=== PATIENT | male | born 1940 | race Caucasian/White ===

== ENCOUNTER 2016-08-22 09:43 | Inpatient (IN) | payer MEDICARE ==
[2016-08-22] MEDS ORDERED: NITROGLYCERIN SL TABS 0.4 MG TAB SUBLINGUAL STA (10:07)
[2016-08-22] MEDS ORDERED: ASPIRIN 81 MG CHEW PO STA ×2 (10:07→10:22)
--- NOTE | 2016-08-22 10:22 | ED ---
Chest Pain HPI - General Chief Complaint: Chest Pain Stated Complaint: Chest Pain Time Seen by Provider: 08/22/16 09:56 Source: patient, family, RN notes reviewed Mode of arrival: wheelchair Limitations: no limitations - History of Present Illness Initial Comments: This is a 75-year-old male who presents with complaints of chest pain which started last night. He states pain is midsternal left-sided going down the left arm numbness. With 9/10 in severity this morning and is 8/10 with a denies any fevers chills nausea vomiting sweats he is a smoker. He has hypertension no other complaints at this time he did take a baby aspirin is warranted and taking nitroglycerin. He has had a history of bypass surgery in the past. sharp component to it was different than normal. MD Complaint: chest pain - Related Data Home Medications Medication Instructions Recorded Confirmed Acetaminophen [Tylenol] 500 mg PO Q4H PRN 08/22/16 08/22/16 Aspirin EC [Ecotrin Low Dose] 81 mg PO DAILY 08/22/16 08/22/16 Carvedilol [Coreg] 6.25 mg PO BID 08/22/16 08/22/16 Crestor (Unknown Dose) 1 tab PO DAILY 08/22/16 08/22/16 Enalapril [Vasotec] 5 mg PO BID 08/22/16 08/22/16 Furosemide [Lasix] 40 mg PO DAILY 08/22/16 08/22/16 Nitroglycerin Sl Tabs [Nitrostat] 0.4 mg SUBLINGUAL Q5M PRN 08/22/16 08/22/16 Potassium Chloride [Klor-Con 20] 20 meq PO DAILY 08/22/16 08/22/16 Ranolazine [Ranexa] 1,000 mg PO BID 08/22/16 08/22/16 amLODIPine [Norvasc] 10 mg PO DAILY 08/22/16 08/22/16 Allergies Allergy/AdvReac Type Severity Reaction Status Date / Time No Known Allergies Allergy Verified 08/22/16 10:40 Review of Systems ROS Statement: Those systems with pertinent positive or pertinent negative responses have been documented in the HPI. ROS Other: All systems not noted in ROS Statement are negative. EKG Findings - EKG Results: EKG: interpreted by NORA, sinus rhythm (Sinus rhythm rate 62. 172 QRS of 140 daily since QTC of 458/464 evidence a right bundle-branch block old inferior changes no acute ST-T wave elevations or depressions at this time.) Past Medical History Past Medical History: Chest Pain / Angina, Heart Failure, Hypertension History of Any Multi-Drug Resistant Organisms: None Reported Past Surgical History: Back Surgery, Coronary Bypass/CABG, Heart Catheterization With Stent, Orthopedic Surgery Additional Past Surgical History / Comment(s): KNEE, LUNG Past Psychological History: No Psychological Hx Reported Smoking Status: Current every day smoker Past Alcohol Use History: None Reported Past Drug Use History: None Reported General Exam - General Exam Comments Initial Comments: This is a well-developed well-nourished awake alert oriented 3 male Limitations: no limitations General appearance: alert, in no apparent distress Head exam: Present: atraumatic, normocephalic, normal inspection Eye exam: Present: normal appearance, PERRL, EOMI. Absent: scleral icterus, conjunctival injection, periorbital swelling ENT exam: Present: normal exam, mucous membranes moist Neck exam: Present: normal inspection. Absent: tenderness, meningismus, lymphadenopathy Respiratory exam: Present: normal lung sounds bilaterally, chest wall tenderness. Absent: respiratory distress, wheezes, rales, rhonchi, stridor Cardiovascular Exam: Present: regular rate, normal rhythm, normal heart sounds. Absent: systolic murmur, diastolic murmur, rubs, gallop, clicks GI/Abdominal exam: Present: soft, normal bowel sounds. Absent: distended, tenderness, guarding, rebound, rigid Extremities exam: Present: normal inspection, full ROM, normal capillary refill. Absent: tenderness, pedal edema, joint swelling, calf tenderness Back exam: Present: normal inspection Neurological exam: Present: alert, oriented X3, CN II-XII intact Psychiatric exam: Present: normal affect, normal mood Skin exam: Present: warm, dry, intact, normal color. Absent: rash Course Vital Signs 08/22/16 08/22/16 08/22/16 09:44 10:25 10:30 Temperature 97.0 F L Pulse Rate 65 Respiratory 18 Rate Blood Pressure 151/72 125/61 111/56 O2 Sat by Pulse 97 Oximetry 08/22/16 08/22/16 08/22/16 10:35 11:05 11:10 Temperature Pulse Rate 60 59 L Respiratory 18 18 Rate Blood Pressure 99/63 123/66 112/60 O2 Sat by Pulse 96 93 L Oximetry 08/22/16 08/22/16 12:10 12:15 Temperature Pulse Rate 56 L 57 L Respiratory 18 16 Rate Blood Pressure 113/60 113/60 O2 Sat by Pulse 99 98 Oximetry - Reevaluation(s) Reevaluation #1: 08/22/16 13:24 Patient did get some relief of the initial nitroglycerin did drop his blood pressure. IV fluids were given he didn't respond. Chest Pain MDM - MDM I did review the imaging and reports no acute findings. Patient did get some relief from nitroglycerin or do not believe all pain is cardiac it may be musculoskeletal in combination. Patient will be admitted for evaluation by cardiology. We did discuss smoking cessation the patient states he does plan to quit smoking now. Critical Care Time Critical Care Time: Yes Critical Care Time: 31 minutes of critical care time which includes initial presentation with history physical labs x-rays discussed with patient on multiple occasions pulses family. Reevaluation. Discussed with the admitting physician. Initial orders and documentation of the above. Disposition Clinical Impression: Unstable angina pectoris, Chest wall syndrome Disposition: ADMITTED IP TO THIS [facility] Condition: Stable Referrals: Nonstaff,Physician [REFERRING] - 1-2 days
[2016-08-22 10:24] LABS: Basophils # (A) 0.1 k/uL (0-0.2); Basophils % (A) 1 %; CH 32.3; CHCM 34.6; Eosinophils # (A) 0.2 k/uL (0-0.7); Eosinophils % (A) 2 %; HCT 46.8 % (39.0-53.0); HDW 2.48; HGB 15.9 gm/dL (13.0-17.5); Luc # (Auto) 0.24; Luc % (Auto) 3; Lymphocytes # (A) 2.4 k/uL (1.0-4.8); Lymphocytes % (A) 26 %; MCH 31.9 pg (25.0-35.0); MCV 93.7 fL (80.0-100.0); Mean Platelet Volume 7.7; Monocytes # (A) 0.6 k/uL (0-1.0); Monocytes % (A) 7 %; Neutrophils # (A) 5.7 k/uL (1.3-7.7); Neutrophils % (A) 62 %; RBC 4.99 m/uL (4.30-5.90); RDW 13.3 % (11.5-15.5); WBC 9.1 k/uL (3.8-10.6); WBC (Perox) 9.01
[2016-08-22 10:37] LABS: INR 1.1 (<1.1); Partial Thromboplastin Time 26.6 sec (22.0-30.0); Prothrombin Time 10.6 sec (9.0-12.0)
[2016-08-22 10:38] LABS: ALT 29 U/L (21-72); AST 18 U/L (17-59); Alkaline Phosphatase 59 U/L (38-126); Anion Gap 12 mmol/L; Blood Urea Nitrogen 29 mg/dL (9-20); Calcium 9.8 mg/dL (8.4-10.2); Carbon Dioxide 21 mmol/L (22-30); Chloride 109 mmol/L (98-107); Glucose 110 mg/dL (74-99); Non-African American GFR(MDRD) 51 (>60 ml/min/1.73 sqM); Potassium 4.4 mmol/L (3.5-5.1); Sodium 142 mmol/L (137-145); Total Bilirubin 1.2 mg/dL (0.2-1.3); Total Protein 7.4 g/dL (6.3-8.2)
[2016-08-22] MEDS ORDERED: SODIUM CHLORIDE 0.9% 500 ML IV STA (10:40)
[2016-08-22 11:06] LABS: Creatine Kinase MB 1.2 ng/mL (0.0-2.4)
[2016-08-22 11:11] LABS: Troponin I 0.041 ng/mL (0.000-0.034)
[2016-08-22] MEDS ORDERED: HEPARIN SODIUM,PORCINE 5,000 UNIT/ML 1 ML VIAL IV ONE (11:12)
[2016-08-22] MEDS ORDERED: MORPHINE SULFATE 4 MG/ML SYRINGE IVP STA (11:12)
[2016-08-22] MEDS ORDERED: HEPARIN SODIUM,PORCINE/D5W PMX 25,000 UNIT in DEXTROSE/WATER 1 500ML.BAG IV SCH (11:15)
--- NOTE | 2016-08-22 11:15 | XR ---
EXAMINATION TYPE: XR chest 2V DATE OF EXAM: 08/22/2016 COMPARISON: NONE HISTORY: Chest pain TECHNIQUE: Frontal and lateral views of the chest are obtained. FINDINGS: The posterior fifth rib on the right likely has previously been resected, there is irregul arity of the posterior rib. Patient is post median sternotomy. No evident pneumothorax or pleural eff usion. Patchy basilar density is present bilaterally, the interstitium is mildly increased. Prominent lung volume may be indicative of COPD. There are overlying cardiac leads. Heart size is within kevin l limits. Coronary artery calcifications are present. Pulmonary vascularity and lisette unremarkable. IMPRESSION: Postop changes. There may be basilar atelectasis or scarring.
[2016-08-22] MEDS ORDERED: RX INFO: IV CONTRAST WAS GIVEN 1 EACH MISC MISCELLANE PRN (11:39)
--- NOTE | 2016-08-22 12:17 | CT ---
EXAMINATION TYPE: CT angio chest DATE OF EXAM: 08/22/2016 COMPARISON: NONE HISTORY: Chest pains since last night. History of CABG and bypass. CT DLP: 405.2 mGycm. Automated Exposure Control for Dose Reduction was Utilized. CONTRAST: CTA scan of the thorax is performed with IV Contrast, patient injected with 80 mL of Visipaque 320, p ulmonary embolism protocol. MIP Images are created on CT scanner and reviewed. FINDINGS: LUNGS: Mild underlying emphysematous change is felt present. Dependent atelectasis is seen in both lo wer lobes. There is subpleural reticulation and fibrosis identified bilaterally in the lower lobes. N o suspicious consolidation is seen. No pleural effusion or pneumothorax is noted bilaterally. No conc erning parenchymal nodule or mass is present. MEDIASTINUM: There is satisfactory enhancement of the pulmonary artery and its branches, there is no CT evidence for pulmonary embolism. There are no greater than 1 cm hilar or mediastinal lymph nodes. No cardiomegaly or pericardial effusion is seen. Prominent citizen [place] three-vessel coronary artery sally cification is seen. There is however post CABG changes with mediastinal clips and sternal wires. Refl ux of contrast into IVC and hepatic veins is noted. Mild left atrial dilatation is seen. There is mil d to moderate calcified plaque of the aorta extending into branch vessels. OTHER: There is partial visualization of small splenule inferiorly on axial image 151. IMPRESSION: 1. No CT evidence for pulmonary embolism. 2. Mild underlying emphysematous change with bilateral lower lung fibrosis, no convincing evidence fo r suspicious acute pulmonary process.
[2016-08-22] MEDS ORDERED: NITROGLYCERIN SL TABS 0.4 MG TAB SUBLINGUAL PRN ×2 (13:25→15:22)
[2016-08-22] MEDS ORDERED: ACETAMINOPHEN TAB 500 MG TAB PO PRN (13:27)
[2016-08-22] MEDS ORDERED: SODIUM CHLORIDE 0.9% 1,000 ML IV SCH (13:30)
[2016-08-22] MEDS ORDERED: ATORVASTATIN 80 MG TAB PO STA (15:22)
[2016-08-22] MEDS ORDERED: ALPRAZolam 0.5 MG TAB PO PRN (15:22)
[2016-08-22] MEDS ORDERED: ALPRAZolam 0.25 MG TAB PO PRN (15:22)
[2016-08-22] MEDS ORDERED: SODIUM CHLORIDE 0.9% 1,000 ML in EMPTY BAG 1 BAG IV ONE (15:22)
[2016-08-22] MEDS ORDERED: ASPIRIN 325 MG TAB PO STA (15:22)
[2016-08-22] MEDS: NITROGLYCERIN OINT 1 INCH/GM PACKET TOPICAL SCH ×2 (17:15→23:35)
[2016-08-22] MEDS ORDERED: HEPARIN SODIUM,PORCINE 5,000 UNIT/ML 1 ML VIAL IV PRN (17:48)
[2016-08-22 17:58] LABS: Creatine Kinase MB 1.4 ng/mL (0.0-2.4)
[2016-08-22 18:31] LABS: Troponin I 0.027 ng/mL (0.000-0.034)
--- NOTE | 2016-08-22 20:19 | CONS ---
DATE OF CONSULTATION: Mr. Rangel is a 75-year-old male who has moved from [place] to our area who presented to the emergency room with symptoms of chest discomfort. Patient underwent coronary bypass grafting about 6 years ago and appears to have single HDZ. His procedure was proceeded about 6 months ago by a percutaneous revascularization. He underwent cardiac catheterization about a year following that, but he was told medical therapy was recommended. He has been complaining of some chest discomfort on and off, but last night had severe chest discomfort and felt somewhat dyspneic and dizzy. Came into the emergency room. At time of my evaluation, he is pain free. He had discomfort occurred yesterday after he washed his truck. He has no clear PND or orthopnea. No peripheral edema. He has occasional palpitation, but no syncope. His coronary risk factors are remarkable for history of smoking. He is trying to cut back on smoking, he is down to a pack every 3 days. He has hypertension. He is nondiabetic. His medications include Coreg to 6.25 mg twice a day, amlodipine 10 mg daily, Ranexa 1 gram twice a day, Lasix 40 mg daily, Enalapril 5 mg twice a day, aspirin 81 mg daily. REVIEW OF SYSTEMS: RESPIRATORY SYSTEM: Chronic tobacco use, occasional dyspnea. GI: No recent GI bleeding. No peptic ulcer disease. system: No dysuria or hematuria. Nervous system: No stroke or seizure. PHYSICAL EXAMINATION: A 75-year-old male, alert, oriented, in no apparent distress. Blood pressure 148/80 with a heart in the 50s. HEAD: Normocephalic. EYES: Sclerae anicteric. NECK: Good upstroke. No bruit. No jugular venous distention. LUNGS: Clear to auscultation. HEART: Regular rate and rhythm. S1, S2, no S3, with systolic murmur heard at the base. No diastolic murmur. No rub. ABDOMEN: Soft, obese, nontender. EXTREMITIES: No edema. Lab data revealed BUN and creatinine 29 and 1.36. Potassium 4.4. Troponin 0.041. Hemoglobin of 15.9. He had a CT angiogram of the chest that revealed no evidence of pulmonary embolism with evidence of bilateral lung fibrosis and mild emphysematous changes. EKG revealed a sinus mechanism with a right bundle branch block with evidence of inferior wall myocardial infarction. Chest x-ray shows no acute changes. IMPRESSION: 1. Symptoms of chest discomfort highly suggestive of angina pectoris possible non-ST elevation myocardial infarction. 2. Status post coronary artery bypass grafting. 3. Hypertension. 4. Hyperlipidemia. 5. Diabetes mellitus. 6. Renal function abnormalities. RECOMMENDATION: From the cardiac standpoint, I will obtain echocardiogram with Doppler. I would recommend to proceed with coronary angiography to assess his status and guide his treatment. The rationale behind the procedure as well as risk and complications were discussed with the patient who is in full understanding and agreement. I will try to obtain the prior work-up that was done in [place]. I will add the statin to his regimen. Depending on his progress, further recommendation will be made.
[2016-08-22] MEDS: RANOLAZINE 500 MG TAB.ER.12H PO SCH (21:24)
[2016-08-22] MEDS: CARVEDILOL 6.25 MG TAB PO SCH (21:25)
[2016-08-23 00:14] LABS: Creatine Kinase MB 1.5 ng/mL (0.0-2.4)
[2016-08-23 00:23] LABS: Troponin I 0.035 ng/mL (0.000-0.034)
[2016-08-23] MEDS ORDERED: ATORVASTATIN 80 MG TAB PO ONE (06:00)
[2016-08-23] MEDS ORDERED: SODIUM CHLORIDE 0.9% 1,000 ML in EMPTY BAG 1 BAG IV ONE (06:00)
[2016-08-23] MEDS ORDERED: ASPIRIN 325 MG TAB PO ONE (06:00)
[2016-08-23] MEDS: NITROGLYCERIN OINT 1 INCH/GM PACKET TOPICAL SCH (06:07)
[2016-08-23] MEDS: LISINOPRIL 20 MG TAB PO SCH (06:09)
[2016-08-23] MEDS: CARVEDILOL 6.25 MG TAB PO SCH ×2 (06:09→20:54)
[2016-08-23] MEDS: RANOLAZINE 500 MG TAB.ER.12H PO SCH ×2 (06:10→20:54)
[2016-08-23 06:12] LABS: Glucose,Whole Blood 101 mg/dL (75-99)
[2016-08-23 06:16] LABS: Calcium 8.7 mg/dL (8.4-10.2); Potassium 4.1 mmol/L (3.5-5.1)
[2016-08-23] MEDS ORDERED: diphenhydrAMINE 50 MG/ML 1 ML VIAL ONE (07:27)
[2016-08-23] MEDS ORDERED: LIDOCAINE 2% INJ 20 MG/ML (20 ML MDV) ONE (07:27)
[2016-08-23] MEDS ORDERED: fentaNYL (PF) 50 MCG/ML 2 ML AMP ONE (07:27)
[2016-08-23] MEDS ORDERED: IV FLUID CONTINUATION 900 ML IV ONE (07:34)
[2016-08-23] MEDS ORDERED: fentaNYL (PF) 50 MCG/ML 2 ML AMP IV ONE (08:02)
[2016-08-23] MEDS ORDERED: diphenhydrAMINE 50 MG/ML 1 ML VIAL IVP ONE (08:02)
[2016-08-23] MEDS ORDERED: LIDOCAINE 2% INJ 20 MG/ML SQ ONE (08:07)
[2016-08-23] MEDS ORDERED: IODIXANOL 320 MG/ML 100 ML INTRAARTER ONE (08:24)
[2016-08-23] MEDS ORDERED: RX INFO: IV CONTRAST WAS GIVEN 1 EACH MISC MISCELLANE PRN (08:46)
[2016-08-23] MEDS ORDERED: CRESTOR PO SCH (09:00)
[2016-08-23] MEDS ORDERED: amLODIPine 10 MG TAB PO SCH (09:00)
[2016-08-23] MEDS ORDERED: amLODIPine 5 MG TAB PO SCH (09:00)
[2016-08-23] MEDS ORDERED: FUROSEMIDE 40 MG TAB PO SCH (09:00)
[2016-08-23] MEDS ORDERED: ASPIRIN 325 MG TAB PO SCH (09:00)
[2016-08-23] MEDS ORDERED: SODIUM CHLORIDE 0.9% 1,000 ML IV SCH (09:00)
[2016-08-23] MEDS: ASPIRIN 81 MG CHEW PO SCH (09:03)
[2016-08-23] MEDS: ATORVASTATIN 40 MG TAB PO SCH (09:03)
[2016-08-23] MEDS: POTASSIUM CHLORIDE ER 20 MEQ TAB.ER PO SCH (09:05)
[2016-08-23] MEDS: CLOPIDOGREL 75 MG TAB PO SCH (09:17)
[2016-08-23] MEDS: hydrALAZINE HCL 25 MG TAB PO SCH ×2 (09:17→20:55)
[2016-08-23] MEDS: ISOSORBIDE MONONITRATE ER 30 MG TAB.ER.24H PO SCH (09:18)
--- NOTE | 2016-08-23 10:28 | ECHOF ---
Referral Reason:in MEASUREMENTS -------- HEIGHT: 177.8 cm WEIGHT: 90.7 kg BP: 148/85 RVIDd: 3.6 cm (< 3.3) IVSd: 1.8 cm (0.6 - 1.1) LVIDd: 5.0 cm (3.9 - 5.3) LVPWd: 1.5 cm (0.6 - 1.1) IVSs: 2.4 cm LVIDs: 3.1 cm LVPWs: 2.0 cm LAESV Index (A-L): 33.03 ml/m Ao Diam: 4.0 cm (2.0 - 3.7) AV Cusp: 1.5 cm (1.5 - 2.6) LA Diam: 4.2 cm (2.7 - 3.8) MV EXCURSION: 17.701 mm (> 18.000) MV EF SLOPE: 59 mm/s (70 - 150) EPSS: 0.8 cm MV E Edy: 0.88 m/s MV DecT: 178 ms MV A Edy: 0.73 m/s MV E/A Ratio: 1.20 AV maxP.06 mmHg AV meanP.98 mmHg FINDINGS -------- Sinus rhythm. This was a technically adequate study. There is moderate concentric left ventricular hypertrophy. Overall left ventricular systolic function is normal with, an EF between 60 - 65 %. The right ventricle is normal in size and function. LA is moderately dilated 34-39 ml/m2 The right atrium is normal in size. There is moderate aortic valve sclerosis. There is no evidence of aortic regurgitation. There is no evidence of aortic stenosis. The mitral valve leaflets are mildly thickened. Mild mitral annular calcification present. There is trace to mild mitral regurgitation. Trace tricuspid regurgitation present. There is no evidence of pulmonary hypertension. The right ventricular systolic pressure, as measured by Doppler, is {RVSP}. There is no pulmonic regurgitation present. The aortic root size is normal. IVC Not well visulized. The pericardium is normal. There is no pericardial effusion. CONCLUSIONS -------- 1. Sinus rhythm. 2. There is no evidence of pulmonary hypertension. 3. The right ventricular systolic pressure, as measured by Doppler, is {RVSP}. 4. There is no pulmonic regurgitation present. 5. The aortic root size is normal. 6. IVC Not well visulized. 7. There is no pericardial effusion. 8. There is moderate concentric left ventricular hypertrophy. 9. Overall left ventricular systolic function is normal with, an EF between 60 - 65 %. 10. LA is moderately dilated 34-39 ml/m2 11. There is moderate aortic valve sclerosis. 12. The mitral valve leaflets are mildly thickened. 13. Mild mitral annular calcification present. 14. There is trace to mild mitral regurgitation. 15. Trace tricuspid regurgitation present. VENEER TAPING MACHINE OPERATOR: Kory Brooks RDCS
[2016-08-23 11:56] LABS: Glucose,Whole Blood 125 mg/dL (75-99)
[2016-08-23] MEDS: NICOTINE 14MG/24HR PATCH TRANSDERM SCH (13:17)
--- NOTE | 2016-08-23 15:06 | US ---
EXAMINATION TYPE: US renals and bladder DATE OF EXAM: 08/23/2016 COMPARISON: NONE CLINICAL HISTORY: renal failure. Patient is on cardiac catheterization precautions at time of bedside US. EXAM MEASUREMENTS: Right Kidney: 11.2 x 5.8 x 4.7 cm Left Kidney: 11.5 x 4.7 x 4.8 cm Post Void Residual Volume: not assessed as is on supine precautions until 1500 today. Right Kidney: medial lower cortical cyst is noted = 1.4 x 1.5 x 1.6cm; mid pole hypoechoic area is no souleymane pararenal area and suggests sonographic"sweat sign" (renal failure). Left Kidney: mid pole hypoechoic area is noted pararenal area and suggests sonographic"sweat sign" ( renal failure). Bladder: wnl Bilateral Jets seen: only left ureteral jet was seen after 3 minute observation. IMPRESSION: 1. Sonographic changes suggesting renal failure. 2. Inferior pole right renal cyst
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
[2016-08-23] MEDS: IPRATROPIUM-ALBUTEROL 3 ML NEB INHALATION SCH ×2 (16:44→21:08)
[2016-08-23 17:08] LABS: Glucose,Whole Blood 115 mg/dL (75-99)
--- NOTE | 2016-08-23 18:39 | CC ---
DATE OF SERVICE: Mr. Rangel is a 75-year-old male who recently moved to our area from [place] and has a prior history of coronary artery disease. He presented with symptoms of chest discomfort with mild elevation of his troponin. In view of that, recommendation was made regarding cardiac catheterization. The procedure as well as risk and complications were discussed with the patient, who was in full understanding and agreement. PROCEDURE: Patient was brought to the bundle tier and labeler in a fasting, semi-sedated state after receiving fentanyl and Benadryl and achieving moderate conscious sedated state. A 6 Trin[place] sheath was introduced in the right femoral artery. Selective right and left coronary angiography was performed using 6 [place] 4 Bend right and left Vivian catheters. Multiple views were taken of the arteries, including hemiaxial views. Following that, the 6 [place] right Vivian catheter was used to cannulate the HDZ to the LAD. Images of the grafts were obtained. Following that, 6 [place] tight pigtail catheter was introduced into the left ventricle and a 30-degree FLOOD view of the left ventricle was obtained. Following that, catheter and sheaths were removed. Hemostasis was obtained with compression of the right groin. There were no immediate complications. Patient was returned to his room in stable condition. FINDINGS FLUOROSCOPY: There is severe calcification involving the left main, LAD and the left circumflex as well as the right coronary artery. LEFT MAIN: This is a large-sized vessel bifurcating into the left circumflex and left anterior descending artery. Left main coronary artery has a 40% to 50% proximal lesion. The rest of the vessel has no high-grade stenosis. LEFT ANTERIOR DESCENDING CORONARY ARTERY: This vessel is totally occluded at the takeoff of the first septal industrial engineering technologist with no antegrade flow. LEFT CIRCUMFLEX: This is a non-dominant vessel giving rise to 2 obtuse marginal branches. The left circumflex proximally stented has in-stent restenosis of about 50% to 60%. It is heavily calcified. In the mid segment there is another lesion that is eccentric of about 80%. There is diffuse intimal disease throughout the vessel. RIGHT CORONARY ARTERY: This vessel is totally occluded at the ostium with no antegrade flow. COLLATERALS: There is a collateral from the left coronary system toward the right PDA. HDZ TO THE LAD: The distal anastomotic site is patent. The flow into the LAD and the diagonal branch is brisk. There is diffuse disease in both branches but no evidence of high-grade stenosis. LEFT VENTRICULOGRAM: Left ventriculogram was performed in 30-degree FLOOD view and revealed inferoapical akinesis. The ejection fraction is estimated at 30%. There is 1+ mitral regurgitation. HEMODYNAMICS: There was a 10 mm gradient across the aortic valve. The left ventricular end-diastolic pressure was about 20 mmHg. CONCLUSION: 1. Severely calcified coronary arteries. 2. Proximal left main stenosis of 50%. 3. Chronically occluded left anterior descending coronary artery. 4. Severe diffuse disease in the left circumflex in a heavily calcified area. 5. Chronically occluded proximal right coronary artery. 6. Patent HDZ to LAD. 7. Severely impaired left ventricular systolic function. 8. Severe peripheral vascular disease in the femoral artery on the right side. RECOMMENDATION: At this time I will maximize his medical therapy. Angioplasty and stenting of the left main and the left circumflex is a high-risk procedure. We will see how he does with maximizing medical therapy. If he has persistent symptoms, that will be an option. At the same time, his left ventricular systolic function will be followed, and if he has no improvement, then I would recommend proceeding with evaluation for ICD implantation. Those findings and recommendations were discussed with the patient, and he is in full understanding and agreement. Duration of the procedure was 19 minutes.
[2016-08-23 21:07] LABS: Appearance,Urine Clear (Clear); Bilirubin,Urine Negative (Negative); Glucose,Urine (UA) Negative (Negative); Ketones,Urine Negative (Negative); Leukocyte Esterase,Urine Negative (Negative); Nitrite,Urine Negative (Negative); Protein,Urine Trace (Negative); Specific Gravity,Urine 1.042 (1.001-1.035); UA Billing (MACRO vs. MICRO) CHEM
[2016-08-24 06:50] LABS: Anion Gap 11 mmol/L; Blood Urea Nitrogen 23 mg/dL (9-20); Calcium 8.7 mg/dL (8.4-10.2); Carbon Dioxide 17 mmol/L (22-30); Chloride 112 mmol/L (98-107); Glucose 90 mg/dL (74-99); Non-African American GFR(MDRD) 53 (>60 ml/min/1.73 sqM); Potassium 4.7 mmol/L (3.5-5.1); Sodium 140 mmol/L (137-145)
[2016-08-24] MEDS: IPRATROPIUM-ALBUTEROL 3 ML NEB INHALATION SCH ×4 (08:09→20:18)
[2016-08-24] MEDS: ATORVASTATIN 40 MG TAB PO SCH (08:31)
[2016-08-24] MEDS: hydrALAZINE HCL 25 MG TAB PO SCH ×2 (08:31→20:50)
[2016-08-24] MEDS: amLODIPine 5 MG TAB PO SCH (08:31)
[2016-08-24] MEDS: CARVEDILOL 6.25 MG TAB PO SCH ×2 (08:31→20:50)
[2016-08-24] MEDS: CLOPIDOGREL 75 MG TAB PO SCH (08:31)
[2016-08-24] MEDS: ASPIRIN 81 MG CHEW PO SCH (08:31)
[2016-08-24] MEDS: ISOSORBIDE MONONITRATE ER 30 MG TAB.ER.24H PO SCH (08:32)
[2016-08-24] MEDS: POTASSIUM CHLORIDE ER 20 MEQ TAB.ER PO SCH (08:32)
[2016-08-24] MEDS: NICOTINE 14MG/24HR PATCH TRANSDERM SCH (08:32)
[2016-08-24] MEDS: LISINOPRIL 20 MG TAB PO SCH (08:32)
[2016-08-24] MEDS: RANOLAZINE 500 MG TAB.ER.12H PO SCH ×2 (08:32→20:50)
[2016-08-24] MEDS ORDERED: NON-FORMULARY DRUG (Aspirin Ec 81 MG) PO SCH (09:00)
--- NOTE | 2016-08-24 18:29 | PN ---
Mr. Rangel is a 75-year-old male who presented with symptoms of angina pectoris and non-STEMI underwent cardiac catheterization, was found to have diffuse disease involving the left circumflex with a lesion in the ostial of the left main, and a very calcified vessel. Maximizing medical therapy was recommended. He is doing well this morning. He is ambulating without difficulty. Denying any chest pain. Denies any dizziness or palpitation. He continues to be on aspirin once a day, Plavix 75 mg daily, amlodipine 5 mg daily, Lipitor 40 mg daily, Coreg 6.25 mg twice a day, isosorbide mononitrate 30 mg daily, lisinopril 20 mg daily, Ranexa 1 gram twice a day. PHYSICAL EXAMINATION: Blood pressure 134/60 with the heart rate in 60s. LUNGS: Clear. HEART: Regular rate and rhythm. S1, S2, no S3, with systolic murmur. No diastolic murmur. No rub. ABDOMEN: Soft, nontender. No organomegaly. EXTREMITIES: No edema. RIGHT GROIN: No hematoma. Lab data revealed BUN and creatinine 23 and 1.31, which is stable. Potassium 4.7. IMPRESSION: 1. Coronary artery disease with severe diffuse pattern of disease in the left circumflex and a lesion in the left main. 2. Patent left internal mammary artery to the left anterior descending artery. 3. History of hypertension. 4. Hyperlipidemia. 5. Chronic tobacco use. RECOMMENDATION: Will continue on present therapy. Increase his level of activity. If he is stable, I would expect he should be able to be discharged home tomorrow.
--- NOTE | 2016-08-24 20:52 | P.PN ---
Progress Note - Text DATE OF SERVICE: 08/24/2016 PRESENTING COMPLAINT: Chest pain INTERVAL HISTORY: This 75-year-old male who presented with chest pain now status post cardiac catheterization. Patient is doing well, ambulating in the jackson, tolerating his diet, had a BM. REVIEW OF SYSTEMS: Done for constitutional ,cardiovascular, GI, pulmonary with relevant findings as above. CURRENT MEDICATIONS DuoNeb's, Xanax, aspirin, Lipitor, Coreg, hydralazine, Imdur, Zestril, nicotine patch, potassium chloride, Ranexa. PHYSICAL EXAM: VITAL SIGNS: Temperature 96.4, pulse 60 respirations 18 blood pressure 134/59, oxygen saturation 99% on room air. GENERAL APPEARANCE: . Lying in bed, appears comfortable EYES: Pupils equal. Conjunctiva normal. NECK: JVD not raised. Mass not palpable. RESPIRATORY: Respiratory effort normal. Lungs diminished with some wheezing noted. CARDIOVASCULAR: First and second sounds normal. No edema. ABDOMEN: Soft. Liver and spleen not palpable. No tenderness. No mass palpable. PSYCHIATRY: Alert and oriented x3. Mood and affect normal. INVESTIGATIONS: Sodium 140 BUN 23 creatinine 1.31 Accu-Cheks noted. Cardiac catheterization: Severely calcified coronary arteries, proximal left main stenosis of 50%, Echocardiogram: Sinus rhythm, EF between 60 and 65% ASSESSMENT: Non-ST elevation myocardial infarction in a patient with known coronary artery disease Gastroesophageal reflux disease Essential hypertension Hyperlipidemia Primary osteoarthritis of multiple joints bilaterally. Chronic obstructive pulmonary disease in a smoker. Chronic nicotine dependence. Patient is a smoker. Chronic kidney disease stage III, from hypertensive nephrosclerosis. Moderate aortic stenosis PLAN: We'll continue current medication and treatment plan, possible discharge on Friday. [employer] REPAIR statement: Patient was seen and examined by nurse practitioner Mavis Paulson in all elements of the case discussed with attending is Dr. Courtney
[2016-08-24 22:41] VITALS: RESP 16
[2016-08-25 04:35] VITALS: TEMP 97
[2016-08-25 07:05] LABS: Anion Gap 12 mmol/L; Blood Urea Nitrogen 21 mg/dL (9-20); Calcium 9.5 mg/dL (8.4-10.2); Carbon Dioxide 19 mmol/L (22-30); Chloride 109 mmol/L (98-107); Glucose 120 mg/dL (74-99); Non-African American GFR(MDRD) 54 (>60 ml/min/1.73 sqM); Potassium 4.6 mmol/L (3.5-5.1); Sodium 140 mmol/L (137-145)
[2016-08-25] MEDS: IPRATROPIUM-ALBUTEROL 3 ML NEB INHALATION SCH ×2 (08:36→11:31)
[2016-08-25] MEDS: NICOTINE 14MG/24HR PATCH TRANSDERM SCH (11:20)
[2016-08-25] MEDS: RANOLAZINE 500 MG TAB.ER.12H PO SCH (11:20)
[2016-08-25] MEDS: LISINOPRIL 20 MG TAB PO SCH (11:20)
[2016-08-25] MEDS: hydrALAZINE HCL 25 MG TAB PO SCH (11:20)
[2016-08-25] MEDS: ISOSORBIDE MONONITRATE ER 30 MG TAB.ER.24H PO SCH (11:21)
[2016-08-25] MEDS: CLOPIDOGREL 75 MG TAB PO SCH (11:21)
[2016-08-25] MEDS: POTASSIUM CHLORIDE ER 20 MEQ TAB.ER PO SCH (11:21)
[2016-08-25] MEDS: ASPIRIN 81 MG CHEW PO SCH (11:22)
[2016-08-25] MEDS: ATORVASTATIN 40 MG TAB PO SCH (11:22)
[2016-08-25] MEDS: CARVEDILOL 6.25 MG TAB PO SCH (11:22)
[2016-08-25] MEDS: amLODIPine 5 MG TAB PO SCH (11:22)
--- NOTE | 2016-08-25 11:42 | PN ---
DATE OF SERVICE: 08/24/2016 PRESENTING COMPLAINT: Chest pain. INTERVAL HISTORY: This patient was seen and examined by me earlier today. I reviewed the note of my nurse practitioner, Ms. Paulson. Reviewed, discussed and additional findings below. This patient with status post cardiac cath showing significant disease, not for intervention. Medical management being done. The patient has been out of bed. No chest pain or shortness of breath. On examination, blood pressure 130/59, pulse 60. LUNGS: Decreased breath sounds. CARDIOVASCULAR: First and second sounds normal. No edema. INVESTIGATIONS: BUN 23, creatinine 1.31. ASSESSMENT: 1. Non-ST elevation myocardial infarction with known coronary artery disease. 2. Cardiac catheterization showing significant disease not for intervention. 3. Moderate aortic sclerosis, rheumatic. PLAN: Continue current medication and treatment plan. Medications per Cardiology. Patient encouraged to ambulate.
--- NOTE | 2016-08-25 11:44 | PN ---
DATE OF SERVICE: 08/24/2016 ADDENDUM: Please add: PLAN: Patient encouraged to ambulate. Medications are reviewed. Will follow.
[2016-08-25 12:33] VITALS: BP 109/61; PULSE 63
--- NOTE | 2016-08-25 16:25 | PN ---
Mr. Rangel is a 75-year-old male with a known history of coronary artery disease, who had episode of chest discomfort with minimal elevation of troponin. He has no chest pain at this point, but he has been having some nausea and vomiting and abdominal pain. Apparently he was constipated. He felt that some of his symptoms are related to the prune juice he took. He denies any dizziness or palpitation. He continues to be at this time on amlodipine 5 mg daily, aspirin once a day, Lipitor 4 mg daily, Coreg 6.25 mg twice a day, hydralazine 25 mg twice a day, Plavix 75 mg daily, isosorbide mononitrate 30 mg daily, Lisinopril 20 mg daily and Ranexa 1 gram twice a day. PHYSICAL EXAMINATION: Blood pressure running in the 130s with the heart rate in the 60s. LUNGS: Clear. HEART: Regular rate and rhythm. S1, S2, no S3, with systolic murmur. No diastolic murmur. No rub. ABDOMEN: Soft, mild tenderness. Positive bowel sounds. No organomegaly. EXTREMITIES: No edema. Lab data revealed BUN and creatinine 21 and 1.3. Potassium 4.6. IMPRESSION: 1. Non- ST segment elevation myocardial infarction with diffuse disease in the left circumflex. 2. History of chronic tobacco use. 3. History of hypertension. 4. Hyperlipidemia. RECOMMENDATIONS: From the cardiac standpoint, we will continue present therapy, increase his level of activity. If he remains stable, I expect he should be able to be discharged home soon and follow as an outpatient next week.
--- NOTE | 2016-08-26 09:00 | DS ---
DATE OF ADMISSION: 08/22/2016 DATE OF DISCHARGE: 08/25/2016 FINAL DIAGNOSIS: 1. Possible non-ST elevation myocardial infarction. The patient with known coronary artery disease, present on admission. 2. Gastroesophageal reflux disease. 3. Essential hypertension. 4. Hyperlipidemia. 5. Primary osteoarthritis of multiple joints, bilaterally. 6. Chronic obstructive pulmonary disease in a current smoker. 7. Chronic nicotine dependence. Patient is a smoker. 8. Chronic kidney disease, stage III from hypertensive nephrosclerosis. 9. Moderate aortic sclerosis. 10. Hypertensive heart disease with hypertension associated with chronic kidney disease. PROCEDURE: Cardiac catheterization. HOSPITAL COURSE: This is a patient who moved here from [place]. Presents with chest pain, felt to have non-Q-wave [place]. The patient creatinine on presentation was 1.6 and 1.3 at the time of discharge. Cardiac catheterization did show some diffuse disease. More details in Dr. Kaur's report. At this point, has decided to manage the patient medically. PE was ruled out. A 2-D echo showed EF of 60-65%, moderate concentric left ventricular hypertrophy. On the day of discharge, patient up and about. No chest pain or shortness of breath. DISCHARGE MEDICATIONS: 1. Aspirin 81 mg p.o. daily. 2. Coreg 6.25 p.o. b.i.d. 3. Lasix 40 mg a day. 4. Nitrostat 0.4 sublingual q.5 p.r.n. 5. Potassium 20 meq p.o. daily. 6. Ranexa 1000 mg p.o. daily. 7. Lipitor 40 mg p.o. daily. 8. Plavix 75 mg daily. 9. Imdur 30 mg p.o. daily. 10. Zestril 20 mg p.o. daily. 11. Nicotine 1 milligrams patch. 12. Norvasc 5 mg p.o. daily. 13. Hydralazine 25 mg p.o. b.i.d. Follow-up with Dr. Kaur in one week, Dr. Young in one week. LABS: BMP in one week. Discharge planning more than 35 minutes.
== END 2016-08-25 15:30 | disposition home or self-care (01) | DRG 282 ==
LOC: EC 09:43 → 6SEL 13:25
PROVIDERS: ADMIT Hospitalist; ATTEND Hospitalist
PROC: B211YZZ Fluoroscopy of Multiple Coronary Arteries using Other Contrast (ICD-10-PCS; principal; 2016-08-23 07:17)
PROC: B215YZZ Fluoroscopy of Left Heart using Other Contrast (ICD-10-PCS; principal; 2016-08-23 07:17)
DX: I21.4 Non-ST elevation (NSTEMI) myocardial infarction (principal); J44.9 Chronic obstructive pulmonary disease, unspecified; I13.10 Hypertensive heart and chronic kidney disease without heart failure, with stage 1 through stage 4 chronic kidney disease, or unspecified chronic kidney disease; N18.3 Chronic kidney disease, stage 3 (moderate); Z95.1 Presence of aortocoronary bypass graft; K59.00 Constipation, unspecified; I73.9 Peripheral vascular disease, unspecified; E78.5 Hyperlipidemia, unspecified; I06.9 Rheumatic aortic valve disease, unspecified; K21.9 Gastro-esophageal reflux disease without esophagitis; M19.91 Primary osteoarthritis, unspecified site; F40.240 Claustrophobia; F17.200 Nicotine dependence, unspecified, uncomplicated; I25.10 Atherosclerotic heart disease of native coronary artery without angina pectoris; Z85.46 Personal history of malignant neoplasm of prostate; Z92.3 Personal history of irradiation; Z98.42 Cataract extraction status, left eye; Z98.41 Cataract extraction status, right eye; Z96.1 Presence of intraocular lens; Z79.82 Long term (current) use of aspirin; Z79.899 Other long term (current) drug therapy
CPT/HCPCS: 36415; 71020; 71275; 76770; 80048; 80053; 80061; 81003; 82550; 82553; 83735; 83880; 84484; 85025; 85379; 85610; 85730; 93005; 93306; 93459; 94640; 94760; 96365; 96366; 96375; 96376; 99291

== ENCOUNTER → 2016-08-28 | Outpatient (CLI) | payer MEDICARE ==
[2016-08-28 10:06] LABS: Anion Gap 12 mmol/L; Blood Urea Nitrogen 30 mg/dL (9-20); Calcium 9.9 mg/dL (8.4-10.2); Carbon Dioxide 24 mmol/L (22-30); Chloride 109 mmol/L (98-107); Glucose 109 mg/dL (74-99); Non-African American GFR(MDRD) 50 (>60 ml/min/1.73 sqM); Potassium 5.8 mmol/L (3.5-5.1); Sodium 145 mmol/L (137-145)
== END | disposition home or self-care (01) ==
LOC: LABWHC1 09:05
PROVIDERS: ATTEND Hospitalist
DX: I25.10 Atherosclerotic heart disease of native coronary artery without angina pectoris (principal)
CPT/HCPCS: 36415; 80048

== ENCOUNTER → 2016-11-28 | Outpatient (CLI) | payer MEDICARE ==
[2016-11-28 08:36] LABS: Blood Urea Nitrogen 19 mg/dL (9-20); Non-African American GFR(MDRD) 58 (>60 ml/min/1.73 sqM)
--- NOTE | 2016-11-28 09:34 | CT ---
EXAMINATION TYPE: CT abdomen w con DATE OF EXAM: 11/28/2016 COMPARISON: Ultrasound 08/23/2016. CT chest 08/22/2016. HISTORY: 76-year-old male, follow up study for known renal cyst from US. TECHNIQUE: Contiguous axial scanning of the abdomen and pelvis following administration of 100 ml Omn ipaque 300 IV contrast. Delayed images through the kidneys and coronal/sagittal reconstructions perf ormed. CT DLP: 1380 mGycm Automated exposure control for dose reduction was used. FINDINGS: The heart is normal size without pericardial effusion. Extensive coronary vessel calcifications are p resent. Some chronic appearing interstitial changes at the lung bases with patchy pleural parenchymal scarring. No pleural effusion. Small fat-containing ventral midline epigastric, substernal abdominal wall hernia, axial image 8, cor onal image 12, and sagittal image 41. No focal liver lesion or biliary ductal dilatation. Portal venous system is patent. Gallbladder, spleen with inferior splenule, and pancreas appear within normal limits. There is an indeterminate 1.5 cm nodule along the lateral limb of the right adrenal gland and additio nal indeterminate 1.9 cm nodule in the left adrenal gland. Statistically, these represent adrenal cinthya nomas but should be reassessed at follow-up. Evaluation of the right kidney shows an exophytic 1.7 cm lesion anterior lower pole with intermediate attenuation but no significant change in density on delayed kidney images suggesting a complicated c yst. This measured 1.6 cm on prior ultrasound. In the central aspect of the lower pole right kidney is a 1.8 cm lesion showing intermediate density also without significant change in attenuation on delayed kidney images. This was not identified on t he prior ultrasound. No other suspicious renal lesion is seen. Moderate atherosclerotic calcifications within the abdominal aorta and iliac arteries. Multisegmenta l fusiform dilatation of the infrarenal abdominal aorta without significant ectasia or aneurysm. Ther e is apparent occlusion of the visualized proximal left common iliac artery. The pelvis is not imaged . Tiny fatty umbilical hernia. No dilated small bowel, free fluid, or free air. Mild scattered stool and left hemicolonic diverticul osis. Bones: Degenerative changes throughout the lumbar spine. No osseous destructive process. IMPRESSION: 1. A COUPLE RENAL LESIONS, ONE ON EITHER SIDE MEASURING 1.7 AND 1.8 CM ON THE RIGHT AND LEFT, RESPECT IVELY. ATTENUATION CHARACTERISTICS FAVOR BOSNIAK CATEGORY 2 COMPLICATED CYSTS. HOWEVER, THE LEFT R ENAL LESION WAS NOT SEEN ON PRIOR ULTRASOUND, A SIX-MONTH FOLLOW-UP CONTRAST ENHANCED CT IS RECOMMEND ED A PRECAUTIONARY MEASURE. 2. BILATERAL ADRENAL GLAND NODULARITY MEASURING UP TO 1.9 CM. STATISTICALLY, THESE REPRESENT ADRENAL ADENOMAS BUT CAN ALSO BE REASSESSED AT FOLLOW-UP. 3. MODERATE ATHEROSCLEROTIC CALCIFICATIONS AND APPARENT OCCLUSION OF THE VISUALIZED PROXIMAL LEFT COM MON ILIAC ARTERY. CORRELATE WITH PATIENT'S SYMPTOMS. 4. CAD, SMALL FAT-CONTAINING EPIGASTRIC VENTRAL ABDOMINAL WALL HERNIA, LEFT HEMICOLONIC DIVERTICULOSI S, AND CHRONIC FIBROTIC CHANGES AT THE LUNG BASES.
== END | disposition home or self-care (01) ==
LOC: RADCTMAIN 07:52
PROVIDERS: ATTEND Family Medicine
DX: N28.89 Other specified disorders of kidney and ureter (principal); E27.8 Other specified disorders of adrenal gland; I25.10 Atherosclerotic heart disease of native coronary artery without angina pectoris; I74.5 Embolism and thrombosis of iliac artery; K57.30 Diverticulosis of large intestine without perforation or abscess without bleeding; J84.10 Pulmonary fibrosis, unspecified; K43.9 Ventral hernia without obstruction or gangrene
CPT/HCPCS: 82565; 84520; 74160; 36415; Q9967

== ENCOUNTER 2018-07-23 05:30 | Inpatient (IN) | payer MEDICARE, OTHER ==
[2018-07-23] MEDS ORDERED: NITROGLYCERIN-D5W PMX 50 MG in DEXTROSE/WATER 1 250ML.BAG IV STA (05:36)
[2018-07-23] MEDS ORDERED: MORPHINE SULFATE 4 MG/ML SYRINGE IV STA (05:36)
[2018-07-23 05:52] LABS: Basophils # (A) 0.1 k/uL (0-0.2); Basophils % (A) 1 %; Eosinophils # (A) 0.2 k/uL (0-0.7); Eosinophils % (A) 1 %; HCT 46.8 % (39.0-53.0); HGB 15.3 gm/dL (13.0-17.5); Lymphocytes # (A) 2.6 k/uL (1.0-4.8); Lymphocytes % (A) 15 %; MCH 30.7 pg (25.0-35.0); MCHC 32.7 g/dL (31.0-37.0); MCV 93.9 fL (80.0-100.0); Monocytes # (A) 0.9 k/uL (0-1.0); Monocytes % (A) 5 %; Neutrophils # (A) 13.3 k/uL (1.3-7.7); Neutrophils % (A) 77 %; Platelet Count 243 k/uL (150-450); RBC 4.98 m/uL (4.30-5.90); RDW 13.9 % (11.5-15.5); WBC 17.3 k/uL (3.8-10.6)
[2018-07-23 06:06] LABS: Albumin 4.1 g/dL (3.5-5.0); Calcium 9.6 mg/dL (8.4-10.2); Magnesium 1.8 mg/dL (1.6-2.3); Potassium 4.6 mmol/L (3.5-5.1); Total Bilirubin 1.2 mg/dL (0.2-1.3); Total Protein 6.9 g/dL (6.3-8.2)
[2018-07-23 06:11] LABS: INR 0.9 (<1.2); Partial Thromboplastin Time 26.9 sec (22.0-30.0)
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
--- NOTE | 2018-07-23 06:21 | XR ---
EXAM: XR Chest, 1 View. CLINICAL HISTORY: Reason: chest pain TECHNIQUE: Frontal view of the chest. COMPARISON: 02/07/17 FINDINGS: Lungs: Perihilar interstitial opacities with prominent interstitial markings in both lungs. Findings are consistent with moderate to severe pulmonary edema. No definite airspace consolidation. Pleural spaces: Unremarkable. No pneumothorax. Heart: Cardiac silhouette is unchanged and within normal limits. Cardiac pacer/AICD hardware again seen. Mediastinum: No mediastinal widening or shift. Bones: Unremarkable. No acute fracture. IMPRESSION: Moderate to severe pulmonary edema, most likely cardiogenic. No evidence of airspace consolidation.
[2018-07-23] MEDS ORDERED: ALBUTEROL NEBULIZED 2.5 MG/3 ML INHALATION PRN (06:29)
[2018-07-23] MEDS ORDERED: FUROSEMIDE 10 MG/ML 4 ML VIAL IV SCH (06:30)
[2018-07-23] MEDS ORDERED: SODIUM CHLORIDE 0.9% 1,000 ML IV SCH (06:30)
[2018-07-23] MEDS ORDERED: FUROSEMIDE 10 MG/ML 4 ML VIAL IV STA (06:43)
[2018-07-23] MEDS ORDERED: HEPARIN SODIUM,PORCINE 5,000 UNIT/ML 1 ML VIAL IV ONE (06:50)
[2018-07-23] MEDS ORDERED: HEPARIN SODIUM,PORCINE 5,000 UNIT/ML 1 ML VIAL IV PRN (07:34)
[2018-07-23] MEDS: HEPARIN SOD,PORK IN 0.45% NACL 25,000 UNIT in 0.45% NACL 1 250ML.BAG IV SCH (07:41)
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
[2018-07-23] MEDS: FUROSEMIDE 100 MG in SODIUM CHLORIDE 0.9% 90 ML IV SCH ×2 (08:51→17:12)
[2018-07-23] MEDS ORDERED: ISOSORBIDE MONONITRATE ER 30 MG TAB.ER.24H PO SCH (09:00)
[2018-07-23] MEDS ORDERED: hydrALAZINE HCL 25 MG TAB PO SCH (09:00)
[2018-07-23] MEDS ORDERED: amLODIPine 5 MG TAB PO SCH (09:00)
[2018-07-23 10:10] LABS: Glucose,Whole Blood 116 mg/dL (75-99)
--- NOTE | 2018-07-23 11:24 | ECHOF ---
Referral Reason:assess lvf MEASUREMENTS -------- HEIGHT: 177.8 cm WEIGHT: 90.7 kg BP: 135/84 RVIDd: 2.9 cm (< 3.3) IVSd: 1.4 cm (0.6 - 1.1) LVIDd: 5.4 cm (3.9 - 5.3) LVPWd: 1.5 cm (0.6 - 1.1) IVSs: 2.1 cm LVIDs: 3.6 cm LVPWs: 1.8 cm LA Diam: 4.4 cm (2.7 - 3.8) LAESV Index (A-L): 34.24 ml/m Ao Diam: 3.9 cm (2.0 - 3.7) AV Cusp: 1.5 cm (1.5 - 2.6) MV EXCURSION: 19.913 mm (> 18.000) MV EF SLOPE: 46 mm/s (70 - 150) EPSS: 1.2 cm MV E Edy: 0.89 m/s MV DecT: 220 ms MV A Edy: 0.70 m/s MV E/A Ratio: 1.29 AV maxP.52 mmHg AV meanP.16 mmHg RAP: 5.00 mmHg RVSP: 22.92 mmHg FINDINGS -------- Paced rhythm. This was a technically good study. The left ventricular size is normal. There is moderate concentric left ventricular hypertrophy. O verall left ventricular systolic function is moderate-severely impaired with, an EF between 30 - 35 % . Pseudonormal LV filling pattern, consistent with elevated LA pressure. Basal inferior LV wall m otion is hypokinetic. Mid lateral LV wall motion is hypokinetic. Mid inferior LV wall motion is hypokinetic. Apical lateral LV wall motion is hypokinetic. [place] Hypokinesis. The right ventricle is normal in size. LA is moderately dilated 34-39 ml/m2 The right atrium is normal in size. There is mild aortic valve sclerosis. There is mild aortic stenosis present. Mild mitral annular calcification present. There is trace mitral regurgitation. Mild tricuspid regurgitation present. Right ventricular systolic pressure is normal at < 35 mmHg. There is no pulmonic regurgitation present. The aortic root is dilated measuring 3.9cm. IVC Not well visulized. There is no pericardial effusion. CONCLUSIONS -------- 1. Paced rhythm. 2. This was a technically good study. 3. The left ventricular size is normal. 4. There is moderate concentric left ventricular hypertrophy. 5. Pseudonormal LV filling pattern, consistent with elevate LA pressure. 6. Basal inferior LV wall motion is hypokinetic. 7. Mid lateral LV wall motion is hypokinetic. 8. Mid inferior LV wall motion is hypokinetic. 9. Apical lateral LV wall motion is hypokinetic. 10. [place] Hypokinesis. 11. The right ventricle is normal in size. 12. LA is moderately dilated 34-39 ml/m2 13. The right atrium is normal in size. 14. There is mild aortic valve sclerosis. 15. There is mild aortic stenosis present. 16. Mild mitral annular calcification present. 17. There is trace mitral regurgitation. 18. Mild tricuspid regurgitation present. 19. Right ventricular systolic pressure is normal at < 35 mmHg. 20. There is no pulmonic regurgitation present. 21. The aortic root is dilated measuring 3.9cm. 22. IVC Not well visulized. 23. There is no pericardial effusion. [employer] COACH: Rachell Reed RDCS
[2018-07-23] MEDS: ATORVASTATIN 80 MG TAB PO SCH (11:54)
[2018-07-23] MEDS: LISINOPRIL 20 MG TAB PO SCH (11:54)
[2018-07-23] MEDS: CARVEDILOL 6.25 MG TAB PO SCH ×2 (11:54→17:10)
[2018-07-23] MEDS: CLOPIDOGREL 75 MG TAB PO SCH (11:54)
[2018-07-23] MEDS: POTASSIUM CHLORIDE ER 20 MEQ TAB.ER PO SCH (11:55)
[2018-07-23] MEDS ORDERED: ALPRAZolam 0.5 MG TAB PO PRN (12:05)
[2018-07-23] MEDS ORDERED: ALPRAZolam 0.25 MG TAB PO PRN (12:05)
[2018-07-23] MEDS ORDERED: ASPIRIN 325 MG TAB PO STA (12:05)
[2018-07-23] MEDS ORDERED: SODIUM CHLORIDE 0.9% 1,000 ML in EMPTY BAG 1 BAG IV ONE (12:05)
[2018-07-23] MEDS ORDERED: NITROGLYCERIN SL TABS 0.4 MG TAB SUBLINGUAL PRN (12:05)
[2018-07-23] MEDS ORDERED: ATORVASTATIN 80 MG TAB PO STA (12:05)
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
[2018-07-23] MEDS: RANOLAZINE 500 MG TAB.ER.12H PO SCH ×2 (12:45→21:41)
[2018-07-23] MEDS: ACETAMINOPHEN TAB 325 MG TAB PO PRN (13:43)
[2018-07-23] MEDS: ISOSORBIDE MONONITRATE ER 30 MG TAB.ER.24H PO SCH (14:07)
[2018-07-23] MEDS ORDERED: predniSONE 20 MG TAB PO STA (16:28)
[2018-07-23] MEDS ORDERED: NALOXONE 0.4 MG/ML 1 ML VIAL IV PRN (17:07)
[2018-07-23] MEDS: IPRATROPIUM-ALBUTEROL 3 ML NEB INHALATION SCH ×2 (17:09→20:11)
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
[2018-07-23 18:00] LABS: Appearance,Urine Cloudy (Clear); Bacteria,Urine Rare /hpf; Bilirubin,Urine Negative (Negative); Blood,Urine Moderate (Negative); Color,Urine Light Yellow; Glucose,Urine (UA) Negative (Negative); Ketones,Urine Negative (Negative); Leukocyte Esterase,Urine Large (Negative); Mucus,Urine Rare /hpf; Nitrite,Urine Negative (Negative); Protein,Urine Negative (Negative); RBC,Urine 42 /hpf (0-5); Specific Gravity,Urine 1.009 (1.001-1.035); Urobilinogen,Urine <2.0 mg/dL (<2.0)
[2018-07-23] MEDS ORDERED: BUDESONIDE 1 MG/2 ML NEBU INHALATION SCH (20:00)
[2018-07-23] MEDS: ASPIRIN 81 MG PO SCH (21:41)
[2018-07-24] MEDS: FUROSEMIDE 100 MG in SODIUM CHLORIDE 0.9% 90 ML IV SCH (03:33)
[2018-07-24] MEDS: HEPARIN SOD,PORK IN 0.45% NACL 25,000 UNIT in 0.45% NACL 1 250ML.BAG IV SCH ×2 (05:41→23:15)
[2018-07-24] MEDS ORDERED: SODIUM CHLORIDE 0.9% 1,000 ML in EMPTY BAG 1 BAG IV ONE (06:00)
[2018-07-24] MEDS ORDERED: ATORVASTATIN 80 MG TAB PO ONE (06:00)
[2018-07-24] MEDS ORDERED: ASPIRIN 325 MG TAB PO ONE (06:00)
[2018-07-24 06:22] LABS: Glucose,Whole Blood 153 mg/dL (75-99)
[2018-07-24 06:52] LABS: Calcium 9.2 mg/dL (8.4-10.2); Magnesium 2.1 mg/dL (1.6-2.3); Phosphorus 3.7 mg/dL (2.5-4.5); Potassium 3.9 mmol/L (3.5-5.1)
[2018-07-24 06:57] LABS: Basophils % (A) 0 %; Eosinophils % (A) 0 %; Lymphocytes # (A) 1.3 k/uL (1.0-4.8); Lymphocytes % (A) 10 %; MCH 29.9 pg (25.0-35.0); MCHC 31.8 g/dL (31.0-37.0); MCV 94.1 fL (80.0-100.0); Mean Platelet Volume 8.4; Monocytes # (A) 0.4 k/uL (0-1.0); Monocytes % (A) 3 %; Neutrophils # (A) 11.1 k/uL (1.3-7.7); Neutrophils % (A) 86 %; Platelet Count 193 k/uL (150-450); RBC 4.35 m/uL (4.30-5.90); RDW 13.3 % (11.5-15.5); WBC 12.9 k/uL (3.8-10.6)
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
[2018-07-24] MEDS: SYMBICORT 160-4.5 MCG INHALER INHALATION SCH ×2 (07:30→19:59)
[2018-07-24] MEDS: IPRATROPIUM-ALBUTEROL 3 ML NEB INHALATION SCH ×4 (07:30→20:00)
--- NOTE | 2018-07-24 08:05 | PN ---
PROGRESS NOTE Mr. Rangel is a 77-year-old male with a known history of coronary artery disease status post coronary artery bypass grafting, severe ischemic cardiomyopathy, history of ICD implantation who presented with symptoms of progressive dyspnea and had mild elevation of the troponin. He is feeling better this morning. His breathing is better. He denies any chest pain. He denies any dizziness or palpitation. He denies any nausea. Hemodynamically, he is stable. He continued be in sinus mechanism. He had an echocardiogram that revealed evidence of severely impaired left ventricular systolic function with segmental wall motion abnormalities. He continues to be on IV Lasix drip at 10 mg an hour, aspirin once a day, Lipitor 80 mg daily Coreg 6.5 mg twice a day, Plavix 75 mg daily, IV heparin, isosorbide mononitrate 30 mg daily, lisinopril 20 mg daily, and Ranexa 1 gram twice a day. PHYSICAL EXAMINATION: Blood pressure running in the one teens to 160 with the heart rate in the 50s. LUNGS: With few crackles at the bases. HEART: Regular rate and rhythm. S1, S2. No S3 with systolic murmur. No diastolic murmur. No rub. ABDOMEN: Soft, obese, nontender. EXTREMITIES: No significant edema. LAB DATA: Lab data revealed BUN creatinine 29 and 1.39, which have worsened compared to yesterday. His potassium 3.9, hemoglobin is 13. His troponin peaked at 1.5. His echocardiogram showed an ejection fraction of 30% to 35% with mild tricuspid regurgitation and mild aortic stenosis. IMPRESSION: 1. Symptoms of congestive heart failure with known history of severe ischemic cardiomyopathy. 2. Probable non ST-segment elevation myocardial infarction. 3. Worsening renal function related to diuresis. 4. History of hypertension. 5. Hyperlipidemia. 6. Status post ICD implantation. RECOMMENDATION: I will stop his IV Lasix drip, switch him to 40 mg IV q.12 hours. I will hold on the cardiac catheterization today because of his worsening renal function. We will follow his renal function tomorrow and depending on that, recommendation can be made. In the meantime, I will add to his regimen hydralazine 25 mg twice a day. Depending on his progress, further recommendation will be made. MMODL / IJN: [id number] /
--- NOTE | 2018-07-24 08:17 | XR ---
EXAMINATION TYPE: XR chest 1V DATE OF EXAM: 07/24/2018 COMPARISON: 07/23/2018 HISTORY: Chest pain TECHNIQUE: Single frontal view of the chest is obtained. FINDINGS: Subsegmental consolidation and small effusions. Postoperative change and cardiac device no souleymane. Atherosclerotic change aorta. Arthropathy of the shoulders. No pneumothorax. Interstitial patter n stable. Chronic rib deformities noted. IMPRESSION: 1. Persistent interstitial changes with bilateral consolidation and small effusion correlate for CHF otherwise consider pneumonia.
[2018-07-24] MEDS: hydrALAZINE HCL 25 MG TAB PO SCH ×2 (08:21→21:00)
[2018-07-24] MEDS: POTASSIUM CHLORIDE ER 20 MEQ TAB.ER PO SCH (08:21)
[2018-07-24] MEDS: CLOPIDOGREL 75 MG TAB PO SCH (08:21)
[2018-07-24] MEDS: LISINOPRIL 20 MG TAB PO SCH (08:21)
[2018-07-24] MEDS: ISOSORBIDE MONONITRATE ER 30 MG TAB.ER.24H PO SCH (08:21)
[2018-07-24] MEDS: CARVEDILOL 6.25 MG TAB PO SCH ×2 (08:21→17:22)
[2018-07-24] MEDS: ATORVASTATIN 80 MG TAB PO SCH (08:21)
[2018-07-24] MEDS: RANOLAZINE 500 MG TAB.ER.12H PO SCH ×2 (08:23→21:01)
[2018-07-24] MEDS: FUROSEMIDE 10 MG/ML 4 ML VIAL IV SCH ×2 (08:23→21:00)
[2018-07-24] MEDS ORDERED: ASPIRIN 325 MG TAB PO SCH (09:00)
[2018-07-24] MEDS ORDERED: predniSONE 20 MG TAB PO SCH (09:00)
[2018-07-24] MEDS: ASPIRIN 81 MG PO SCH (21:01)
--- NOTE | 2018-07-24 21:41 | PN ---
PROGRESS NOTE DATE OF SERVICE: July 24, 2018. PRESENTING COMPLAINT: Tired. INTERVAL HISTORY: This is a patient with multiple medical problems in the ICU, admitted with acute non-Q- wave myocardial infarction, acute COPD exacerbation and acute CHF exacerbation. The patient's cardiac cath was held off today because of patient's worsening renal function. Also, Lasix drip was discontinued. Put on IV bolus Lasix. The patient oxygen was taken off and patient on room air. The patient did tolerate some diet. Did sit up in a chair at the bedside. Feeling tired. REVIEW OF SYSTEMS: Done for constitutional, cardiovascular, GI, pulmonary; relevant findings above. CURRENT MEDICATIONS: Reviewed that include bronchodilators, IV heparin, Lasix 40 q.12h. EXAMINATION: VITAL SIGNS: Temperature 97.7, pulse 64, respirations 9, blood pressure 120/70, pulse ox 98% on room air. GENERAL APPEARANCE: Lying in bed, tired-appearing, more awake. EYES: Pupils are equal. Conjunctivae normal. NECK: JVD unable to assess. Mass not palpable. RESPIRATORY: Effort increased. LUNGS: Decreased breath sounds. Prolonged expiration. Some wheezing. CARDIOVASCULAR: First and second sounds normal. Minimal edema. ABDOMEN: Soft, nontender. Liver and spleen not palpable. PSYCHIATRY: Alert and oriented x3. Mood and affect tired-appearing. INVESTIGATIONS: White count 12.9, hemoglobin 13.0, potassium 3.9, BUN 29, creatinine 1.39. Troponin was 1.5. ASSESSMENT: 1. Acute non-Q-wave myocardial infarction in a patient with known coronary artery disease. 2. Coronary artery disease, prior history of coronary artery bypass and stent. 3. Acute chronic obstructive pulmonary disease exacerbation in a smoker. 4. Acute on chronic congestive heart failure exacerbation from systolic dysfunction EF 30 to 35%, slowly improving. 5. Peripheral artery disease. 6. Primary osteoarthritis. 7. Acute renal failure prerenal from IV diuresis. PLAN: Continue current medication and treatment plan. Keep a close eye on patient's renal function. Care was discussed with the patient. Follow. MMODL / IJN: [id number] /
[2018-07-25] MEDS: CARVEDILOL 6.25 MG TAB PO SCH ×2 (06:37→18:22)
[2018-07-25] MEDS: SYMBICORT 160-4.5 MCG INHALER INHALATION SCH ×2 (07:26→19:46)
[2018-07-25] MEDS: IPRATROPIUM-ALBUTEROL 3 ML NEB INHALATION SCH ×4 (07:26→19:46)
[2018-07-25 07:54] LABS: Calcium 8.9 mg/dL (8.4-10.2); Potassium 4.1 mmol/L (3.5-5.1)
[2018-07-25] MEDS: FUROSEMIDE 10 MG/ML 4 ML VIAL IV SCH ×2 (08:21→20:05)
[2018-07-25] MEDS: hydrALAZINE HCL 25 MG TAB PO SCH ×2 (08:22→20:05)
[2018-07-25] MEDS: POTASSIUM CHLORIDE ER 20 MEQ TAB.ER PO SCH (08:22)
[2018-07-25] MEDS: ATORVASTATIN 80 MG TAB PO SCH (08:22)
[2018-07-25] MEDS: ISOSORBIDE MONONITRATE ER 30 MG TAB.ER.24H PO SCH (08:22)
[2018-07-25] MEDS: LISINOPRIL 20 MG TAB PO SCH (08:22)
[2018-07-25] MEDS: CLOPIDOGREL 75 MG TAB PO SCH (08:23)
[2018-07-25] MEDS: RANOLAZINE 500 MG TAB.ER.12H PO SCH ×2 (08:23→20:05)
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
--- NOTE | 2018-07-25 14:24 | PN ---
PROGRESS NOTE DATE OF SERVICE: 07/25/2018. PRESENTING COMPLAINT: Tired. INTERVAL HISTORY: The patient has been moved out of the ICU. Admitted with acute non-Q-wave ME, acute chronic obstructive pulmonary disease exacerbation and CHF exacerbation. Cardiac cath was postponed because of renal function. Breathing is better. Patient did sit out of bed. No chest pain. REVIEW OF SYSTEMS: Done for constitutional, cardiovascular, GI, pulmonary; relevant findings as above. CURRENT MEDICATIONS: Reviewed and include DuoNeb, aspirin, Coreg, IV Lasix and IV heparin. PHYSICAL EXAMINATION: VITAL SIGNS: Temperature 96.9, pulse 66, respiratory rate 18, blood pressure 125/73, pulse ox 97% on room air. GENERAL APPEARANCE: Lying in bed, less tired appearing. EYES: Pupils equal. Conjunctivae normal. NECK: JVD unable to assess. Mass not palpable. RESPIRATORY: Effort increased. LUNGS: Decreased breath sounds. Improved air entry. CARDIOVASCULAR: First and second sounds normal. Minimal edema. ABDOMEN: Soft, nontender. Liver and spleen not palpable. PSYCHIATRY: Alert and oriented x3. Mood and affect normal. INVESTIGATIONS: Potassium 4.1, BUN 33, creatinine 1.24. ASSESSMENT: 1. Acute non-Q-wave myocardial infarction in a patient with known coronary artery disease. 2. Coronary artery disease with prior history of coronary bypass and stent. 3. Acute chronic obstructive pulmonary disease exacerbation in a smoker, improving. 4. Acute on chronic congestive heart failure exacerbation from systolic dysfunction, EF 30 35% clinically improving. 5. Peripheral artery disease. 6. Primary osteoarthritis. 7. Acute renal failure prerenal from IV diuresis. PLAN: Overall, patient is doing better. Patient remains on IV Lasix, IV heparin. Cardiac catheterization when determined by Cardiology. MMODL / IJN: [id number] /
--- NOTE | 2018-07-25 14:39 | PN ---
PROGRESS NOTE Mr. José is a 77-year-old male with a known history of coronary artery disease status post coronary artery bypass grafting, history of tobacco use, severe ischemic cardiomyopathy, ICD implantation, who presented with symptoms of congestive heart failure. He is feeling much better today. His breathing is stable. He denies any dizziness. He denies any palpitation. He denies any nausea. His ejection fraction by echocardiogram was 30 to 35%. He continues to be at this time on: Aspirin once a day, Lipitor 80 mg daily, Symbicort, Coreg 6.5 mg twice a day, Plavix 75 mg daily, Lasix 40 mg IV q.12 hours, IV heparin, hydralazine 25 mg twice a day, lisinopril 20 mg daily, isosorbide mononitrate 30 mg daily, and Ranexa 1 gram twice a day. PHYSICAL EXAMINATION: Blood pressure 114/59 with a heart in the 60s. Lungs no wheezes. HEART: Regular rate and rhythm S1, S2. No S3. No rub appreciated with a systolic murmur. ABDOMEN: Soft nontender. EXTREMITIES: No edema. LAB DATA: BUN and creatinine 33 and 1.24, potassium 4.1. IMPRESSION: 1. Episode of congestive heart failure with severe ischemic cardiomyopathy. 2. Non ST-segment elevation myocardial infarction in a patient with known history of coronary artery disease with severe disease in the left circumflex. 3. Worsening renal function, improving at this time. 4. Status post ICD implant. 5. Prior history of smoking. Stopped three weeks ago. 6. Hyperlipidemia. RECOMMENDATION: We will continue to follow his renal function. If that remains stable, will proceed with coronary angiography on Friday. I have discussed with the patient the rationale behind that. He is in full understanding and agreement. MMODL / IJN: [id number] /
[2018-07-25] MEDS: ASPIRIN 81 MG PO SCH (20:05)
[2018-07-26] MEDS: CARVEDILOL 6.25 MG TAB PO SCH ×2 (06:34→17:23)
[2018-07-26 07:30] LABS: Calcium 9.2 mg/dL (8.4-10.2); Potassium 4.3 mmol/L (3.5-5.1)
[2018-07-26] MEDS: RANOLAZINE 500 MG TAB.ER.12H PO SCH ×2 (07:55→19:40)
[2018-07-26] MEDS: hydrALAZINE HCL 25 MG TAB PO SCH ×2 (07:55→19:40)
[2018-07-26] MEDS: ISOSORBIDE MONONITRATE ER 30 MG TAB.ER.24H PO SCH (07:55)
[2018-07-26] MEDS: LISINOPRIL 20 MG TAB PO SCH (07:55)
[2018-07-26] MEDS: POTASSIUM CHLORIDE ER 20 MEQ TAB.ER PO SCH (07:55)
[2018-07-26] MEDS: CLOPIDOGREL 75 MG TAB PO SCH (07:55)
[2018-07-26] MEDS: ATORVASTATIN 80 MG TAB PO SCH (07:55)
[2018-07-26] MEDS: FUROSEMIDE 10 MG/ML 4 ML VIAL IV SCH (07:56)
[2018-07-26] MEDS: SYMBICORT 160-4.5 MCG INHALER INHALATION SCH ×2 (08:57→19:59)
[2018-07-26] MEDS: IPRATROPIUM-ALBUTEROL 3 ML NEB INHALATION SCH ×5 (08:57→19:59)
[2018-07-26] MEDS ORDERED: ATORVASTATIN 80 MG TAB PO STA (10:59)
[2018-07-26] MEDS ORDERED: ALPRAZolam 0.25 MG TAB PO PRN (10:59)
[2018-07-26] MEDS ORDERED: SODIUM CHLORIDE 0.9% 1,000 ML in EMPTY BAG 1 BAG IV ONE (10:59)
[2018-07-26] MEDS ORDERED: ALPRAZolam 0.5 MG TAB PO PRN (10:59)
[2018-07-26] MEDS ORDERED: NITROGLYCERIN SL TABS 0.4 MG TAB SUBLINGUAL PRN (10:59)
[2018-07-26] MEDS ORDERED: ASPIRIN 325 MG TAB PO STA (11:05)
--- NOTE | 2018-07-26 11:35 | PN ---
PROGRESS NOTE Mr. Rangel is a 77-year-old male with a known history of coronary artery disease, status post coronary artery bypass grafting, history of severe ischemic cardiomyopathy who presented with symptoms of chest pain and dyspnea. He is feeling better this morning. He has no further symptoms of chest pain. No dizziness. No palpitation. He denies any nausea. He has been ambulating without much difficulty. He continues to be on aspirin once a day, Lipitor 80 mg daily, Coreg 6.25 mg twice a day, Plavix 75 mg daily, Lasix 40 mg IV q.12 hours, hydralazine 25 mg twice a day, isosorbide mononitrate 30 mg daily, lisinopril 20 mg daily, potassium, and Ranexa 1 gram twice a day. PHYSICAL EXAMINATION: Blood pressure 130/60 with a heart rate in the 60s. LUNGS: Clear. HEART: Regular rate and rhythm S1, S2. No S3 with systolic ejection murmur. No diastolic murmur. ABDOMEN: Soft, obese, nontender. EXTREMITIES: No edema. LAB DATA: Lab data revealed BUN and creatinine 34 and 1.44, potassium 4.3. IMPRESSION: 1. Symptoms of congestive heart failure with known history of ischemic cardiomyopathy. 2. Non ST-segment elevation myocardial infarction. 3. Hypertension. 4. Hyperlipidemia. 5. Peripheral vascular disease. RECOMMENDATIONS: I will switch him to oral diuretic. Follow his renal function. If they are stable, we will proceed with coronary angiography tomorrow. MMKEN / ASHLEEN: [id number] /
[2018-07-26] MEDS: FUROSEMIDE 20 MG TAB PO SCH (19:40)
[2018-07-26] MEDS: HEPARIN SOD,PORK IN 0.45% NACL 25,000 UNIT in 0.45% NACL 1 250ML.BAG IV SCH (19:40)
[2018-07-27] MEDS ORDERED: ATORVASTATIN 80 MG TAB PO ONE (05:00)
[2018-07-27] MEDS ORDERED: ASPIRIN 325 MG TAB PO ONE (05:00)
[2018-07-27] MEDS: ISOSORBIDE MONONITRATE ER 30 MG TAB.ER.24H PO SCH (05:18)
[2018-07-27] MEDS: CARVEDILOL 6.25 MG TAB PO SCH ×2 (05:18→16:55)
[2018-07-27] MEDS: CLOPIDOGREL 75 MG TAB PO SCH (05:18)
[2018-07-27] MEDS: RANOLAZINE 500 MG TAB.ER.12H PO SCH ×2 (05:18→20:01)
[2018-07-27] MEDS: POTASSIUM CHLORIDE ER 20 MEQ TAB.ER PO SCH (05:18)
[2018-07-27] MEDS: LISINOPRIL 20 MG TAB PO SCH (05:18)
[2018-07-27] MEDS: hydrALAZINE HCL 25 MG TAB PO SCH ×2 (05:18→20:01)
[2018-07-27] MEDS: ATORVASTATIN 80 MG TAB PO SCH (05:19)
[2018-07-27] MEDS: FUROSEMIDE 20 MG TAB PO SCH (05:19)
[2018-07-27 06:45] LABS: Calcium 9.4 mg/dL (8.4-10.2); Potassium 4.5 mmol/L (3.5-5.1)
[2018-07-27] MEDS: IPRATROPIUM-ALBUTEROL 3 ML NEB INHALATION SCH ×4 (08:01→19:15)
[2018-07-27] MEDS: SYMBICORT 160-4.5 MCG INHALER INHALATION SCH ×2 (08:01→19:15)
--- NOTE | 2018-07-27 08:48 | PN ---
PROGRESS NOTE DATE OF SERVICE: July 26, 2018. PRESENTING COMPLAINT: Tired. INTERVAL HISTORY: Patient admitted with acute non-Q-wave [place], COPD exacerbation and CHF exacerbation pending cardiac catheterization. Feeling better possibly cardiac cath is being scheduled for tomorrow. Breathing is stable. REVIEW OF SYSTEMS: Done for constitutional, cardiovascular, GI, pulmonary and relevant findings as above. CURRENT MEDICATIONS: Reviewed and include IV heparin and p.o. Lasix. PHYSICAL EXAMINATION: VITAL SIGNS: Temperature 98.1. Pulse 64, respirations 18, blood pressure 130/65, pulse ox 94 percent on room air. GENERAL APPEARANCE: Sitting up, more comfortable. EYES: Pupils equal. Conjunctivae normal. NECK: JVD not raised. Mass not palpable. RESPIRATORY: Increased. LUNGS: Decreased breath sounds. CARDIOVASCULAR: 1st and 2nd sounds normal. Minimal edema. ABDOMEN: Soft, nontender. Liver and spleen not palpable. PSYCHIATRY: Alert and oriented x3. Mood and affect normal. INVESTIGATIONS: Creatinine 1.44. ASSESSMENT: 1. Acute non-Q-wave myocardial infarction in a patient with known coronary artery disease. 2. Coronary artery prior history of coronary bypass and stent. 3. Acute chronic obstructive pulmonary disease exacerbation in a smoker, improved. 4. Acute on chronic congestive heart exacerbation from systolic dysfunction, EF 30 to 35% clinically improving. 5. Peripheral artery disease. 6. Primary osteoarthritis. 7. Acute renal failure from IV diuresis. PLAN: Continue current medication and treatment plan. The patient is going for cardiac cath tomorrow morning. We will hold off the morning dose of oral Lasix to see if that will minimize the contrast induced nephropathy. Otherwise clinically patient is doing better. MMODL / IJN: [id number] /
--- NOTE | 2018-07-27 10:00 | PN ---
PROGRESS NOTE Mr. Rangel is a 77-year-old male with known history of coronary artery disease, history of ischemic cardiomyopathy, status post coronary artery bypass grafting, ICD implantation, who presented with symptoms of progressive dyspnea and evidence of non ST- segment elevation myocardial infarction. He is doing well this morning. He denies any further symptoms. He denies any dizziness or palpitation. He denies any nausea. He has been ambulating. Continued to be on aspirin 81 mg daily, Lipitor 80 mg daily, Coreg 6.25 mg twice a day, Plavix 75 mg daily, Lasix 20 mg twice a day, IV heparin, hydralazine 25 mg twice a day, isosorbide mononitrate 30 mg daily, lisinopril 20 mg daily, Ranexa 1 gram twice a day, and potassium 20 mEq daily. PHYSICAL EXAMINATION: Blood pressure 130/80 with the heart rate in the 60s. LUNGS: Clear. HEART: Regular rate and rhythm. S1, S2. No S3. No rub with a systolic murmur. ABDOMEN: Soft, nontender. EXTREMITIES: No edema. LAB DATA: Lab data revealed a BUN and creatinine 30 and 1.47. Potassium 4.5. IMPRESSION: 1. Symptoms of congestive heart failure with systolic dysfunction, improved. 2. Non ST-segment elevation myocardial infarction in a patient with known history of severe ischemic cardiomyopathy. 3. Hyperlipidemia. 4. Hypertension. 5. Worsening renal function. RECOMMENDATION: I will hold on doing the cardiac catheterization today. Recheck the renal function tomorrow. If they remain abnormal and he remains stable, he may be able to be discharged home and then readmitted electively to undergo the coronary angiography. I have discussed those findings with the patient. I will stop the IV heparin at this point. MMODL / IJN: [id number] /
[2018-07-27] MEDS: HEPARIN SOD,PORK IN 0.45% NACL 25,000 UNIT in 0.45% NACL 1 250ML.BAG IV SCH (11:42)
[2018-07-27] MEDS: ASPIRIN 81 MG PO SCH (20:01)
--- NOTE | 2018-07-27 23:47 | PN ---
PROGRESS NOTE DATE OF SERVICE: 07/27/2018 PRESENTING COMPLAINT: Tired. INTERVAL HISTORY: Patient admitted with acute non-Q-wave [place], COPD exacerbation, CHF exacerbation. Because of diuresis, renal function and creatinine had gone up. Hence, cardiac catheterization has been further postponed. Patient lying in bed, breathing otherwise stable. REVIEW OF SYSTEMS: Done for constitutional, cardiovascular, GI, pulmonary and relevant findings as above. CURRENT MEDICATIONS: Reviewed that include Lasix 20 mg p.o. daily. This dose was held earlier today. PHYSICAL EXAMINATION: VITAL SIGNS : Temperature 97.7, pulse 69, respirations 16, blood pressure 135/63, pulse ox 98% on room air. GENERAL APPEARANCE: Lying in bed, awake. EYES: Pupils equal. Conjunctivae normal. NECK: JVD not raised. Mass not palpable. RESPIRATORY: Effort increased. LUNGS: Decreased breath sounds. CARDIOVASCULAR: 1st and 2nd sounds normal. No edema. ABDOMEN: Soft, nontender. Liver and spleen not palpable. PSYCHIATRY: Alert and oriented times three. Mood and affect normal. INVESTIGATIONS: BUN 30, creatinine 1.47. ASSESSMENT: 1. Acute non-Q-wave myocardial infarction. 2. Coronary artery disease, prior history of coronary bypass and stent. 3. Acute chronic obstructive pulmonary disease exacerbation in a smoker, improved. 4. Acute on chronic congestive heart failure exacerbation from systolic dysfunction, EF 30 to 35% from underlying coronary artery disease. 5. Peripheral artery disease. 6. Primary osteoarthritis. 7. Acute renal failure, prerenal from diuresis. PLAN: Lasix was held this morning. Repeat labs tomorrow morning. We will also get a nephrology opinion. Cardiac catheterization will be determined by Cardiology. MMODL / IJN: [id number] /
[2018-07-28] MEDS ORDERED: cloNIDine HCL 0.1 MG TAB PO STA (03:50)
[2018-07-28] MEDS: CARVEDILOL 6.25 MG TAB PO SCH ×2 (06:29→18:19)
[2018-07-28 06:40] LABS: Calcium 9.7 mg/dL (8.4-10.2); Potassium 5.5 mmol/L (3.5-5.1)
[2018-07-28] MEDS: IPRATROPIUM-ALBUTEROL 3 ML NEB INHALATION SCH ×4 (07:21→20:47)
[2018-07-28] MEDS: SYMBICORT 160-4.5 MCG INHALER INHALATION SCH ×2 (07:21→20:47)
[2018-07-28] MEDS: LISINOPRIL 20 MG TAB PO SCH (08:14)
[2018-07-28] MEDS: ATORVASTATIN 80 MG TAB PO SCH (08:14)
[2018-07-28] MEDS: POTASSIUM CHLORIDE ER 20 MEQ TAB.ER PO SCH (08:14)
[2018-07-28] MEDS: hydrALAZINE HCL 25 MG TAB PO SCH ×2 (08:14→19:54)
[2018-07-28] MEDS: ISOSORBIDE MONONITRATE ER 30 MG TAB.ER.24H PO SCH (08:14)
[2018-07-28] MEDS: RANOLAZINE 500 MG TAB.ER.12H PO SCH ×2 (08:14→19:54)
[2018-07-28] MEDS: CLOPIDOGREL 75 MG TAB PO SCH (08:14)
[2018-07-28] MEDS: FUROSEMIDE 20 MG TAB PO SCH (08:15)
[2018-07-28] MEDS ORDERED: ASPIRIN 325 MG TAB PO STA (09:19)
[2018-07-28] MEDS ORDERED: SODIUM CHLORIDE 0.9% 1,000 ML in EMPTY BAG 1 BAG IV ONE (09:19)
[2018-07-28] MEDS ORDERED: ALPRAZolam 0.25 MG TAB PO PRN (09:19)
[2018-07-28] MEDS ORDERED: ATORVASTATIN 80 MG TAB PO STA (09:19)
[2018-07-28] MEDS ORDERED: NITROGLYCERIN SL TABS 0.4 MG TAB SUBLINGUAL PRN ×2 (09:19→15:57)
[2018-07-28] MEDS ORDERED: ALPRAZolam 0.5 MG TAB PO PRN (09:19)
[2018-07-28] MEDS ORDERED: LIDOCAINE 1% INJ 10MG/ML (20 ML MDV) ONE ×3 (14:18→14:49)
[2018-07-28] MEDS ORDERED: fentaNYL (PF) 50 MCG/ML 2 ML AMP ONE (14:18)
[2018-07-28] MEDS ORDERED: fentaNYL (PF) 50 MCG/ML 2 ML AMP IVP ONE (14:30)
[2018-07-28] MEDS ORDERED: LIDOCAINE 1% INJ 10MG/ML (20 ML MDV) SQ ONE ×3 (14:32→14:50)
[2018-07-28] MEDS ORDERED: IV FLUID CONTINUATION 400 ML IV ONE (14:34)
[2018-07-28] MEDS ORDERED: VERAPAMIL 2.5 MG/ML 2 ML AMP ONE (14:49)
[2018-07-28] MEDS: VERAPAMIL SYRINGE (5 MG/10 ML) INTRAARTER ONE ×2 (14:51→15:05)
[2018-07-28] MEDS ORDERED: MIDAZOLAM (PF) 2 MG/2 ML VIAL IVP ONE (15:00)
[2018-07-28] MEDS ORDERED: HEPARIN SODIUM 1,000 UN/ML (10ML VL) ONE (15:07)
[2018-07-28] MEDS ORDERED: HEPARIN SODIUM 1,000 UN/ML (10ML VL) IV ONE (15:07)
[2018-07-28] MEDS ORDERED: BIVALIRUDIN BOLUS 250 MG/50 ML IV ONE (15:14)
[2018-07-28] MEDS ORDERED: IOPAMIDOL-370 125ML BTL INJ ONE (15:47)
[2018-07-28] MEDS ORDERED: BIVALIRUDIN 250 MG in SODIUM CHLORIDE 0.9% 50 ML IV ONE (15:49)
[2018-07-28] MEDS ORDERED: ZOLPIDEM 5 MG TAB PO PRN (15:57)
[2018-07-28] MEDS ORDERED: RX INFO: IV CONTRAST WAS GIVEN 1 EACH MISC MISCELLANE PRN (15:57)
[2018-07-28] MEDS ORDERED: MAG HYDROX/AL HYDROX/SIMETH 30 ML CUP PO PRN (15:57)
[2018-07-28] MEDS ORDERED: ATROPINE SULFATE 0.1 MG/ML 10ML SYRINGE IV PRN (15:57)
[2018-07-28] MEDS ORDERED: SODIUM CHLORIDE 0.9% 1,000 ML IV SCH (16:00)
--- NOTE | 2018-07-28 18:57 | CC ---
CARDIAC CATHETERIZATION REPORT Mr. Rangel is a 77-year-old male with known history of severe ischemic cardiomyopathy who presented with symptoms of congestive heart failure, mild troponin elevation, underwent cardiac catheterization, was found to have critical stenosis involving the mid heavily calcified left circumflex. In view of that, recommendation was made regarding angioplasty and stenting. The procedure as well as risks and complications were discussed with the patient who is in full understanding and agreement. PROCEDURE: A 6-Swazi FR4 guiding catheter in the system. After cannulating the left main, a 0.014 balanced medium weight J-wire was advanced across the lesion and positioned in the AV groove left circumflex. Subsequently, a 0.014 whisper J-wire was advanced and positioned in the distal obtuse marginal branch. Subsequent to that, attempt to advance a 2.5 x 12 mm Trek balloon were unsuccessful. That balloon was removed and a 1.5 x 6 mm Trek balloon was advanced and multiple inflations at 10 atmospheres were done. Following that, the balloon was removed and a 2.5 x 12 mm Trek balloon was advanced and inflation up to 10 atmospheres were done. Following that, the balloon was removed and an attempt to advance a 2.5 x 12 mm Xience Nithya stent were unsuccessful to advance in the proximal calcified left circumflex. That stent was removed. The BMW J-wire was removed and a GuideLiner was advanced and even with the help of the GuideLiner, there was inability to advance a 2.5 x 12 mm Xience Nithya, 2.5 x 8 mm Xience Nithya, and a 2.1 x 8 mm Resolute hernan stent. At that point, the guiding wire were removed. Images were obtained and revealed stable angioplasty. At that point, the guiding catheter, the balloon and the guidewire were removed. The sheath was removed. Hemostasis was obtained with deployment of an TR band. There was no immediate complications. Patient was returned to his room in stable condition. Of note, the patient had no chest discomfort or EKG changes with the inflations. He received Angiomax per protocol and continued on Plavix. RESULTS: Successful angioplasty of the mid left circumflex with reduction of stenosis from 99% to less than 40%. RECOMMENDATIONS: Patient will be continued on dual antiplatelet treatment. We will maximize his medical therapy. If he has any further symptoms, then further attempt to proceed with angioplasty and stenting of the left circumflex will be done. Those findings and recommendations were discussed with the patient and he was in full understanding and agreement. Duration of procedure is 82 minutes. SHELLEY / ASHLEEN: [id number] /
--- NOTE | 2018-07-28 19:03 | CC ---
CARDIAC CATHETERIZATION REPORT Mr. Rangel is a 77-year-old male with known history of coronary artery disease, history of diabetes, severe ischemic cardiomyopathy, status post ICD implant, who presented with symptoms of congestive heart failure and mild troponin elevation. In view of that, recommendation was made regarding cardiac catheterization. The procedure, its risks and complications were discussed with the patient, who was in full understanding and agreement. PROCEDURE DESCRIPTION: Patient was brought to the microbiology lab technician in a fasting, semi-sedated state after receiving fentanyl and Benadryl and achieving moderate conscious sedated state. Using Xylocaine anesthesia and Seldinger technique, attempts to cannulate the left femoral artery were done, but there was an inability to advance the wire. The vessel appears to be totally occluded. The pulse in the right femoral artery was quite weak. In view of that, using Xylocaine anesthesia and Seldinger technique, a 6-Micronesian sheath was introduced in the left radial artery. Selective right and left coronary angiography was performed using 6-Micronesian, 4 bend right Vivian and a 3-1/2 bend left Vivian catheter. Images were taken of the coronary arteries, including images of the HDZ, using the right Vivian. Following that, catheters were removed and images were reviewed. FINDINGS: FLUOROSCOPY: There was severe calcification involving all the coronary arteries. LEFT MAIN: This is a heavily calcified vessel bifurcating into LAD and left circumflex. The left main coronary artery has a 20% to 30% plaque without any evidence of high- grade stenosis. LEFT ANTERIOR DESCENDING ARTERY: This vessel is totally occluded after the takeoff of a small diagonal branch. It is heavily calcified proximally. LEFT CIRCUMFLEX: This is a codominant vessel, moderate in caliber, giving rise to 2 obtuse marginal branches in the mid segment. It has a 99% stenosis. The proximal segment is heavily calcified. There is a stent involving the left main into the left circumflex. The proximal segment has a 40% to 50% plaque. RIGHT CORONARY ARTERY: This vessel is totally occluded proximally with no significant antegrade flow. HDZ: The distal anastomotic site is patent. The flow into the LAD is brisk. There is no evidence of high-grade stenosis. There is retrograde flow into an obtuse marginal branch. LEFT VENTRICULOGRAM: Left ventriculogram was not performed. CONCLUSION: 1. Heavily calcified coronary arteries. 2. Patent HDZ to LAD. 3. Mild disease in the left main. 4. Chronically occluded LAD and right coronary artery. 5. Significant disease in the mid heavily calcified left circumflex. RECOMMENDATIONS: In view of findings and anatomy, I have recommended proceeding with an attempt to angioplasty and stent the left circumflex. The procedure as well as its risks and complications was discussed with the patient, who is in full understanding and agreement. MMNATIL / IJN: [id number] /
[2018-07-28] MEDS: ACETAMINOPHEN TAB 325 MG TAB PO PRN (19:54)
[2018-07-28] MEDS: ASPIRIN 81 MG PO SCH (19:54)
--- NOTE | 2018-07-29 05:30 | PN ---
PROGRESS NOTE DATE OF SERVICE: 07/28/2018 PRESENTING COMPLAINT: Tired. INTERVAL HISTORY: Patient admitted with acute non-Q-wave [place], COPD exacerbation, and CHF exacerbation. Creatinine had gone up because of diuresis. I saw this patient this morning, supposed to go for a cardiac cath later today, otherwise stable. REVIEW OF SYSTEMS: Done for constitutional, cardiovascular, GI, pulmonary; relevant findings as above. CURRENT MEDICATIONS: Current medications are reviewed. PHYSICAL EXAMINATION: On examination, temperature 97.9, pulse 62, respiration 19, blood pressure 153/88, pulse ox 98% on room air. GENERAL APPEARANCE: Lying in bed, comfortable. EYES: Pupils equal. Conjunctivae normal. NECK: JVD not raised. Mass not palpable. RESPIRATORY: Effort . LUNGS: Diminished breath sounds. CARDIOVASCULAR: First and second sounds normal. No edema. ABDOMEN: Soft, nontender. Liver and spleen not palpable. PSYCHIATRY: Alert and oriented x3. Mood and affect normal. INVESTIGATIONS: Potassium 5.5. BUN 26, creatinine 1.43. ASSESSMENT: 1. Acute non-Q-wave myocardial infarction, pending cardiac catheterization. 2. Coronary artery disease, prior history of bypass and stent. 3. Acute chronic obstructive pulmonary disease exacerbation in a smoker, improved. 4. Acute on chronic congestive heart failure exacerbation from systolic dysfunction, ejection fraction 30% to 35%, from underlying coronary artery disease. 5. Peripheral arterial disease. 6. Primary osteoarthritis. 7. Acute renal failure, prerenal from diuresis. 8. Hyperkalemia in a setting of acute renal failure. PLAN: Continue current medication and treatment plan. I will keep a close eye on patient's renal function. The patient is due to go for a cardiac catheterization later today. Will follow. MMODL / IJN: [id number] /
[2018-07-29] MEDS: CARVEDILOL 6.25 MG TAB PO SCH (06:40)
[2018-07-29 07:23] LABS: Potassium 5.2 mmol/L (3.5-5.1)
[2018-07-29 07:24] LABS: Calcium 8.8 mg/dL (8.4-10.2)
[2018-07-29] MEDS: CLOPIDOGREL 75 MG TAB PO SCH (08:06)
[2018-07-29] MEDS: RANOLAZINE 500 MG TAB.ER.12H PO SCH (08:06)
[2018-07-29] MEDS: FUROSEMIDE 20 MG TAB PO SCH (08:06)
[2018-07-29] MEDS: LISINOPRIL 20 MG TAB PO SCH (08:06)
[2018-07-29] MEDS: ATORVASTATIN 80 MG TAB PO SCH (08:06)
[2018-07-29] MEDS: hydrALAZINE HCL 25 MG TAB PO SCH (08:07)
[2018-07-29 08:11] VITALS: RESP 18; TEMP 97.6
[2018-07-29] MEDS: SYMBICORT 160-4.5 MCG INHALER INHALATION SCH (08:43)
[2018-07-29] MEDS: IPRATROPIUM-ALBUTEROL 3 ML NEB INHALATION SCH ×2 (08:43→12:21)
[2018-07-29] MEDS ORDERED: ISOSORBIDE MONONITRATE ER 60 MG TAB.ER.24H PO SCH (09:00)
[2018-07-29 11:43] VITALS: BP 133/70
[2018-07-29 11:55] VITALS: BMI 29.6
[2018-07-29 12:34] VITALS: PULSE 68
--- NOTE | 2018-07-29 14:17 | P.PN ---
Subjective Progress Note Date: 07/29/18 This is a 77-year-old gentleman who has a known history of coronary artery disease with prior bypass surgery, history of single-chamber AICD implantation, ischemic cardiomyopathy, hypertension, hyperlipidemia, nicotine dependence, most recent cardiac catheterization was performed in 2017 which r evealed a severely calcified coronary arteries, left main stenosis of 50%, chronically occluded LAD, severe diffuse disease in the left circumflex and a heavily calcified area and chronically occluded proximal right coronary artery. The HDZ to the LAD was patent, severely impaired left ventricular systolic function and severe peripheral vascular disease in the femoral artery on the right side. According to the patient, he has not followed with Dr. Kaur on a regular basis, overall he's been doing quite well at home. He denies any recent episodes of chest discomfort and is breathing overall has been stable. Yesterday the patient states that he developed some midsternal chest pressure an d heaviness, he also had some discomfort in his abdominal region. He became quite short of breath and diaphoretic and came to the emergency room for that reason. Chest x-ray performed on arrival here showed moderate to severe pulmonary edema. EKG showed a sinus rhythm with a right bundle branch block pattern, evidence of old inferior wall CT, ST-T wave changes noted in the lateral leads. Blood pressure on arrival here 194/134, heart rate 100, is 97% on 4 L of oxygen and his respirations were 28. Blood pressure this morning 130/80 with a heart rate in the 70s, 98% on BiPAP. White blood cell count 17.3, hemoglobin 15.3, platelet count 243. Sodium 141, potassium 4.6, BUN 14 and creatinine 1.02. Troponin 1.2, BNP level 9970. At the time of my examination, patient was seen in the emergency room, he currently has a nonrebreather on, no longer having any chest discomfort, states that his breathing has significantly improved, Christopher catheter is in place and he is putting out good amounts of urine. He is currently on IV nitroglycerin and heparin drips. 07/29/2018 was taken to the cardiac catheterization lab yesterday by Dr. Kaur, he underwent successful angioplasty of the mid circumflex with reduction in stenosis from 99% to less than 40%. Patient was seen and examined this morning, overall he is doing well. He denies any chest discomfort and is breathing overall has been stable. Blood pressure 132/70 with a heart rate in the 60s. Sodium 140, potassium 5.2, BUN 25 and creatinine 1.3. Objective - Vital Signs Vital signs: Vital Signs Temp 97.6 F 07/29/18 08:00 Pulse 68 07/29/18 12:33 Resp 18 07/29/18 11:42 BP 133/70 07/29/18 11:42 Pulse Ox 98 07/29/18 11:42 Intake & Output 07/28/18 07/29/18 07/29/18 18:59 06:59 18:59 Intake Total 133.5 500 480 Output Total 1270 125 600 Balance -1136.5 375 -120 Weight 93.6 kg 93.6 kg Intake: IV 133.5 Intake, IV Titration 500 Amount Sodium Chloride 0.9% 1, 500 000 ml @ 100 mls/hr IV . Q10H [facility] Rx#:[id number] Oral 480 Output: Urine 1270 125 600 Other: Voiding Method Urinal Urinal - Exam PHYSICAL EXAMINATION: GENERAL: 77-year-old gentleman in no acute distress at the time of my examination HEENT: Head is atraumatic, normocephalic. Pupils equal, round. Sclera anicteric. Conjunctiva are clear. Mucous membranes of the mouth are moist. Neck is supple. There is elevated jugular venous pressure. No carotid bruit is heard. HEART EXAMINATION: Heart S1, S2 normal. No murmur or gallop heard. CHEST EXAMINATION: Lungs reveal rales bilaterally with diminished air entry to the bases ABDOMEN: Soft, obese, nontender. Bowel sounds are heard. No organomegaly noted. EXTREMITIES: 1+ peripheral pulses with trace evidence of peripheral edema and no calf tenderness noted. Left groin soft, no evidence of any hematoma. NEUROLOGIC patient is awake, alert and oriented X3. - Labs CBC & Chem 7: 07/24/18 06:12 07/29/18 06:26 Labs: Abnormal Lab Results - Last 24 Hours (Table) 07/29/18 Range/Units 06:26 Potassium 5.2 H (3.5-5.1) mmol/L Chloride 109 H (98-107) mmol/L BUN 25 H (9-20) mg/dL Creatinine 1.39 H (0.66-1.25) mg/dL Glucose 60 L (74-99) mg/dL Assessment and Plan Plan: Assessment and plan #1 non-Q-wave CT status post PTCA of the circumflex #2 systolic congestive heart failure acute on chronic #3 known history of coronary artery disease with prior bypass surgery in 2009, patient had a heart cath done in 2016 which revealed the left main and circumflex disease, medical therapy was advised at that time, patient did undergo distal left main stenting in 2013 #4 hypertension, with hypertensive urgency #5 hyperlipidemia #6 nicotine dependence #7 ischemic cardiomyopathy with prior single-chamber AICD #8 PAD Plan From cardiology's perspective, patient may be able to be discharged home today. We will make him a follow-up appointment with Dr. Kaur in one week, prior to that office visit we would recommend the patient had lytes BUN and creatinine drawn. DNP note has been reviewed, I agree with a documented findings and plan of care. Patient was seen and examined.
--- NOTE | 2018-07-30 10:44 | DS ---
DISCHARGE SUMMARY DATE OF ADMISSION: 07/23/2018 DATE OF DISCHARGE: 07/29/2018 FINAL DIAGNOSES: 1. Acute non-Q-wave myocardial infarction. 2. Coronary artery disease with prior history of bypass and stent. 3. Acute chronic obstructive pulmonary disease exacerbation in a smoker, POA. 4. Acute on chronic congestive heart failure exacerbation from systolic dysfunction EF 30 to 35% from underlying coronary artery disease, POA. 5. Peripheral artery disease. 6. Primary osteoarthritis. 7. Acute renal failure, prerenal from diuresis. 8. Hyperkalemia in a setting of acute renal failure. PROCEDURE PERFORMED: Cardiac catheterization and angioplasty stenting to mid circumflex. HOSPITAL COURSE: This patient presented with shortness of breath, chest pressure, ruled in for an LA. Also found to have CHF exacerbation, COPD exacerbation. 2D echocardiogram showed EF of 30% to 35% and multiple wall motion abnormality. Cardiac catheterization was carried out by Dr. Kaur. More details in his notes. Intervention was carried out as above. The patient does have chronically occluded LAD and right coronary artery. The patient was symptom free on the day of discharge. On examination, lungs decreased breath sounds. Cardiovascular: First and second sounds normal. Blood pressure 133/70. BUN 25, creatinine 1.39, potassium 5.2. Discussion and discharge planning more than 35 minutes. DISCHARGE MEDICATIONS: 1. Coreg 6.25 b.i.d. 2. Lasix 40 mg a day. 3. Ranexa 1000 mg p.o. b.i.d. 4. Plavix 75 mg daily. 5. Zestril 20 mg p.o. daily. 6. Hydralazine 25 mg b.i.d. 7. Ventolin HFA 2 puffs q.6h. 8. Aspirin 81 mg q.h.s. 9. Lipitor 80 mg p.o. daily. 10.Symbicort 160/4.5, 2 puffs b.i.d. 11.Atrovent HFA 2 puffs q.i.d. 12.Imdur ER 60 mg p.o. daily. 13.Nitrostat 0.4 sublingual q.5 p.r.n. FOLLOWUP: Follow up with Dr. Kaur on 08/05/2018; follow up with Dr. Young on August 19, [address] Young. MMODL / IJN: [id number] /
== END 2018-07-29 14:31 | disposition home health service (06) | DRG 250 ==
LOC: EC 05:30 → 3SCARD 06:26 → 2SICU 08:56 → 3SCARD 07-25 01:20
PROVIDERS: ADMIT Hospitalist; ATTEND Hospitalist
PROC: 5A09457 Assistance with Respiratory Ventilation, 24-96 Consecutive Hours, Continuous Positive Airway Pressure (ICD-10-PCS; 2018-07-23)
PROC: 02703ZZ Dilation of Coronary Artery, One Artery, Percutaneous Approach (ICD-10-PCS; principal; 2018-07-28 13:10)
PROC: B2111ZZ Fluoroscopy of Multiple Coronary Arteries using Low Osmolar Contrast (ICD-10-PCS; 2018-07-28 13:10)
DX: I21.4 Non-ST elevation (NSTEMI) myocardial infarction (principal); I50.23 Acute on chronic systolic (congestive) heart failure; J96.01 Acute respiratory failure with hypoxia; J44.1 Chronic obstructive pulmonary disease with (acute) exacerbation; N17.9 Acute kidney failure, unspecified; I25.5 Ischemic cardiomyopathy; I11.0 Hypertensive heart disease with heart failure; E87.5 Hyperkalemia; I45.10 Unspecified right bundle-branch block; I73.9 Peripheral vascular disease, unspecified; I25.10 Atherosclerotic heart disease of native coronary artery without angina pectoris; I25.2 Old myocardial infarction; M19.91 Primary osteoarthritis, unspecified site; I16.0 Hypertensive urgency; T50.1X5A Adverse effect of loop [high-ceiling] diuretics, initial encounter; E78.5 Hyperlipidemia, unspecified; K21.9 Gastro-esophageal reflux disease without esophagitis; F41.9 Anxiety disorder, unspecified; F17.211 Nicotine dependence, cigarettes, in remission; Z71.6 Tobacco abuse counseling; Z79.02 Long term (current) use of antithrombotics/antiplatelets; Z79.899 Other long term (current) drug therapy; Z92.3 Personal history of irradiation; Z90.49 Acquired absence of other specified parts of digestive tract; Z85.46 Personal history of malignant neoplasm of prostate; Z95.1 Presence of aortocoronary bypass graft; Z95.5 Presence of coronary angioplasty implant and graft; Z95.810 Presence of automatic (implantable) cardiac defibrillator; Z90.2 Acquired absence of lung [part of]; Z98.42 Cataract extraction status, left eye; Z98.41 Cataract extraction status, right eye; Z98.890 Other specified postprocedural states; Z81.1 Family history of alcohol abuse and dependence; Z83.79 Family history of other diseases of the digestive system
CPT/HCPCS: 36415; 51702; 71045; 80048; 80053; 81001; 82150; 83690; 83735; 83880; 84100; 84484; 85025; 85347; 85610; 85730; 87086; 93005; 93306; 93455; 94640; 94660; 94760; 96365; 96366; 96368; 96375; 96376; 99285; C1874

== ENCOUNTER → 2018-08-04 | Outpatient (CLI) | payer MEDICARE, OTHER ==
[2018-08-04 16:01] LABS: Anion Gap 7.9 mmol/L (4.00-12.00); Carbon Dioxide 23.1 mmol/L (21.6-31.8)
== END | disposition home or self-care (01) ==
LOC: LABWHC1 09:15
PROVIDERS: ATTEND Internal Medicine Interventional Cardiology
DX: R06.02 Shortness of breath (principal); I21.4 Non-ST elevation (NSTEMI) myocardial infarction; I50.23 Acute on chronic systolic (congestive) heart failure
CPT/HCPCS: 36415; 80051; 82565; 84520

== ENCOUNTER 2018-10-03 14:37 | Emergency (ER) | payer MEDICARE ==
[2018-10-03] MEDS ORDERED: IBUPROFEN 600 MG TAB PO STA (15:00)
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
--- NOTE | 2018-10-03 15:30 | XR ---
EXAMINATION TYPE: XR foot limited LT DATE OF EXAM: 10/03/2018 COMPARISON: NONE HISTORY: 78-year-old male with pain TECHNIQUE: 2 views FINDINGS: Corticated ossific density dorsal to the talar head suggesting sequela of remote injury. Joe's toe is demonstrated. No acute fracture or dislocation on these 2 views. Vascular calcifications suggest underlying diabetes and/or chronic kidney disease. IMPRESSION: No acute osseous abnormality seen on these 2 views. An oblique view would be helpful in the setting o f trauma.
[2018-10-03 17:00] VITALS: BP 111/76; PULSE 85; RESP 16; TEMP 97.5
== END 2018-10-03 16:40 | disposition home or self-care (01) ==
LOC: EC 14:37
DX: S93.501A Unspecified sprain of right great toe, initial encounter (principal); J44.9 Chronic obstructive pulmonary disease, unspecified; F17.200 Nicotine dependence, unspecified, uncomplicated; Z79.02 Long term (current) use of antithrombotics/antiplatelets; Z79.899 Other long term (current) drug therapy; Z95.1 Presence of aortocoronary bypass graft; Z95.5 Presence of coronary angioplasty implant and graft; Z85.46 Personal history of malignant neoplasm of prostate; X58.XXXA Exposure to other specified factors, initial encounter
CPT/HCPCS: 99283

== ENCOUNTER 2018-11-09 19:15 | Inpatient (IN) | payer MEDICARE, OTHER ==
[2018-11-09] MEDS ORDERED: FUROSEMIDE 10 MG/ML 4 ML VIAL IV STA (19:31)
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
[2018-11-09 20:01] LABS: Albumin 3.7 g/dL (3.5-5.0); Calcium 9.1 mg/dL (8.4-10.2); Magnesium 2.1 mg/dL (1.6-2.3); Potassium 4.2 mmol/L (3.5-5.1); Total Bilirubin 1.5 mg/dL (0.2-1.3); Total Protein 6.4 g/dL (6.3-8.2)
[2018-11-09 20:06] LABS: INR 1.1 (<1.2); Partial Thromboplastin Time 25.6 sec (22.0-30.0); Prothrombin Time 11.2 sec (9.0-12.0)
--- NOTE | 2018-11-09 20:13 | XR ---
EXAMINATION TYPE: XR chest 2V DATE OF EXAM: 11/09/2018 COMPARISON: 07/24/2018 HISTORY: Leg swelling TECHNIQUE: Frontal and lateral views of the chest are obtained. FINDINGS: There is a left axillary pacemaker. There is coarse interstitial density in the lungs. The re is slight blunting of the costophrenic angles. IMPRESSION: Pulmonary fibrotic changes. Mild cardiomegaly. Bilateral mild pleural effusions. Mild he art failure is possible. Chest appears slightly worse than last exam.
[2018-11-09 20:18] LABS: Basophils # (A) 0.1 k/uL (0-0.2); Basophils % (A) 1 %; Eosinophils # (A) 0.1 k/uL (0-0.7); Eosinophils % (A) 2 %; HCT 41.1 % (39.0-53.0); HGB 12.7 gm/dL (13.0-17.5); Hypochromasia Slight; Lymphocytes # (A) 1.6 k/uL (1.0-4.8); Lymphocytes % (A) 20 %; MCH 29.2 pg (25.0-35.0); MCHC 30.9 g/dL (31.0-37.0); MCV 94.4 fL (80.0-100.0); Monocytes # (A) 0.7 k/uL (0-1.0); Monocytes % (A) 9 %; Neutrophils # (A) 5.3 k/uL (1.3-7.7); Neutrophils % (A) 68 %; Platelet Count 191 k/uL (150-450); RBC 4.35 m/uL (4.30-5.90); RDW 15.2 % (11.5-15.5); WBC 7.8 k/uL (3.8-10.6)
--- NOTE | 2018-11-09 20:29 | CT ---
EXAMINATION TYPE: CT brain wo con DATE OF EXAM: 11/09/2018 COMPARISON: None HISTORY: Bilateral leg swelling, pt fell 2x today CT DLP: 1129.4 mGycm Automated exposure control for dose reduction was used. FINDINGS: There is some mild cerebral cortical atrophy. There is no mass effect nor midline shift. There is no sign of intracranial hemorrhage. The calvarium is intact. There is dense calcification of the cerebra l falx. IMPRESSION: NO ACUTE INTRACRANIAL ABNORMALITY.
[2018-11-09] MEDS ORDERED: NITROGLYCERIN OINT 1 INCH/GM PACKET TOPICAL STA (22:23)
[2018-11-09] MEDS ORDERED: HEPARIN SODIUM,PORCINE 5,000 UNIT/ML 1 ML VIAL IV ONE (23:55)
[2018-11-09] MEDS ORDERED: HEPARIN SODIUM,PORCINE 5,000 UNIT/ML 1 ML VIAL IV PRN (23:55)
[2018-11-10] MEDS: HEPARIN SOD,PORK IN 0.45% NACL 25,000 UNIT in 0.45% NACL 1 250ML.BAG IV SCH ×2 (00:57→21:45)
[2018-11-10] MEDS ORDERED: hydrALAZINE HCL 20 MG/ML 1 ML VIAL IVP STA (01:03)
[2018-11-10] MEDS ORDERED: MORPHINE SULFATE 2 MG/ML SYRINGE IVP PRN (01:12)
[2018-11-10] MEDS: IPRATROPIUM-ALBUTEROL 3 ML NEB INHALATION SCH ×4 (01:41→19:03)
[2018-11-10 02:28] VITALS: BMI 28.6
[2018-11-10] MEDS: CARVEDILOL 6.25 MG TAB PO SCH ×2 (06:57→17:13)
[2018-11-10 07:16] LABS: Anisocytosis Slight; Basophils # (A) 0.1 k/uL (0-0.2); Basophils % (A) 1 %; Eosinophils # (A) 0.1 k/uL (0-0.7); Eosinophils % (A) 1 %; HCT 40.4 % (39.0-53.0); Lymphocytes # (A) 1.4 k/uL (1.0-4.8); Lymphocytes % (A) 18 %; MCH 30.4 pg (25.0-35.0); MCHC 32.3 g/dL (31.0-37.0); Mean Platelet Volume 8.8; Monocytes # (A) 0.4 k/uL (0-1.0); Monocytes % (A) 5 %; Neutrophils # (A) 5.9 k/uL (1.3-7.7); Neutrophils % (A) 74 %; Platelet Count 209 k/uL (150-450); RDW 16.5 % (11.5-15.5)
[2018-11-10] MEDS ORDERED: LISINOPRIL 20 MG TAB PO SCH (09:00)
[2018-11-10] MEDS ORDERED: NITROGLYCERIN OINT 1 INCH/GM PACKET TOPICAL SCH (09:00)
[2018-11-10] MEDS ORDERED: FUROSEMIDE 40 MG TAB PO SCH (09:00)
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
[2018-11-10] MEDS ORDERED: ASPIRIN 81 MG PO SCH (09:30)
[2018-11-10] MEDS: hydrALAZINE HCL 25 MG TAB PO SCH ×2 (10:09→21:37)
[2018-11-10] MEDS: RANOLAZINE 500 MG TAB.ER.12H PO SCH ×2 (10:09→21:36)
[2018-11-10] MEDS: CLOPIDOGREL 75 MG TAB PO SCH (10:10)
[2018-11-10] MEDS: ATORVASTATIN 80 MG TAB PO SCH (10:10)
[2018-11-10] MEDS: ISOSORBIDE MONONITRATE ER 60 MG TAB.ER.24H PO SCH (10:10)
[2018-11-10] MEDS: FUROSEMIDE 10 MG/ML 4 ML VIAL IV SCH ×2 (10:36→21:36)
[2018-11-10] MEDS ORDERED: NITROGLYCERIN SL TABS 0.4 MG TAB SUBLINGUAL PRN (13:04)
[2018-11-10] MEDS: ASPIRIN 81 MG PO SCH (21:36)
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
[2018-11-11] MEDS: IPRATROPIUM-ALBUTEROL 3 ML NEB INHALATION SCH ×5 (00:20→20:38)
[2018-11-11 06:01] LABS: Basophils # (A) 0.1 k/uL (0-0.2); Basophils % (A) 1 %; Eosinophils # (A) 0.1 k/uL (0-0.7); Eosinophils % (A) 2 %; HCT 38.8 % (39.0-53.0); HGB 12.9 gm/dL (13.0-17.5); Lymphocytes # (A) 1.5 k/uL (1.0-4.8); Lymphocytes % (A) 17 %; MCH 30.9 pg (25.0-35.0); MCHC 33.2 g/dL (31.0-37.0); MCV 93.1 fL (80.0-100.0); Monocytes # (A) 0.6 k/uL (0-1.0); Monocytes % (A) 7 %; Neutrophils % (A) 72 %; Platelet Count 179 k/uL (150-450); RBC 4.16 m/uL (4.30-5.90); RDW 15.2 % (11.5-15.5); WBC 8.4 k/uL (3.8-10.6)
[2018-11-11] MEDS: CARVEDILOL 6.25 MG TAB PO SCH ×2 (06:56→17:08)
[2018-11-11] MEDS: FUROSEMIDE 10 MG/ML 4 ML VIAL IV SCH ×2 (08:10→21:44)
[2018-11-11] MEDS: ISOSORBIDE MONONITRATE ER 60 MG TAB.ER.24H PO SCH (08:11)
[2018-11-11] MEDS: RANOLAZINE 500 MG TAB.ER.12H PO SCH ×2 (08:11→21:40)
[2018-11-11] MEDS: hydrALAZINE HCL 25 MG TAB PO SCH (08:11)
[2018-11-11] MEDS: CLOPIDOGREL 75 MG TAB PO SCH (08:12)
[2018-11-11] MEDS: ATORVASTATIN 80 MG TAB PO SCH (08:12)
[2018-11-11] MEDS: SPIRONOLACTONE 25 MG TAB PO SCH (14:37)
--- NOTE | 2018-11-11 17:43 | PN ---
PROGRESS NOTE This patient was admitted with symptoms of shortness of breath and dizziness. EKG did not show any acute ischemic changes. Patient did not complain of any chest pain. Patient has evidence of congestive heart failure. Her troponins were elevated, suggestive of possible non- QB-jenhavg-qworlnimc myocardial infarction, or it could be secondary to heart failure. Patient had intermittent dizziness. Echocardiogram reveals severely impaired left ventricular systolic function. Patient remains comfortable without any chest pain. First and second heart sounds are heard. Lungs are fairly clear to auscultation and percussion. Discussed the condition with Dr. Kaur. This patient had a very calcified circumflex coronary artery. In view of that, the patient is considered high risk for recurrent intervention. We will recommend continuing the patient on medical treatment. Patient is started on Entresto as well as Aldactone, and we will check the patient's AICD. MMKEN / ORION: [id number] /
[2018-11-11] MEDS ORDERED: IPRATROPIUM-ALBUTEROL 3 ML NEB INHALATION PRN (18:53)
--- NOTE | 2018-11-11 20:41 | P.PN ---
Progress Note - Text Progress Note Date: 11/11/18 Chief Complaint: Short of breath History of presenting complaint: This is a very pleasant [age]-year-old patient of Dr. guthrie. Chronic stable medical conditions include coronary artery disease, peripheral arterial disease, primary osteoarthritis, and COPD. Patient presents with 2 days of increasing shortness of breath. Also edema. Has been a bit dizzy. No fever no chills. Appetite has been fair. Bowel movements are okay. No cough or sputum production. No chest pain. Patient has CHF with EF of 30% Admitted with CHF exacerbation Today-breathing a bit better. Getting IV Lasix. Putting out urine. Tired. Review of systems: Was done for constitutional, cardiovascular, GI, pulmonary. relevant finding as above Active Medications Albuterol/Ipratropium (Duoneb 0.5 Mg-3 Mg/3 Ml Soln) 3 ml INHALATION RT-QID [facility] Last Admin: 11/11/18 20:38 Dose: 3 ml Documented by: Albuterol/Ipratropium (Duoneb 0.5 Mg-3 Mg/3 Ml Soln) 3 ml INHALATION RT-Q2H PRN PRN Reason: Shortness Of Breath Or Wheezing Aspirin (Aspirin) 81 mg PO HS [facility] Last Admin: 11/10/18 21:36 Dose: 81 mg Documented by: Atorvastatin Calcium (Lipitor) 80 mg PO DAILY [facility] Last Admin: 11/11/18 08:12 Dose: 80 mg Documented by: Carvedilol (Coreg) 6.25 mg PO BID-W/MEALS [facility] Last Admin: 11/11/18 17:08 Dose: 6.25 mg Documented by: Clopidogrel Bisulfate (Plavix) 75 mg PO DAILY [facility] Last Admin: 11/11/18 08:12 Dose: 75 mg Documented by: Furosemide (Lasix) 40 mg IV Q12H [facility] Last Admin: 11/11/18 08:10 Dose: 40 mg Documented by: Heparin Sodium (Porcine) (Heparin) 0 unit IV PER PROTOCOL PRN; Protocol PRN Reason: Low PTT Last Admin: 11/10/18 15:34 Dose: 2,265 unit Documented by: Isosorbide Mononitrate (Imdur) 60 mg PO DAILY [facility] Last Admin: 11/11/18 08:11 Dose: 60 mg Documented by: Morphine Sulfate (Morphine Sulfate (Inj)) 2 mg IVP ONCE PRN PRN Reason: Pain/Discomfort Last Admin: 11/10/18 01:13 Dose: 2 mg Documented by: Nitroglycerin (Nitrostat) 0.4 mg SUBLINGUAL Q5M PRN PRN Reason: Chest Pain Ranolazine (Ranexa) 1,000 mg PO BID [facility] Last Admin: 11/11/18 08:11 Dose: 1,000 mg Documented by: Sacubitril/Valsartan (Entresto 24 Mg-26 Mg Tablet) 1 each PO BID [facility] Spironolactone (Aldactone) 25 mg PO DAILY [facility] Last Admin: 11/11/18 14:37 Dose: 25 mg Documented by: Physical examination: VITAL SIGNS: 97.1, 103, 22, 1 31 x 96, 97% room air GENERAL: Laying in bed, tired EYES: Pupils equal. Conjunctiva normal. HEENT: External appearance of nose and ears normal, oral cavity grossly normal. NECK: JVD possibly raised; masses not palpable. HEART: First and second heart sounds are normal; edema present. LUNGS: Respiratory rate increased, diminished breath sounds some crackles. ABDOMEN: Soft, nontender, liver spleen not palpable, no masses palpable. PSYCH: Alert and oriented x3; mood and affect normal. INVESTIGATIONS, reviewed in the clinical context: White count 8.4 hemoglobin 12.9 Previous testing: White count 7.8 hemoglobin 12.7 platelets 191 potassium 4.2 creatinine 1.07 EKG tracing-personally reviewed by me shows right bundle branch block, sinus rhythm Chest x-ray film-personally reviewed by me shows pulmonary edema and pleural effusion Assessment: -Acute on chronic congestive heart failure exacerbation from systolic dysfunction EF 30-35% from underlying coronary artery disease, slow to respond -Coronary artery disease with history of bypass and stent last 1 from being in July 2018 to circumflex -COPD in a smoker -Peripheral arterial disease -Primary osteoarthritis -Right bundle branch block Plan: Continue patient on IV Lasix. Increase it to 40 mg IV every 8. Repeat checks x-ray in the morning. Discussed with the patient. Follow labs
[2018-11-11] MEDS: ASPIRIN 81 MG PO SCH (21:40)
[2018-11-12] MEDS: FUROSEMIDE 10 MG/ML 4 ML VIAL IV SCH ×2 (05:18→15:20)
[2018-11-12 06:15] LABS: Basophils % (A) 0 %; Eosinophils # (A) 0.1 k/uL (0-0.7); Eosinophils % (A) 1 %; HCT 38.6 % (39.0-53.0); HGB 12.5 gm/dL (13.0-17.5); Lymphocytes # (A) 1.3 k/uL (1.0-4.8); Lymphocytes % (A) 16 %; MCH 30.3 pg (25.0-35.0); MCHC 32.5 g/dL (31.0-37.0); MCV 93.3 fL (80.0-100.0); Mean Platelet Volume 7.7; Monocytes # (A) 0.6 k/uL (0-1.0); Monocytes % (A) 7 %; Neutrophils # (A) 6.1 k/uL (1.3-7.7); Neutrophils % (A) 74 %; Platelet Count 196 k/uL (150-450); RBC 4.14 m/uL (4.30-5.90); RDW 15.4 % (11.5-15.5); WBC 8.2 k/uL (3.8-10.6)
[2018-11-12 06:44] LABS: Calcium 9.3 mg/dL (8.4-10.2); Potassium 3.9 mmol/L (3.5-5.1)
[2018-11-12] MEDS: CARVEDILOL 6.25 MG TAB PO SCH ×2 (06:55→17:26)
[2018-11-12] MEDS: IPRATROPIUM-ALBUTEROL 3 ML NEB INHALATION SCH ×4 (07:07→20:59)
[2018-11-12] MEDS: ISOSORBIDE MONONITRATE ER 60 MG TAB.ER.24H PO SCH (08:29)
[2018-11-12] MEDS: RANOLAZINE 500 MG TAB.ER.12H PO SCH ×2 (08:29→21:45)
[2018-11-12] MEDS: SACUBITRIL/VALSARTAN 24 MG-26 MG TABLET PO SCH ×2 (08:29→21:45)
[2018-11-12] MEDS: ATORVASTATIN 80 MG TAB PO SCH (08:30)
[2018-11-12] MEDS: SPIRONOLACTONE 25 MG TAB PO SCH (08:30)
[2018-11-12] MEDS: CLOPIDOGREL 75 MG TAB PO SCH (08:30)
[2018-11-12 12:23] LABS: Glucose,Whole Blood 115 mg/dL (75-99)
--- NOTE | 2018-11-12 15:53 | P.PN ---
Subjective Progress Note Date: 11/12/18 This is an 78-year-old gentleman who follows with Dr. Kaur in the office, he has a known history of coronary artery disease with prior bypass surgery, history of single-chamber AICD, ischemic cardiomyopathy, hypertension, hyperlipidemia, nicotine dependence, most recent cardiac catheterization was performed in July of this year, which revealed heavily calcified coronary arteries, patent HDZ to the LAD, mild disease in the left main, chronically occluded LAD and right coronary artery and significant disease found in the circumflex, subsequent to that patient did undergo successful angioplasty of the mid circumflex by Dr. Kaur. Patient also has known severe peripheral vascular disease, COPD, GERD, nicotine dependence. He presents to the hospital on this occasion with symptoms of shortness of breath. According to the patient, shortness of breath started on the day he presented to the hospital, he states he had 2 falls that day and 2 falls the day prior. He denies losing consci ousness but states he was quite dizzy prior to falling on each occasion. Patient also noticed significant swelling in his bilateral lower extremities. His chest x-ray on presentation here showed pulmonary fibrotic changes, mild cardiomegaly, bilateral mild pleural effusions and mild heart failure. CAT scan of the brain was performed which did not reveal any acute intracranial abnormality. EKG shows sinus tachycardia with PACs and PVCs. Blood pressure 136/80 with a heart rate in the 100, 99% on 2 L of oxygen. White blood cell count 8.0, hemoglobin 13, platelet count 209. Sodium 143, potassium 4.2, BUN 28 and creatinine 1.0, magnesium is 2.1. Troponins 1.8, 1.3, 1.2. BNP level 13,800.At the time of my examination this morning, patient continues to feel short of breath, he states he's put out a significant amount of urine since presenting here. Continues to have swelling in his lower extremities, however improved from presentation according to the patient. 11/12/2018 Patient seen and examined this morning, overall feeling significantly better. He does state that when he goes to get up to go to the bathroom he is feeling some dizziness today. He has diuresed very well we will discontinue his IV Lasix today and change him over to oral diuretics, we will also check some o rthostatics on him. And order some FABRICIO hose stockings. Sodium today is 141, potassium 3.9, BUN 30 and creatinine 1.2. Weight is down 2 kg. Objective - Vital Signs Vital signs: Vital Signs Temp 97.8 F 11/12/18 11:51 Pulse 99 11/12/18 11:51 Resp 26 H 11/12/18 11:51 BP 117/67 11/12/18 12:46 Pulse Ox 93 L 11/12/18 11:51 Intake & Output 11/11/18 11/12/18 11/12/18 18:59 06:59 18:59 Intake Total 1214.32 720 Output Total 1600 575 900 Balance -385.68 -575 -180 Weight 86.5 kg Intake: IV 254.32 0.9 160 Heparin Sod,Pork in 0.45% 94.32 NaCl 25,000 unit In 0.45 % NaCl 1 250ml.bag @ 11 UNITS/KG/HR 9.979 mls/hr IV .Q24H MARQUEZ Rx#: [id number] Oral 960 720 Output: Urine 1600 575 900 Other: Voiding Method Toilet Toilet Urinal Urinal # Voids 2 - Exam PHYSICAL EXAMINATION: GENERAL: 78-year-old gentleman in no acute distress at the time of my examination HEENT: Head is atraumatic, normocephalic. Pupils equal, round. Sclera anicteric. Conjunctiva are clear. Mucous membranes of the mouth are moist. Neck is supple. There is elevated jugular venous pressure. No carotid bruit is heard. HEART EXAMINATION: Heart S1, S2 normal. No murmur or gallop heard. CHEST EXAMINATION: Lungs reveal scattered coarse wheezing throughout with diminished air entry to the bases bilaterally ABDOMEN: Soft, nontender. Bowel sounds are heard. No organomegaly noted. EXTREMITIES: 2+ peripheral pulses with no evidence 1+ peripheral edema and no calf tenderness noted. NEUROLOGIC patient is awake, alert and oriented 3 . . - Labs CBC & Chem 7: 11/12/18 05:33 11/12/18 05:33 Labs: Abnormal Lab Results - Last 24 Hours (Table) 11/12/18 11/12/18 11/12/18 Range/Units 05:33 05:33 12:21 RBC 4.14 L (4.30-5.90) m/uL Hgb 12.5 L (13.0-17.5) gm/dL Hct 38.6 L (39.0-53.0) % BUN 30 H (9-20) mg/dL Creatinine 1.26 H (0.66-1.25) mg/dL Glucose 116 H (74-99) mg/dL POC Glucose (mg/dL) 115 H (75-99) mg/dL Assessment and Plan Plan: Assessment and plan #1 systolic congestive heart failure acute on chronic, most recent echo was performed in July of this year which revealed an ejection fraction of 30-35%. #2 known history of coronary artery disease with prior bypass surgery in 2009, patient did undergo angioplasty of the circumflex artery in July of this year #3 hypertension #4 hyperlipidemia #5 nicotine dependence #6 ischemic cardiomyopathy with prior single-chamber AICD #7 PAD #8 abnormal troponins suggestive of possible non-Q-wave [place] #9 COPD Plan We will review the echocardiogram with Doppler study, discontinue IV Lasix and start oral diuretics. Repeat chest x-ray. DNP note has been reviewed, I agree with a documented findings and plan of care. Patient was seen and examined.
[2018-11-12] MEDS: FUROSEMIDE 40 MG TAB PO SCH (16:17)
--- NOTE | 2018-11-12 18:11 | XR ---
EXAMINATION TYPE: XR chest 2V DATE OF EXAM: 11/12/2018 COMPARISON: November 09, 2018 HISTORY: Follow-up heart failure TECHNIQUE: Frontal and lateral views of the chest are obtained. FINDINGS: There is coarse interstitial density in the mid and lower lung garcia. There is probably p ulmonary vascular congestion. Heart appears enlarged. There is a left axillary pacemaker. There are s ternal wires. There is mild blunting of the costophrenic angles. IMPRESSION: There is probably mild congestive heart failure. Small pleural effusions. Chest is not s ignificantly different than recent exam.
[2018-11-12] MEDS: ASPIRIN 81 MG PO SCH (21:44)
--- NOTE | 2018-11-12 23:11 | P.PN ---
Progress Note - Text Progress Note Date: 11/12/18 Chief Complaint: Short of breath Interval history: This is a very pleasant [age]-year-old patient of Dr. guthrie. Chronic stable medical conditions include coronary artery disease, peripheral arterial disease, primary osteoarthritis, and COPD. Patient presents with 2 days of increasing shortness of breath. Also edema. Has been a bit dizzy. No fever no chills. Appetite has been fair. Bowel movements are okay. No cough or sputum production. No chest pain. Patient has CHF with EF of 30% Admitted with CHF exacerbation Today-Still quite a bit short of breath. Tired. Did tolerate some diet. Laying in bed. Review of systems: Was done for constitutional, cardiovascular, GI, pulmonary. relevant finding as above Physical examination: VITAL SIGNS: 97.8, 99, 26, 133/77, 93% on room air GENERAL: Laying in bed, tired EYES: Pupils equal. Conjunctiva normal. HEENT: External appearance of nose and ears normal, oral cavity grossly normal. NECK: JVD possibly raised; masses not palpable. HEART: First and second heart sounds are normal; edema present. LUNGS: Respiratory rate increased, diminished breath sounds some crackles. ABDOMEN: Soft, nontender, liver spleen not palpable, no masses palpable. PSYCH: Alert and oriented x3; mood and affect normal. INVESTIGATIONS, reviewed in the clinical context: White count 8.2 hemoglobin 12.5 potassium 3.9 bun 30 creatinine 1.26 Chest o-dof-lydubtil fluid Previous testing: White count 7.8 hemoglobin 12.7 platelets 191 potassium 4.2 creatinine 1.07 EKG tracing-personally reviewed by me shows right bundle branch block, sinus rhythm Chest x-ray film-personally reviewed by me shows pulmonary edema and pleural effusion Troponin I-1.8, 1.3, 1.2 Assessment: -Acute on chronic congestive heart failure exacerbation from systolic dysfunction EF 30-35% from underlying coronary artery disease, improving -Acute non-Q-wave myocardial infarction, POA -Coronary artery disease with history of bypass and stent last 1 from being in July 2018 to circumflex -COPD in a smoker -Peripheral arterial disease -Primary osteoarthritis -Right bundle branch block Plan: Patient is cystoscopy [place] Lasix by cardiology. Told the patient to be up in a chair. Increase activity. Patient started on Entresto by cardiology.
[2018-11-13 06:25] LABS: Calcium 9.4 mg/dL (8.4-10.2); Potassium 4.1 mmol/L (3.5-5.1)
[2018-11-13] MEDS: IPRATROPIUM-ALBUTEROL 3 ML NEB INHALATION SCH ×3 (07:08→15:20)
[2018-11-13] MEDS: CLOPIDOGREL 75 MG TAB PO SCH (08:13)
[2018-11-13] MEDS: ISOSORBIDE MONONITRATE ER 60 MG TAB.ER.24H PO SCH (08:13)
[2018-11-13] MEDS: CARVEDILOL 6.25 MG TAB PO SCH ×2 (08:13→16:50)
[2018-11-13] MEDS: RANOLAZINE 500 MG TAB.ER.12H PO SCH (08:13)
[2018-11-13] MEDS: ATORVASTATIN 80 MG TAB PO SCH (08:14)
[2018-11-13] MEDS: SPIRONOLACTONE 25 MG TAB PO SCH (08:14)
[2018-11-13] MEDS: SACUBITRIL/VALSARTAN 24 MG-26 MG TABLET PO SCH (08:14)
[2018-11-13] MEDS: FUROSEMIDE 40 MG TAB PO SCH ×2 (08:14→16:50)
[2018-11-13 12:25] VITALS: BP 104/67; RESP 26; TEMP 97.7
[2018-11-13 15:21] VITALS: PULSE 92
--- NOTE | 2018-11-13 15:49 | P.PN ---
Subjective Progress Note Date: 11/13/18 This is an 78-year-old gentleman who follows with Dr. Kaur in the office, he has a known history of coronary artery disease with prior bypass surgery, history of single-chamber AICD, ischemic cardiomyopathy, hypertension, hyperlipidemia, nicotine dependence, most recent cardiac catheterization was performed in July of this year, which revealed heavily calcified coronary arteries, patent HDZ to the LAD, mild disease in the left main, chronically occluded LAD and right coronary artery and significant disease found in the circumflex, subsequent to that patient did undergo successful angioplasty of the mid circumflex by Dr. Kaur. Patient also has known severe peripheral vascular disease, COPD, GERD, nicotine dependence. He presents to the hospital on this occasion with symptoms of shortness of breath. According to the patient, shortness of breath started on the day he presented to the hospital, he states he had 2 falls that day and 2 falls the day prior. He denies losing consci ousness but states he was quite dizzy prior to falling on each occasion. Patient also noticed significant swelling in his bilateral lower extremities. His chest x-ray on presentation here showed pulmonary fibrotic changes, mild cardiomegaly, bilateral mild pleural effusions and mild heart failure. CAT scan of the brain was performed which did not reveal any acute intracranial abnormality. EKG shows sinus tachycardia with PACs and PVCs. Blood pressure 136/80 with a heart rate in the 100, 99% on 2 L of oxygen. White blood cell count 8.0, hemoglobin 13, platelet count 209. Sodium 143, potassium 4.2, BUN 28 and creatinine 1.0, magnesium is 2.1. Troponins 1.8, 1.3, 1.2. BNP level 13,800.At the time of my examination this morning, patient continues to feel short of breath, he states he's put out a significant amount of urine since presenting here. Continues to have swelling in his lower extremities, however improved from presentation according to the patient. 11/12/2018 Patient seen and examined this morning, overall feeling significantly better. He does state that when he goes to get up to go to the bathroom he is feeling some dizziness today. He has diuresed very well we will discontinue his IV Lasix today and change him over to oral diuretics, we will also check some o rthostatics on him. And order some FABRICIO hose stockings. Sodium today is 141, potassium 3.9, BUN 30 and creatinine 1.2. Weight is down 2 kg. 11/13/2018 Patient was seen and examined this morning, overall his breathing is stable, he does still complain of some mild dizziness when he gets up, however if he takes this time he states that it significantly better. He does have FABRICIO hose on today. Objective - Vital Signs Vital signs: Vital Signs Temp 97.7 F 11/13/18 12:22 Pulse 92 11/13/18 15:32 Resp 26 H 11/13/18 12:22 BP 104/67 11/13/18 12:22 Pulse Ox 95 11/13/18 12:22 Intake & Output 11/12/18 11/13/18 11/13/18 18:59 06:59 18:59 Intake Total 956 Output Total 900 775 Balance 56 -775 Weight 88.5 kg Intake: Oral 956 Output: Urine 900 775 Other: Voiding Method Urinal Toilet Toilet Urinal Urinal # Voids 2 - Exam PHYSICAL EXAMINATION: GENERAL: 78-year-old gentleman in no acute distress at the time of my examination HEENT: Head is atraumatic, normocephalic. Pupils equal, round. Sclera anicter ic. Conjunctiva are clear. Mucous membranes of the mouth are moist. Neck is supple. There is elevated jugular venous pressure. No carotid bruit is heard. HEART EXAMINATION: Heart S1, S2 normal. No murmur or gallop heard. CHEST EXAMINATION: Lungs reveal scattered coarse wheezing throughout with diminished air entry to the bases bilaterally ABDOMEN: Soft, nontender. Bowel sounds are heard. No organomegaly noted. EXTREMITIES: 2+ peripheral pulses with no evidence 1+ peripheral edema and no calf tenderness noted. NEUROLOGIC patient is awake, alert and oriented 3 . . - Labs CBC & Chem 7: 11/12/18 05:33 11/13/18 06:00 Labs: Abnormal Lab Results - Last 24 Hours (Table) 11/13/18 Range/Units 06:00 BUN 33 H (9-20) mg/dL Glucose 125 H (74-99) mg/dL Assessment and Plan Plan: Assessment and plan #1 systolic congestive heart failure acute on chronic, most recent echo was performed in July of this year which revealed an ejection fraction of 30-35%. #2 known history of coronary artery disease with prior bypass surgery in 2009, patient did undergo angioplasty of the circumflex artery in July of this year #3 hypertension #4 hyperlipidemia #5 nicotine dependence #6 ischemic cardiomyopathy with prior single-chamber AICD #7 PAD #8 abnormal troponins suggestive of possible non-Q-wave [place] #9 COPD Plan Repeat chest x-ray showed significant improvement from admission here. We will continue current dose of oral diuretics, patient may be able to be discharged home today from our perspective, follow-up appointment in the office. DNP note has been reviewed, I agree with a documented findings and plan of care. Patient was seen and examined.
--- NOTE | 2018-11-13 23:07 | P.DS ---
Providers Date of admission: 11/09/18 23:52 Expected date of discharge: 11/13/18 Attending physician: Brooks Courtney Consults: 11/09/18 23:52 Consult Physician Routine Consulting Provider: Zach Nichole Consult Reason/Comments: Atrial fibrillation and non-STEMI with CHF Do you want consulting provider notified?: Already Contacted Primary care physician: Leroy Young [facility] Course: Chief Complaint: Short of breath Interval history: This is a very pleasant 6 0-year-old patient of Dr. young. Chronic stable medical conditions include coronary artery disease, peripheral arterial disease, primary osteoarthritis, and COPD. Patient presents with 2 days of increasing shortness of breath. Also edema. Has been a bit dizzy. No fever no chills. Appetite has been fair. Bowel movements are okay. No cough or sputum production. No chest pain. Patient has CHF with EF of 30% Admitted with CHF exacerbation Responded well to IV Lasix. Doing better without discharge. Care was discussed with the patient. Consultation: Dr. VC Polanco from cardiology Physical examination: Vitals-97.7, 96, 16, 108 with 72, 98% room air GENERAL: Laying in bed, tired EYES: Pupils equal. Conjunctiva normal. HEENT: External appearance of nose and ears normal, oral cavity grossly normal. NECK: JVD possibly raised; masses not palpable. HEART: First and second heart sounds are normal; edema present. LUNGS: Respiratory rate increased, diminished breath sounds some crackles. ABDOMEN: Soft, nontender, liver spleen not palpable, no masses palpable. PSYCH: Alert and oriented x3; mood and affect normal. INVESTIGATIONS, reviewed in the clinical context: White count 8.2 hemoglobin 12.5 potassium 3.9 bun 30 creatinine 1.26 Chest q-zca-cfqqdfcx fluid Previous testing: White count 7.8 hemoglobin 12.7 platelets 191 potassium 4.2 creatinine 1.07 EKG tracing-personally reviewed by me shows right bundle branch block, sinus rhythm Chest x-ray film-personally reviewed by me shows pulmonary edema and pleural effusion Troponin I-1.8, 1.3, 1.2 Discharge diagnosis: -Acute on chronic congestive heart failure exacerbation from systolic dysfunction EF 30-35% from underlying coronary artery disease, improving -Acute non-Q-wave myocardial infarction, POA -Coronary artery disease with history of bypass and stent last 1 from being in July 2018 to circumflex -COPD in a smoker -Peripheral arterial disease -Primary osteoarthritis -Right bundle branch block Disposition: Home Patient Condition at Discharge: Stable Plan - Discharge Summary Discharge Rx Participant: No New Discharge Prescriptions: New Spironolactone [Aldactone] 25 mg PO DAILY #30 tab Sacubitril/Valsartan [Entresto 24 mg-26 mg Tablet] 1 each PO BID #60 tablet Continue Carvedilol [Coreg] 6.25 mg PO BID Ranolazine [Ranexa] 1,000 mg PO BID Clopidogrel [Plavix] 75 mg PO DAILY #30 tab Albuterol Inhaler [Ventolin Hfa Inhaler] 2 puff INHALATION RT-Q6H PRN PRN Reason: Shortness Of Breath Aspirin 81 mg PO HS #30 chew Isosorbide Mononitrate ER [Imdur] 60 mg PO DAILY #30 tab.er.24h Atorvastatin [Lipitor] 80 mg PO DAILY #30 tab Nitroglycerin Sl Tabs [Nitrostat] 0.4 mg SUBLINGUAL Q5M PRN #25 tab PRN Reason: Chest Pain Budesonide-Formot 160-4.5 Mcg [Symbicort 160-4.5 Mcg Inhaler] 2 puff INHALATION RT-BID #1 puff Ipratropium [place] [Atrovent Hfa] 2 puff INHALATION RT-QID Changed Furosemide [Lasix] 40 mg PO BID #60 tab Discontinued Lisinopril [Zestril] 20 mg PO DAILY #30 tab hydrALAZINE HCL [Apresoline] 25 mg PO BID #60 tab Discharge Medication List Carvedilol [Coreg] 6.25 mg PO BID 08/22/16 [History] Ranolazine [Ranexa] 1,000 mg PO BID 08/22/16 [History] Clopidogrel [Plavix] 75 mg PO DAILY #30 tab 08/25/16 [Rx] Albuterol Inhaler [Ventolin Hfa Inhaler] 2 puff INHALATION RT-Q6H PRN 02/06/17 [History] Aspirin 81 mg PO HS #30 chew 07/29/18 [Rx] Atorvastatin [Lipitor] 80 mg PO DAILY #30 tab 07/29/18 [Rx] Budesonide-Formot 160-4.5 Mcg [Symbicort 160-4.5 Mcg Inhaler] 2 puff INHALATION RT-BID #1 puff 07/29/18 [Rx] Isosorbide Mononitrate ER [Imdur] 60 mg PO DAILY #30 tab.er.24h 07/29/18 [Rx] Nitroglycerin Sl Tabs [Nitrostat] 0.4 mg SUBLINGUAL Q5M PRN #25 tab 07/29/18 [Rx] Ipratropium [place] [Atrovent Hfa] 2 puff INHALATION RT-QID 10/03/18 [History] Furosemide [Lasix] 40 mg PO BID #60 tab 11/13/18 [Rx] Sacubitril/Valsartan [Entresto 24 mg-26 mg Tablet] 1 each PO BID #60 tablet 11/13/18 [Rx] Spironolactone [Aldactone] 25 mg PO DAILY #30 tab 11/13/18 [Rx] Follow up Appointment(s)/Referral(s): Richard Kaur MD [STAFF PHYSICIAN] - 11/20/18 2:30 pm (At [facility], next to [place] in [place].) Leroy Young MD [Primary Care Provider] - 11/26/18 8:40 am () [facility], [NON-STAFF] - 1 Week Ambulatory/Diagnostic Orders: Basic Metabolic Panel [LAB.AMB] Time Frame: 1 Week, Location: None Selected Patient Instructions/Handouts: Heart Failure (DC), Heart Healthy Diet (DC) Activity/Diet/Wound Care/Special Instructions: Free 30 day coupon applied for [place] - ready @[facility] Follow up with PCP or cyber special agent regarding Entresto prior auth (through [facility] ref # [id number]) Discharge Disposition: HOME WITH HOME HEALTH SERVICES
== END 2018-11-13 17:40 | disposition home health service (06) | DRG 282 ==
LOC: EC 19:15 → 3SCARD 23:52
PROVIDERS: ADMIT Hospitalist; ATTEND Hospitalist
DX: I11.0 Hypertensive heart disease with heart failure (principal); I21.4 Non-ST elevation (NSTEMI) myocardial infarction; I50.23 Acute on chronic systolic (congestive) heart failure; E78.5 Hyperlipidemia, unspecified; F17.210 Nicotine dependence, cigarettes, uncomplicated; F41.9 Anxiety disorder, unspecified; I25.10 Atherosclerotic heart disease of native coronary artery without angina pectoris; I25.5 Ischemic cardiomyopathy; I45.10 Unspecified right bundle-branch block; I48.91 Unspecified atrial fibrillation; I73.9 Peripheral vascular disease, unspecified; J44.9 Chronic obstructive pulmonary disease, unspecified; K21.9 Gastro-esophageal reflux disease without esophagitis; M19.90 Unspecified osteoarthritis, unspecified site; Z79.02 Long term (current) use of antithrombotics/antiplatelets; Z79.51 Long term (current) use of inhaled steroids; Z79.82 Long term (current) use of aspirin; Z79.899 Other long term (current) drug therapy; Z85.46 Personal history of malignant neoplasm of prostate; Z95.1 Presence of aortocoronary bypass graft; Z95.810 Presence of automatic (implantable) cardiac defibrillator; Z92.3 Personal history of irradiation; Z95.5 Presence of coronary angioplasty implant and graft; Z81.1 Family history of alcohol abuse and dependence; Z98.42 Cataract extraction status, left eye; Z98.41 Cataract extraction status, right eye
CPT/HCPCS: 36415; 70450; 71046; 80048; 80053; 82550; 83735; 83880; 84484; 85025; 85610; 85730; 93005; 93306; 94640; 94760; 96365; 96375; 96376; 99291

== ENCOUNTER 2018-11-14 14:35 | Emergency (ER) | payer MEDICARE, OTHER ==
[2018-11-14] MEDS ORDERED: SODIUM CHLORIDE 0.9% 500 ML 500 ML IV STA (14:55)
[2018-11-14] MEDS ORDERED: NITROGLYCERIN OINT 1 INCH/GM PACKET TOPICAL STA (14:55)
[2018-11-14] MEDS ORDERED: PROPARACAINE 0.5% OPHTH DROPS 15 ML BTL ONE (15:13)
[2018-11-14] MEDS ORDERED: PROPARACAINE 0.5% OPHTH DROPS 15 ML BTL RIGHT EYE STA (15:16)
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
[2018-11-14] MEDS ORDERED: MECLIZINE 25 MG TAB PO STA (15:28)
[2018-11-14 15:31] LABS: Basophils # (A) 0.1 k/uL (0-0.2); Basophils % (A) 1 %; Eosinophils # (A) 0.1 k/uL (0-0.7); Eosinophils % (A) 1 %; HCT 44.8 % (39.0-53.0); HGB 15.2 gm/dL (13.0-17.5); Lymphocytes # (A) 1.3 k/uL (1.0-4.8); Lymphocytes % (A) 12 %; MCHC 33.8 g/dL (31.0-37.0); MCV 91.8 fL (80.0-100.0); Mean Platelet Volume 7.6; Monocytes # (A) 0.6 k/uL (0-1.0); Monocytes % (A) 5 %; Neutrophils # (A) 9.2 k/uL (1.3-7.7); Neutrophils % (A) 80 %; Platelet Count 267 k/uL (150-450); RBC 4.89 m/uL (4.30-5.90); RDW 15.4 % (11.5-15.5); WBC 11.5 k/uL (3.8-10.6)
--- NOTE | 2018-11-14 15:34 | CT ---
EXAMINATION TYPE: CT brain wo con DATE OF EXAM: 11/14/2018 COMPARISON: November 09, 2018 HISTORY: dizziness CT DLP: 1111.4 mGycm Automated exposure control for dose reduction was used. FINDINGS: There is cerebral cortical atrophy. There is no mass effect nor midline shift. There is no sign of in tracranial hemorrhage. There is sphenoid sinus mucosal thickening. Calvarium is intact. IMPRESSION: CEREBRAL ATROPHY. NO ACUTE INTRACRANIAL ABNORMALITY. NO CHANGE.
--- NOTE | 2018-11-14 15:35 | XR ---
EXAMINATION TYPE: XR chest 2V DATE OF EXAM: 11/14/2018 COMPARISON: 11/12/2018 HISTORY: Chest pain TECHNIQUE: Frontal and lateral views of the chest are obtained. FINDINGS: There is no heart failure. There is a diffuse interstitial infiltrate in the right lung. H eart is top normal in size. There is a left axillary pacemaker. There is slight blunting right costop hrenic angle. There are sternal wires. IMPRESSION: There is clearing of the mild heart failure compared to last exam. There is some residua l interstitial edema in the right lung. No definite pleural fluid.
[2018-11-14 15:40] LABS: Partial Thromboplastin Time 25.7 sec (22.0-30.0); Prothrombin Time 10.8 sec (9.0-12.0)
[2018-11-14 15:47] LABS: Albumin 3.7 g/dL (3.5-5.0); Calcium 9.7 mg/dL (8.4-10.2); Magnesium 2.3 mg/dL (1.6-2.3); Potassium 5.2 mmol/L (3.5-5.1); Total Bilirubin 1.6 mg/dL (0.2-1.3); Total Protein 6.7 g/dL (6.3-8.2)
[2018-11-14] MEDS ORDERED: SODIUM CHLORIDE 0.9% 500 ML 500 ML IV ONE (16:30)
--- NOTE | 2018-11-14 17:15 | CT ---
EXAMINATION TYPE: CT angio head neck DATE OF EXAM: 11/14/2018 HISTORY: Dizziness. COMPARISON: None CT DLP: 494.7 mGycm. Automated Exposure Control for Dose Reduction was Utilized. TECHNIQUE: CTA scan of the neck is performed with IV Contrast, patient injected with 50ml mL of Isov ue 370, axial images are obtained, coronal and sagittal reformatted images are reviewed. Three-D geovani nstructed images are created on an independent workstation and reviewed. FINDINGS: There is normal branching pattern of the great vessels on the aortic arch. Thoracic aorta is atheroma tous. There is bilateral arterial flow in the subclavian arteries. There is arterial flow in the comm on internal and external carotid arteries bilaterally. There is diffuse plaque and 50% stenosis of th e proximal left internal carotid artery. There is approximately 25% stenosis proximal right internal carotid artery. There is arterial flow in left vertebral artery. There is arterial flow in the proxim al right vertebral artery but no flow seen in the distal right vertebral artery. There is arterial fl ow in the basilar artery. There is arterial flow in the anterior middle and posterior cerebral arteries. There is normal contra st opacification of the venous sinuses. I see no evidence of intracranial arterial stenosis. There is atherosclerotic calcification in the intracranial internal carotid arteries with lumen narrowing pro bably close to 50%. I see no intracranial aneurysm or neovascularity. There is no mass effect. 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 Plaque at the carotid artery bifurcations with approximate 50% stenosis left internal carotid artery and 25% stenosis right internal carotid artery near the origin. There is approximate 50% stenosis of the intracranial internal carotid arteries due to diffuse plaque .
[2018-11-14 17:26] VITALS: RESP 18
[2018-11-14] MEDS ORDERED: ASPIRIN 81 MG PO STA (18:36)
[2018-11-14] MEDS ORDERED: CLOPIDOGREL 75 MG TAB PO STA (18:36)
[2018-11-14] MEDS ORDERED: ATORVASTATIN 40 MG TAB PO STA (18:36)
[2018-11-14 19:37] VITALS: BP 117/70; PULSE 80; TEMP 98.8
== END 2018-11-14 19:36 | disposition other institution (70) ==
LOC: EC 14:35
DX: I48.92 Unspecified atrial flutter (principal); H57.11 Ocular pain, right eye; R19.7 Diarrhea, unspecified; R42 Dizziness and giddiness; I65.01 Occlusion and stenosis of right vertebral artery; J45.909 Unspecified asthma, uncomplicated; I25.2 Old myocardial infarction; Z79.02 Long term (current) use of antithrombotics/antiplatelets; Z79.899 Other long term (current) drug therapy; Z87.891 Personal history of nicotine dependence; Z85.46 Personal history of malignant neoplasm of prostate; Z92.3 Personal history of irradiation; Z95.1 Presence of aortocoronary bypass graft; Z95.5 Presence of coronary angioplasty implant and graft
CPT/HCPCS: 99285; 96360; 96361; 36415; 93005; 80053; 83735; 84484; 85025; 85610; 85730; 71046; 70496; 70450; 70498; Q9967

== ENCOUNTER 2018-11-24 11:02 | Inpatient (IN) | payer MEDICARE, OTHER ==
[2018-11-24] MEDS: SODIUM CHLORIDE 0.9% 1,000 ML IV STA ×2 (11:02→13:21)
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
[2018-11-24 11:56] LABS: Albumin 3.1 g/dL (3.5-5.0); Calcium 8.6 mg/dL (8.4-10.2); Magnesium 1.8 mg/dL (1.6-2.3); Total Bilirubin 0.9 mg/dL (0.2-1.3); Total Protein 5.5 g/dL (6.3-8.2)
[2018-11-24 11:59] LABS: Anisocytosis Slight; Basophils % (A) 1 %; Eosinophils # (A) 0.2 k/uL (0-0.7); Eosinophils % (A) 2 %; HCT 39.7 % (39.0-53.0); HGB 13.3 gm/dL (13.0-17.5); Lymphocytes # (A) 1.4 k/uL (1.0-4.8); Lymphocytes % (A) 18 %; MCH 31.1 pg (25.0-35.0); MCHC 33.6 g/dL (31.0-37.0); MCV 92.7 fL (80.0-100.0); Mean Platelet Volume 7.7; Monocytes # (A) 0.4 k/uL (0-1.0); Monocytes % (A) 6 %; Neutrophils # (A) 5.5 k/uL (1.3-7.7); Neutrophils % (A) 72 %; Partial Thromboplastin Time 26.7 sec (22.0-30.0); Platelet Count 198 k/uL (150-450); RBC 4.28 m/uL (4.30-5.90); RDW 16.3 % (11.5-15.5); WBC 7.7 k/uL (3.8-10.6)
--- NOTE | 2018-11-24 12:14 | XR ---
EXAMINATION TYPE: XR chest 2V DATE OF EXAM: 11/24/2018 COMPARISON: Chest x-ray 10 days ago. HISTORY: History of hypotension and dizziness with weakness. TECHNIQUE: Frontal and lateral views of the chest are obtained. FINDINGS: There is chronic parenchymal change with reticulation and opacity in the bases slightly mo re prominent than prior. No pleural effusion or pneumothorax is seen. The cardiac silhouette size is enlarged with single lead pacemaker/AICD and atherosclerotic thoracic aorta redemonstrated. The oss eous structures are intact. IMPRESSION: Cardiomegaly and chronic parenchymal changes with developing bibasilar edema and/or infi ltrate suspected.
--- NOTE | 2018-11-24 12:23 | CT ---
EXAMINATION TYPE: CT brain wo con DATE OF EXAM: 11/24/2018 COMPARISON: 11/14/2018 HISTORY: 78-year-old male with dizziness and weakness TECHNIQUE: Examination was done in axial plane without intravenous contrast. Coronal and sagittal r econstructions performed. CT DLP: 1099.4 mGycm Automated exposure control for dose reduction was used. FINDINGS: There is no evidence of acute intracranial hemorrhage, acute ischemic changes, mass, mass-effect, or extra-axial fluid collection. There is no effacement of cerebral sulci or basal subarachnoid cister ns. There is no hydrocephalus. There is no midline shift. Arias-white matter distinction is preserv ed. Moderate generalized supratentorial volume loss. Moderate patchy white matter hypodensities in both c erebral hemispheres. Dural calcifications. Scattered mild mucosal thickening ethmoid air cells and moderate within the sphenoid sinus. Right sph enoid sinus hypoplastic. Mastoid air cells well pneumatized. Orbits and globes are intact. IMPRESSION: Stable mild atrophy and moderate patchy changes of chronic small vessel ischemic disease. No acute in tracranial abnormality seen.
[2018-11-24] MEDS ORDERED: SODIUM CHLORIDE 0.9% 1,000 ML IV ONE (13:18)
[2018-11-24] MEDS ORDERED: NITROGLYCERIN SL TABS 0.4 MG TAB SUBLINGUAL PRN ×2 (14:37→14:50)
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
[2018-11-24 15:04] LABS: Appearance,Urine Clear (Clear); Bilirubin,Urine Negative (Negative); Blood,Urine Negative (Negative); Color,Urine Yellow; Glucose,Urine (UA) Negative (Negative); Ketones,Urine Negative (Negative); Leukocyte Esterase,Urine Negative (Negative); Nitrite,Urine Negative (Negative); PH, Urine 5.5 (5.0-8.0); Protein,Urine Trace (Negative); Specific Gravity,Urine 1.012 (1.001-1.035); Urobilinogen,Urine <2.0 mg/dL (<2.0)
[2018-11-24] MEDS: IPRATROPIUM 0.5 MG/2.5 ML NEBU INHALATION SCH ×2 (16:17→19:30)
[2018-11-24 16:51] VITALS: BMI 27.1
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
[2018-11-24] MEDS: CARVEDILOL 6.25 MG TAB PO SCH (18:18)
[2018-11-24] MEDS: FUROSEMIDE 40 MG TAB PO SCH (18:18)
[2018-11-24] MEDS: SACUBITRIL/VALSARTAN 24 MG-26 MG TABLET PO SCH (18:18)
[2018-11-24] MEDS ORDERED: HEPARIN SODIUM,PORCINE 5,000 UNIT/ML 1 ML VIAL IV ONE (18:22)
[2018-11-24] MEDS ORDERED: HEPARIN SODIUM,PORCINE 5,000 UNIT/ML 1 ML VIAL IV PRN (18:22)
[2018-11-24] MEDS: HEPARIN SOD,PORK IN 0.45% NACL 25,000 UNIT in 0.45% NACL 1 250ML.BAG IV SCH (19:01)
[2018-11-24] MEDS: SYMBICORT 160-4.5 MCG INHALER INHALATION SCH (19:30)
[2018-11-24] MEDS: RANOLAZINE 500 MG TAB.ER.12H PO SCH (19:55)
[2018-11-24] MEDS ORDERED: ASPIRIN 81 MG PO SCH (21:00)
[2018-11-25 04:22] LABS: Cholesterol 110 mg/dL (<200); HDL Cholesterol 32 mg/dL (40-60); LDL Cholesterol,Calculated 54 mg/dL (0-99); Triglycerides 121 mg/dL (<150)
[2018-11-25] MEDS: CARVEDILOL 6.25 MG TAB PO SCH (04:53)
[2018-11-25] MEDS: IPRATROPIUM 0.5 MG/2.5 ML NEBU INHALATION SCH ×2 (08:21→11:49)
[2018-11-25] MEDS: SYMBICORT 160-4.5 MCG INHALER INHALATION SCH ×2 (08:22→20:46)
--- NOTE | 2018-11-25 08:51 | P.PN ---
Subjective This is a pleasant 78 years old male with past medical history of COPD, coronary artery disease status post CABG and stent placement, GERD, hyperlipidemia, osteoarthritis, and prostate cancer status post radiotherapy. Presents because of dizziness. Patient says that he has dizziness for about 3 weeks that comes and go every other days, felt like presyncope. No vertigo. last night he had dizziness and fell twice, he went to see his PCP Dr. Young using a wheelchair which usually he does not but because of his dizziness. His PCP sent him to the hospital for further evaluation. Also he was complaining of from pain in his right eye for about 2 weeks, patient is a stable not worsening, her buttocks about 10/10 although patient does not seem in distress. He describes the pain as sharp with no splitting or relieving factors. No blurred vision or nystagmus or strabismus. No weakness or other headache. No abnormal sensation. No diffi culty swallowing or talking. He has history of COPD with chronic dyspnea slightly worse but no chest pain or coughing. He does not use oxygen at home. Patient states he quit smoking cigarettes about 5 weeks ago because his doctor told him so Vitas looks stable, blood pressure is on the low normal sites with currently 104/72, showing unremarkable WBC and hemoglobin. INR is 1.0, S electrolytes are normal and creatinine is 1.4, baseline 1.2-1.4. Troponin is 0.05, but is chronically elevated and is going down. Glucose 129, liver enzymes not elevated. CT of the brain: No acute process, mild atrophy and chronic ischemic vessel disease. Chest x-ray: No acute process. developing bibasilar edema and/or infiltrate suspected. EKG showing atrial flutter with variable block, QTC is 549 11/25/2018 Patient is awake and alert with no chest pain or dyspnea. He still have dizziness same as of yesterday however his right eye pain has resolved. Patient was started yesterday on heparin drip and he is tolerating that well. Neurologist recommended MRI of the brain, we are going to get the records from the [facility] as he had MRI of the brain last week: Right cerebellar acute/subacute ischemia consistent with posterior inferior cerebellar artery distribution. Patient has a defibrillator his heart but he already had MRI of the brain last week. No other new complaints. He is on oral Lasix 40 mg twice daily. Also his aspirin 81 mg daily and Plavix 75 mg by mouth daily. Repeat labs this morning. Blood pressure in the low-normal side, currently is 98/62. He is mildly tachycardic 80-100. Review of systems CONSTITUTIONAL: No fever, no malaise, no fatigue. HEENT: No recent visual problems or hearing problems. Denied any sore throat. CARDIOVASCULAR: No orthopnea, PND, no palpitations, no syncope. PULMONARY: No shortness of breath, no cough, no hemoptysis. GASTROINTESTINAL: No diarrhea, no nausea, no vomiting, no abdominal pain. Normoactive bowel sounds. NEUROLOGICAL: No headaches, no weakness, no numbness. HEMATOLOGICAL: Denies any bleeding or petechiae. GENITOURINARY: Denies any burning micturition, frequency, or urgency. MUSCULOSKELETAL/RHEUMATOLOGICAL: Denies any joint pain, swelling, or any muscle pain. ENDOCRINE: Denies any polyuria or polydipsia. Active Medications Generic Name Dose Route Start Last Admin Trade Name Clintonq PRN Reason Stop Dose Admin Aspirin 325 mg 11/25/18 09:00 Aspirin PO DAILY [facility] Atorvastatin Calcium 80 mg 11/25/18 09:00 Lipitor PO DAILY [facility] Budesonide/Formoterol Fumarate 2 puff 11/24/18 20:00 11/25/18 08:22 Symbicort 160-4.5 Mcg Inhaler INHALATION 2 puff RT-BID [facility] Administration Carvedilol 6.25 mg 11/24/18 17:00 11/25/18 04:53 Coreg PO Not Given BID@0700,1700 [facility] Clopidogrel Bisulfate 75 mg 11/25/18 09:00 Plavix PO DAILY [facility] Furosemide 40 mg 11/24/18 16:00 11/24/18 18:18 Lasix PO Not Given BID@0900,1600 [facility] Heparin Sodium (Porcine) 0 unit 11/24/18 18:22 Heparin IV PER PROTOCOL PRN Low PTT Protocol Heparin Sodium/Sodium Chloride 250 mls @ 9.906 mls/hr 11/24/18 18:30 11/24/18 19:01 25,000 unit/ Sodium Chloride IV 12 units/kg/hr .Q24H MARQUEZ 9.906 mls/hr Administration Protocol 12 UNITS/KG/HR Ipratropium [place] 0.5 mg 11/24/18 16:00 11/25/18 08:21 Atrovent Nebulized INHALATION 0.5 mg RT-QID [facility] Administration Isosorbide Mononitrate 60 mg 11/25/18 09:00 Imdur PO DAILY [facility] Nitroglycerin 0.4 mg 11/24/18 14:50 Nitrostat SUBLINGUAL Q5M PRN Chest Pain Ranolazine 1,000 mg 11/24/18 21:00 11/24/18 19:55 Ranexa PO 1,000 mg BID [facility] Administration Sacubitril/Valsartan 1 each 11/24/18 21:00 11/24/18 18:18 Entresto 24 Mg-26 Mg Tablet PO Not Given BID [facility] Spironolactone 25 mg 11/25/18 09:00 Aldactone PO DAILY [facility] Objective - Vital Signs Vital signs: Vital Signs Temp 98.2 F 11/25/18 03:59 Pulse 78 11/25/18 08:29 Resp 18 11/25/18 03:59 BP 98/62 11/25/18 03:59 Pulse Ox 98 11/25/18 03:59 Intake & Output 11/24/18 11/25/18 11/25/18 18:59 06:59 18:59 Intake Total 444 480 Output Total 550 Balance -106 480 Weight 82.554 kg 85.1 kg Intake: Oral 444 480 Output: Urine 550 Other: # Voids 1 - Labs CBC & Chem 7: 11/24/18 11:35 11/24/18 11:35 Labs: Abnormal Lab Results - Last 24 Hours (Table) 11/24/18 11/24/18 11/24/18 Range/Units 11:35 11:35 11:35 RBC 4.28 L (4.30-5.90) m/uL RDW 16.3 H (11.5-15.5) % APTT (22.0-30.0) sec Chloride 111 H (98-107) mmol/L Carbon Dioxide 18 L (22-30) mmol/L BUN 34 H (9-20) mg/dL Creatinine 1.47 H (0.66-1.25) mg/dL Glucose 129 H (74-99) mg/dL ALT 19 L (21-72) U/L Troponin I 0.055 H* (0.000-0.034) ng/mL Total Protein 5.5 L (6.3-8.2) g/dL Albumin 3.1 L (3.5-5.0) g/dL HDL Cholesterol (40-60) mg/dL Urine Protein (Negative) 11/24/18 11/24/18 11/24/18 Range/Units 11:35 14:52 17:33 RBC (4.30-5.90) m/uL RDW (11.5-15.5) % APTT (22.0-30.0) sec Chloride (98-107) mmol/L Carbon Dioxide (22-30) mmol/L BUN (9-20) mg/dL Creatinine (0.66-1.25) mg/dL Glucose (74-99) mg/dL ALT (21-72) U/L Troponin I 0.053 H* (0.000-0.034) ng/mL Total Protein (6.3-8.2) g/dL Albumin (3.5-5.0) g/dL HDL Cholesterol 32 L (40-60) mg/dL Urine Protein Trace H (Negative) 11/24/18 11/25/18 Range/Units 23:29 00:07 RBC (4.30-5.90) m/uL RDW (11.5-15.5) % APTT 57.4 H (22.0-30.0) sec Chloride (98-107) mmol/L Carbon Dioxide (22-30) mmol/L BUN (9-20) mg/dL Creatinine (0.66-1.25) mg/dL Glucose (74-99) mg/dL ALT (21-72) U/L Troponin I 0.052 H* (0.000-0.034) ng/mL Total Protein (6.3-8.2) g/dL Albumin (3.5-5.0) g/dL HDL Cholesterol (40-60) mg/dL Urine Protein (Negative) Assessment and Plan Assessment: Right cerebellar acute/subacute ischemia and infarct atrial flutter , new onset. Start anticoagulation. Rate control Dizziness and ataxia secondary to above Right eye pain, secondary to above Fall History of coronary artery disease, status post stent placement and CABG. Chronically elevated troponin COPD, not in acute exacerbation Nicotine dependence. Patient quit 5 weeks go Hyperlipidemia Primary osteoarthritis History of prostate cancer status post radiotherapy Plan: This is a pleasant 78 years old male who presents because of posterior infarct and ataxia. Also with right eye pain. 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 Pain management. Order physical therapy evaluation Labs and medication were reviewed.. Continue same treatment. Continue with symptomatic treatment. Resume home medication. Monitor lytes and vitals. DVT and GI prophylaxis. Further recommendations of the clinical course of the patient DVT prophylaxis: heparin GI Prophylaxis: Pepcid PT/OT: Pending Prognosis is guarded
[2018-11-25] MEDS ORDERED: ASPIRIN 325 MG TAB PO SCH (09:00)
[2018-11-25] MEDS ORDERED: CLOPIDOGREL 75 MG TAB PO SCH (09:00)
[2018-11-25] MEDS ORDERED: ISOSORBIDE MONONITRATE ER 60 MG TAB.ER.24H PO SCH (09:00)
[2018-11-25 09:17] LABS: Anisocytosis Slight; Basophils # (A) 0.1 k/uL (0-0.2); Basophils % (A) 1 %; Eosinophils # (A) 0.1 k/uL (0-0.7); Eosinophils % (A) 2 %; HCT 40.2 % (39.0-53.0); HGB 13.2 gm/dL (13.0-17.5); Lymphocytes # (A) 1.4 k/uL (1.0-4.8); Lymphocytes % (A) 19 %; MCH 30.7 pg (25.0-35.0); MCHC 32.8 g/dL (31.0-37.0); MCV 93.6 fL (80.0-100.0); Mean Platelet Volume 7.5; Monocytes # (A) 0.4 k/uL (0-1.0); Monocytes % (A) 5 %; Neutrophils # (A) 5.5 k/uL (1.3-7.7); Neutrophils % (A) 72 %; Platelet Count 215 k/uL (150-450); RBC 4.29 m/uL (4.30-5.90); RDW 16.5 % (11.5-15.5); WBC 7.6 k/uL (3.8-10.6)
[2018-11-25 09:27] LABS: Calcium 8.4 mg/dL (8.4-10.2)
[2018-11-25] MEDS: SACUBITRIL/VALSARTAN 24 MG-26 MG TABLET PO SCH (09:37)
[2018-11-25] MEDS: RANOLAZINE 500 MG TAB.ER.12H PO SCH (09:38)
[2018-11-25] MEDS: ATORVASTATIN 80 MG TAB PO SCH (09:38)
[2018-11-25] MEDS: FUROSEMIDE 40 MG TAB PO SCH (09:38)
[2018-11-25] MEDS: SPIRONOLACTONE 25 MG TAB PO SCH (09:38)
--- NOTE | 2018-11-25 11:44 | P.PN ---
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 Turns out patient did have an MRI Brain there that showed an acute right cerebellar ischemic infarct. He was also found to have a right vertebral artery occlusion. He was discharged on aspirin and clopidogrel. However, since he was found to be in atrial flutter here, he was started on a heparin gtt. Cardiology has been consulted. Patient still c/o the same dizziness that he has had since his stroke symptoms started back on 11/14/18. No other new neuro c/o. Objective - Vital Signs Vital signs: Vital Signs Temp 98.1 F 11/25/18 07:55 Pulse 78 11/25/18 08:29 Resp 18 11/25/18 07:55 BP 135/77 11/25/18 07:55 Pulse Ox 96 11/25/18 07:55 Intake & Output 11/24/18 11/25/18 11/25/18 18:59 06:59 18:59 Intake Total 444 480 Output Total 550 Balance -106 480 Weight 82.554 kg 85.1 kg Intake: Oral 444 480 Output: Urine 550 Other: # Voids 1 # Bowel Movements 1 - Exam Gen NAD Pleasant and cooperative MS A+Ox4 Normal speech CN II-XII grossly intact no nystagmus Motor Normal bulk/tone No tremors CHASE x4 Sens Intact to LT x4 Coord No dysmetria on FTN bilaterally DTRs 2+/4 sym throughout Gait Deferred NIHSS 0 - Labs CBC & Chem 7: 11/25/18 08:55 11/25/18 08:55 Labs: Abnormal Lab Results - Last 24 Hours (Table) 11/24/18 11/24/18 11/24/18 Range/Units 11:35 11:35 11:35 RBC 4.28 L (4.30-5.90) m/uL RDW 16.3 H (11.5-15.5) % APTT (22.0-30.0) sec Chloride 111 H (98-107) mmol/L Carbon Dioxide 18 L (22-30) mmol/L BUN 34 H (9-20) mg/dL Creatinine 1.47 H (0.66-1.25) mg/dL Glucose 129 H (74-99) mg/dL ALT 19 L (21-72) U/L Troponin I 0.055 H* (0.000-0.034) ng/mL Total Protein 5.5 L (6.3-8.2) g/dL Albumin 3.1 L (3.5-5.0) g/dL HDL Cholesterol (40-60) mg/dL Urine Protein (Negative) 11/24/18 11/24/18 11/24/18 Range/Units 11:35 14:52 17:33 RBC (4.30-5.90) m/uL RDW (11.5-15.5) % APTT (22.0-30.0) sec Chloride (98-107) mmol/L Carbon Dioxide (22-30) mmol/L BUN (9-20) mg/dL Creatinine (0.66-1.25) mg/dL Glucose (74-99) mg/dL ALT (21-72) U/L Troponin I 0.053 H* (0.000-0.034) ng/mL Total Protein (6.3-8.2) g/dL Albumin (3.5-5.0) g/dL HDL Cholesterol 32 L (40-60) mg/dL Urine Protein Trace H (Negative) 11/24/18 11/25/18 11/25/18 Range/Units 23:29 00:07 08:55 RBC 4.29 L (4.30-5.90) m/uL RDW 16.5 H (11.5-15.5) % APTT 57.4 H (22.0-30.0) sec Chloride (98-107) mmol/L Carbon Dioxide (22-30) mmol/L BUN (9-20) mg/dL Creatinine (0.66-1.25) mg/dL Glucose (74-99) mg/dL ALT (21-72) U/L Troponin I 0.052 H* (0.000-0.034) ng/mL Total Protein (6.3-8.2) g/dL Albumin (3.5-5.0) g/dL HDL Cholesterol (40-60) mg/dL Urine Protein (Negative) 11/25/18 11/25/18 Range/Units 08:55 08:55 RBC (4.30-5.90) m/uL RDW (11.5-15.5) % APTT (22.0-30.0) sec Chloride 109 H (98-107) mmol/L Carbon Dioxide (22-30) mmol/L BUN 26 H (9-20) mg/dL Creatinine (0.66-1.25) mg/dL Glucose 147 H (74-99) mg/dL ALT (21-72) U/L Troponin I 0.056 H* (0.000-0.034) ng/mL Total Protein (6.3-8.2) g/dL Albumin (3.5-5.0) g/dL HDL Cholesterol (40-60) mg/dL Urine Protein (Negative) Assessment and Plan Assessment: Dizziness and truncal ataxia with subacute right cerebellar ischemic infarct due to right vertebral artery occlusion Atrial flutter now on heparin gtt Plan: -MRI Brain wo claribel cancelled -Reviewed recent CTA Head/Neck findings with patient -As BICA stenosis is maximal at 50%, management is medical -Since he has been started on heparin gtt, I will have him on aspirin only on the antiplatelet arm as the risk of bleeding would be high with aspirin, clopidogrel and heparin gtt with the subacute nature of his cerebellar CVA that is now more than 10 days out -LDL at goal 54 continue atorvastatin 80mg po qhs -Cardiology consulted for atrial flutter -Consult PT -DVT prophylaxis -d/w patient in detail. All questions answered -No further inpatient neuro recs at this time. Will revisit patient prn. Please call with new ?. Thank you again for this consultation. Time with Patient: Less than 30 (Time spent in direct patient care, greater than 50% of which was spent in [id number] counseling and coordination of care: 25 minutes)
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
[2018-11-25] MEDS ORDERED: ACETAMINOPHEN TAB 325 MG TAB PO STA (13:20)
[2018-11-25] MEDS ORDERED: IPRATROPIUM-ALBUTEROL 3 ML NEB INHALATION PRN (15:32)
[2018-11-25] MEDS ORDERED: FUROSEMIDE 20 MG TAB PO SCH (16:00)
[2018-11-25] MEDS ORDERED: ACETAMINOPHEN TAB 325 MG TAB PO PRN (16:15)
[2018-11-25] MEDS: HEPARIN SOD,PORK IN 0.45% NACL 25,000 UNIT in 0.45% NACL 1 250ML.BAG IV SCH (17:24)
[2018-11-25] MEDS: IPRATROPIUM-ALBUTEROL 3 ML NEB INHALATION SCH (20:46)
[2018-11-25 21:00] LABS: Glucose,Whole Blood 131 mg/dL (75-99)
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
[2018-11-26 06:23] LABS: Glucose,Whole Blood 93 mg/dL (75-99)
[2018-11-26 06:30] LABS: Basophils # (A) 0.1 k/uL (0-0.2); Basophils % (A) 1 %; Eosinophils # (A) 0.1 k/uL (0-0.7); Eosinophils % (A) 2 %; HCT 40.3 % (39.0-53.0); HGB 13.4 gm/dL (13.0-17.5); Lymphocytes # (A) 1.7 k/uL (1.0-4.8); Lymphocytes % (A) 26 %; MCH 31.1 pg (25.0-35.0); MCHC 33.2 g/dL (31.0-37.0); MCV 93.5 fL (80.0-100.0); Mean Platelet Volume 7.2; Monocytes # (A) 0.4 k/uL (0-1.0); Monocytes % (A) 7 %; Neutrophils # (A) 4.1 k/uL (1.3-7.7); Neutrophils % (A) 62 %; Platelet Count 213 k/uL (150-450); RBC 4.31 m/uL (4.30-5.90); WBC 6.6 k/uL (3.8-10.6)
[2018-11-26 06:50] LABS: Calcium 8.7 mg/dL (8.4-10.2); Potassium 3.9 mmol/L (3.5-5.1)
[2018-11-26] MEDS: SPIRONOLACTONE 25 MG TAB PO SCH (08:29)
[2018-11-26] MEDS: ATORVASTATIN 80 MG TAB PO SCH (08:29)
[2018-11-26] MEDS ORDERED: ASPIRIN 81 MG PO SCH (09:00)
[2018-11-26] MEDS: IPRATROPIUM-ALBUTEROL 3 ML NEB INHALATION SCH ×2 (09:03→12:36)
[2018-11-26] MEDS: SYMBICORT 160-4.5 MCG INHALER INHALATION SCH (09:03)
[2018-11-26 12:14] VITALS: BP 111/67; RESP 20; TEMP 98.2
[2018-11-26 12:47] VITALS: PULSE 78
[2018-11-26] MEDS: HEPARIN SOD,PORK IN 0.45% NACL 25,000 UNIT in 0.45% NACL 1 250ML.BAG IV SCH (13:59)
--- NOTE | 2018-11-26 14:18 | P.PN ---
Subjective Progress Note Date: 11/26/18 This is an 78-year-old gentleman who follows regularly with Dr. Kaur in the office. He has a known history of coronary artery disease with prior bypass surgery, history of single-chamber ICD, ischemic cardio myopathy, hypertension, hyperlipidemia, nicotine dependence, most recent cardiac cath eterization was performed in July of this year which revealed heavily calcified coronary arteries, patent HDZ to the LAD, mild disease in the left main, chronically occluded LAD and right coronary artery, significant disease found in the circumflex, subsequent to that patient did undergo successful angioplasty of the circumflex by Dr. Kaur. Patient also has known severe peripheral vascular disease, COPD, nicotine dependence, and GERD. He was recently in the hospital earlier this month. Patient has also had a very recent stroke. He presents to the hospital on this occasion with symptoms of dizziness and falls. According to the patient, he has had multiple falls, and he becomes extremely dizzy prior to falling. Patient's most recent echocardiogram with Doppler study was performed on November 10 which revealed an ejection fraction of 30-35%, moderate mitral regurgitation, moderate tricuspid regurgitation and moderate to severe pulmonary hypertension noted. Blood pressure on arrival here 98/70 with a heart rate of 60, 98% on room air. White blood cell count 7.6, hemoglobin 13.2, platelet count 2:15. Sodium 142, potassium 4.0, BUN on admission 34 with a creatinine of 1.4, 26 and 1.5 this morning. Troponins 0.05, 0.05, 0.05, 0.05. At the time of my examination this morning, patient is sitting up in his chair at bedside, he still states that he feels mildly dizzy. 11/26/2018 Patient seen and examined this morning, he does feel quite a bit better overall, denies any further dizziness, no further episodes of issues with his vision. I did review all of the prior EKGs within the hospital, we also that Dr. griffin veliz's progress note, there is no documentation in the past that the patient has had atrial fibrillation, and what we are seeing now appears to be more of an atrial tachycardia. He does not at this time require anticoagulation based on those findings. We will recommend that once the patient is discharged from here that he wear a monitor. Should there be any evidence of atrial fibrillation, patient will require coagulation. Blood pressure 110/60 with a heart rate in the 70s, 96% on room air. White blood cell count 6.6, hemoglobin 13.4, platelet count 213. Sodium 140, potassium 3.9, BUN 23 and creatinine 1.2. We will also look into the documentation of the patient's recent stroke, to see if it is documented why the patient had a stroke. Objective - Vital Signs Vital signs: Vital Signs Temp 98.2 F 11/26/18 12:00 Pulse 78 11/26/18 12:47 Resp 20 11/26/18 12:00 BP 111/67 11/26/18 12:00 Pulse Ox 96 11/26/18 12:00 Intake & Output 11/25/18 11/26/18 11/26/18 18:59 06:59 18:59 Intake Total 1421.729 763.898 Output Total 300 600 Balance 1121.729 -600 763.898 Weight 85.3 kg Intake: Intake, IV Titration 221.729 203.898 Amount Heparin Sod,Pork in 0.45% 221.729 203.898 NaCl 25,000 unit In 0.45 % NaCl 1 250ml.bag @ 12 UNITS/KG/HR 9.906 mls/hr IV .Q24H MARQUEZ Rx#: [id number] Oral 1200 560 Output: Urine 300 600 Other: # Voids 2 # Bowel Movements 1 - Exam PHYSICAL EXAMINATION: GENERAL: 78-year-old gentleman in no acute distress at the time of my examination HEENT: Head is atraumatic, normocephalic. Pupils equal, round. Sclera anicteric. Conjunctiva are clear. Mucous membranes of the mouth are moist. Neck is supple. There is elevated jugular venous pressure. No carotid bruit is heard. HEART EXAMINATION: Heart S1, S2 normal. No murmur or gallop heard. CHEST EXAMINATION: Lungs reveal scattered coarse wheezing throughout with diminished air entry to the bases bilaterally ABDOMEN: Soft, nontender. Bowel sounds are heard. No organomegaly noted. EXTREMITIES: 2+ peripheral pulses with no evidence 1+ peripheral edema and no calf tenderness noted. NEUROLOGIC patient is awake, alert and oriented 3 . - Labs CBC & Chem 7: 11/26/18 06:01 11/26/18 06:01 Labs: Abnormal Lab Results - Last 24 Hours (Table) 09/11/26/18 11/26/18 Range/Units 20:55 06:01 06:01 APTT 59.0 H (22.0-30.0) sec Chloride 110 H (98-107) mmol/L Carbon Dioxide 21 L (22-30) mmol/L BUN 23 H (9-20) mg/dL POC Glucose (mg/dL) 131 H (75-99) mg/dL Assessment and Plan Plan: Assessment and plan #1 dizziness with associated falls #2 known history of coronary artery disease with prior bypass surgery in 2009, patient did undergo angioplasty of the circumflex artery in July of this year #3 hypertension #4 hyperlipidemia #5 nicotine dependence #6 ischemic cardiomyopathy with prior single-chamber AICD #7 PAD #8 abnormal troponins with no significant rise and fall pattern, not suggestive of acute coronary syndrome. #9 COPD #10systolic congestive heart failure chronic, most recent echo was performed in July of this year which revealed an ejection fraction of 30-35% Plan We will decrease the aspirin to 81 mg daily, continue Lipitor, continue Aldactone, decrease the dose of Imdur. Continue Entresto. On review of prior EKGs as well as the patient's office records with Dr. Kaur, there does not appear to be any history of atrial fibrillation and currently he is in atrial tachycardia. At this point in time we will continue with the baby aspirin, should there be any documented atrial fibrillation here patient will need to be put on Eliquis. We would recommend monitor on discharge as well. We will also check in to the patient's recent stroke chart, see if there is any documented atrial fibrillation or what the reason for his stroke was documented. DNP note has been reviewed, I agree with a documented findings and plan of care. Patient was seen and examined.
[2018-11-26] MEDS ORDERED: CLOPIDOGREL 75 MG TAB PO SCH (14:30)
--- NOTE | 2018-11-26 16:10 | P.DS ---
Providers Date of admission: 11/25/18 16:28 Attending physician: Jose Rowe MD Consults: 11/24/18 14:38 Consult Physician Urgent Consulting Provider: Crispin Polanco Consult Reason/Comments: Presyncope, atrial flutter, chronic elevated troponin Do you want consulting provider notified?: Yes 11/24/18 16:04 Consult Physician Urgent Consulting Provider: Edmundo Bojorquez Consult Reason/Comments: dizziness, eye pain , recent stroke Do you want consulting provider notified?: Yes Consult Physician Urgent Consulting Provider: Bernard Menchaca Consult Reason/Comments: abnormal cxr Do you want consulting provider notified?: Yes Primary care physician: Leroy Young Hospital Course: Diagnoses: Right cerebellar acute/subacute ischemia and infarct atrial tachycardia rather than flutter , no need for anticoagulation as per wax ball molder . Rat is back to normal now 70s Dizziness and ataxia secondary to above. Resolved Right eye pain, secondary to above. Resolved Fall hypertension on admission, blood pressure was on the low normal side, improved after adjusting his antihypertensive medication History of coronary artery disease, status post stent placement and CABG. Chronically elevated troponin COPD, not in acute exacerbation Nicotine dependence. Patient quit 5 weeks go Hyperlipidemia Primary osteoarthritis History of prostate cancer status post radiotherapy Hospital course This is a pleasant 78 years old male with past medical history of COPD, coronary artery disease status post CABG and stent placement, GERD, hyperlipidemia, osteoarthritis, and prostate cancer status post radiotherapy. Presents because of dizziness. Patient says that he has dizziness for about 3 weeks that comes and go every other days, felt like presyncope. No vertigo. last night he had dizziness and fell twice, he went to see his PCP Dr. Young using a wheelchair which usually he does not but because of his dizziness. His PCP sent him to the hospital for further evaluation. Also he was complaining of from pain in his right eye for about 2 weeks, patient is a stable not worsening, he was recently at [facility] for the same reasons where he had MRI of the brain showing right cerebellar acute/subacute ischemia and infarct with right vertebral artery occlusion as per records, however it looks like the neurologist recommended loop records for 30 days and be discharged to rehab for 1 day before he goes home where he is stayed symptomatic and he went to see his PCP and from there is Hospital. Because the patient was having symptoms which could be related to his stroke he was admitted to the hospital as inpatient. Patient EKG showed atrial flutter and patient was started on heparin drip. However on reevaluation wax ball molder diagnosed the patient with atrial tachycardia rather than atrial flutter so heparin drip was discontinued as he does not need anticoagulation and recommended to continue with aspirin 81 mg and Plavix. Patient has been evaluated by neurologist as well. Patient blood pressure was also on the low side (98/62) and his Lasix, , Coreg and Ranexa were held. His blood pressure improved and on the day of discharge was 111/67. Patient's symptoms of dizziness and right eye pain or completely resolved prior to discharge. Which were most likely multifactorial secondary to his stroke and low-normal blood pressure. Because patient general weakness and recent fall, and being o aspirin and Plavix started for him, physical therapy evaluation recommended subacute rehab to which patient agrees. Patient was cleared for discharge by both cardiology and neurology teams Problems and management plan were discussed with the patient and he verbalized understanding and acceptance Patient was found stable and can be discharged home however he needs follow-up as an outpatient. Patient was instructed to follow up with PCP within one week and patient agrees. Also patient was instructed to follow up with wax ball molder and neurologist in 1-2 weeks and he agrees Gen: patient is a AAOx3, no distress CVS: S1-S2, RRR, no murmur Lungs: B/L CTA, no wheezing Abdomen: soft, no distention, no tenderness, positive bowel sounds Extremity: no leg edema or induration Time spent more than 35 minutes Plan - Discharge Summary Discharge Rx Participant: Yes New Discharge Prescriptions: New Ipratropium-Albuterol Nebulize [Duoneb 0.5 mg-3 mg/3 ml Soln] 3 ml INHALATION RT-TID ampul.neb Aspirin 81 mg PO DAILY chew Clopidogrel [Plavix] 75 mg PO DAILY tab Sacubitril/Valsartan [Entresto 24 mg-26 mg Tablet] 1 each PO BID #60 tablet Continue Atorvastatin [Lipitor] 80 mg PO DAILY #30 tab Nitroglycerin Sl Tabs [Nitrostat] 0.4 mg SUBLINGUAL Q5M PRN #25 tab PRN Reason: Chest Pain Budesonide-Formot 160-4.5 Mcg [Symbicort 160-4.5 Mcg Inhaler] 2 puff INHALATION RT-BID #1 puff Ipratropium [place] [Atrovent Hfa] 2 puff INHALATION RT-QID Spironolactone [Aldactone] 25 mg PO DAILY #30 tab Changed Isosorbide Mononitrate ER [Imdur] 30 mg PO DAILY #30 tab.er.24h Discontinued Ranolazine [Ranexa] 1,000 mg PO BID Clopidogrel [Plavix] 75 mg PO DAILY #30 tab Albuterol Inhaler [Ventolin Hfa Inhaler] 2 puff INHALATION RT-Q6H PRN PRN Reason: Shortness Of Breath Aspirin 81 mg PO HS #30 chew Furosemide [Lasix] 40 mg PO BID #60 tab Sacubitril/Valsartan [Entresto 24 mg-26 mg Tablet] 1 tab PO BID Discharge Medication List Atorvastatin [Lipitor] 80 mg PO DAILY #30 tab 07/29/18 [Rx] Budesonide-Formot 160-4.5 Mcg [Symbicort 160-4.5 Mcg Inhaler] 2 puff INHALATION RT-BID #1 puff 07/29/18 [Rx] Nitroglycerin Sl Tabs [Nitrostat] 0.4 mg SUBLINGUAL Q5M PRN #25 tab 07/29/18 [Rx] Ipratropium [place] [Atrovent Hfa] 2 puff INHALATION RT-QID 10/03/18 [History] Spironolactone [Aldactone] 25 mg PO DAILY #30 tab 11/13/18 [Rx] Aspirin 81 mg PO DAILY chew 11/26/18 [Rx] Clopidogrel [Plavix] 75 mg PO DAILY tab 11/26/18 [Rx] Ipratropium-Albuterol Nebulize [Duoneb 0.5 mg-3 mg/3 ml Soln] 3 ml INHALATION RT-TID ampul.neb 11/26/18 [Rx] Isosorbide Mononitrate ER [Imdur] 30 mg PO DAILY #30 tab.er.24h 11/26/18 [Rx] Sacubitril/Valsartan [Entresto 24 mg-26 mg Tablet] 1 each PO BID #60 tablet 11/26/18 [Rx] Follow up Appointment(s)/Referral(s): Leroy Young MD [Primary Care Provider] - 1-2 days Luis Valenzuela DO [STAFF PHYSICIAN] - 10 Days Cirspin Polanco MD [STAFF PHYSICIAN] - 2 Weeks Activity/Diet/Wound Care/Special Instructions: Rikki
== END 2018-11-26 16:35 | DRG 65 ==
LOC: EC 11:02 → 3SCARD 14:58 → OBSVTOIN 11-25 16:28
PROVIDERS: ADMIT Internal Medicine; ATTEND Internal Medicine
DX: I63.211 Cerebral infarction due to unspecified occlusion or stenosis of right vertebral artery (principal); I47.1 Supraventricular tachycardia; I50.22 Chronic systolic (congestive) heart failure; E78.5 Hyperlipidemia, unspecified; F17.200 Nicotine dependence, unspecified, uncomplicated; F41.9 Anxiety disorder, unspecified; Z98.42 Cataract extraction status, left eye; Z98.41 Cataract extraction status, right eye; I08.1 Rheumatic disorders of both mitral and tricuspid valves; I11.0 Hypertensive heart disease with heart failure; I25.10 Atherosclerotic heart disease of native coronary artery without angina pectoris; I25.5 Ischemic cardiomyopathy; I27.20 Pulmonary hypertension, unspecified; I48.91 Unspecified atrial fibrillation; I73.9 Peripheral vascular disease, unspecified; J44.9 Chronic obstructive pulmonary disease, unspecified; K21.9 Gastro-esophageal reflux disease without esophagitis; Z79.02 Long term (current) use of antithrombotics/antiplatelets; Z79.51 Long term (current) use of inhaled steroids; Z79.82 Long term (current) use of aspirin; Z79.899 Other long term (current) drug therapy; Z85.46 Personal history of malignant neoplasm of prostate; Z86.73 Personal history of transient ischemic attack (TIA), and cerebral infarction without residual deficits; Z90.2 Acquired absence of lung [part of]; Z90.49 Acquired absence of other specified parts of digestive tract; Z95.1 Presence of aortocoronary bypass graft; Z95.5 Presence of coronary angioplasty implant and graft; Z95.810 Presence of automatic (implantable) cardiac defibrillator; R42 Dizziness and giddiness; H57.11 Ocular pain, right eye; R29.700 NIHSS score 0
CPT/HCPCS: 36415; 70450; 71046; 80048; 80053; 80061; 81003; 83605; 83735; 84484; 85025; 85610; 85652; 85730; 93005; 94640; 96360; 96361; 99285

== ENCOUNTER 2018-12-04 18:23 | Inpatient (IN) | payer MEDICARE, OTHER ==
[2018-12-04] MEDS ORDERED: METOPROLOL TARTRATE 5 MG/5 ML VIAL IVP STA (18:28)
[2018-12-04] MEDS ORDERED: SODIUM CHLORIDE 0.9% 1,000 ML IV STA (18:28)
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
[2018-12-04 18:57] LABS: Albumin 3.4 g/dL (3.5-5.0); Magnesium 1.9 mg/dL (1.6-2.3); Phosphorus 4.4 mg/dL (2.5-4.5); Potassium 4.4 mmol/L (3.5-5.1); Total Bilirubin 0.9 mg/dL (0.2-1.3); Total Protein 6.1 g/dL (6.3-8.2)
[2018-12-04 19:01] LABS: Basophils # (A) 0.1 k/uL (0-0.2); Basophils % (A) 1 %; Eosinophils # (A) 0.2 k/uL (0-0.7); Eosinophils % (A) 2 %; HCT 39.5 % (39.0-53.0); HGB 12.9 gm/dL (13.0-17.5); Lymphocytes # (A) 1.5 k/uL (1.0-4.8); Lymphocytes % (A) 19 %; MCH 30.4 pg (25.0-35.0); MCHC 32.7 g/dL (31.0-37.0); MCV 92.9 fL (80.0-100.0); Mean Platelet Volume 7.6; Monocytes # (A) 0.5 k/uL (0-1.0); Monocytes % (A) 6 %; Neutrophils # (A) 5.5 k/uL (1.3-7.7); Neutrophils % (A) 70 %; Platelet Count 191 k/uL (150-450); RBC 4.25 m/uL (4.30-5.90); RDW 15.1 % (11.5-15.5); WBC 7.8 k/uL (3.8-10.6)
[2018-12-04 19:03] LABS: Partial Thromboplastin Time 25.9 sec (22.0-30.0); Prothrombin Time 10.6 sec (9.0-12.0)
[2018-12-04] MEDS ORDERED: ACETAMINOPHEN TAB 500 MG TAB PO STA (20:52)
[2018-12-04] MEDS ORDERED: NITROGLYCERIN SL TABS 0.4 MG TAB SUBLINGUAL PRN ×2 (21:03→22:30)
[2018-12-04] MEDS ORDERED: ASPIRIN 81 MG PO STA (21:03)
[2018-12-04 21:17] LABS: Appearance,Urine Clear (Clear); Bilirubin,Urine Negative (Negative); Blood,Urine Negative (Negative); Color,Urine Yellow; Glucose,Urine (UA) Negative (Negative); Ketones,Urine Negative (Negative); Leukocyte Esterase,Urine Negative (Negative); Mucus,Urine Rare /hpf; Nitrite,Urine Negative (Negative); PH, Urine 5.5 (5.0-8.0); Protein,Urine 1+ (Negative); RBC,Urine 1 /hpf (0-5); Specific Gravity,Urine 1.023 (1.001-1.035); Urobilinogen,Urine <2.0 mg/dL (<2.0); WBC,Urine 1 /hpf (0-5)
[2018-12-04] MEDS ORDERED: BISACODYL 10 MG SUPP RECTAL PRN (22:30)
[2018-12-04] MEDS: SODIUM CHLORIDE 0.9% 1,000 ML IV SCH (22:40)
[2018-12-04] MEDS: ENOXAPARIN 100 MG/ML SYRINGE SQ SCH (22:40)
[2018-12-05] MEDS ORDERED: IPRATROPIUM-ALBUTEROL 3 ML NEB INHALATION PRN (01:15)
[2018-12-05 06:43] LABS: Cholesterol 98 mg/dL (<200); HDL Cholesterol 49 mg/dL (40-60); LDL Cholesterol,Calculated 38 mg/dL (0-99); Triglycerides 53 mg/dL (<150)
[2018-12-05] MEDS: IPRATROPIUM-ALBUTEROL 3 ML NEB INHALATION SCH ×4 (07:56→19:10)
[2018-12-05] MEDS: SYMBICORT 160-4.5 MCG INHALER INHALATION SCH ×2 (07:56→19:10)
[2018-12-05] MEDS ORDERED: IPRATROPIUM-ALBUTEROL 3 ML NEB INHALATION SCH (08:00)
[2018-12-05] MEDS ORDERED: IPRATROPIUM 0.5 MG/2.5 ML NEBU INHALATION SCH (08:00)
[2018-12-05] MEDS: ENOXAPARIN 100 MG/ML SYRINGE SQ SCH (08:36)
[2018-12-05] MEDS: METOPROLOL TARTRATE 25 MG TAB PO SCH ×2 (08:36→19:55)
[2018-12-05] MEDS: ISOSORBIDE MONONITRATE ER 30 MG TAB.ER.24H PO SCH (08:36)
[2018-12-05] MEDS: ATORVASTATIN 80 MG TAB PO SCH (08:36)
[2018-12-05] MEDS: NICOTINE 21MG/24HR PATCH TRANSDERM SCH (08:36)
[2018-12-05] MEDS: SACUBITRIL/VALSARTAN 24 MG-26 MG TABLET PO SCH ×2 (08:36→17:03)
[2018-12-05] MEDS: SPIRONOLACTONE 25 MG TAB PO SCH (08:36)
[2018-12-05] MEDS ORDERED: ASPIRIN 325 MG TAB PO SCH (09:00)
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
[2018-12-05] MEDS: SODIUM CHLORIDE 0.9% 1,000 ML IV SCH (12:46)
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
[2018-12-05] MEDS: CLOPIDOGREL 75 MG TAB PO SCH (17:03)
[2018-12-06] MEDS ORDERED: FUROSEMIDE 10 MG/ML 2 ML VIAL IV STA (00:03)
[2018-12-06] MEDS: FUROSEMIDE 10 MG/ML 2 ML VIAL ONE ×2 (00:18→01:43)
[2018-12-06 08:00] LABS: Albumin 3.5 g/dL (3.5-5.0); Calcium 9.2 mg/dL (8.4-10.2); Magnesium 1.8 mg/dL (1.6-2.3); Potassium 4.4 mmol/L (3.5-5.1); Total Bilirubin 1.3 mg/dL (0.2-1.3); Total Protein 6.3 g/dL (6.3-8.2)
[2018-12-06] MEDS: IPRATROPIUM-ALBUTEROL 3 ML NEB INHALATION SCH ×4 (08:07→19:30)
[2018-12-06] MEDS: SYMBICORT 160-4.5 MCG INHALER INHALATION SCH ×2 (08:07→19:30)
[2018-12-06] MEDS: ATORVASTATIN 80 MG TAB PO SCH (08:27)
[2018-12-06] MEDS: SACUBITRIL/VALSARTAN 24 MG-26 MG TABLET PO SCH ×2 (08:27→15:44)
[2018-12-06] MEDS: ENOXAPARIN 40 MG/0.4 ML SYRINGE SQ SCH (08:27)
[2018-12-06] MEDS: ASPIRIN 81 MG PO SCH (08:27)
[2018-12-06] MEDS: METOPROLOL TARTRATE 25 MG TAB PO SCH ×2 (08:27→20:45)
[2018-12-06] MEDS: ISOSORBIDE MONONITRATE ER 30 MG TAB.ER.24H PO SCH (08:27)
[2018-12-06] MEDS: SPIRONOLACTONE 25 MG TAB PO SCH (08:27)
[2018-12-06] MEDS: NICOTINE 21MG/24HR PATCH TRANSDERM SCH (08:28)
[2018-12-06] MEDS: ACETAMINOPHEN TAB 500 MG TAB PO PRN (08:38)
--- NOTE | 2018-12-06 11:39 | P.PN ---
Subjective Progress Note Date: 12/06/18 This is a pleasant 78-year-old gentleman who follows with Dr. Kaur in the office. Has a known history of CAD, prior CABG, cardiac catheterization with stent placement to the left circumflex in July of this year, hypertension, hyperlipidemia, ischemic cardiomyopathy with prior single-chamber AICD implanta tion, PAD, COPD and chronic systolic congestive heart failure with a known ejection fraction of 30-35%, and multiple recent falls. This is his third admission this month. Initially he presented on November 10 with complaints of shortness of breath at which time his medications were optimized and he was switched from an JUNE inhibitor to Entresto. Echocardiogram at that time showed moderate to severely impaired LV systolic function with an ejection fraction of 30-35% with moderate MR and aortic stenosis. His troponins were mildly abnormal at that time. Subsequently he was admitted on November 25 with complaints of dizziness at which time he was noted to be in atrial tachycardia with PVCs. He was discharged with an event monitor at that time. On this admission patient states he has been feeling fine but continues to complain of some mild dizziness upon rising in the morning. He says he came to the emergency department at the recommendation of the [facility] where he lives. Apparently they received a call from [employer], but company who monitors the event monitor s tating that he was having ventricular tachycardia. Patient denies any signs or symptoms. He he does have some mild chest tenderness around the site of his defibrillator but no other complaints of chest pain. He's had some difficulty breathing which is stable for him. He denies any orthopnea or PND and has no edema. EKG on admission shows atrial tachycardia with 2 to one conduction. Laboratory values show troponin of 0.076, 0.086 and 0.073 which appears to be stable for this patient as he seems to have chronically elevated troponins. His NT proBNP was elevated at 6800 which is improved since earlier this month at which time it was 13,800. 12/06/18 this patient was seen and examined this morning. He is resting comfortably in bed. Less than he did have one run of nonsustained ventricular tachycardia that was asymptomatic. He incidentally also developed some shortness of breath and was given a dose of IV Lasix and has diuresed well. After reviewing information from both device interrogation and [employer] [facility] patient has been having some brief episodes of nonsustained ventricular tachycardia. his renal function has been stable. His breathing has improved this morning. Objective - Vital Signs Vital signs: Vital Signs Temp 97.7 F 12/06/18 08:00 Pulse 104 H 12/06/18 11:25 Resp 20 12/06/18 08:00 BP 152/85 12/06/18 08:00 Pulse Ox 100 12/06/18 08:00 Intake & Output 12/05/18 12/06/18 12/06/18 18:59 06:59 18:59 Intake Total 1080 240 Output Total 400 2920 Balance 680 -2920 240 Weight 87.8 kg Intake: Oral 1080 240 Output: Urine 400 2920 - Exam PHYSICAL EXAMINATION: HEENT: Head is atraumatic, normocephalic. Pupils equal, round. Neck is supple. There is no elevated jugular venous pressure. HEART EXAMINATION: Heart sounds regular, S1 and S2 with a systolic murmur. CHEST EXAMINATION: Lungs are clear to auscultation. No chest wall tenderness is noted on palpation or with deep breathing. ABDOMEN: Soft, nontender. Bowel sounds are heard. No organomegaly noted. EXTREMITIES: 2+ peripheral pulses with no evidence of peripheral edema and no calf tenderness noted. NEUROLOGIC patient is awake, alert and oriented x3. - Labs CBC & Chem 7: 12/04/18 18:40 12/06/18 06:53 Labs: Abnormal Lab Results - Last 24 Hours (Table) 12/06/18 Range/Units 06:53 Chloride 110 H (98-107) mmol/L Carbon Dioxide 19 L (22-30) mmol/L BUN 22 H (9-20) mg/dL Assessment and Plan Assessment: #1 ischemic cardiomyopathy with a known ejection fraction of 30-35% #2 status post AICD implantation in 2017 #3 Nonsustained V. tach #4 atrial tachycardia #5 chronic systolic congestive heart failure, patient appears to be euvolemic at this time #6 CAD with history of CABG and stenting in July of this year #7 hypertension #8 hyperlipidemia Plan: From cardiology perspective, we will add daily dose of oral lasix. We will follow his renal function and electrolytes. we will continue to follow the patient 5 further recommendations accordingly.. ARCHITECTURE DEPARTMENT CHAIR note has been reviewed, I agree with a documented findings and plan of care. Patient was seen and examined.
[2018-12-06] MEDS: FUROSEMIDE 20 MG TAB PO SCH (15:44)
[2018-12-06] MEDS: CLOPIDOGREL 75 MG TAB PO SCH (15:44)
--- NOTE | 2018-12-06 17:05 | P.PN ---
Progress Note - Text Progress Note Date: 12/06/18 Chief Complaint: Heart racing History of presenting complaint: This is a very pleasant 78-year-old patient of Dr. guthrie. Chronic stable medical conditions include coronary artery disease, peripheral arterial disease, primary osteoarthritis, and COPD. also CHF with EF of 30%. Patient was recently at [facility] when he had an MRI of the brain that showed right cerebellar acute/subacute ischemia and infarct with the right vertebral artery occlusion and he was told to get a loop recorder. Patient was recently the hospital from November 24 to November 26. Was then diagnosed with atrial tachycardia. Not felt to need for anticoagulation. Patient was sent to rehab. Patient does have her AICD Patient at the was found to have abnormal rhythm and patient was atrial tachycardia and patient be admitted for the same. Today-earlier patient was short of breath felt to be in CHF exacerbation. Given IV Lasix. Patient also been having nonsustained V. tach. Patient does feel a bit tired and rundown. Laying in bed. Review of systems: Was done for constitutional, cardiovascular, GI, pulmonary. relevant finding as above Active Medications Acetaminophen (Tylenol Tab) 1,000 mg PO Q6HR PRN PRN Reason: Fever and/ or Pain Last Admin: 12/06/18 08:38 Dose: 1,000 mg Documented by: Albuterol/Ipratropium (Duoneb 0.5 Mg-3 Mg/3 Ml Soln) 3 ml INHALATION RT-QID [facility] Last Admin: 12/06/18 15:27 Dose: Not Given Documented by: Albuterol/Ipratropium (Duoneb 0.5 Mg-3 Mg/3 Ml Soln) 3 ml INHALATION RT-Q2H PRN PRN Reason: Shortness Of Breath Or Wheezing Aspirin (Aspirin) 81 mg PO DAILY [facility] Last Admin: 12/06/18 08:27 Dose: 81 mg Documented by: Atorvastatin Calcium (Lipitor) 80 mg PO DAILY [facility] Last Admin: 12/06/18 08:27 Dose: 80 mg Documented by: Bisacodyl (Dulcolax) 10 mg RECTAL DAILY PRN PRN Reason: Constipation Budesonide/Formoterol Fumarate (Symbicort 160-4.5 Mcg Inhaler) 2 puff INHALATION RT-BID [facility] Last Admin: 12/06/18 08:07 Dose: 2 puff Documented by: Clopidogrel Bisulfate (Plavix) 75 mg PO DAILY@1700 [facility] Last Admin: 12/06/18 15:44 Dose: 75 mg Documented by: Enoxaparin Sodium (Lovenox) 40 mg SQ DAILY [facility] Last Admin: 12/06/18 08:27 Dose: 40 mg Documented by: Furosemide (Lasix) 20 mg PO BID@0900,1600 [facility] Last Admin: 12/06/18 15:44 Dose: 20 mg Documented by: Isosorbide Mononitrate (Imdur) 30 mg PO DAILY [facility] Last Admin: 12/06/18 08:27 Dose: 30 mg Documented by: Metoprolol Tartrate (Lopressor) 25 mg PO BID [facility] Last Admin: 12/06/18 08:27 Dose: 25 mg Documented by: Nicotine (Habitrol 21mg/24hr Patch) 1 patch TRANSDERM DAILY [facility] Last Admin: 12/06/18 08:28 Dose: 1 patch Documented by: Sacubitril/Valsartan (Entresto 24 Mg-26 Mg Tablet) 1 each PO BID@0800,1700 [facility] Last Admin: 12/06/18 15:44 Dose: 1 each Documented by: Spironolactone (Aldactone) 25 mg PO DAILY [facility] Last Admin: 12/06/18 08:27 Dose: 25 mg Documented by: Physical examination: VITAL SIGNS: 98.2, 117, 19, 109/62, 98% on 3 L GENERAL: Laying in bed, tired appearing. EYES: Pupils equal. Conjunctiva normal. HEENT: External appearance of nose and ears normal, oral cavity grossly normal. Chest wall: Left-sided AICD NECK: JVD not raised; masses not palpable. HEART: Heart sounds regular; no edema. LUNGS: Respiratory rate increased, diminished breath sounds. ABDOMEN: Soft, nontender, liver spleen not palpable, no masses palpable. PSYCH: Alert and oriented x3; mood and affect normal. NEUROLOGICAL: Cranial nerves grossly intact; no facial asymmetry, power and sensation grossly intact. LYMPHATICS: No lymph nodes palpable in the axilla and neck INVESTIGATIONS, reviewed in the clinical context: Potassium 4.4 creatinine 1.11 White count 7.8 hemoglobin 12.9 potassium 4.4 creatinine 1.14 Troponin 0.076 0.086 LDL 38 EKG tracing personally reviewed by me-atrial tachycardia with 2 is 21 conduction Assessment: -Atrial tachycardia with uncontrolled rate with a 2:1 conduction -Nonsustained recurrent V. tach -AICD -Acute on chronic congestive heart failure exacerbation from systolic dysfunction EF 30-35% from underlying coronary artery disease, uncontrolled today -Coronary artery disease with history of bypass and stent last 1 from being in July 2018 to circumflex -COPD in a smoker -Peripheral arterial disease -Primary osteoarthritis -Right bundle branch block -Chronic right vertebral artery occlusion Plan: Patient received IV Lasix later today. Also oral Lasix was added. Patient is on Aldactone. Follow.
[2018-12-07 06:33] LABS: Calcium 9.3 mg/dL (8.4-10.2); Potassium 4.2 mmol/L (3.5-5.1)
[2018-12-07] MEDS: SPIRONOLACTONE 25 MG TAB PO SCH (08:46)
[2018-12-07] MEDS: ASPIRIN 81 MG PO SCH (08:46)
[2018-12-07] MEDS: ATORVASTATIN 80 MG TAB PO SCH (08:46)
[2018-12-07] MEDS: METOPROLOL TARTRATE 25 MG TAB PO SCH ×3 (08:46→20:52)
[2018-12-07] MEDS: NICOTINE 21MG/24HR PATCH TRANSDERM SCH (08:46)
[2018-12-07] MEDS: ISOSORBIDE MONONITRATE ER 30 MG TAB.ER.24H PO SCH (08:46)
[2018-12-07] MEDS: FUROSEMIDE 20 MG TAB PO SCH ×2 (08:46→16:49)
[2018-12-07] MEDS: SACUBITRIL/VALSARTAN 24 MG-26 MG TABLET PO SCH ×2 (08:46→16:48)
[2018-12-07] MEDS: ENOXAPARIN 40 MG/0.4 ML SYRINGE SQ SCH (08:46)
[2018-12-07] MEDS: IPRATROPIUM-ALBUTEROL 3 ML NEB INHALATION SCH ×4 (08:53→20:25)
[2018-12-07] MEDS: SYMBICORT 160-4.5 MCG INHALER INHALATION SCH ×2 (08:53→20:25)
[2018-12-07] MEDS: CLOPIDOGREL 75 MG TAB PO SCH (16:49)
[2018-12-07] MEDS: ACETAMINOPHEN TAB 500 MG TAB PO PRN (16:49)
--- NOTE | 2018-12-07 20:21 | PN ---
PROGRESS NOTE Mr. Rangel is a patient with multiple medical problems in the form of atrial tachycardia and atrial flutter who also has an ICD. He sees Dr. Kaur in the outpatient setting. He has a loop recorder and there was evidence of 12-beat run of wide QRS tachycardia and therefore he was asked to come into the hospital. I reviewed the loop recorder strips. There is evidence of nonsustained VT. He also has what seems to be either atrial tachycardia or flutter in the rate of about 110 per minute. He is resting comfortably without symptoms. Electrolytes are normal. Vitals are stable. S1, S2 heard normally with some tachycardia. Heart rate is about 110. There is JVD of 1 cm. No carotid bruit. Lungs reveal bilateral decent air entry. Abdomen and lower extremity exam is unchanged. I am recommending that we increase his Lopressor to 25 mg t.i.d., continue his other medications. Electrolytes are good. He can be discharged and will follow up with Dr. Kaur and may require further evaluation by electrophysiology down the road. His device also will be checked in the office. MMODL / IJN: [id number] /
--- NOTE | 2018-12-07 20:23 | P.PN ---
Progress Note - Text Progress Note Date: 12/07/18 Chief Complaint: Heart racing History of presenting complaint: This is a very pleasant 78-year-old patient of Dr. guthrie. Chronic stable medical conditions include coronary artery disease, peripheral arterial disease, primary osteoarthritis, and COPD. also CHF with EF of 30%. Patient was recently at [facility] when he had an MRI of the brain that showed right cerebellar acute/subacute ischemia and infarct with the right vertebral artery occlusion and he was told to get a loop recorder. Patient was recently the hospital from November 24 to November 26. Was then diagnosed with atrial tachycardia. Not felt to need for anticoagulation. Patient was sent to rehab. Patient does have her AICD Patient at the was found to have abnormal rhythm and patient was atrial tachycardia and patient be admitted for the same.did go into CHF. Responded to IV Lasix. Today-.feasibility better today. Heart rate and 1 teens. Laying in bed. Some palpitation. Did tolerate some diet.metoprolol tartrate 20 mg 3 times a day was added by cardiology. Review of systems: Was done for constitutional, cardiovascular, GI, pulmonary. relevant finding as above Active Medications Acetaminophen (Tylenol Tab) 1,000 mg PO Q6HR PRN PRN Reason: Fever and/ or Pain Last Admin: 12/07/18 16:49 Dose: 1,000 mg Documented by: Albuterol/Ipratropium (Duoneb 0.5 Mg-3 Mg/3 Ml Soln) 3 ml INHALATION RT-QID [facility] Last Admin: 12/07/18 16:24 Dose: 3 ml Documented by: Albuterol/Ipratropium (Duoneb 0.5 Mg-3 Mg/3 Ml Soln) 3 ml INHALATION RT-Q2H PRN PRN Reason: Shortness Of Breath Or Wheezing Aspirin (Aspirin) 81 mg PO DAILY [facility] Last Admin: 12/07/18 08:46 Dose: 81 mg Documented by: Atorvastatin Calcium (Lipitor) 80 mg PO DAILY [facility] Last Admin: 12/07/18 08:46 Dose: 80 mg Documented by: Bisacodyl (Dulcolax) 10 mg RECTAL DAILY PRN PRN Reason: Constipation Budesonide/Formoterol Fumarate (Symbicort 160-4.5 Mcg Inhaler) 2 puff INHALATION RT-BID [facility] Last Admin: 12/07/18 08:53 Dose: 2 puff Documented by: Clopidogrel Bisulfate (Plavix) 75 mg PO DAILY@1700 [facility] Last Admin: 12/07/18 16:49 Dose: 75 mg Documented by: Enoxaparin Sodium (Lovenox) 40 mg SQ DAILY [facility] Last Admin: 12/07/18 08:46 Dose: 40 mg Documented by: Furosemide (Lasix) 20 mg PO BID@0900,1600 [facility] Last Admin: 12/07/18 16:49 Dose: 20 mg Documented by: Isosorbide Mononitrate (Imdur) 30 mg PO DAILY [facility] Last Admin: 12/07/18 08:46 Dose: 30 mg Documented by: Metoprolol Tartrate (Lopressor) 25 mg PO TID [facility] Last Admin: 12/07/18 16:49 Dose: 25 mg Documented by: Nicotine (Habitrol 21mg/24hr Patch) 1 patch TRANSDERM DAILY [facility] Last Admin: 12/07/18 08:46 Dose: 1 patch Documented by: Sacubitril/Valsartan (Entresto 24 Mg-26 Mg Tablet) 1 each PO BID@0800,1700 [facility] Last Admin: 12/07/18 16:48 Dose: 1 each Documented by: Spironolactone (Aldactone) 25 mg PO DAILY [facility] Last Admin: 12/07/18 08:46 Dose: 25 mg Documented by: Physical examination: VITAL SIGNS:37.7, 93, 20, 135/70, 97% on 2 L GENERAL: Laying in bed, tired appearing. EYES: Pupils equal. Conjunctiva normal. HEENT: External appearance of nose and ears normal, oral cavity grossly normal. Chest wall: Left-sided AICD NECK: JVD not raised; masses not palpable. HEART: Heart sounds regular; no edema. LUNGS: Respiratory rate increased, diminished breath sounds. ABDOMEN: Soft, nontender, liver spleen not palpable, no masses palpable. PSYCH: Alert and oriented x3; mood and affect normal. INVESTIGATIONS, reviewed in the clinical context: potassium 4.2 bun 23 0 Previous testing: White count 7.8 hemoglobin 12.9 potassium 4.4 creatinine 1.14 Troponin 0.076 0.086 LDL 38 EKG tracing personally reviewed by me-atrial tachycardia with 2 is 21 conduction Assessment: -Atrial tachycardia with uncontrolled rate with a 2:1 conduction -Nonsustained recurrent V. tach -AICD -Acute on chronic congestive heart failure exacerbation from systolic dysfunction EF 30-35% from underlying coronary artery disease, uncontrolled today -Coronary artery disease with history of bypass and stent last 1 from being in July 2018 to circumflex -COPD in a smoker -Peripheral arterial disease -Primary osteoarthritis -Right bundle branch block -Chronic right vertebral artery occlusion Plan: metoprolol 25 mg 3 times a day added today. Other medications to continue. Encouraged to be out of bed.
[2018-12-08] MEDS: SYMBICORT 160-4.5 MCG INHALER INHALATION SCH (07:35)
[2018-12-08] MEDS: IPRATROPIUM-ALBUTEROL 3 ML NEB INHALATION SCH ×2 (07:36→11:40)
[2018-12-08 07:40] VITALS: RESP 20
[2018-12-08] MEDS: FUROSEMIDE 20 MG TAB PO SCH (08:34)
[2018-12-08] MEDS: ATORVASTATIN 80 MG TAB PO SCH (08:35)
[2018-12-08] MEDS: ISOSORBIDE MONONITRATE ER 30 MG TAB.ER.24H PO SCH (08:35)
[2018-12-08] MEDS: ENOXAPARIN 40 MG/0.4 ML SYRINGE SQ SCH (08:35)
[2018-12-08] MEDS: ASPIRIN 81 MG PO SCH (08:35)
[2018-12-08] MEDS: SPIRONOLACTONE 25 MG TAB PO SCH (08:35)
[2018-12-08] MEDS: NICOTINE 21MG/24HR PATCH TRANSDERM SCH (08:35)
[2018-12-08] MEDS: METOPROLOL TARTRATE 25 MG TAB PO SCH (08:35)
[2018-12-08] MEDS: SACUBITRIL/VALSARTAN 24 MG-26 MG TABLET PO SCH (08:35)
[2018-12-08 09:49] VITALS: TEMP 97.7
[2018-12-08 11:31] VITALS: BP 113/73
[2018-12-08 11:43] VITALS: PULSE 90
--- NOTE | 2018-12-08 15:23 | P.PN ---
Subjective Progress Note Date: 12/08/18 This is a pleasant 78-year-old gentleman who follows with Dr. Kaur in the office. Has a known history of CAD, prior CABG, cardiac catheterization with stent placement to the left circumflex in July of this year, hypertension, hyperlipidemia, ischemic cardiomyopathy with prior single-chamber AICD implant ation, PAD, COPD and chronic systolic congestive heart failure with a known ejection fraction of 30-35%, and multiple recent falls. This is his third admission this month. Initially he presented on November 10 with complaints of shortness of breath at which time his medications were optimized and he was switched from an JUNE inhibitor to Entresto. Echocardiogram at that time showed moderate to severely impaired LV systolic function with an ejection fraction of 30-35% with moderate MR and aortic stenosis. His troponins were mildly abnormal at that time. Subsequently he was admitted on November 25 with complaints of dizziness at which time he was noted to be in atrial tachycardia with PVCs. He was discharged with an event monitor at that time. On this admission patient states he has been feeling fine but continues to complain of some mild dizziness upon rising in the morning. He says he came to the emergency department at the recommendation of the [facility] where he lives. Apparently they received a call from [employer] who monitors the event monitor stating that he was having ventricular tachycardia. Patient denies any signs or symptoms. He he does have some mild chest tenderness around the site of his defibrillator but no other complaints of chest pain. He's had some difficulty breathing which is stable for him. He denies any orthopnea or PND and has no edema. EKG on admission shows atrial tachycardia with 2 to one conduction. Laboratory values show troponin of 0.076, 0.086 and 0.073 which appears to be stable for this patient as he seems to have chronically elevated troponins. His NT proBNP was elevated at 6800 which is improved since earlier this month at which time it was 13,800. 12/08/2018 Patient was seen and examined this morning, overall doing well. Heart rate in the 90s to low 100s range, 98% on room air. Sodium 140, potassium 4.2, BUN 23 and creatinine 1.0. We will increase the dose of metoprolol to 50 mg by mouth twice a day today. From our perspective the patient may need to be discharged home and follow-up with Dr. Kaur in the office. He is also been recommended to see Dr. Daley regarding his arrhythmia. Objective - Vital Signs Vital signs: Vital Signs Temp 97.7 F 12/08/18 11:31 Pulse 90 12/08/18 11:49 Resp 20 12/08/18 11:31 BP 113/73 12/08/18 11:31 Pulse Ox 98 12/08/18 11:31 Intake & Output 12/07/18 12/08/18 12/08/18 18:59 06:59 18:59 Intake Total 716 480 Output Total 350 200 Balance 366 -200 480 Weight 85.9 kg Intake: Oral 716 480 Output: Urine 350 200 Other: Voiding Method Urinal # Voids 1 1 - Exam PHYSICAL EXAMINATION: HEENT: Head is atraumatic, normocephalic. Pupils equal, round. Neck is supple. There is no elevated jugular venous pressure. HEART EXAMINATION: Heart sounds regular, S1 and S2 with a systolic murmur. CHEST EXAMINATION: Lungs are clear to auscultation and precussion. No chest wall tenderness is noted on palpation or with deep breathing. ABDOMEN: Soft, nontender. Bowel sounds are heard. No organomegaly noted. EXTREMITIES: 2+ peripheral pulses with no evidence of peripheral edema and no calf tenderness noted. NEUROLOGIC patient is awake, alert and oriented x3. - Labs CBC & Chem 7: 12/04/18 18:40 12/07/18 05:57 Assessment and Plan Plan: Assessment: #1 ischemic cardiomyopathy with a known ejection fraction of 30-35% #2 status post AICD implantation in 2017 #3 questionable V. tach #4 atrial tachycardia #5 chronic systolic congestive heart failure, patient appears to be euvolemic at this time #6 CAD with history of CABG and stenting in July of this year #7 hypertension #8 hyperlipidemia Plan From cardiology's perspective, we'll increase the dose of beta jono. Follow- up appointment in the office with Dr. Kaur this week, she will also be schedul ed to see Dr. Stuart in the office. We will increase the beta jono to 50 mg by mouth twice a day. DNP note has been reviewed, I agree with a documented findings and plan of care. Patient was seen and examined.
[2018-12-08] MEDS ORDERED: METOPROLOL TARTRATE 50 MG TAB PO SCH (21:00)
--- NOTE | 2018-12-08 23:34 | P.DS ---
Providers Date of admission: 12/04/18 21:04 Expected date of discharge: 12/08/18 Attending physician: Brooks Courtney Consults: 12/04/18 21:03 Consult Physician Urgent Consulting Provider: Richard Kaur Consult Reason/Comments: VT ? Do you want consulting provider notified?: Yes Primary care physician: Leroy Young [facility] Course: Chief Complaint: Heart racing Hospital course: This is a very pleasant 78-year-old patient of Dr. young. Chronic stable medical conditions include coronary artery disease, peripheral arterial disease, primary osteoarthritis, and COPD. also CHF with EF of 30%. Patient was recently at [facility] when he had an MRI of the brain that showed right cerebellar acute/subacute ischemia and infarct with the right vertebral artery occlusion and he was told to get a loop recorder. Patient was recently the hospital from November 24 to November 26. Was then diagnosed with atrial tachycardia. Not felt to need for anticoagulation. Patient was sent to rehab. Patient does have her AICD Patient at the was found to have abnormal rhythm and patient was atrial tachycardia and patient be admitted for the same.did go into CHF. Responded to IV Lasix.AICD interrogation also revealed some V. tach and appears. Medications were adjusted. Today-patient feeling better. Heart rate in [address] ALONSO Nichole. Patient will be discharged. Follow with Dr. Kaur. He'll also need to follow with arch pad cementer Dr. rivas Discussion and discharge planning more than 35 minutes Consultation: [facility] Physical examination: VITAL SIGNS:97.7, 114, 20, 11 3/73, 98% room air GENERAL: Laying in bed,comfortable EYES: Pupils equal. Conjunctiva normal. HEENT: External appearance of nose and ears normal, oral cavity grossly normal. Chest wall: Left-sided AICD NECK: JVD not raised; masses not palpable. HEART: Heart sounds regular; no edema. LUNGS: Respiratory rate increased, diminished breath sounds. ABDOMEN: Soft, nontender, liver spleen not palpable, no masses palpable. PSYCH: Alert and oriented x3; mood and affect normal. INVESTIGATIONS, reviewed in the clinical context: potassium 4.2 bun 23 0 Previous testing: White count 7.8 hemoglobin 12.9 potassium 4.4 creatinine 1.14 Troponin 0.076 0.086 LDL 38 EKG tracing personally reviewed by -atrial tachycardia with 2 is 21 conduction discharge diagnosis: -Atrial tachycardia with uncontrolled rate with a 2:1 conduction -Nonsustained recurrent V. tach -AICD -Acute on chronic congestive heart failure exacerbation from systolic dysfunction EF 30-35% from underlying coronary artery disease, -Coronary artery disease with history of bypass and stent last 1 from being in July 2018 to circumflex -COPD in a smoker -Peripheral arterial disease -Primary osteoarthritis -Right bundle branch block -Chronic right vertebral artery occlusion disposition: Home Patient Condition at Discharge: Stable Plan - Discharge Summary Discharge Rx Participant: Yes New Discharge Prescriptions: New Furosemide [Lasix] 20 mg PO BID@0900,1600 #60 tab Metoprolol Tartrate [Lopressor] 50 mg PO BID #60 tab Spironolactone [Aldactone] 25 mg PO DAILY #30 tablet Continue Atorvastatin [Lipitor] 80 mg PO DAILY #30 tab Nitroglycerin Sl Tabs [Nitrostat] 0.4 mg SUBLINGUAL Q5M PRN #25 tab PRN Reason: Chest Pain Budesonide-Formot 160-4.5 Mcg [Symbicort 160-4.5 Mcg Inhaler] 2 puff INHALATION RT-BID #1 puff Ipratropium [place] [Atrovent Hfa] 2 puff INHALATION RT-QID Spironolactone [Aldactone] 25 mg PO DAILY #30 tab Ipratropium-Albuterol Nebulize [Duoneb 0.5 mg-3 mg/3 ml Soln] 3 ml INHALATION RT-TID ampul.neb Aspirin 81 mg PO DAILY chew Bisacodyl [Dulcolax] 10 mg RECTAL DAILY PRN PRN Reason: Constipation Sacubitril/Valsartan [Entresto 24 mg-26 mg Tablet] 1 tab PO BID@0800,1700 Nicotine 21Mg/24Hr Patch [Habitrol] 1 patch TRANSDERM DAILY Clopidogrel [Plavix] 75 mg PO DAILY@1700 Isosorbide Mononitrate ER [Imdur] 30 mg PO DAILY Discharge Medication List Atorvastatin [Lipitor] 80 mg PO DAILY #30 tab 07/29/18 [Rx] Budesonide-Formot 160-4.5 Mcg [Symbicort 160-4.5 Mcg Inhaler] 2 puff INHALATION RT-BID #1 puff 07/29/18 [Rx] Nitroglycerin Sl Tabs [Nitrostat] 0.4 mg SUBLINGUAL Q5M PRN #25 tab 07/29/18 [Rx] Ipratropium [place] [Atrovent Hfa] 2 puff INHALATION RT-QID 10/03/18 [History] Spironolactone [Aldactone] 25 mg PO DAILY #30 tab 11/13/18 [Rx] Aspirin 81 mg PO DAILY chew 11/26/18 [Rx] Ipratropium-Albuterol Nebulize [Duoneb 0.5 mg-3 mg/3 ml Soln] 3 ml INHALATION RT-TID ampul.neb 11/26/18 [Rx] Bisacodyl [Dulcolax] 10 mg RECTAL DAILY PRN 12/04/18 [History] Clopidogrel [Plavix] 75 mg PO DAILY@1700 12/04/18 [History] Isosorbide Mononitrate ER [Imdur] 30 mg PO DAILY 12/04/18 [History] Nicotine 21Mg/24Hr Patch [Habitrol] 1 patch TRANSDERM DAILY 12/04/18 [History] Sacubitril/Valsartan [Entresto 24 mg-26 mg Tablet] 1 tab PO BID@0800,1700 12/04/18 [History] Furosemide [Lasix] 20 mg PO BID@0900,1600 #60 tab 12/08/18 [Rx] Metoprolol Tartrate [Lopressor] 50 mg PO BID #60 tab 12/08/18 [Rx] Spironolactone [Aldactone] 25 mg PO DAILY #30 tablet 12/08/18 [Rx] Follow up Appointment(s)/Referral(s): Axel Rivas MD [STAFF PHYSICIAN] - 1 Week (Consultation per Dr. Nichole for arrhythmia. Office will call with follow up appointment.) Richard Kaur MD [STAFF PHYSICIAN] - 12/10/18 8:30 am (Previous appointment changed from 12/10) Leroy Young MD [Primary Care Provider] - 12/10/18 10:40 am [facility], [NON-STAFF] - Patient Instructions/Handouts: Tachycardia (GEN) Discharge Disposition: HOME WITH HOME HEALTH SERVICES
== END 2018-12-08 14:57 | disposition home health service (06) | DRG 308 ==
LOC: EC 18:23 → 3SCARD 21:04
PROVIDERS: ADMIT Hospitalist; ATTEND Hospitalist
DX: I47.2 Ventricular tachycardia (principal); I50.23 Acute on chronic systolic (congestive) heart failure; I47.1 Supraventricular tachycardia; I11.0 Hypertensive heart disease with heart failure; I25.5 Ischemic cardiomyopathy; E78.5 Hyperlipidemia, unspecified; F17.200 Nicotine dependence, unspecified, uncomplicated; I25.10 Atherosclerotic heart disease of native coronary artery without angina pectoris; I73.9 Peripheral vascular disease, unspecified; I45.10 Unspecified right bundle-branch block; I65.01 Occlusion and stenosis of right vertebral artery; M19.91 Primary osteoarthritis, unspecified site; K21.9 Gastro-esophageal reflux disease without esophagitis; J44.9 Chronic obstructive pulmonary disease, unspecified; F41.9 Anxiety disorder, unspecified; I35.0 Nonrheumatic aortic (valve) stenosis; I48.91 Unspecified atrial fibrillation; Z79.02 Long term (current) use of antithrombotics/antiplatelets; Z79.899 Other long term (current) drug therapy; Z86.73 Personal history of transient ischemic attack (TIA), and cerebral infarction without residual deficits; Z79.82 Long term (current) use of aspirin; Z85.46 Personal history of malignant neoplasm of prostate; Z95.1 Presence of aortocoronary bypass graft; Z95.5 Presence of coronary angioplasty implant and graft; Z95.810 Presence of automatic (implantable) cardiac defibrillator; Z90.49 Acquired absence of other specified parts of digestive tract; Z98.42 Cataract extraction status, left eye; Z98.41 Cataract extraction status, right eye; Z79.51 Long term (current) use of inhaled steroids; Z83.79 Family history of other diseases of the digestive system; Z98.890 Other specified postprocedural states
CPT/HCPCS: 36415; 80048; 80053; 80061; 81001; 83735; 83880; 84100; 84484; 85025; 85610; 85730; 93005; 94640; 94760; 96361; 96374; 99291

== ENCOUNTER 2018-12-10 11:39 | Inpatient (IN) | payer MEDICARE, OTHER ==
[2018-12-10 12:33] LABS: Basophils # (A) 0.1 k/uL (0-0.2); Basophils % (A) 1 %; Eosinophils # (A) 0.2 k/uL (0-0.7); Eosinophils % (A) 2 %; HCT 44.6 % (39.0-53.0); HGB 14.1 gm/dL (13.0-17.5); Lymphocytes # (A) 1.6 k/uL (1.0-4.8); Lymphocytes % (A) 18 %; MCH 30.1 pg (25.0-35.0); MCHC 31.6 g/dL (31.0-37.0); MCV 95.5 fL (80.0-100.0); Mean Platelet Volume 7.5; Monocytes # (A) 0.6 k/uL (0-1.0); Monocytes % (A) 7 %; Neutrophils # (A) 6.4 k/uL (1.3-7.7); Neutrophils % (A) 71 %; Platelet Count 259 k/uL (150-450); RBC 4.67 m/uL (4.30-5.90); RDW 15.1 % (11.5-15.5)
[2018-12-10 12:45] LABS: Partial Thromboplastin Time 25.9 sec (22.0-30.0); Prothrombin Time 10.7 sec (9.0-12.0)
[2018-12-10 12:51] LABS: Albumin 4.2 g/dL (3.5-5.0); Calcium 9.7 mg/dL (8.4-10.2); Magnesium 2.2 mg/dL (1.6-2.3); Total Bilirubin 1.2 mg/dL (0.2-1.3); Total Protein 7.1 g/dL (6.3-8.2)
--- NOTE | 2018-12-10 12:55 | XR ---
EXAMINATION TYPE: XR chest 2V DATE OF EXAM: 12/10/2018 COMPARISON: 11/24/2018 HISTORY: Syncope TECHNIQUE: Frontal and lateral views of the chest are obtained. FINDINGS: There is right infrahilar airspace disease has become more prominent in the interim. Left lung base as well aerated. Remainder the lungs are clear. Single lead left-sided cardiac device is no souleymane. Post CABG changes the chest are seen. Diffuse osseous demineralization. There appears to be vielka enital deformity of the right fifth rib. IMPRESSION: Right infrahilar airspace disease is seen that could represent atelectasis or pneumonia.
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
--- NOTE | 2018-12-10 13:13 | CT ---
EXAMINATION TYPE: CT cervical spine wo con DATE OF EXAM: 12/10/2018 COMPARISON: None HISTORY: Neck pain CT DLP: 412.7 mGycm Automated exposure control for dose reduction was used. TECHNIQUE: CT scan of the cervical spine is obtained without contrast, axial images are obtained, sa gittal and coronal reformatted images are also reviewed. FINDINGS: Assessment spinal canal is limited due to noncontrast technique, resolution and artifact. T his results in a limited exam for disc herniation or canal stenosis.. Right-sided thyroid nodule note d. Atherosclerotic change of the vasculature including the carotid arteries. Changes of chronic sinus itis noted. At C2-C3 there is degenerative disc disease with uncovertebral joint hypertrophy and facet arthropath y greater on the right with mild right-sided foraminal encroachment. No obvious disc herniation or ca nal stenosis. There is ankylosis of the facet joints of C2 and C3 on the right. At C3-C4 there is marked facet arthropathy with moderate left foraminal and severe right-sided forami nal encroachment. No obvious disc herniation or canal stenosis. At C4-C5 there is severe right-sided facet arthropathy and mild left facet arthropathy. There is cent ral disc bulging or small protrusion. Could not exclude canal stenosis. Bilateral foraminal encroachm ent. At C5-C6 there is near degenerative disc disease with posterior spondylosis. Bilateral uncovertebral joint hypertrophy greater on the left and facet arthropathy greater on the right. Moderate severe lef t-sided foraminal encroachment and mild to moderate right-sided foraminal encroachment. At C6-C7 there is severe degenerative disc disease with disc bulging. Artifact results in nondiagnost ic assessment of the spinal canal. Severe right-sided foraminal encroachment and moderate to severe l eft-sided foraminal encroachment. At C7-T1 there is degenerative disc disease. Limited assessment spinal canal. Bilateral foraminal enc roachment facet arthropathy noted. There is a minimal anterolisthesis. IMPRESSION: 1. Severe multilevel hypertrophic change, degenerative disc disease and facet arthropathy as discusse d above. Multilevel foraminal encroachment. Given limitation of the exam recommend MRI follow-up. 2. Suspect severe left-sided carotid artery atherosclerotic changes correlate clinically. 3. There is esophageal wall thickening correlate for esophagitis or history of reflux otherwise consi aleshia direct visualization.
[2018-12-10 13:30] LABS: Appearance,Urine Clear (Clear); Bilirubin,Urine Negative (Negative); Blood,Urine Negative (Negative); Color,Urine Yellow; Glucose,Urine (UA) Negative (Negative); Ketones,Urine Negative (Negative); Leukocyte Esterase,Urine Negative (Negative); Nitrite,Urine Negative (Negative); PH, Urine 5.5 (5.0-8.0); Protein,Urine Trace (Negative); Specific Gravity,Urine 1.017 (1.001-1.035); Urobilinogen,Urine <2.0 mg/dL (<2.0)
--- NOTE | 2018-12-10 14:05 | CT ---
EXAMINATION TYPE: CT brain wo con DATE OF EXAM: 12/10/2018 COMPARISON: 11/24/2018 HISTORY: 78-year-old male Snycope, fall, neck pain TECHNIQUE: Examination was done in axial plane without intravenous contrast. Coronal and sagittal r econstructions performed. CT DLP: 1087.4 mGycm Automated exposure control for dose reduction was used. FINDINGS: There is no evidence of acute intracranial hemorrhage, acute ischemic changes, mass, mass-effect, or extra-axial fluid collection. There is no effacement of cerebral sulci or basal subarachnoid cister ns. There is no hydrocephalus. There is no midline shift. Arias-white matter distinction is preserv ed. Moderate generalized supratentorial volume loss. Moderate patchy white matter hypodensities in both c erebral hemispheres. Dural calcifications. Scattered mild mucosal thickening ethmoid air cells and moderate within the sphenoid sinus. Right sph enoid sinus hypoplastic. Mastoid air cells well pneumatized. Orbits and globes are intact. IMPRESSION: Stable mild atrophy and mild to moderate patchy changes of chronic small vessel ischemic disease. No acute intracranial abnormality seen. Mild chronic ethmoid and sphenoid sinus disease.
[2018-12-10] MEDS ORDERED: ASPIRIN 81 MG PO STA (14:30)
[2018-12-10] MEDS ORDERED: PNEUMONIA PROTOCOL UTILIZED 1 EACH MISC PO PRN (14:32)
[2018-12-10] MEDS ORDERED: AZITHROMYCIN 500 MG in SODIUM CHLORIDE 0.9% 250 ML IVPB STA (14:32)
[2018-12-10] MEDS: CARVEDILOL 6.25 MG TAB PO SCH (18:01)
[2018-12-10] MEDS: CLOPIDOGREL 75 MG TAB PO SCH (18:02)
[2018-12-10] MEDS ORDERED: INFLUENZA VACCINE (6 MOS+) 60 MCG/0.5 ML SYRINGE IM ONE (18:08)
[2018-12-10] MEDS: SYMBICORT 160-4.5 MCG INHALER INHALATION SCH (19:24)
[2018-12-10] MEDS: METOPROLOL TARTRATE 50 MG TAB PO SCH (20:37)
[2018-12-10] MEDS: RANOLAZINE 500 MG TAB.ER.12H PO SCH (20:40)
[2018-12-10] MEDS ORDERED: ASPIRIN 81 MG PO SCH (21:00)
[2018-12-11 03:58] LABS: HCT 41.6 % (39.0-53.0); HGB 13.4 gm/dL (13.0-17.5); MCH 31.1 pg (25.0-35.0); MCHC 32.2 g/dL (31.0-37.0); MCV 96.5 fL (80.0-100.0); Mean Platelet Volume 7.3; Platelet Count 213 k/uL (150-450); RBC 4.31 m/uL (4.30-5.90); RDW 15.1 % (11.5-15.5); WBC 7.7 k/uL (3.8-10.6)
[2018-12-11 04:10] LABS: Potassium 4.5 mmol/L (3.5-5.1)
[2018-12-11] MEDS: SYMBICORT 160-4.5 MCG INHALER INHALATION SCH ×2 (07:25→19:18)
[2018-12-11] MEDS ORDERED: ISOSORBIDE MONONITRATE ER 60 MG TAB.ER.24H PO SCH (09:00)
--- NOTE | 2018-12-11 09:12 | XR ---
EXAMINATION TYPE: XR chest 2V DATE OF EXAM: 12/11/2018 COMPARISON: 12/10/2018 HISTORY: Follow-up pneumonia FINDINGS: There are bilateral pleural effusions with cardiomegaly and bibasilar infiltrate. There is a diffuse interstitial pattern. Cardiac device and postsurgical changes noted. Arthropathy shoulders. No pneum othorax. Chronic deformity of the upper right rib cage noted. Atherosclerotic change aorta. IMPRESSION: 1. Stable diffuse interstitial pattern with basilar infiltrate. Findings may been the basis of inters titial pulmonary fibrosis with superimposed pneumonitis or venous congestion correlate clinically. Un derlying infiltrate at the lung bases not excluded.
[2018-12-11] MEDS: SACUBITRIL/VALSARTAN 24 MG-26 MG TABLET PO SCH ×2 (11:29→16:14)
[2018-12-11] MEDS: ATORVASTATIN 80 MG TAB PO SCH (11:30)
[2018-12-11] MEDS: FUROSEMIDE 20 MG TAB PO SCH (11:30)
[2018-12-11] MEDS: METOPROLOL TARTRATE 50 MG TAB PO SCH ×2 (11:31→21:24)
[2018-12-11] MEDS: SPIRONOLACTONE 25 MG TAB PO SCH (11:38)
[2018-12-11] MEDS: RANOLAZINE 500 MG TAB.ER.12H PO SCH ×2 (11:38→21:04)
[2018-12-11] MEDS: APIXABAN 5 MG TAB PO SCH ×2 (11:39→21:04)
[2018-12-11] MEDS: ISOSORBIDE MONONITRATE ER 30 MG TAB.ER.24H PO SCH (11:39)
[2018-12-11 15:23] VITALS: BMI 26.9
[2018-12-11] MEDS ORDERED: AZITHROMYCIN 500 MG TAB PO SCH (16:00)
[2018-12-11] MEDS: SODIUM CHLORIDE 0.9% 1,000 ML IV SCH (16:11)
[2018-12-11] MEDS: CLOPIDOGREL 75 MG TAB PO SCH (16:14)
[2018-12-11 16:52] VITALS: RESP 20
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
--- NOTE | 2018-12-11 22:35 | CONS ---
CONSULTATION DATE OF SERVICE: This is an 78-year-old gentleman with a known history of ischemic cardiomyopathy who sees Dr. Kaur in the outpatient setting. He has had multiple previous percutaneous interventions, and the most recent intervention was of mid circumflex coronary artery performed in July of this year. He was recently discharged from the hospital after coming in because of some abnormal rhythm on the event monitor. I reviewed the event monitor. He had a run of nonsustained VT. Otherwise he was in atrial tachycardia or atrial flutter with rates in the range of 80 to 110. He was discharged home, went and saw Dr. Kaur yesterday, and after that he went to his PCP and apparently he felt hypotensive. It appears this was an orthostatic hypotension type picture and he was sent to the emergency room. He is asymptomatic at the time of my evaluation, resting comfortably. His rhythm is atrial flutter with a 3:1 block. Heart rate is in the 90s. He has no chest pain or shortness of breath. Yesterday his blood pressure was about 80 systolic at the PCP office and this was when he stood up from a sitting-down or lying- down position, and he had a transient episode of near-syncope. He is resting comfortably without symptoms. PAST MEDICAL HISTORY: 1. Ischemic cardiomyopathy. 2. Known history of atrial flutter with previous cardioversions. 3. Chronic congestive heart failure. 4. History of hypertension. 5. Hyperlipidemia. MEDICATIONS: Medications at home include: 1. Aldactone 25 mg daily. 2. Metoprolol 50 mg b.i.d. 3. Lipitor 80 mg daily. 4. Inhaler. 5. Entresto 24/26 one tablet daily. 6. Aspirin 81 mg daily. 7. Coreg 6.25 mg b.i.d. 8. Plavix 75 mg daily. 9. Imdur 60 mg daily. PHYSICAL EXAMINATION: Blood pressure is 110/70. Pulse rate is about 100 per minute, irregular. HEENT unremarkable. Fundus was not examined by me. There is JVD of 1 cm. No carotid bruit. Heart exam reveals S1, S2 with irregular rhythm, short systolic murmur. Lungs reveal diminished air entry. Abdomen is soft. Lower extremities reveal diminished pulses. Central nervous system is normal. EKG revealed atrial flutter with a controlled variable rate, nonspecific ST-T changes and a right bundle branch block pattern. IMPRESSION: 1. Episode of hypotension, probable orthostatic hypotension. 2. Atrial flutter with a controlled rate. 3. Ischemic cardiomyopathy. 4. Hypertension. 5. Hyperlipidemia. RECOMMENDATIONS: I am recommending that we anticoagulate the patient with apixaban 5 mg b.i.d., discontinue aspirin, and continue Plavix 75 mg daily. Continue his other medications. Increase activity. He has been hydrated. He can be discharged tomorrow if he remains stable and will follow up with Dr. Kaur in one week. He may require flutter ablation and so Dr. Kaur will evaluate and send him to Dr. Daley. Thank you very much for the consult. MMODL / IJN: [id number] /
--- NOTE | 2018-12-11 22:40 | CONS ---
CONSULTATION This is an 78-year-old gentleman who came to the emergency room with a history of passing-out spell. The patient's blood pressure was 79/50. The patient has been admitted and had a workup, including CT scan of the head that showed stable mild atrophy and mild to moderate patchy changes of chronic small-vessel ischemic disease. No acute intracranial bleed was noted. Patient also had a CT of the spine which showed severe multilevel hypertrophic changes with some degenerative changes and there is left- sided carotid artery atherosclerosis disease. This patient had similar symptoms and he was transferred to [facility] about 3 weeks ago and he was there for 5 days. Patient had a complete workup, including MRI of the brain, and he was told that he has some finding in the cerebellum; no surgical lesion was seen, and he was told to be treated medically. I have requested the MRI report and neuro consult from [facility] for review. The patient has no history of TIA, amaurosis fugax. PAST MEDICAL HISTORY: 1. History of heart failure. 2. COPD. 3. CVA in the past. 4. Hyperlipidemia. 5. Hypertension. 6. Prostate disorder. PHYSICAL EXAMINATION: Patient was seen in his room, lying comfortably in bed. NECK: Supple. Trachea central. CHEST: Clear. ABDOMEN: Soft. CENTRAL NERVOUS SYSTEM: time and place. Normal motor function, upper and lower extremities. PLAN: We will review the records from [facility], MRI findings and neuro consult report. At this time, most likely patient was dizzy because of his low blood pressure, and the patient has an incidental finding of left carotid stenosis. The patient has no history of TIA or amaurosis fugax. We will follow with you. MMODL / IJN: [id number] /
[2018-12-12] MEDS: CARVEDILOL 6.25 MG TAB PO SCH (03:12)
[2018-12-12] MEDS ORDERED: ACETAMINOPHEN TAB 325 MG TAB PO PRN (03:26)
[2018-12-12 04:27] VITALS: PULSE 101
[2018-12-12 06:08] LABS: HCT 41.4 % (39.0-53.0); HGB 13.5 gm/dL (13.0-17.5); MCH 31.2 pg (25.0-35.0); MCHC 32.6 g/dL (31.0-37.0); MCV 95.8 fL (80.0-100.0); Mean Platelet Volume 6.8; Platelet Count 231 k/uL (150-450); RBC 4.31 m/uL (4.30-5.90); RDW 14.7 % (11.5-15.5); WBC 7.5 k/uL (3.8-10.6)
[2018-12-12 06:32] LABS: Calcium 9.1 mg/dL (8.4-10.2)
[2018-12-12] MEDS: SODIUM CHLORIDE 0.9% 1,000 ML IV SCH (06:38)
[2018-12-12 06:43] LABS: Potassium 5.1 mmol/L (3.5-5.1)
[2018-12-12] MEDS: SPIRONOLACTONE 25 MG TAB PO SCH (08:36)
[2018-12-12] MEDS: ATORVASTATIN 80 MG TAB PO SCH (08:36)
[2018-12-12] MEDS: ISOSORBIDE MONONITRATE ER 30 MG TAB.ER.24H PO SCH (08:36)
[2018-12-12] MEDS: METOPROLOL TARTRATE 50 MG TAB PO SCH (08:37)
[2018-12-12] MEDS: APIXABAN 5 MG TAB PO SCH (08:37)
[2018-12-12] MEDS: SACUBITRIL/VALSARTAN 24 MG-26 MG TABLET PO SCH (08:38)
[2018-12-12] MEDS: FUROSEMIDE 20 MG TAB PO SCH (08:38)
[2018-12-12 08:46] VITALS: BP 121/67; TEMP 98.4
[2018-12-12] MEDS: SYMBICORT 160-4.5 MCG INHALER INHALATION SCH (11:04)
--- NOTE | 2018-12-12 11:59 | PN ---
PROGRESS NOTE This is an 78-year-old gentleman who has history of ischemic cardiomyopathy, atrial fibrillation, who came with an episode of hypotension. The patient had a similar episode a few weeks ago and patient was sent to [facility] and patient had MRI of the brain which showed acute subacute ischemia involving the posterior inferior cerebral artery distribution. The patient also has a right vertebral artery occlusive disease and acute chronic atrophy of the small vessel disease of the brain. The patient had a CT of the neck which showed atherosclerosis disease involving the left carotid. The patient has history of TIA, amaurosis fugax. The patient was seen by Cardiology and the patient was started on anticoagulation with apixaban 5 mg b.i.d. and Plavix 75 mg daily. As far as posterior circulation of the brain is concern, the patient will be treated medically. There is no role of surgical intervention for occluded vertebral artery. I will follow with you. SHELLEY / ASHLEEN: [id number] /
[2018-12-12] MEDS: RANOLAZINE 500 MG TAB.ER.12H PO SCH (12:23)
--- NOTE | 2018-12-12 13:21 | PN ---
PROGRESS NOTE Mr. Rangel is in atrial flutter, controlled rate. Hemodynamically stable. Breathing is better. His Entresto was held. Blood pressure has come up. He feels better. I am recommending that we discontinue Entresto, give him losartan 25 mg daily and he can be discharged today and he will see Dr. Kaur in one week. Blood pressure is good. There are no orthostatic changes. There is JVD 1 cm. No carotid bruit. There is a systolic murmur audible unchanged. Second heart sound is preserved. Lungs revealed decent air entry. Abdomen and lower extremity exam are unchanged. MMODL / IJN: [id number] /
--- NOTE | 2018-12-12 19:39 | P.DS ---
Providers Date of admission: 12/10/18 14:32 Expected date of discharge: 12/12/18 Attending physician: Brooks Courtney Consults: 12/10/18 14:32 Consult Physician Routine Consulting Provider: Willy Orr Consult Reason/Comments: carotid artery disease Do you want consulting provider notified?: Yes 12/10/18 14:33 Consult Physician Routine Consulting Provider: Zach Nichole Consult Reason/Comments: syncope Do you want consulting provider notified?: Yes Primary care physician: Leroy Young Hospital Course: Chief Complaint: Syncope Hospital course: This is a very pleasant 78-year-old patient of Dr. young. Chronic stable medical conditions include coronary artery disease, peripheral arterial disease, primary osteoarthritis, and COPD. also CHF with EF of 30%. Patient was recently at [facility] when he had an MRI of the brain that showed right cerebellar acute/subacute ischemia and infarct with the right vertebral artery occlusion and he was told to get a loop recorder. Patient was recently the hospital from November 24 to November 26. Was then diagnosed with atrial tachycardia. Not felt to need for anticoagulation. Patient was sent to rehab. Patient does have her AICD Patient was then recently admitted from December 04 through December 08. Was admitted with atrial tachycardia and ventricular tachycardia that was revealed on AICD interrogation. Medications were adjusted. Patient seen by Dr. ALONSO Nichole from cardiology. Patient had yesterday morning gone to see Dr. Kaur. Was told things were stable. Then went to see Dr. young. There when he was standing on the weighing scale suddenly he passed out. There is no chest pain no palpitation. No seizure activity. Blood pressure was noted to be 79/50. Patient was sent in from that. Admitted for the same. Also found to be in atrial flutter. Patient is found to be in acute renal failure. entresto was discontinued. Started on losartan. Gently hydrated. Creatinine normalized before discharge. No further symptomatic. Discussed with the patient. Discussed with Dr. ALONSO Nichole. Started on anticoagulation. Discussion and discharge planning more than 35 minutes Consultation: Dr. ALONSO Nichole from cardiology Physical examination: VITAL SIGNS: 98.4, 96, 16, 121/67 GENERAL: Laying in bed comfortable. EYES: Pupils equal. Conjunctiva normal. HEENT: External appearance of nose and ears normal, oral cavity grossly normal. Chest wall: Left-sided AICD NECK: JVD not raised; masses not palpable. HEART: Irregular; no edema. LUNGS: Respiratory rate increased, diminished breath sounds. ABDOMEN: Soft, nontender, liver spleen not palpable, no masses palpable. PSYCH: Alert and oriented x3; mood and affect normal. INVESTIGATIONS, reviewed in the clinical context: Creatinine 1.17 Admission testing White count 9 wound 14.1 platelets 259 potassium 5 bun 45 creatinine 1.49 Bun and creatinine was 23/1.09 on December 07 EKG tracing personally reviewed by me-atrial tachycardia Chest x-ray film personally reviewed by me-prominent interstitial pattern Discharge diagnosis: -Syncope from hypotension A from acute renal failure -Acute renal failure from diuresis, patient's creatinine went up from 1.09-1.49 -Atrial tachycardia with uncontrolled rate with a 2:1 conduction -Acute onset atrial flutter -AICD -chronic congestive heart failure exacerbation from systolic dysfunction EF 30- 35% from underlying coronary artery disease -Coronary artery disease with history of bypass and stent last 1 from being in July 2018 to circumflex -COPD in a smoker -Peripheral arterial disease -Primary osteoarthritis -Right bundle branch block -Chronic right vertebral artery occlusion Disposition: Home Patient Condition at Discharge: Stable Plan - Discharge Summary Discharge Rx Participant: No New Discharge Prescriptions: New Losartan [Cozaar] 25 mg PO HS #30 tab Apixaban [Eliquis] 5 mg PO BID #60 tab Isosorbide Mononitrate ER [Imdur] 30 mg PO DAILY #30 tab.er.24h Famotidine [Pepcid] 20 mg PO BID #60 tablet Continue Atorvastatin [Lipitor] 80 mg PO DAILY #30 tab Nitroglycerin Sl Tabs [Nitrostat] 0.4 mg SUBLINGUAL Q5M PRN #25 tab PRN Reason: Chest Pain Budesonide-Formot 160-4.5 Mcg [Symbicort 160-4.5 Mcg Inhaler] 2 puff INHALATION RT-BID #1 puff Ipratropium Basehor [Atrovent Hfa] 2 puff INHALATION RT-QID Clopidogrel [Plavix] 75 mg PO DAILY@1700 Metoprolol Tartrate [Lopressor] 50 mg PO BID #60 tab Spironolactone [Aldactone] 25 mg PO DAILY #30 tablet Aspirin 81 mg PO HS Carvedilol [Coreg] 6.25 mg PO BID Furosemide [Lasix] 20 mg PO DAILY Ranolazine [Ranexa] 1,000 mg PO BID Discontinued Sacubitril/Valsartan [Entresto 24 mg-26 mg Tablet] 1 tab PO BID@0800,1700 Isosorbide Mononitrate ER [Imdur] 60 mg PO DAILY Discharge Medication List Atorvastatin [Lipitor] 80 mg PO DAILY #30 tab 07/29/18 [Rx] Budesonide-Formot 160-4.5 Mcg [Symbicort 160-4.5 Mcg Inhaler] 2 puff INHALATION RT-BID #1 puff 07/29/18 [Rx] Nitroglycerin Sl Tabs [Nitrostat] 0.4 mg SUBLINGUAL Q5M PRN #25 tab 07/29/18 [Rx] Ipratropium Basehor [Atrovent Hfa] 2 puff INHALATION RT-QID 10/03/18 [History] Clopidogrel [Plavix] 75 mg PO DAILY@1700 12/04/18 [History] Metoprolol Tartrate [Lopressor] 50 mg PO BID #60 tab 12/08/18 [Rx] Spironolactone [Aldactone] 25 mg PO DAILY #30 tablet 12/08/18 [Rx] Aspirin 81 mg PO HS 12/10/18 [History] Carvedilol [Coreg] 6.25 mg PO BID 12/10/18 [History] Furosemide [Lasix] 20 mg PO DAILY 12/10/18 [History] Ranolazine [Ranexa] 1,000 mg PO BID 12/10/18 [History] Apixaban [Eliquis] 5 mg PO BID #60 tab 12/12/18 [Rx] Famotidine [Pepcid] 20 mg PO BID #60 tablet 12/12/18 [Rx] Isosorbide Mononitrate ER [Imdur] 30 mg PO DAILY #30 tab.er.24h 12/12/18 [Rx] Losartan [Cozaar] 25 mg PO HS #30 tab 12/12/18 [Rx] Follow up Appointment(s)/Referral(s): Richard Kaur MD [STAFF PHYSICIAN] - 12/17/18 10:30 am Leroy Young MD [Primary Care Provider] - 1-2 days (CALL FRIDAY FOR APPT) [facility], [NON-STAFF] - Patient Instructions/Handouts: Syncope (DC) Activity/Diet/Wound Care/Special Instructions: [facility] - [phone] Department of Human Services - [phone] Discharge Disposition: HOME SELF-CARE
[2018-12-12] MEDS ORDERED: LOSARTAN 25 MG TAB PO SCH (21:00)
== END 2018-12-12 14:02 | disposition home health service (06) | DRG 682 ==
LOC: EC 11:39 → 3SCARD 14:32
PROVIDERS: ADMIT Hospitalist; ATTEND Hospitalist
DX: N17.9 Acute kidney failure, unspecified (principal); I50.23 Acute on chronic systolic (congestive) heart failure; E87.2 Acidosis; I47.1 Supraventricular tachycardia; I48.92 Unspecified atrial flutter; I11.0 Hypertensive heart disease with heart failure; T50.2X5A Adverse effect of carbonic-anhydrase inhibitors, benzothiadiazides and other diuretics, initial encounter; E78.5 Hyperlipidemia, unspecified; Z87.891 Personal history of nicotine dependence; F41.9 Anxiety disorder, unspecified; Z86.73 Personal history of transient ischemic attack (TIA), and cerebral infarction without residual deficits; I25.10 Atherosclerotic heart disease of native coronary artery without angina pectoris; I25.5 Ischemic cardiomyopathy; I45.10 Unspecified right bundle-branch block; I48.91 Unspecified atrial fibrillation; I65.01 Occlusion and stenosis of right vertebral artery; I73.9 Peripheral vascular disease, unspecified; I95.1 Orthostatic hypotension; J44.9 Chronic obstructive pulmonary disease, unspecified; K21.9 Gastro-esophageal reflux disease without esophagitis; M19.90 Unspecified osteoarthritis, unspecified site; R29.6 Repeated falls; Z79.51 Long term (current) use of inhaled steroids; Z79.82 Long term (current) use of aspirin; Z79.899 Other long term (current) drug therapy; Z85.46 Personal history of malignant neoplasm of prostate; Z95.1 Presence of aortocoronary bypass graft; Z92.3 Personal history of irradiation; Z81.1 Family history of alcohol abuse and dependence; Z95.5 Presence of coronary angioplasty implant and graft; Z95.810 Presence of automatic (implantable) cardiac defibrillator; Z60.2 Problems related to living alone; Z87.01 Personal history of pneumonia (recurrent); I65.22 Occlusion and stenosis of left carotid artery
CPT/HCPCS: 36415; 70450; 71046; 72125; 80048; 80053; 81003; 82550; 83735; 83880; 84484; 85025; 85027; 85610; 85730; 87040; 87070; 87205; 93005; 94640; 94760; 96365; 96367; 99285

== ENCOUNTER 2018-12-17 11:41 | Observation (INO) | payer MEDICARE, OTHER ==
[2018-12-17] MEDS ORDERED: TETRACAINE 0.5% OPHTH (PF) DROPS 4 ML BTL RIGHT EYE STA (12:15)
[2018-12-17 12:18] LABS: Glucose,Whole Blood 129 mg/dL (75-99)
[2018-12-17] MEDS ORDERED: ACETAMINOPHEN TAB 500 MG TAB PO STA (12:33)
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
[2018-12-17] MEDS ORDERED: SODIUM CHLORIDE 0.9% 500 ML 500 ML IV STA (12:52)
[2018-12-17 13:05] LABS: Calcium 9.2 mg/dL (8.4-10.2)
[2018-12-17 13:07] LABS: Basophils # (A) 0.1 k/uL (0-0.2); Basophils % (A) 1 %; Eosinophils # (A) 0.2 k/uL (0-0.7); Eosinophils % (A) 2 %; HCT 42.6 % (39.0-53.0); Lymphocytes # (A) 1.8 k/uL (1.0-4.8); Lymphocytes % (A) 19 %; MCH 31.2 pg (25.0-35.0); MCHC 32.7 g/dL (31.0-37.0); MCV 95.2 fL (80.0-100.0); Mean Platelet Volume 6.8; Monocytes # (A) 0.5 k/uL (0-1.0); Monocytes % (A) 5 %; Neutrophils # (A) 6.8 k/uL (1.3-7.7); Neutrophils % (A) 72 %; Platelet Count 265 k/uL (150-450); RBC 4.48 m/uL (4.30-5.90); WBC 9.4 k/uL (3.8-10.6)
[2018-12-17 13:10] LABS: Potassium 5.1 mmol/L (3.5-5.1)
--- NOTE | 2018-12-17 13:13 | XR ---
EXAMINATION TYPE: XR chest 2V DATE OF EXAM: 12/17/2018 COMPARISON: Chest x-ray 6 days ago. HISTORY: Headache and hypotension. TECHNIQUE: Frontal and lateral views of the chest are obtained. FINDINGS: There is persistent cardiomegaly with single lead pacemaker/AICD. Overlying sternal wires and mediastinal clips redemonstrated. Chronic parenchymal changes with right greater than left bibasi lar opacities. No pleural effusion or pneumothorax noted. The osseous structures are intact. IMPRESSION: Cardiomegaly and chronic parenchymal changes with right greater than left bibasilar acute infiltrate and/or atelectasis thought present.
--- NOTE | 2018-12-17 13:19 | CT ---
EXAMINATION TYPE: CT brain wo con DATE OF EXAM: 12/17/2018 COMPARISON: 12/10/2018 HISTORY: 78-year-old male with Weakness TECHNIQUE: Examination was done in axial plane without intravenous contrast. Coronal and sagittal r econstructions performed. CT DLP: 1107.4 mGycm Automated exposure control for dose reduction was used. FINDINGS: Focal hypodensity posterior inferior right cerebellum is now apparent. In retrospect, on the exam of 12/10/2018, very subtle asymmetry is suggested. Mild generalized supratentorial volume loss and moderate patchy white matter hypodensities. There is no evidence of acute intracranial hemorrhage, mass, mass-effect, or extra-axial fluid colle ction. There is no effacement of cerebral sulci or basal subarachnoid cisterns. There is no hydroce phalus. There is no midline shift. Arias-white matter distinction is preserved. Continued mild mucosal thickening throughout the ethmoid air cells and sphenoid sinuses. Mastoid air cells are well pneumatized. Orbits and globes are intact. IMPRESSION: 1. Now apparent is a focal area of hypodensity posterior inferior right cerebellum, suspected evolvin g subacute infarct. This is only subtly apparent in retrospect on the 12/10/[address]-enhanced MRI follow-up. 2. No mass effect or midline shift or acute intracranial hemorrhage. 2. Stable mild ethmoid and sphenoid sinus disease.
[2018-12-17] MEDS ORDERED: SODIUM CHLORIDE 0.9% 500 ML 500 ML IV ONE (15:30)
[2018-12-17] MEDS: SODIUM CHLORIDE 0.9% 1,000 ML IV SCH ×2 (15:33→16:01)
[2018-12-17] MEDS ORDERED: NALOXONE 0.4 MG/ML 1 ML VIAL IV PRN (15:37)
[2018-12-17] MEDS ORDERED: ACETAMINOPHEN TAB 325 MG TAB PO PRN (15:37)
[2018-12-17] MEDS ORDERED: IPRATROPIUM 0.5 MG/2.5 ML NEBU INHALATION SCH (16:00)
[2018-12-17] MEDS: IPRATROPIUM 0.5 MG/2.5 ML NEBU INHALATION SCH ×2 (16:13→20:28)
[2018-12-17] MEDS: CLOPIDOGREL 75 MG TAB PO SCH (17:17)
[2018-12-17] MEDS: FAMOTIDINE 20 MG TAB PO SCH (20:23)
[2018-12-17] MEDS: APIXABAN 5 MG TAB PO SCH (20:23)
[2018-12-17] MEDS: SYMBICORT 160-4.5 MCG INHALER INHALATION SCH (20:30)
[2018-12-17] MEDS ORDERED: ASPIRIN 81 MG PO SCH (21:00)
[2018-12-17 23:22] VITALS: RESP 18
[2018-12-18] MEDS: SYMBICORT 160-4.5 MCG INHALER INHALATION SCH (07:30)
[2018-12-18] MEDS: IPRATROPIUM 0.5 MG/2.5 ML NEBU INHALATION SCH ×3 (07:30→16:24)
[2018-12-18] MEDS ORDERED: NITROGLYCERIN SL TABS 0.4 MG TAB SUBLINGUAL PRN (07:48)
[2018-12-18] MEDS: METOPROLOL TARTRATE 50 MG TAB PO SCH ×2 (08:45→16:47)
[2018-12-18] MEDS: FAMOTIDINE 20 MG TAB PO SCH (08:45)
[2018-12-18] MEDS: APIXABAN 5 MG TAB PO SCH (08:45)
[2018-12-18] MEDS: SODIUM CHLORIDE 0.9% 1,000 ML IV SCH (08:54)
[2018-12-18] MEDS ORDERED: FUROSEMIDE 20 MG TAB PO SCH (09:00)
[2018-12-18] MEDS ORDERED: SPIRONOLACTONE 25 MG TAB PO SCH (09:00)
[2018-12-18] MEDS ORDERED: ATORVASTATIN 80 MG TAB PO SCH (09:00)
--- NOTE | 2018-12-18 14:05 | PN ---
PROGRESS NOTE This is an 78-year-old gentleman with a history of ischemic cardiomyopathy, atrial flutter, who came and saw Dr. Kaur yesterday, complained of headache. He was sent to the emergency room mainly to get a CAT scan to make sure there was no intracranial pathology. CAT scan was unremarkable, but then developed hypotension, was hospitalized. His pressure is normal. He is doing well. He was on Entresto, now I have switched him to losartan combination. He is doing well this morning, asymptomatic, remains in atrial flutter, rate is much better controlled. Vitals are stable. No JVD. S1-S2 heard normally. Short systolic murmur noted. Lungs reveal improved air entry. Abdomen and lower extremity exam is unchanged. Please refer to my recent consultation and notes in the chart. This gentleman can be discharged on current medical regimen and see Dr. Kaur in one week for electrical cardioversion that is being planned. He currently has an event monitor and no further intervention necessary at this time. I discussed my thoughts in detail with the patient. He can be discharged today and see Dr. Kaur in one week. MMODL / IJN: [id number] /
--- NOTE | 2018-12-18 14:06 | CT ---
EXAMINATION TYPE: CT brain wo con DATE OF EXAM: 12/18/2018 HISTORY: Follow up study ; sudden onset headache and weakness yesterday. CT DLP: 1078.4 mGycm. Automated Exposure Control for Dose Reduction was Utilized. TECHNIQUE: CT scan of the head is performed without contrast. COMPARISON: None. FINDINGS: There is no acute intracranial hemorrhage or midline shift identified. There is diffuse v entricular and sulcal prominence consistent with diffuse age-related cerebral atrophy. There is low- attenuation in the periventricular white matter consistent with chronic small vessel ischemic change. Persistent hypodense area inferior right cerebellar hemisphere axial image 13 maybe slightly more p rominent axial image 11. Pcpb-bg-prejhano mucosal thickening involving the ethmoid sinuses bilaterall y. Mafu-ck-tagaxdgq mucosal thickening involving the left sphenoid sinus. IMPRESSION: No acute intracranial hemorrhage or midline shift. There is mild to moderate diffuse ag e-related cerebral atrophy and chronic small vessel ischemic change redemonstrated. Probable evolvin g subacute infarct inferior right cerebellar hemisphere again seen. Consider MRI confirmation.
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
[2018-12-18 16:27] VITALS: BP 116/68; PULSE 108; TEMP 96.9
[2018-12-18] MEDS: CLOPIDOGREL 75 MG TAB PO SCH (16:47)
--- NOTE | 2018-12-18 20:32 | P.DS ---
Providers Date of admission: 12/17/18 15:37 Expected date of discharge: 12/18/18 Attending physician: Brooks Courtney Consults: 12/18/18 13:10 Consult Physician Stat Consulting Provider: Mariluz Alonzo Reason/Comments: Abnormal Brain CT Do you want consulting provider notified?: Yes Primary care physician: Leroy Young [facility] Course: Hospital course: This is a very pleasant 78-year-old patient of Dr. young. Chronic stable medical conditions include coronary artery disease, peripheral arterial disease, primary osteoarthritis, and COPD, atrial flutter, CHF with EF of 30%. Patient was recently at [facility] when he had an MRI of the brain that showed right cerebellar acute/subacute ischemia and infarct with the right vertebral artery occlusion and he was told to get a loop recorder. Patient was recently the hospital from November 24 to November 26. Was then diagnosed with atrial tachycardia. Not felt to need for anticoagulation. Patient was sent to rehab. Patient does have her AICD Patient was then recently admitted from December 04 through December 08. Was admitted with atrial tachycardia and ventricular tachycardia that was revealed on AICD interrogation. Medications were adjusted. Patient seen by Dr. ALONSO Nichole from cardiology. Patient was then readmitted on December 10 to December 12. With hypotension. Presenting with syncope. Found to be in acute renal failure. entresto was discontinued. Patient was hydrated. Creatinine came back to normal. Also found to be in atrial flutter. Started on eliquis.. Patient yesterday was at Dr. Kaur's office. He suddenly felt dizzy and thinks pending and some headache on the right side. No change in speech no focal weakness, no change in swallowing and was sent out of the ER. A computed to mography scan showed subacute cerebellar infarct not much different from that from November 24. Admitted for neurological evaluation. Symptoms since then has resolved. Repeat computed tomography scan was told different. Spoke with Dr. Nicole from radiology. No change from previous 2 CT scans. Patient's felt over TIA. Back to his normal self. Seen by Dr. ALONSO Nichole from cardiology. Coreg was stopped. Lopressor adjusted. Also seen by Dr. Alonzo from neurology. Okay to be discharged. Discussion and discharge planning more than 35 minutes Consultation: Dr. ALONSO Nichole from cardiology Dr. Alonzo from neurology Physical examination: VITAL SIGNS: 96.9, 108, 18, 11 6/68, 97% room air GENERAL: BMI 27.4, laying in bed, comfortable EYES: Pupils equal. Conjunctiva normal. HEENT: External appearance of nose and ears normal, oral cavity grossly normal. Chest wall: Left-sided AICD NECK: JVD not raised; masses not palpable. HEART: Irregular; no edema. LUNGS: Respiratory rate normal, diminished breath sounds. ABDOMEN: Soft, nontender, liver spleen not palpable, no masses palpable. PSYCH: Alert and oriented x3; mood and affect normal. INVESTIGATIONS, reviewed in the clinical context: White count 9.4 hemoglobin 14 platelets 265 potassium 5.1 BUN 31 and creatinine 1.37 Patient's labs on December 12 included a bun of 33 and a creatinine of 1.17 EKG tracing personally reviewed by me-atrial flutter fibrillation Chest x-ray film-personally reviewed by me-some cardiomegaly with some chronic changes Discharge diagnosis: -Possible TIA in the right cerebellar area where patient has known cerebral artery occlusion. Repeat computed tomography scan unchanged -Persistent atrial flutter fibrillation with atrial tachycardia, on anticoagulation -AICD -chronic congestive heart failure exacerbation from systolic dysfunction EF 30- 35% from underlying coronary artery disease -Coronary artery disease with history of bypass and stent last 1 from being in July 2018 to circumflex -COPD in a smoker -Peripheral arterial disease -Primary osteoarthritis -Right bundle branch block -Chronic right vertebral artery occlusion Disposition: Home Patient Condition at Discharge: Stable Plan - Discharge Summary Discharge Rx Participant: Yes New Discharge Prescriptions: Continue Atorvastatin [Lipitor] 80 mg PO DAILY #30 tab Nitroglycerin Sl Tabs [Nitrostat] 0.4 mg SUBLINGUAL Q5M PRN #25 tab PRN Reason: Chest Pain Budesonide-Formot 160-4.5 Mcg [Symbicort 160-4.5 Mcg Inhaler] 2 puff INHALAT ION RT-BID #1 puff Ipratropium Prompton [Atrovent Hfa] 2 puff INHALATION RT-QID Clopidogrel [Plavix] 75 mg PO DAILY@1700 Spironolactone [Aldactone] 25 mg PO DAILY #30 tablet Furosemide [Lasix] 20 mg PO DAILY Losartan [Cozaar] 25 mg PO HS #30 tab Apixaban [Eliquis] 5 mg PO BID #60 tab Famotidine [Pepcid] 20 mg PO BID #60 tablet Changed Metoprolol Tartrate [Lopressor] 25 mg PO TID #60 tab Discontinued Aspirin 81 mg PO HS Carvedilol [Coreg] 6.25 mg PO BID Isosorbide Mononitrate ER [Imdur] 30 mg PO DAILY #30 tab.er.24h Discharge Medication List Atorvastatin [Lipitor] 80 mg PO DAILY #30 tab 07/29/18 [Rx] Budesonide-Formot 160-4.5 Mcg [Symbicort 160-4.5 Mcg Inhaler] 2 puff INHALATION RT-BID #1 puff 07/29/18 [Rx] Nitroglycerin Sl Tabs [Nitrostat] 0.4 mg SUBLINGUAL Q5M PRN #25 tab 07/29/18 [Rx] Ipratropium [place] [Atrovent Hfa] 2 puff INHALATION RT-QID 10/03/18 [History] Clopidogrel [Plavix] 75 mg PO DAILY@1700 12/04/18 [History] Spironolactone [Aldactone] 25 mg PO DAILY #30 tablet 12/08/18 [Rx] Furosemide [Lasix] 20 mg PO DAILY 12/10/18 [History] Apixaban [Eliquis] 5 mg PO BID #60 tab 12/12/18 [Rx] Famotidine [Pepcid] 20 mg PO BID #60 tablet 12/12/18 [Rx] Losartan [Cozaar] 25 mg PO HS #30 tab 12/12/18 [Rx] Metoprolol Tartrate [Lopressor] 25 mg PO TID #60 tab 12/18/18 [Rx] Follow up Appointment(s)/Referral(s): Richard Kaur MD [Family Provider] - 12/29/18 10:30 am (Friday with [employer]SPORT T[employer] TECHNICIAN) Leroy Young MD [Primary Care Provider] - 12/21/18 10:20 am (Friday) [facility], [NON-STAFF] - 1 Week ( RN called home care to notify them patient was still in hospital, and would not be home for his [id number] visit.) Patient Instructions/Handouts: Hypotension (DC) Activity/Diet/Wound Care/Special Instructions: Per Dr. Kaur and Dr. Nichole; DC Coreg DC Aspirin DC Imdur Discharge Disposition: HOME WITH HOSPICE
[2018-12-18] MEDS ORDERED: LOSARTAN 25 MG TAB PO SCH (21:00)
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
[2018-12-19] MEDS ORDERED: FAMOTIDINE 20 MG TAB PO SCH (09:00)
== END 2018-12-18 17:09 | disposition hospice, home (50) ==
LOC: EC 11:41 → 3SCARD 15:37
PROVIDERS: ADMIT Hospitalist; ATTEND Hospitalist
DX: R51 Headache (principal); I95.9 Hypotension, unspecified; I48.92 Unspecified atrial flutter; I48.19 Other persistent atrial fibrillation; Z79.01 Long term (current) use of anticoagulants; Z95.810 Presence of automatic (implantable) cardiac defibrillator; I11.0 Hypertensive heart disease with heart failure; I50.22 Chronic systolic (congestive) heart failure; I25.10 Atherosclerotic heart disease of native coronary artery without angina pectoris; Z95.1 Presence of aortocoronary bypass graft; Z95.5 Presence of coronary angioplasty implant and graft; J44.9 Chronic obstructive pulmonary disease, unspecified; I73.9 Peripheral vascular disease, unspecified; M19.91 Primary osteoarthritis, unspecified site; I45.10 Unspecified right bundle-branch block; H53.8 Other visual disturbances; H57.11 Ocular pain, right eye; N17.9 Acute kidney failure, unspecified; I65.01 Occlusion and stenosis of right vertebral artery; I25.5 Ischemic cardiomyopathy; R01.1 Cardiac murmur, unspecified; I47.1 Supraventricular tachycardia; F17.210 Nicotine dependence, cigarettes, uncomplicated; I66.9 Occlusion and stenosis of unspecified cerebral artery; K21.9 Gastro-esophageal reflux disease without esophagitis; I25.2 Old myocardial infarction; E78.5 Hyperlipidemia, unspecified; F41.9 Anxiety disorder, unspecified; E66.9 Obesity, unspecified; Z68.27 Body mass index [BMI] 27.0-27.9, adult; Z86.73 Personal history of transient ischemic attack (TIA), and cerebral infarction without residual deficits; Z85.46 Personal history of malignant neoplasm of prostate; Z87.01 Personal history of pneumonia (recurrent); Z92.3 Personal history of irradiation; Z81.1 Family history of alcohol abuse and dependence; Z83.79 Family history of other diseases of the digestive system; Z79.899 Other long term (current) drug therapy; Z79.51 Long term (current) use of inhaled steroids; Z79.02 Long term (current) use of antithrombotics/antiplatelets; Z79.82 Long term (current) use of aspirin
CPT/HCPCS: 96360; 96361; 99285; 36415; 94640 ×3; 93005; 80048; 84484 ×2; 85025; 71046; 70450 ×2; G0378 ×2

== ENCOUNTER → 2018-12-23 | Day surgery (SDC) | payer MEDICARE, OTHER ==
[~2018-12-23] MED LIST: APIXABAN 5 MG TAB PO SCH; ATORVASTATIN 80 MG TAB PO SCH; BENZOCAINE SPRAY 1 CAN MUCOUS MEM ONE; CLOPIDOGREL 75 MG TAB PO SCH; FAMOTIDINE 20 MG TAB PO SCH; FUROSEMIDE 20 MG TAB PO SCH; LIDOCAINE 1% INJ 10MG/ML (20 ML MDV) ONE; LOSARTAN 25 MG TAB PO SCH; METOPROLOL TARTRATE 50 MG TAB PO SCH; NITROGLYCERIN SL TABS 0.4 MG TAB SUBLINGUAL PRN; NON FORMULARY DRUG (Ipratropium Bromide [Atrovent Hfa] 2 PUFF) INHALATION SCH; PHENYLEPHRINE-0.9% NACL SYG 1 MG/10 ML SYRINGE ONE; PROPOFOL 10 MG/ML 20 ML VIAL IV ONE; ROPIVACAINE 5 MG/ML 30 ML VIAL ONE; SODIUM CHLORIDE 0.9% 1,000 ML IV ONE; SODIUM CHLORIDE 0.9% 1,000 ML IV SCH; SODIUM CHLORIDE 0.9% 500 ML 500 ML IV ONE; SPIRONOLACTONE 25 MG TAB PO SCH; SYMBICORT 160-4.5 MCG INHALER INHALATION SCH
[2018-12-23 12:29] VITALS: TEMP 98.8
--- NOTE | 2018-12-23 13:59 | ECHOT ---
TRANSESOPHAGEAL ECHOCARDIOGRAM INDICATION: Evaluation of left atrial appendage. PROCEDURE: After explaining the procedure to the patient, its risks and the complications, his blood pressure, heart rate, O2 saturation was monitored. The throat was sprayed with Cetacaine. He received sedation per the Anesthesia Department. The probe was introduced into the esophagus without difficulty, images were obtained. Following that, the probe was removed. FINDINGS: Left atrial size is dilated. Left atrial appendage revealed a thrombus. Evidence of spontaneous contrast was noted. The left ventricular size is normal. There is evidence of inferoapical severe hypokinesis, estimated ejection fraction of 35%. The aortic valve revealed fibrocalcific address change clerk the aortic cusp with preserved opening. Mitral valve revealed mild mitral and antral calcification. The tricuspid valve is normal. Descending thoracic aorta revealed mild atherosclerotic changes. No pericardial effusion was noted. Contrast bubble study revealed no evidence of shunting across the interatrial septum. Doppler pulse wave and color Doppler obtained and revealed mild mitral and tricuspid regurgitation. There was no significant gradient across the aortic valve. No shunting was noted by color Doppler study. CONCLUSION: 1. Dilated left atrium with spontaneous contrast and evidence of left atrial appendage thrombus. 2. Normal left ventricular size with severely impaired left ventricular systolic function with segmental wall motion abnormality. 3. Mild mitral and tricuspid regurgitation. 4. Aortic sclerosis with no evidence of significant stenosis. 5. Mild atherosclerotic changes of the descending thoracic aorta. 6. No shunting across the interatrial septum. 7. No pericardial effusion. MMODL / IJN: [id number] /
[2018-12-23 17:23] VITALS: BP 116/76; PULSE 107; RESP 16
== END | disposition home or self-care (01) ==
LOC: CATHCVL 11:52
PROVIDERS: ATTEND Internal Medicine Interventional Cardiology
DX: I08.3 Combined rheumatic disorders of mitral, aortic and tricuspid valves (principal); I70.0 Atherosclerosis of aorta; I25.5 Ischemic cardiomyopathy; I49.9 Cardiac arrhythmia, unspecified; E78.5 Hyperlipidemia, unspecified; I10 Essential (primary) hypertension; K21.9 Gastro-esophageal reflux disease without esophagitis; I25.10 Atherosclerotic heart disease of native coronary artery without angina pectoris; Z95.810 Presence of automatic (implantable) cardiac defibrillator; J44.9 Chronic obstructive pulmonary disease, unspecified; Z95.1 Presence of aortocoronary bypass graft; Z95.5 Presence of coronary angioplasty implant and graft; Z79.01 Long term (current) use of anticoagulants; Z79.02 Long term (current) use of antithrombotics/antiplatelets; Z79.82 Long term (current) use of aspirin; Z79.51 Long term (current) use of inhaled steroids; Z79.899 Other long term (current) drug therapy
CPT/HCPCS: 93312; 93320; 93325; J2001; J2795; J2370; J2704

== ENCOUNTER 2019-01-30 02:44 | Inpatient (IN) | payer MEDICARE, OTHER ==
[2019-01-30] MEDS ORDERED: DEXTROSE 5% IN WATER 100 ML with AMIODARONE 150 MG IV ONE (02:51)
[2019-01-30] MEDS ORDERED: AMIODARONE 360 MG in DEXTROSE 5% IN WATER 200 ML IV ONE ×2 (02:51)
[2019-01-30] MEDS ORDERED: MORPHINE SULFATE 4 MG/ML SYRINGE IV STA (02:55)
[2019-01-30] MEDS ORDERED: HEPARIN SODIUM,PORCINE 5,000 UNIT/ML 1 ML VIAL IV ONE (02:55)
[2019-01-30] MEDS ORDERED: HEPARIN SODIUM,PORCINE 5,000 UNIT/ML 1 ML VIAL IV PRN (02:55)
[2019-01-30] MEDS ORDERED: HEPARIN SOD,PORK IN 0.45% NACL 25,000 UNIT in 0.45% NACL 1 250ML.BAG IV SCH (03:00)
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
--- NOTE | 2019-01-30 03:32 | XR ---
EXAMINATION TYPE: XR chest 1V portable DATE OF EXAM: 01/30/2019 COMPARISON: 12/17/2018 HISTORY: Headache. Hypotension. TECHNIQUE: Single frontal view of the chest is obtained. FINDINGS: The heart is enlarged. There is no gross heart failure. There is coarsening of the interst itial markings in the lower lung garcia. There is a left axillary pacemaker. IMPRESSION: There are new bilateral lower lobe pulmonary infiltrates compared to last exam. No gross heart failure. Cardiomegaly appears slightly worse than last exam.
[2019-01-30 03:51] LABS: Basophils # (A) 0.2 k/uL (0-0.2); Basophils % (A) 2 %; Eosinophils # (A) 0.2 k/uL (0-0.7); Eosinophils % (A) 2 %; HCT 46.5 % (39.0-53.0); HGB 14.9 gm/dL (13.0-17.5); Lymphocytes # (A) 1.7 k/uL (1.0-4.8); Lymphocytes % (A) 19 %; MCH 30.7 pg (25.0-35.0); MCHC 32.1 g/dL (31.0-37.0); MCV 95.7 fL (80.0-100.0); Mean Platelet Volume 7.3; Monocytes # (A) 0.6 k/uL (0-1.0); Monocytes % (A) 7 %; Neutrophils # (A) 6.4 k/uL (1.3-7.7); Neutrophils % (A) 70 %; Platelet Count 279 k/uL (150-450); RBC 4.86 m/uL (4.30-5.90); RDW 15.5 % (11.5-15.5); WBC 9.2 k/uL (3.8-10.6)
[2019-01-30 04:19] LABS: INR 1.1 (<1.2); Prothrombin Time 11.4 sec (9.0-12.0)
[2019-01-30 04:22] LABS: Partial Thromboplastin Time 80.7 sec (22.0-30.0)
[2019-01-30] MEDS ORDERED: METOPROLOL TARTRATE 5 MG/5 ML VIAL IVP STA (04:33)
[2019-01-30] MEDS ORDERED: NITROGLYCERIN SL TABS 0.4 MG TAB SUBLINGUAL PRN ×2 (04:35→07:19)
[2019-01-30 04:40] LABS: Albumin 4.3 g/dL (3.5-5.0); Calcium 9.3 mg/dL (8.4-10.2); Magnesium 2.5 mg/dL (1.6-2.3); Potassium 4.5 mmol/L (3.5-5.1); Total Bilirubin 1.6 mg/dL (0.2-1.3); Total Protein 7.8 g/dL (6.3-8.2)
[2019-01-30] MEDS ORDERED: FUROSEMIDE 10 MG/ML 2 ML VIAL IV ONE (05:08)
[2019-01-30] MEDS ORDERED: VERAPAMIL 2.5 MG/ML 2 ML AMP ONE (05:23)
[2019-01-30] MEDS ORDERED: IV FLUID CONTINUATION 850 ML IV ONE (05:26)
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
[2019-01-30] MEDS ORDERED: MIDAZOLAM 2 MG/2 ML VIAL IV ONE (05:47)
[2019-01-30] MEDS: LIDOCAINE 1% INJ 10MG/ML (20 ML MDV) SQ ONE ×2 (05:48→05:52)
[2019-01-30] MEDS ORDERED: ASPIRIN 81 MG ONE ×2 (05:51→05:52)
[2019-01-30] MEDS ORDERED: ASPIRIN 81 MG PO ONE (05:53)
[2019-01-30] MEDS ORDERED: LIDOCAINE 1% INJ 10MG/ML (20 ML MDV) ONE (05:59)
[2019-01-30] MEDS ORDERED: LIDOCAINE 1% INJ 10MG/ML (20 ML MDV) SQ ONE (06:00)
[2019-01-30] MEDS ORDERED: VERAPAMIL SYRINGE (5 MG/10 ML) INTRAARTER ONE (06:03)
[2019-01-30] MEDS ORDERED: BIVALIRUDIN 250 MG in SODIUM CHLORIDE 0.9% 50 ML IV ONE (06:10)
[2019-01-30] MEDS ORDERED: BIVALIRUDIN BOLUS 250 MG/50 ML IV ONE (06:10)
[2019-01-30] MEDS ORDERED: IOPAMIDOL-370 125ML BTL INJ ONE (06:54)
[2019-01-30] MEDS ORDERED: CLOPIDOGREL 75 MG TAB ONE (07:11)
[2019-01-30] MEDS ORDERED: IOPAMIDOL-370 50ML BTL INJ ONE (07:13)
[2019-01-30] MEDS ORDERED: CLOPIDOGREL 75 MG TAB PO ONE (07:14)
[2019-01-30] MEDS ORDERED: MAG HYDROX/AL HYDROX/SIMETH 30 ML CUP PO PRN (07:19)
[2019-01-30] MEDS ORDERED: ZOLPIDEM 5 MG TAB PO PRN (07:19)
[2019-01-30] MEDS ORDERED: ATROPINE SULFATE 0.1 MG/ML 10ML SYRINGE IV PRN (07:19)
[2019-01-30] MEDS ORDERED: RX INFO: IV CONTRAST WAS GIVEN 1 EACH MISC MISCELLANE PRN (07:19)
[2019-01-30] MEDS ORDERED: SODIUM CHLORIDE 0.9% 1,000 ML IV SCH (07:30)
[2019-01-30 08:04] LABS: Glucose,Whole Blood 133 mg/dL (75-99)
[2019-01-30] MEDS: IPRATROPIUM 0.5 MG/2.5 ML NEBU INHALATION SCH ×5 (08:11→19:45)
[2019-01-30] MEDS: SYMBICORT 160-4.5 MCG INHALER INHALATION SCH ×2 (08:12→19:45)
[2019-01-30] MEDS ORDERED: FAMOTIDINE 20 MG TAB PO SCH (09:00)
[2019-01-30] MEDS ORDERED: ATORVASTATIN 80 MG TAB PO SCH (09:00)
[2019-01-30] MEDS ORDERED: AMIODARONE 300 MG in DEXTROSE 5% IN WATER 250 ML IV SCH ×2 (09:00)
[2019-01-30] MEDS ORDERED: SPIRONOLACTONE 25 MG TAB PO SCH (09:00)
[2019-01-30] MEDS ORDERED: LOSARTAN 50 MG TAB PO SCH (09:00)
[2019-01-30] MEDS ORDERED: METOPROLOL TARTRATE 50 MG TAB PO SCH (09:00)
[2019-01-30] MEDS ORDERED: FUROSEMIDE 20 MG TAB PO SCH (09:00)
[2019-01-30] MEDS ORDERED: APIXABAN 5 MG TAB PO SCH (09:00)
[2019-01-30] MEDS: ATORVASTATIN 80 MG TAB PO SCH (09:26)
[2019-01-30] MEDS: METOPROLOL TARTRATE 25 MG TAB PO SCH ×2 (09:26→20:33)
[2019-01-30] MEDS: FUROSEMIDE 20 MG TAB PO SCH ×3 (09:26→16:10)
--- NOTE | 2019-01-30 14:04 | PTCA ---
PERCUTANEOUSTRANS CORORONARY ANGIOGRAPHY Mr. Rangel is an 78-year-old male with known history of coronary artery disease, status post coronary artery bypass grafting, history of severe ischemic cardiomyopathy, atrial tachycardia, severe peripheral vascular disease who presented with symptoms of chest discomfort and episode of nonsustained ventricular tachycardia. He had elevation of his troponin. There was no diagnostic ST-segment changes. He was evaluated by Dr. Zhao, recommendation made regarding cardiac catheterization, the procedures risks and complications were discussed with the patient who is in full understanding and agreement. PROCEDURE: Patient was brought to the quality assurance lab technician in a fasting semi-sedated state after receiving fentanyl and Benadryl and achieving moderate conscious sedated state. Using Xylocaine anesthesia and Seldinger technique, a 6-Korean sheath was introduced in the right radial artery. A 6-Korean 3.5 FL guiding catheter introduced into the system after cannulating the left main, a 0.014 balanced medium weight J-wire was advanced into the left circumflex and positioned distally with the help of a Super across, following that the Super Cross catheter was removed and a 2.5 x 12 mm Trek balloon was advanced and multiple inflations, maximum of 14 atmospheres were done. Following that, the balloon was removed and a 2.5 x 12 mm NC Trek balloon was advanced and multiple inflations maximum of 12 atmospheres were done. Following that the balloon was removed and with the help of the GuideLiner, a 2.5 x 12 mm Xience Nithya stent was deployed distal in the mid segment and postdilated to 16 atmospheres. That stent was removed and proximal to the stent, a 2.5 x 15 mm Xience Nithya stent was deployed post-dilated at 16 atmospheres. After removing that balloon, a 2.5 x 23 mm Xience Nithya stent was deployed proximal to it, post-dilated at 16 atmospheres. Subsequently a 2.75 x 12 mm Xience Nithya stent was deployed proximally and postdilated at 18 atmospheres. Following that, the balloon was removed and a 3.0 x 15 mm NC Trek balloon was advanced and multiple inflations throughout the stent were done at maximum of 14 atmospheres. After the last inflation, after appropriate wait, the balloon and the guidewire were withdrawn back in the guiding catheter. Images were obtained and repeated. Those images reveal stable successful stenting. At that point, the guiding catheter, the balloon and the guidewire were removed. The sheath was removed. Hemostasis was obtained with deployment of a TR band. There was no immediate complication. Patient is returned to his room in stable condition. Of note, patient received Angiomax per protocol and was continued on clopidogrel. Chest discomfort with the inflation that resulted in the procedure. He had no significant EKG changes. RESULTS: Successful stenting off a long segment of the proximal mid left circumflex with reduction of stenosis from 99% to 0% in a heavily calcified vessel. RECOMMENDATION: Patient will be continued on aspirin, Plavix and Eliquis. The aspirin will be stopped in 4-6 weeks. The importance of anticoagulation was discussed with the patient. Patient has a known history of left atrial appendage thrombus. Those findings and recommendation were discussed with the patient who is in full understanding and agreement. Duration of procedure is 80 minutes. SHELLEY / ASHLEEN: [id number] /
[2019-01-30] MEDS ORDERED: INFLUENZA VACCINE (6 MOS+) 60 MCG/0.5 ML SYRINGE IM ONE (14:39)
[2019-01-30] MEDS: ONDANSETRON 4 MG/2 ML VIAL IVP PRN (15:06)
[2019-01-30 15:27] LABS: Appearance,Urine Clear (Clear); Bilirubin,Urine Negative (Negative); Blood,Urine Negative (Negative); Color,Urine Yellow; Glucose,Urine (UA) Negative (Negative); Ketones,Urine Negative (Negative); Leukocyte Esterase,Urine Negative (Negative); Mucus,Urine Rare /hpf; Nitrite,Urine Negative (Negative); PH, Urine 5.5 (5.0-8.0); Protein,Urine 1+ (Negative); RBC,Urine 1 /hpf (0-5); Urobilinogen,Urine <2.0 mg/dL (<2.0); WBC,Urine 1 /hpf (0-5)
[2019-01-30 15:53] LABS: Specific Gravity,Urine >1.050 (1.001-1.035)
[2019-01-30 15:55] LABS: Calcium 9.2 mg/dL (8.4-10.2); Magnesium 2.5 mg/dL (1.6-2.3); Potassium 4.7 mmol/L (3.5-5.1)
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
[2019-01-30] MEDS ORDERED: CLOPIDOGREL 75 MG TAB PO SCH (17:00)
[2019-01-30] MEDS: LOSARTAN 25 MG TAB PO SCH (20:33)
[2019-01-31 05:23] LABS: Basophils # (A) 0.1 k/uL (0-0.2); Basophils % (A) 0 %; Eosinophils % (A) 0 %; Hypochromasia Slight; Lymphocytes % (A) 16 %; MCH 30.6 pg (25.0-35.0); MCHC 31.8 g/dL (31.0-37.0); MCV 96.2 fL (80.0-100.0); Mean Platelet Volume 7.6; Monocytes # (A) 0.7 k/uL (0-1.0); Monocytes % (A) 6 %; Neutrophils # (A) 9.3 k/uL (1.3-7.7); Neutrophils % (A) 76 %; Platelet Count 173 k/uL (150-450); RBC 4.26 m/uL (4.30-5.90); RDW 15.3 % (11.5-15.5); WBC 12.2 k/uL (3.8-10.6)
[2019-01-31 05:36] LABS: Calcium 8.8 mg/dL (8.4-10.2); Potassium 5.5 mmol/L (3.5-5.1)
[2019-01-31] MEDS: IPRATROPIUM 0.5 MG/2.5 ML NEBU INHALATION SCH ×4 (07:36→21:05)
[2019-01-31] MEDS: SYMBICORT 160-4.5 MCG INHALER INHALATION SCH ×2 (07:36→21:05)
--- NOTE | 2019-01-31 08:09 | XR ---
EXAMINATION TYPE: XR chest 1V DATE OF EXAM: 01/31/2019 COMPARISON: 01/30/2019 HISTORY: 78-year-old male with dysrhythmia TECHNIQUE: Single frontal view of the chest is obtained. FINDINGS: Median sternotomy wires. Left anterior chest wall AICD generator with right ventricular le ad. Heart remains enlarged. Hyperinflation with relative upper lobe lucencies and interstitial change s in the lower lungs, relatively similar to prior. Thoracotomy changes on the right. IMPRESSION: Cardiomegaly. Suspect background of COPD. Patchy interstitial changes in the lower lungs persist, pos sible sequela of mild CHF.
[2019-01-31] MEDS: APIXABAN 5 MG TAB PO SCH ×2 (08:38→20:19)
[2019-01-31] MEDS: AMIODARONE 200 MG TAB PO SCH ×2 (08:38→20:19)
[2019-01-31] MEDS: CLOPIDOGREL 75 MG TAB PO SCH (08:39)
[2019-01-31] MEDS: METOPROLOL TARTRATE 25 MG TAB PO SCH ×2 (08:39→20:19)
[2019-01-31] MEDS: ATORVASTATIN 80 MG TAB PO SCH (08:39)
[2019-01-31] MEDS: ASPIRIN 81 MG PO SCH (08:39)
[2019-01-31] MEDS: FAMOTIDINE 20 MG TAB PO SCH (08:39)
[2019-01-31] MEDS: FUROSEMIDE 20 MG TAB PO SCH (08:39)
[2019-01-31] MEDS ORDERED: ASPIRIN 325 MG TAB PO SCH (09:00)
--- NOTE | 2019-01-31 09:40 | PN ---
PROGRESS NOTE Mr. Rangel is an 78-year-old male who presented with evidence of acute myocardial infarction with evidence of ventricular tachycardia. He underwent stenting of the left circumflex yesterday. He is feeling better today. His breathing is better. He has no chest pain. He has no dizziness, palpitation. No nausea. No cough or fever. He continues to be on aspirin once a day, Plavix 75 mg daily. He will be started on Eliquis 5 mg twice a day today. He is on Lipitor 80 mg daily, furosemide 20 mg twice a day, losartan 25 mg daily, metoprolol tartrate 25 mg twice a day. PHYSICAL EXAMINATION: Blood pressure 110/60 with a heart rate in the low 100s. Lungs with decreased air exchange. No wheezing. HEART: Irregularly irregular S1, S2. No S3 with systolic murmur. No diastolic murmur. ABDOMEN: Soft, nontender. Positive bowel sounds. EXTREMITIES trace edema. Right radial pulse intact. LAB DATA: Lab data revealed a hemoglobin of 13. BUN and creatinine 31 and 1.9, potassium 5.5. Troponin peaked at 11.4. IMPRESSION: 1. Status post myocardial infarction and stenting of the left circumflex. 2. Atrial tachycardia. 3. Episode of ventricular tachycardia. 4. Worsening renal function. 5. Severe cardiomyopathy. 6. Chronic obstructive lung disease. RECOMMENDATIONS: From the cardiac standpoint, I will decrease the dose of his diuretics. Will repeat his potassium. Continue rest of his medical regimen. I will initiate treatment with amiodarone orally for the preparation for the cardioversion. Increase his level of activity and depending on his progress, further recommendations will be made. MMODL / IJN: [id number] /
[2019-01-31] MEDS: LOSARTAN 25 MG TAB PO SCH (20:19)
--- NOTE | 2019-01-31 21:34 | P.PN ---
Subjective Progress Note Date: 01/31/19 Principal diagnosis: Acute non-ST elevated RI status post stent placement Acute kidney injury Patient is a 78-year-old male with a known history of COPD, coronary artery disease with history of CABG, coronary stent placement, ischemic cardiomyopathy status post AICD placement, history of nonsustained ventricular tachycardia, hypertension, hyperlipidemia, history of prostate cancer status post radiation treatment and history of CVA/TIA came to ER with the complaints of chest pain. Patient says that he developed retrosternal chest pain around 2 AM last night. Squeezing& constant. Chest pain associated with shortness of breath. Also complains of nausea along with chest pain. Patient did take nitroglycerin which seemed to improve the pain but did not go away. EMS was called and patient was brought to the hospital. Patient had stent placement in July 2018 to mid left circumflex artery. EKG showed atrial flutter with rapid ventricular response. Troponin 3.49 and 7.67 and 11 Patient underwent cardiac catheterization with stent placement 4 to circumflex artery. Chest x-ray showed there are new bilateral lower lobe pulmonary infiltrates compared to last exam. No gross heart failure. Cardiomegaly appears slightly worse than last exam. Patient does not have any fever or leukocytosis. UA negative for infection. BNP 10,700 01/31/2019 Patient is currently in the MICU. No complaints of chest pain. Awake alert oriented 3. No worsening shortness of breath. Patient did have episodes of ventricular tachycardia yesterday. Creatinine level increased to 1.9 today. Lasix dose was decreased to 20 mg daily. Potassium level V.5. Improved to 5.1. Cardiology is on board. Planning for cardioversion. Active Medications Al Hydroxide/Mg Hydroxide (Maalox) 30 ml PO Q4HR PRN PRN Reason: Heartburn Amiodarone HCl (Cordarone) 200 mg PO BID REPLACED BY [facility] Last Admin: 01/31/19 20:19 Dose: 200 mg Documented by: Apixaban (Eliquis) 5 mg PO BID REPLACED BY [facility] Last Admin: 01/31/19 20:19 Dose: 5 mg Documented by: Aspirin (Aspirin) 81 mg PO DAILY REPLACED BY [facility] Last Admin: 01/31/19 08:39 Dose: 81 mg Documented by: Atorvastatin Calcium (Lipitor) 80 mg PO DAILY REPLACED BY [facility] Last Admin: 01/31/19 08:39 Dose: 80 mg Documented by: Atropine Sulfate (Atropine) 0.5 mg IV ONCE PRN PRN Reason: Symptomatic Bradycardia Budesonide/Formoterol Fumarate (Symbicort 160-4.5 Mcg Inhaler) 2 puff INHALATION RT-BID REPLACED BY [facility] Last Admin: 01/31/19 21:05 Dose: 2 puff Documented by: Clopidogrel Bisulfate (Plavix) 75 mg PO DAILY REPLACED BY [facility] Last Admin: 01/31/19 08:39 Dose: 75 mg Documented by: Famotidine (Pepcid) 20 mg PO DAILY REPLACED BY [facility] Last Admin: 01/31/19 08:39 Dose: 20 mg Documented by: Furosemide (Lasix) 20 mg PO DAILY REPLACED BY [facility] Last Admin: 01/31/19 08:39 Dose: 20 mg Documented by: Ipratropium [place] (Atrovent Nebulized) 0.5 mg INHALATION RT-QID REPLACED BY [facility] Last Admin: 01/31/19 21:05 Dose: 0.5 mg Documented by: Losartan Potassium (Cozaar) 25 mg PO HS REPLACED BY [facility] Last Admin: 01/31/19 20:19 Dose: 25 mg Documented by: Menthol (Nice Cough Drops) 1 each MUCOUS MEM Q2H PRN PRN Reason: Sore Throat Metoprolol Tartrate (Lopressor) 25 mg PO BID REPLACED BY [facility] Last Admin: 01/31/19 20:19 Dose: 25 mg Documented by: Miscellaneous Information (Rx Info: Iv Contrast Was Given) 1 each MISCELLANE DAILY PRN PRN Reason: Per Protocol Stop: 02/01/19 07:19 Ondansetron HCl (Zofran) 4 mg IVP Q6HR PRN PRN Reason: Nausea And Vomiting Last Admin: 01/30/19 15:06 Dose: 4 mg Documented by: Zolpidem Tartrate (Ambien) 5 mg PO HS PRN PRN Reason: Insomnia Objective - Vital Signs Vital signs: Vital Signs Temp 98.2 F 01/31/19 12:00 Pulse 105 H 01/31/19 14:00 Resp 18 01/31/19 14:00 BP 112/82 01/31/19 14:00 Pulse Ox 97 01/31/19 14:00 Intake & Output 01/30/19 01/31/19 01/31/19 18:59 06:59 18:59 Intake Total 1605 450 480 Output Total 100 1 150 Balance 1505 449 330 Weight 88.9 kg 92.6 kg Intake: IV 525 Sodium Chloride 0.9% 1, 525 000 ml @ 75 mls/hr IV . [id number] REPLACED BY [facility] Rx#:[id number] Oral 1080 450 480 Output: Urine 100 1 150 Other: Voiding Method Urinal Toilet Toilet Urinal Urinal # Voids 1 1 1 # Bowel Movements 1 1 - Exam PHYSICAL EXAMINATION: Patient is lying in the bed comfortably, no acute distress, awake alert and oriented.. HEENT: Normocephalic. Neck is supple. Pupils reactive. Nostrils clear. Oral cavity is moist. Ears reveal no drainage. Neck reveals no JVD, carotid bruits, or thyromegaly. CHEST EXAMINATION: Trachea is central. Symmetrical expansion. Bibasilar diminished air entry. Scattered rhonchi. No wheezing.. CARDIAC: Normal S1, S2 with no gallops. No murmurs ABDOMEN: Soft. Bowel sounds normal. No organomegaly. No abdominal bruits. Extremities: reveal no edema. No clubbing or cyanosis Neurologically awake, alert, oriented x3 with well-coordinated movements. No focal deficits noted Skin: No rash or skin lesions. Psychiatric: Coperative. Nonsuicidal Musculoskeletal: No joint swelling or deformity. Normal range of motion. - Labs CBC & Chem 7: 01/31/19 04:23 01/31/19 19:53 Labs: Abnormal Lab Results - Last 24 Hours (Table) 01/30/19 01/30/19 01/30/19 Range/Units 15:15 15:25 15:25 WBC (3.8-10.6) k/uL RBC (4.30-5.90) m/uL Neutrophils # (1.3-7.7) k/uL Potassium (3.5-5.1) mmol/L Chloride 109 H (98-107) mmol/L Carbon Dioxide 18 L (22-30) mmol/L BUN 26 H (9-20) mg/dL Creatinine 1.79 H (0.66-1.25) mg/dL Glucose 130 H (74-99) mg/dL Magnesium 2.5 H (1.6-2.3) mg/dL Troponin I 11.400 H* (0.000-0.034) ng/mL Ur Specific [place] >1.050 H (1.001-1.035) Urine Protein 1+ H (Negative) Urine Mucus Rare H (None) /hpf 01/31/19 01/31/19 01/31/19 Range/Units 04:23 04:23 04:23 WBC 12.2 H (3.8-10.6) k/uL RBC 4.26 L (4.30-5.90) m/uL Neutrophils # 9.3 H (1.3-7.7) k/uL Potassium 5.5 H (3.5-5.1) mmol/L Chloride (98-107) mmol/L Carbon Dioxide 21 L (22-30) mmol/L BUN 31 H (9-20) mg/dL Creatinine 1.94 H (0.66-1.25) mg/dL Glucose (74-99) mg/dL Magnesium (1.6-2.3) mg/dL Troponin I 8.020 H* (0.000-0.034) ng/mL Ur Specific [place] (1.001-1.035) Urine Protein (Negative) Urine Mucus (None) /hpf 01/31/19 Range/Units 12:39 WBC (3.8-10.6) k/uL RBC (4.30-5.90) m/uL Neutrophils # (1.3-7.7) k/uL Potassium 5.2 H (3.5-5.1) mmol/L Chloride (98-107) mmol/L Carbon Dioxide (22-30) mmol/L BUN (9-20) mg/dL Creatinine (0.66-1.25) mg/dL Glucose (74-99) mg/dL Magnesium (1.6-2.3) mg/dL Troponin I (0.000-0.034) ng/mL Ur Specific [place] (1.001-1.035) Urine Protein (Negative) Urine Mucus (None) /hpf Microbiology - Last 24 Hours (Table) 01/31/19 07:45 Sputum Culture - Preliminary Sputum Assessment and Plan Assessment: Acute non-ST elevated RI. Status post cardiac catheterization and stent placement 4 to left circumflex artery. Acute on chronic CHF with systolic dysfunction Ischemic cardiomyopathy status post AICD placement Episodes of nonsustained ventricular tachycardia on amiodarone Acute on chronic kidney disease stage III. Creatinine level increased from 1.4, 1.7 and 1.9 today. Mild hyperkalemia secondary to acute kidney injury. 10 down. History of prostate cancer status post radiation COPD stable History of CVA/TIA Hypertension Hyperlipidemia Anxiety Review history of smoking Plan: Patient is status post cardiac catheterization and stent placement. Patient will be continued on aspirin statins and metoprolol. Started on Eliquis and amiodarone. Continue with Lasix daily. Monitor renal function. Follow-up repeat chest x-ray tomorrow morning. Continue the telemetry monitoring. Further recommendations based on the clinical course. Cardiology is on board. Time with Patient: Greater than 30
[2019-02-01] MEDS: MENTHOL (NICE) LOZENGE MUCOUS MEM PRN (01:37)
[2019-02-01 05:49] LABS: Basophils % (A) 0 %; Eosinophils # (A) 0.1 k/uL (0-0.7); Eosinophils % (A) 1 %; HCT 40.6 % (39.0-53.0); HGB 13.1 gm/dL (13.0-17.5); Hypochromasia Slight; Lymphocytes # (A) 1.5 k/uL (1.0-4.8); Lymphocytes % (A) 13 %; MCHC 32.3 g/dL (31.0-37.0); Mean Platelet Volume 7.7; Monocytes # (A) 0.7 k/uL (0-1.0); Monocytes % (A) 6 %; Neutrophils % (A) 78 %; Platelet Count 172 k/uL (150-450); RBC 4.23 m/uL (4.30-5.90); RDW 15.5 % (11.5-15.5); WBC 11.6 k/uL (3.8-10.6)
[2019-02-01 05:58] LABS: Calcium 8.8 mg/dL (8.4-10.2)
[2019-02-01 06:03] LABS: Potassium 6.6 mmol/L (3.5-5.1)
[2019-02-01] MEDS ORDERED: DEXTROSE 10 % IN WATER 250 ML IV STA (06:32)
[2019-02-01] MEDS ORDERED: INSULIN REGULAR 100 UNIT/ML VIAL IV ONE (06:45)
[2019-02-01] MEDS ORDERED: FUROSEMIDE 10 MG/ML 4 ML VIAL IV STA (06:47)
[2019-02-01] MEDS ORDERED: CALCIUM GLUCONATE 1 GM in SODIUM CHLORIDE 0.9% 100 ML IVPB ONE (07:00)
[2019-02-01] MEDS: SYMBICORT 160-4.5 MCG INHALER INHALATION SCH ×2 (07:06→21:16)
[2019-02-01] MEDS: IPRATROPIUM 0.5 MG/2.5 ML NEBU INHALATION SCH ×4 (07:06→21:12)
--- NOTE | 2019-02-01 07:32 | PN ---
PROGRESS NOTE Mr. Rangel is an 78-year-old male with a known history of coronary artery disease, severe cardiomyopathy, history of coronary artery bypass grafting, an ICD implantation who presented with myocardial infarction and recurrent ventricular tachycardia, underwent cardiac catheterization and stenting of a long segment of a calcified left circumflex. He has no further chest pain, but he is complaining of dyspnea on exertion. He has a cough. He has no further ventricular tachycardia. He has atrial tachycardia. He denies any dizziness or palpitation. He denies any nausea. He continues to be on aspirin 81 mg daily, Eliquis 5 mg twice a day, amiodarone 200 mg twice a day, Lipitor 80 mg daily, Plavix 75 mg daily, Lasix 20 mg daily, metoprolol tartrate 25 mg twice a day and losartan 25 mg daily. PHYSICAL EXAMINATION: Blood pressure 110/80 with the heart rate in the 100s. LUNGS: With no clear crackles or wheezes. HEART: Tachycardic. S1, S2 with systolic murmur at the base. No diastolic murmur. No rub. ABDOMEN: Soft, nontender. Positive bowel sounds. No organomegaly. EXTREMITIES: No edema. LAB DATA: Lab data revealed potassium up to 6.6, BUN and creatinine 45 and 2.26. Hemoglobin of 13.1. IMPRESSION: 1. Status post myocardial infarction in the left circumflex territory with peak troponin of 11.4. 2. Severe ischemic cardiomyopathy. 3. Symptoms of dyspnea, probably combination of congestive heart failure and systolic dysfunction with chronic obstructive pulmonary disease. 4. Worsening renal function. 5. Atrial tachycardia. 6. Episode of ventricular tachycardia. 7. Hyperkalemia. RECOMMENDATION: I will give him one dose of IV Lasix today. I will obtain an echocardiogram with Doppler. Will obtain consultation from the pulmonary and the nephrology service. Continue rest of his medical regimen and depending on his progress, further recommendation will be made. MMODL / IJN: [id number] /
[2019-02-01] MEDS ORDERED: DEXTROSE 5% IN WATER 250 ML with AMIODARONE 300 MG IV ONE (07:33)
[2019-02-01] MEDS ORDERED: DEXTROSE 5% IN WATER 100 ML with AMIODARONE 150 MG IV ONE (07:33)
[2019-02-01] MEDS ORDERED: AMIODARONE 360 MG in DEXTROSE 5% IN WATER 200 ML IV ONE ×2 (07:33)
[2019-02-01] MEDS ORDERED: METOPROLOL TARTRATE 5 MG/5 ML VIAL IVP SCH (07:45)
[2019-02-01] MEDS: ATORVASTATIN 80 MG TAB PO SCH (08:22)
[2019-02-01] MEDS: CLOPIDOGREL 75 MG TAB PO SCH (08:23)
[2019-02-01] MEDS: ASPIRIN 81 MG PO SCH (08:23)
[2019-02-01] MEDS: METOPROLOL TARTRATE 25 MG TAB PO SCH ×2 (08:23→20:42)
[2019-02-01] MEDS: FAMOTIDINE 20 MG TAB PO SCH (08:23)
[2019-02-01] MEDS: APIXABAN 5 MG TAB PO SCH ×2 (08:23→20:42)
--- NOTE | 2019-02-01 08:25 | XR ---
EXAMINATION TYPE: XR chest 1V portable DATE OF EXAM: 02/01/2019 COMPARISON: Prior chest x-ray 01/31/2019 HISTORY: Shortness of breath TECHNIQUE: Single frontal view of the chest is obtained. FINDINGS: Patient is post median sternotomy. The heart is enlarged. Interstitium is increased. Genera tor is present in the left pectoral region, lead extends into the right ventricle. No evident pneumot horax. Bibasilar increased density persists. Central vascularity is prominent. IMPRESSION: Correlate for pulmonary venous hypertension and interstitial edema.
[2019-02-01] MEDS: FUROSEMIDE 20 MG TAB PO SCH (08:36)
[2019-02-01] MEDS ORDERED: NITROGLYCERIN SL TABS 0.4 MG TAB SUBLINGUAL PRN (09:54)
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
--- NOTE | 2019-02-01 10:08 | ECHOF ---
Referral Reason:mi MEASUREMENTS -------- HEIGHT: 152.4 cm WEIGHT: 90.7 kg BP: 123/95 IVSd: 1.4 cm (0.6 - 1.1) LVIDd: 5.0 cm (3.9 - 5.3) LVPWd: 1.4 cm (0.6 - 1.1) IVSs: 1.7 cm LVIDs: 4.9 cm LVPWs: 1.3 cm LA Diam: 5.6 cm (2.7 - 3.8) LAESV Index (A-L): 50.71 ml/m Ao Diam: 2.9 cm (2.0 - 3.7) AV Cusp: 1.0 cm (1.5 - 2.6) LA Diam: 5.0 cm (2.7 - 3.8) MV EXCURSION: 11.063 mm (> 18.000) MV EF SLOPE: 48 mm/s (70 - 150) EPSS: 1.8 cm MV E Edy: 0.90 m/s MV DecT: 127 ms MV A Edy: 0.02 m/s MV E/A Ratio: 57.44 AV maxP.76 mmHg AV meanP.05 mmHg RAP: 5.00 mmHg RVSP: 54.49 mmHg FINDINGS -------- The rhythm appears to be atrial flutter. Pacerwire seen in RV and RA. This was a technically adequate study. The left ventricular size is normal. There is mild concentric left ventricular hypertrophy. Overa ll left ventricular systolic function is severely impaired with, an EF between 20 - 25 %. Left vent ricular fillimg pressure cannot be estimated due to paced rhythm. Basal lateral LV wall motion is a kinetic. Basal posterior LV wall motion is akinetic. Basal inferior LV wall motion is akinetic. Mid lateral LV wall motion is hypokinetic. Mid inferior LV wall motion is akinetic. Apical lateral LV wall motion is hypokinetic. Apical inferior LV wall motion is akinetic. The right ventricle is normal in size. LA is severely dilated >40 ml/m2 The right atrial size is normal. Peak/mean gradient across the Aortic Valve is 8.76mmHg / 5.05mmHg. Aov is Stenotic with decreased o pening: Gradient is underestimated due to decreased EF. Mild mitral annular calcification present. Moderate mitral regurgitation is present. Mild tricuspid regurgitation present. There is moderate pulmonary hypertension. The right ventric ular systolic pressure, as measured by Doppler, is 54.49mmHg. Trace/mild (physiologic) pulmonic regurgitation. The aortic root size is normal. There is no pericardial effusion. CONCLUSIONS -------- 1. The rhythm appears to be atrial flutter. 2. Pacerwire seen in RV and RA. 3. This was a technically adequate study. 4. The left ventricular size is normal. 5. There is mild concentric left ventricular hypertrophy. 6. Overall left ventricular systolic function is severely impaired with, an EF between 20 - 25 %. 7. Left ventricular fillimg pressure cannot be estimated due to paced rhythm. 8. Basal lateral LV wall motion is akinetic. 9. Basal posterior LV wall motion is akinetic. 10. Basal inferior LV wall motion is akinetic. 11. Mid inferior LV wall motion is akinetic. 12. Apical lateral LV wall motion is hypokinetic. 13. Apical inferior LV wall motion is akinetic. 14. LA is severely dilated >40 ml/m2 15. Peak/mean gradient across the Aortic Valve is 8.76mmHg / 5.05mmHg. 16. Aov is Stenotic with decreased opening: Gradient is underestimated due to decreased EF. 17. Mild mitral annular calcification present. 18. Moderate mitral regurgitation is present. 19. Mild tricuspid regurgitation present. 20. There is moderate pulmonary hypertension. 21. Trace/mild (physiologic) pulmonic regurgitation. 22. The aortic root size is normal. 23. There is no pericardial effusion. TREATMENT COUNSELOR: Dai Amado RDCS
--- NOTE | 2019-02-01 11:26 | P.PN ---
Subjective Patient is a 78-year-old male with a known history of COPD, coronary artery disease with history of CABG, coronary stent placement, ischemic cardiomyopathy status post AICD placement, history of nonsustained ventricular tachycardia, hypertension, hyperlipidemia, history of prostate cancer status post radiation treatment and history of CVA/TIA came to ER with the complaints of chest pain. Patient says that he developed retrosternal chest pain around 2 AM last night. Squeezing& constant. Chest pain associated with shortness of breath. Also complains of nausea along with chest pain. Patient did take nitroglycerin which seemed to improve the pain but did not go away. EMS was called and patient was brought to the hospital. Patient had stent placement in July 2018 to mid left circumflex artery. EKG showed atrial flutter with rapid ventricular response. Troponin 3.49 and 7.67 and 11 Patient underwent cardiac catheterization with stent placement 4 to circumflex artery. Chest x-ray showed there are new bilateral lower lobe pulmonary infiltrates compared to last exam. No gross heart failure. Cardiomegaly appears slightly worse than last exam. Patient does not have any fever or leukocytosis. UA negative for infection. BNP 10,700 01/31/2019 Patient is currently in the MICU. No complaints of chest pain. Awake alert oriented 3. No worsening shortness of breath. Patient did have episodes of ventricular tachycardia yesterday. Creatinine level increased to 1.9 today. Lasix dose was decreased to 20 mg daily. Potassium level V.5. Improved to 5.1. Cardiology is on board. Planning for cardioversion. 02/01/2019 Patient remains in the MICU, he is complaining from significant chest pain today as 9/10 in severity, his slightly tachypneic and is taken breathing treatment, his coughing with clear phlegm. He is a slightly tachycardic at 100 200 or 3, blood pressure 110/82, saturating 97% on 3 L oxygen, is afebrile. His leukocytosis is improving to 11.6 K, potassium 6.6 which is elevated, creatinine 2.2 which is also elevated sodium 136. Chest x-ray: Pulmonary congestion and interstitial edema. Also he is on aspirin, Plavix and Eliquis. He got D 10 with 10 units of insulin, 1 dose of Lasix, calcium gluconate. Review of systems CONSTITUTIONAL: No fever, no malaise, no fatigue. HEENT: No recent visual problems or hearing problems. Denied any sore throat. CARDIOVASCULAR: no palpitations, no syncope. PULMONARY: no hemoptysis. GASTROINTESTINAL: No diarrhea, no nausea, no vomiting, no abdominal pain. Normoactive bowel sounds. NEUROLOGICAL: No headaches, no weakness, no numbness. HEMATOLOGICAL: Denies any bleeding or petechiae. GENITOURINARY: Denies any burning micturition, frequency, or urgency. MUSCULOSKELETAL/RHEUMATOLOGICAL: Denies any joint pain, swelling, or any muscle pain. ENDOCRINE: Denies any polyuria or polydipsia. Active Medications Generic Name Dose Route Start Last Admin Trade Name Freq PRN Reason Stop Dose Admin Al Hydroxide/Mg Hydroxide 30 ml 01/30/19 07:19 Maalox PO Q4HR PRN Heartburn Apixaban 5 mg 01/31/19 09:00 02/01/19 08:23 Eliquis PO 5 mg BID MARQUEZ Administration Aspirin 81 mg 01/31/19 09:00 02/01/19 08:23 Aspirin PO 81 mg DAILY MRAQUEZ Administration Atorvastatin Calcium 80 mg 01/30/19 09:00 02/01/19 08:22 Lipitor PO 80 mg DAILY MARQUEZ Administration Atropine Sulfate 0.5 mg 01/30/19 07:19 Atropine IV ONCE PRN Symptomatic Bradycardia Budesonide/Formoterol Fumarate 2 puff 01/30/19 08:00 02/01/19 07:06 Symbicort 160-4.5 Mcg Inhaler INHALATION 2 puff RT-BID MARQUEZ Administration Clopidogrel Bisulfate 75 mg 01/31/19 09:00 02/01/19 08:23 Plavix PO 75 mg DAILY MARQUEZ Administration Famotidine 20 mg 01/31/19 09:00 02/01/19 08:23 Pepcid PO 20 mg DAILY MARQUEZ Administration Furosemide 20 mg 01/31/19 09:00 02/01/19 08:36 Lasix PO 20 mg DAILY MARQUEZ Administration Amiodarone HCl 360 mg/ 200 mls @ 33.333 mls/hr 02/01/19 07:33 02/01/19 08:23 Dextrose/Water IV 02/01/19 13:32 1 mg/min .Q6H ONE 33.333 mls/hr Administration Protocol 1 MG/MIN Amiodarone HCl 300 mg/ 250 mls @ 25 mls/hr 02/01/19 14:00 Dextrose/Water IV 02/02/19 07:59 .Q10H MARQUEZ Protocol 0.5 MG/MIN Ipratropium Tower 0.5 mg 01/30/19 08:00 02/01/19 11:04 Atrovent Nebulized INHALATION 0.5 mg RT-QID MARQUEZ Administration Menthol 1 each 01/30/19 20:37 02/01/19 01:37 Nice Cough Drops MUCOUS MEM 1 each Q2H PRN Administration Sore Throat Metoprolol Tartrate 25 mg 01/30/19 09:00 02/01/19 08:23 Lopressor PO 25 mg BID MARQUEZ Administration Nitroglycerin 0.4 mg 02/01/19 09:54 Nitrostat SUBLINGUAL Q5M PRN Chest Pain Ondansetron HCl 4 mg 01/30/19 14:46 01/30/19 15:06 Zofran IVP 4 mg Q6HR PRN Administration Nausea And Vomiting Zolpidem Tartrate 5 mg 01/30/19 07:19 Ambien PO HS PRN Insomnia Objective - Vital Signs Vital signs: Vital Signs Temp 99.0 F 02/01/19 04:00 Pulse 100 02/01/19 11:15 Resp 27 H 02/01/19 06:00 BP 110/81 02/01/19 06:00 Pulse Ox 97 02/01/19 06:00 Intake & Output 01/31/19 02/01/19 02/01/19 18:59 06:59 18:59 Intake Total 720 Output Total 150 550 300 Balance 570 -550 -300 Weight 90.8 kg Intake: Oral 720 Output: Urine 150 550 300 Other: Voiding Method Toilet Toilet Urinal Urinal # Voids 1 0 # Bowel Movements 1 - Exam GENERAL: The patient is alert and oriented x3, not in any acute distress. Well developed, well nourished. HEENT: Pupils are round and equally reacting to light. EOMI. No scleral icterus. No conjunctival pallor. Normocephalic, atraumatic. No pharyngeal erythema. No thyromegaly. CARDIOVASCULAR: S1 and S2 present. No murmurs, rubs, or gallops. -PULMONARY: Chest is clear to auscultation, no decreased breath sounds on both sides with crepitation on basal and mid zones ABDOMEN: Soft, nontender, nondistended, normoactive bowel sounds. No palpable organomegaly. MUSCULOSKELETAL: No joint swelling or deformity. EXTREMITIES: No cyanosis, clubbing, or pedal edema. NEUROLOGICAL: Gross neurological examination did not reveal any focal deficits. SKIN: No rashes. no petechiae. - Labs CBC & Chem 7: 02/01/19 04:41 02/01/19 04:41 Labs: Abnormal Lab Results - Last 24 Hours (Table) 01/31/19 02/01/19 02/01/19 Range/Units 12:39 04:41 04:41 WBC 11.6 H (3.8-10.6) k/uL RBC 4.23 L (4.30-5.90) m/uL Neutrophils # 9.0 H (1.3-7.7) k/uL Sodium 136 L (137-145) mmol/L Potassium 5.2 H 6.6 H* (3.5-5.1) mmol/L BUN 45 H (9-20) mg/dL Creatinine 2.26 H (0.66-1.25) mg/dL Microbiology - Last 24 Hours (Table) 01/31/19 07:45 Gram Stain - Final Sputum Sputum Culture - Final Assessment and Plan Assessment: Acute non-ST elevated [place]. Status post cardiac catheterization and stent placement 4 to left circumflex artery. Acute on chronic CHF with systolic dysfunction Ischemic cardiomyopathy status post AICD placement Episodes of nonsustained ventricular tachycardia on amiodarone Acute on chronic kidney disease stage III. Creatinine level increased from 1.4, 1.7 and 1.9 today. Mild hyperkalemia secondary to acute kidney injury. 10 down. History of prostate cancer status post radiation COPD stable History of CVA/TIA Hypertension Hyperlipidemia Anxiety Review history of smoking Plan: Patient is status post cardiac catheterization and stent placement. Patient will be continued on aspirin statins and metoprolol. Started on Eliquis and amiodarone. Continue with aspirin and Plavix. Monitor renal function. Call nephrology consult and a few of his CK D and worsening creatinine Follow-up repeat chest x-ray . Continue the telemetry monitoring. Further recommendations based on the clinical course. Cardiology is on board.
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
[2019-02-01] MEDS ORDERED: guaiFENesin-Coden 100-10MG/5ML 10 ML CUP PO PRN (13:03)
[2019-02-01] MEDS: AMIODARONE 300 MG in DEXTROSE 5% IN WATER 250 ML IV SCH ×2 (14:04)
[2019-02-01] MEDS: ONDANSETRON 4 MG/2 ML VIAL IVP PRN (16:43)
[2019-02-01] MEDS: BENZOCAINE/MENTHOL LOZENG 1 EACH LOZENGE MUCOUS MEM PRN (16:44)
[2019-02-02 06:11] LABS: Basophils # (A) 0.1 k/uL (0-0.2); Basophils % (A) 1 %; Eosinophils # (A) 0.1 k/uL (0-0.7); Eosinophils % (A) 0 %; HCT 40.3 % (39.0-53.0); Lymphocytes # (A) 1.8 k/uL (1.0-4.8); Lymphocytes % (A) 12 %; MCHC 32.3 g/dL (31.0-37.0); MCV 96.1 fL (80.0-100.0); Mean Platelet Volume 8.5; Monocytes # (A) 1.3 k/uL (0-1.0); Monocytes % (A) 8 %; Neutrophils # (A) 11.6 k/uL (1.3-7.7); Neutrophils % (A) 76 %; Platelet Count 152 k/uL (150-450); RBC 4.19 m/uL (4.30-5.90); RDW 15.5 % (11.5-15.5); WBC 15.1 k/uL (3.8-10.6)
[2019-02-02 06:19] LABS: Calcium 8.6 mg/dL (8.4-10.2); Potassium 5.5 mmol/L (3.5-5.1)
[2019-02-02] MEDS: AMIODARONE 300 MG in DEXTROSE 5% IN WATER 250 ML IV SCH ×2 (06:44)
[2019-02-02] MEDS: IPRATROPIUM 0.5 MG/2.5 ML NEBU INHALATION SCH ×4 (07:47→20:59)
[2019-02-02] MEDS: SYMBICORT 160-4.5 MCG INHALER INHALATION SCH ×2 (07:47→21:00)
[2019-02-02] MEDS ORDERED: FUROSEMIDE 10 MG/ML 4 ML VIAL IV STA (07:59)
[2019-02-02] MEDS ORDERED: SODIUM BICARB 8.4% 50 ML SYR (1 MEQ/ML) IV STA (07:59)
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
[2019-02-02] MEDS: APIXABAN 2.5 MG TABLET PO SCH ×2 (09:05→19:47)
[2019-02-02] MEDS: AMIODARONE 200 MG TAB PO SCH ×2 (09:05→19:47)
[2019-02-02] MEDS: ASPIRIN 81 MG PO SCH (09:05)
[2019-02-02] MEDS: METOPROLOL TARTRATE 25 MG TAB PO SCH ×2 (09:06→19:46)
[2019-02-02] MEDS: CLOPIDOGREL 75 MG TAB PO SCH (09:06)
[2019-02-02] MEDS: ATORVASTATIN 80 MG TAB PO SCH (09:06)
[2019-02-02] MEDS: FAMOTIDINE 20 MG TAB PO SCH (09:06)
[2019-02-02] MEDS: MENTHOL (NICE) LOZENGE MUCOUS MEM PRN (09:07)
--- NOTE | 2019-02-02 09:07 | PN ---
PROGRESS NOTE Mr. Rangel is an 78-year-old male with a history of coronary artery disease, status post coronary artery bypass grafting, ischemic cardiomyopathy, status post percutaneous revascularization who presented with an acute myocardial infarction, underwent stenting of his left circumflex. He has history of atrial tachycardia and recurrent ventricular tachycardia. He had no further episode of ventricular tachycardia since yesterday. He continues to be dyspneic with cough and has chest pain when he is coughs. He denies any dizziness. He denies any palpitation. He feels tired, otherwise, he denies any nausea. He was seen by Dr. Reed as well as Dr. Amado. He continues to be on Eliquis 5 mg twice a day, aspirin 81 mg daily, Lipitor 80 mg daily. If furosemide 40 mg IV once it this morning. PHYSICAL EXAMINATION: Blood pressure 111/80 with a heart in the 90s. LUNGS: With decreased air exchange, but no wheezes or rales. HEART: S1-S2 with systolic murmur, no diastolic murmur. ABDOMEN: Soft, nontender. EXTREMITIES: No edema. LAB DATA: Potassium 5.5, BUN and creatinine 55 and 2.88 worse than yesterday. Hemoglobin of 13. His urine output has been stable. IMPRESSION: 1. Status post myocardial infarction with stenting of the left circumflex. 2. Worsening renal function with baseline renal insufficiency and acute exacerbation related probably to the contrast and the hemodynamic instability. 3. Ventricular tachycardia, stable. 4. Atrial tachycardia. 5. Chronic obstructive pulmonary disease. RECOMMENDATION: I will switch him to oral amiodarone. I will cut down dialysis of the Eliquis because of his renal function. Continue the rest of his medical regimen. Will continue to follow his renal function. Increase his activity gradually and depending on his progress further recommendation will be made. MMODL / IJN: [id number] /
[2019-02-02] MEDS: FUROSEMIDE 20 MG TAB PO SCH (09:18)
--- NOTE | 2019-02-02 09:51 | P.PN ---
Subjective Patient is seen in follow-up for acute kidney injury. Patient underwent cardiac catheterization on January 30 and had 4 stents placed to the circumflex. He was also having runs of V. tach. He is now on oral amiodarone. Potassium level is 5.5 today. He is having a productive cough with clear sputum. No vomiting or diarrhea now. Oral intake is fair. Renal function is worse today. Creatinine 2.88 today. Vital signs are stable. General: The patient appeared well nourished and normally developed. HEENT: Head exam is unremarkable. Neck is without jugular venous distension. LUNGS: Breath sounds decreased. HEART: Rate and Rhythm are regular. First and second heart sounds normal. No murmurs, rubs or gallops. ABDOMEN: Abdominal exam reveals normal bowel sounds. Non-tender and non- distended. EXTREMITITES: No clubbing, cyanosis, or edema. Objective - Vital Signs Vital signs: Vital Signs Temp 97.3 F L 02/02/19 08:00 Pulse 93 02/02/19 09:00 Resp 18 02/02/19 09:00 BP 100/77 02/02/19 09:00 Pulse Ox 94 L 02/02/19 09:00 Intake & Output 02/01/19 02/02/19 02/02/19 18:59 06:59 18:59 Intake Total 460 120 270 Output Total 825 900 Balance -365 -780 270 Weight 92.8 kg Intake: IV 20 0.9 20 Intake, IV Titration 340 250 Amount Amiodarone 300 mg In 175 250 Dextrose 5% in Water 250 ml @ 0.5 MG/MIN 25 mls/hr IV .Q10H [facility] Rx#: [id number] Amiodarone 360 mg In 165 Dextrose 5% in Water 200 ml @ 1 MG/MIN 33.333 mls/ hr IV .Q6H [facility] Rx#: [id number] Oral 120 120 Output: Urine 825 900 Other: Voiding Method Toilet Urinal # Voids 0 0 0 - Labs CBC & Chem 7: 02/02/19 05:45 02/02/19 05:45 Labs: Abnormal Lab Results - Last 24 Hours (Table) 02/01/19 02/02/19 02/02/19 Range/Units 20:50 05:45 05:45 WBC 15.1 H (3.8-10.6) k/uL RBC 4.19 L (4.30-5.90) m/uL Neutrophils # 11.6 H (1.3-7.7) k/uL Monocytes # 1.3 H (0-1.0) k/uL Sodium 136 L (137-145) mmol/L Potassium 5.7 H 5.5 H (3.5-5.1) mmol/L Carbon Dioxide 13 L (22-30) mmol/L BUN 55 H (9-20) mg/dL Creatinine 2.88 H (0.66-1.25) mg/dL Microbiology - Last 24 Hours (Table) 01/31/19 07:45 Gram Stain - Final Sputum Sputum Culture - Final Assessment and Plan Plan: Assessment: 1. Acute kidney injury secondary to ATN secondary to hemodynamic instability as well as contrast-induced acute kidney injury. Creatinine 2.88 today. No e vidence of urinary retention. 2. Hyperkalemia secondary to acute kidney injury and use of Cozaar. Improved with medical management. 3. Chest pain. Status post cardiac catheterization on January 30 with stenting to the circumflex. 4. V. tach. Currently on oral amiodarone. 5. Acute systolic CHF with ejection fraction of 20-25% with moderate mitral regurgitation and pulmonary hypertension. 6. Volume overload. 7. Metabolic acidosis secondary to acute kidney injury. Plan: Repeat Lasix 40 mg IV once today. Avoid nephrotoxins. Patient received 3 A of bicarb IV push this morning. Add oral sodium bicarbonate 1300 mg twice daily. Repeat potassium level at noon. Low potassium diet. Continue to monitor renal function and urine output.
[2019-02-02] MEDS: SODIUM BICARBONATE TAB 650 MG TAB PO SCH ×2 (10:43→19:46)
--- NOTE | 2019-02-02 11:13 | P.PN ---
Subjective Patient is a 78-year-old male with a known history of COPD, coronary artery disease with history of CABG, coronary stent placement, ischemic cardiomyopathy status post AICD placement, history of nonsustained ventricular tachycardia, hypertension, hyperlipidemia, history of prostate cancer status post radiation treatment and history of CVA/TIA came to ER with the complaints of chest pain. Patient says that he developed retrosternal chest pain around 2 AM last night. Squeezing& constant. Chest pain associated with shortness of breath. Also complains of nausea along with chest pain. Patient did take nitroglycerin which seemed to improve the pain but did not go away. EMS was called and patient was brought to the hospital. Patient had stent placement in July 2018 to mid left circumflex artery. EKG showed atrial flutter with rapid ventricular response. Troponin 3.49 and 7.67 and 11 Patient underwent cardiac catheterization with stent placement 4 to circumflex artery. Chest x-ray showed there are new bilateral lower lobe pulmonary infiltrates compared to last exam. No gross heart failure. Cardiomegaly appears slightly worse than last exam. Patient does not have any fever or leukocytosis. UA negative for infection. BNP 10,700 01/31/2019 Patient is currently in the MICU. No complaints of chest pain. Awake alert oriented 3. No worsening shortness of breath. Patient did have episodes of ventricular tachycardia yesterday. Creatinine level increased to 1.9 today. Lasix dose was decreased to 20 mg daily. Potassium level V.5. Improved to 5.1. Cardiology is on board. Planning for cardioversion. 02/01/2019 Patient remains in the MICU, he is complaining from significant chest pain today as 9/10 in severity, his slightly tachypneic and is taken breathing treatment, his coughing with clear phlegm. He is a slightly tachycardic at 100 200 or 3, blood pressure 110/82, saturating 97% on 3 L oxygen, is afebrile. His leukocytosis is improving to 11.6 K, potassium 6.6 which is elevated, creatinine 2.2 which is also elevated sodium 136. Chest x-ray: Pulmonary congestion and interstitial edema. Also he is on aspirin, Plavix and Eliquis. He got D 10 with 10 units of insulin, 1 dose of Lasix, calcium gluconate. 02/02/2019 patient still complaining of from significant coughing while he is in the ICU, his chest pain and dyspnea are stable. Is getting a breathing treatment. his WBC is 15.1 K today , hemoglobin stable at 13.0, sodium is 136, potassium is 5.5 and creatinine went up to 2.8. he was started on Phenergan, amiodarone drip was stopped and switched to amiodarone 400 mg twice daily, is on Eliquis 2.5 mg twice daily as well and sodium bicarb as per sausage canner will also follow the case closely. Review of systems CONSTITUTIONAL: No fever, no malaise, no fatigue. HEENT: No recent visual problems or hearing problems. Denied any sore throat. CARDIOVASCULAR: no palpitations, no syncope. PULMONARY: no hemoptysis. GASTROINTESTINAL: No diarrhea, no nausea, no vomiting, no abdominal pain. Normoactive bowel sounds. NEUROLOGICAL: No headaches, no weakness, no numbness. HEMATOLOGICAL: Denies any bleeding or petechiae. GENITOURINARY: Denies any burning micturition, frequency, or urgency. MUSCULOSKELETAL/RHEUMATOLOGICAL: Denies any joint pain, swelling, or any muscle pain. ENDOCRINE: Denies any polyuria or polydipsia. Active Medications Generic Name Dose Route Start Last Admin Trade Name Freq PRN Reason Stop Dose Admin Al Hydroxide/Mg Hydroxide 30 ml 01/30/19 07:19 Maalox PO Q4HR PRN Heartburn Amiodarone HCl 400 mg 02/02/19 09:00 02/02/19 09:05 Cordarone PO 400 mg BID MARQUEZ Administration Apixaban 2.5 mg 02/02/19 09:00 02/02/19 09:05 Eliquis PO 2.5 mg BID MARQUEZ Administration Aspirin 81 mg 01/31/19 09:00 02/02/19 09:05 Aspirin PO 81 mg DAILY MARQUEZ Administration Atorvastatin Calcium 80 mg 01/30/19 09:00 02/02/19 09:06 Lipitor PO 80 mg DAILY MARQUEZ Administration Atropine Sulfate 0.5 mg 01/30/19 07:19 Atropine IV ONCE PRN Symptomatic Bradycardia Benzocaine/Menthol 1 each 02/01/19 13:03 02/01/19 16:44 Cepacol Lozenge MUCOUS MEM 1 each Q4HR PRN Administration Sore Throat Budesonide/Formoterol Fumarate 2 puff 01/30/19 08:00 02/02/19 07:47 Symbicort 160-4.5 Mcg Inhaler INHALATION 2 puff RT-BID MARQUEZ Administration Clopidogrel Bisulfate 75 mg 01/31/19 09:00 02/02/19 09:06 Plavix PO 75 mg DAILY MARQUEZ Administration Famotidine 20 mg 01/31/19 09:00 02/02/19 09:06 Pepcid PO 20 mg DAILY MARQUEZ Administration Furosemide 20 mg 01/31/19 09:00 02/02/19 09:18 Lasix PO Not Given DAILY [facility] Ipratropium [place] 0.5 mg 01/30/19 08:00 02/02/19 10:57 Atrovent Nebulized INHALATION 0.5 mg RT-QID [facility] Administration Menthol 1 each 01/30/19 20:37 02/02/19 09:07 Nice Cough Drops MUCOUS MEM 1 each Q2H PRN Administration Sore Throat Metoprolol Tartrate 25 mg 01/30/19 09:00 02/02/19 09:06 Lopressor PO 25 mg BID [facility] Administration Nitroglycerin 0.4 mg 02/01/19 09:54 Nitrostat SUBLINGUAL Q5M PRN Chest Pain Ondansetron HCl 4 mg 01/30/19 14:46 02/01/19 16:43 Zofran IVP 4 mg Q6HR PRN Administration Nausea And Vomiting Promethazine HCl 6.25 mg 02/02/19 08:20 Phenergan Syrup PO Q6H PRN Nausea And Vomiting Sodium Bicarbonate 1,300 mg 02/02/19 10:00 02/02/19 10:43 Sodium Bicarbonate Tab PO 1,300 mg BID MARQUEZ Administration Zolpidem Tartrate 5 mg 01/30/19 07:19 Ambien PO HS PRN Insomnia Objective - Vital Signs Vital signs: Vital Signs Temp 97.3 F L 02/02/19 08:00 Pulse 98 02/02/19 10:59 Resp 27 H 02/02/19 10:00 BP 104/71 02/02/19 10:00 Pulse Ox 94 L 02/02/19 10:00 Intake & Output 02/01/19 02/02/19 02/02/19 18:59 06:59 18:59 Intake Total 460 120 280 Output Total 825 900 200 Balance -365 -780 80 Weight 92.8 kg Intake: IV 30 0.9 30 Intake, IV Titration 340 250 Amount Amiodarone 300 mg In 175 250 Dextrose 5% in Water 250 ml @ 0.5 MG/MIN 25 mls/hr IV .Q10H [facility] Rx#: [id number] Amiodarone 360 mg In 165 Dextrose 5% in Water 200 ml @ 1 MG/MIN 33.333 mls/ hr IV .Q6H [facility] Rx#: [id number] Oral 120 120 Output: Urine 825 900 200 Other: Voiding Method Toilet Urinal Urinal # Voids 0 0 0 - Exam GENERAL: The patient is alert and oriented x3, not in any acute distress. Well developed, well nourished. HEENT: Pupils are round and equally reacting to light. EOMI. No scleral icterus. No conjunctival pallor. Normocephalic, atraumatic. No pharyngeal erythema. No thyromegaly. CARDIOVASCULAR: S1 and S2 present. No murmurs, rubs, or gallops. -PULMONARY: Chest is clear to auscultation, no decreased breath sounds on both sides with crepitation on basal and mid zones ABDOMEN: Soft, nontender, nondistended, normoactive bowel sounds. No palpable organomegaly. MUSCULOSKELETAL: No joint swelling or deformity. EXTREMITIES: No cyanosis, clubbing, or pedal edema. NEUROLOGICAL: Gross neurological examination did not reveal any focal deficits. SKIN: No rashes. no petechiae. - Labs CBC & Chem 7: 02/02/19 05:45 02/02/19 05:45 Labs: Abnormal Lab Results - Last 24 Hours (Table) 02/01/19 02/02/19 02/02/19 Range/Units 20:50 05:45 05:45 WBC 15.1 H (3.8-10.6) k/uL RBC 4.19 L (4.30-5.90) m/uL Neutrophils # 11.6 H (1.3-7.7) k/uL Monocytes # 1.3 H (0-1.0) k/uL Sodium 136 L (137-145) mmol/L Potassium 5.7 H 5.5 H (3.5-5.1) mmol/L Carbon Dioxide 13 L (22-30) mmol/L BUN 55 H (9-20) mg/dL Creatinine 2.88 H (0.66-1.25) mg/dL Microbiology - Last 24 Hours (Table) 01/31/19 07:45 Gram Stain - Final Sputum Sputum Culture - Final Assessment and Plan Assessment: Acute non-ST elevated MA. Status post cardiac catheterization and stent placement 4 to left circumflex artery. Acute on chronic CHF with systolic dysfunction Ischemic cardiomyopathy status post AICD placement Episodes of nonsustained ventricular tachycardia on amiodarone Acute on chronic kidney disease stage III. Creatinine level increased from 1.4, 1.7 and 2.8 today. Mild hyperkalemia secondary to acute kidney injury. 10 down. History of prostate cancer status post radiation COPD stable History of CVA/TIA Hypertension Hyperlipidemia Anxiety Review history of smoking Plan: Patient is status post cardiac catheterization and stent placement. Patient will be continued on aspirin statins and metoprolol. Started on Eliquis and amiodarone. Continue with aspirin and Plavix. Monitor renal function. follow- up recommendation by sausage canner, patient was started on sodium bicarbonate, continue with same treatment and and Robitussin-DM Follow-up repeat chest x-ray . Continue the telemetry monitoring. Further recommendations based on the clinical course. Cardiology is on board.
[2019-02-02] MEDS: PROMETHAZINE HCL 6.25 MG/5 ML CUP PO PRN ×2 (12:07→20:45)
[2019-02-02 12:30] LABS: Calcium 8.1 mg/dL (8.4-10.2); Potassium 5.1 mmol/L (3.5-5.1)
[2019-02-02] MEDS: guaiFENesin-DM 100-10MG/5ML 10 ML CUP PO PRN (17:08)
[2019-02-02] MEDS: methylPREDNISolone SOD SUCCI 40 MG/ML 1 ML VIAL IV SCH (20:46)
[2019-02-03] MEDS: methylPREDNISolone SOD SUCCI 40 MG/ML 1 ML VIAL IV SCH ×5 (00:09→23:25)
[2019-02-03] MEDS: MENTHOL (NICE) LOZENGE MUCOUS MEM PRN (01:44)
[2019-02-03] MEDS: guaiFENesin-DM 100-10MG/5ML 10 ML CUP PO PRN ×2 (02:03→11:09)
[2019-02-03 06:08] LABS: Basophils # (A) 0.1 k/uL (0-0.2); Basophils % (A) 1 %; Eosinophils % (A) 0 %; HCT 39.4 % (39.0-53.0); HGB 12.8 gm/dL (13.0-17.5); Lymphocytes # (A) 0.4 k/uL (1.0-4.8); Lymphocytes % (A) 4 %; MCH 30.7 pg (25.0-35.0); MCHC 32.5 g/dL (31.0-37.0); MCV 94.2 fL (80.0-100.0); Mean Platelet Volume 8.8; Monocytes # (A) 0.4 k/uL (0-1.0); Monocytes % (A) 4 %; Neutrophils # (A) 10.9 k/uL (1.3-7.7); Neutrophils % (A) 91 %; Platelet Count 144 k/uL (150-450); RBC 4.19 m/uL (4.30-5.90); RDW 15.8 % (11.5-15.5)
[2019-02-03 06:19] LABS: Calcium 7.7 mg/dL (8.4-10.2); Potassium 4.7 mmol/L (3.5-5.1)
--- NOTE | 2019-02-03 07:50 | PN ---
PROGRESS NOTE Mr. Rangel is an 78-year-old male with a known history of coronary artery disease status post coronary artery bypass grafting, prior percutaneous revascularization, and history of severe ischemic cardiomyopathy, history of atrial tachycardia as well as episode of ventricular tachycardia, status post ICD implant, history of chronic obstructive lung disease, who presented with an acute myocardial infarction, underwent percutaneous revascularization of his left circumflex. Since yesterday, he is feeling better. His breathing is stabilizing. He has no chest discomfort. No further episode of ventricular tachycardia. He continues to have a cough and not as severe. He has no nausea or vomiting. No dizziness. He continues to be on amiodarone 40 mg twice a day, Eliquis 2.5 mg twice a day, aspirin once a day, Lipitor 80 mg daily, Plavix 75 mg daily, Lasix 20 mg daily, metoprolol tartrate 25 mg twice a day. PHYSICAL EXAMINATION: Blood pressure running in the low 100s with a heart rate in the 90s. LUNGS: With decreased air exchange, but no wheezes. HEART: S1, S2. No S3 with a systolic murmur, no diastolic murmur. ABDOMEN: Soft, nontender. EXTREMITIES: No significant edema. LAB DATA: Revealed BUN and creatinine 16 and 2.54, potassium 4.7, hemoglobin of 12.8. His urine output has been stable. IMPRESSION: 1. Status post myocardial infarction and stenting of the left circumflex. 2. Renal failure at baseline with acute worsening with a problem of contrast-induced nephropathy, improving. 3. Atrial tachycardia. 4. Ventricular tachycardia, stable. 5. History of chronic obstructive lung disease. 6. Status post ICD implant with ischemic cardiomyopathy. RECOMMENDATIONS: Will continue present therapy increase his level activity gradually. Continue on the present regimen and depending on his progress, further recommendation will be made. MMODL / IJN: [id number] /
--- NOTE | 2019-02-03 08:05 | XR ---
EXAMINATION TYPE: XR chest 1V portable DATE OF EXAM: 02/03/2019 COMPARISON: Prior chest x-ray 02/01/2019 HISTORY: Increased sputum production, abnormal chest x-ray TECHNIQUE: Single frontal view of the chest is obtained. FINDINGS: Findings are similar to prior exam. Intracardiac defibrillator lead, left pectoral generat or, post median sternotomy change and cardiomegaly all again noted. Perihilar vascular indistinctness , prominence of interstitium noted. Bibasilar increased density is present. There is no evident pneum othorax. Posterior right fifth rib shows irregularity that is chronic. The aorta is dense. IMPRESSION: Correlate for congestive heart failure and pulmonary edema, pneumonia not excluded.
[2019-02-03] MEDS: SYMBICORT 160-4.5 MCG INHALER INHALATION SCH ×2 (09:03→20:22)
[2019-02-03] MEDS: IPRATROPIUM 0.5 MG/2.5 ML NEBU INHALATION SCH ×4 (09:03→20:22)
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
[2019-02-03] MEDS: AMIODARONE 200 MG TAB PO SCH ×2 (09:34→21:26)
[2019-02-03] MEDS: CLOPIDOGREL 75 MG TAB PO SCH (09:35)
[2019-02-03] MEDS: FUROSEMIDE 20 MG TAB PO SCH (09:35)
[2019-02-03] MEDS: FAMOTIDINE 20 MG TAB PO SCH (09:35)
[2019-02-03] MEDS: ATORVASTATIN 80 MG TAB PO SCH (09:35)
[2019-02-03] MEDS: METOPROLOL TARTRATE 25 MG TAB PO SCH ×2 (09:35→21:26)
[2019-02-03] MEDS: APIXABAN 2.5 MG TABLET PO SCH ×2 (09:35→21:27)
[2019-02-03] MEDS: ASPIRIN 81 MG PO SCH (09:35)
[2019-02-03] MEDS: SODIUM BICARBONATE TAB 650 MG TAB PO SCH ×2 (09:35→21:26)
--- NOTE | 2019-02-03 10:47 | P.PN ---
Subjective Patient is seen in follow-up for acute kidney injury. Patient underwent cardiac catheterization on January 30 and had 4 stents placed to the circumflex. He was also having runs of V. tach. He is now on oral amiodarone. Potassium level is down to 4.7 today. Oral intake is fair. Renal function is improved. Creatinine 2.54 today. Vital signs are stable. General: The patient appeared well nourished and normally developed. HEENT: Head exam is unremarkable. Neck is without jugular venous distension. LUNGS: Breath sounds decreased. HEART: Rate and Rhythm are regular. First and second heart sounds normal. No murmurs, rubs or gallops. ABDOMEN: Abdominal exam reveals normal bowel sounds. Non-tender and non- distended. EXTREMITITES: Trace edema. Objective - Vital Signs Vital signs: Vital Signs Temp 97.4 F L 02/03/19 08:00 Pulse 96 02/03/19 10:00 Resp 16 02/03/19 10:00 BP 96/62 02/03/19 10:00 Pulse Ox 93 L 02/03/19 10:00 Intake & Output 02/02/19 02/03/19 02/03/19 18:59 06:59 18:59 Intake Total 360 120 280 Output Total 500 600 Balance -140 -480 280 Weight 91.5 kg Intake: IV 110 120 40 0.9 110 120 40 Intake, IV Titration 250 Amount Amiodarone 300 mg In 250 Dextrose 5% in Water 250 ml @ 0.5 MG/MIN 25 mls/hr IV .Q10H [facility] Rx#: [id number] Oral 240 Output: Urine 500 600 Other: Voiding Method Urinal Urinal Urinal # Voids 0 - Labs CBC & Chem 7: 02/03/19 05:27 02/03/19 05:27 Labs: Abnormal Lab Results - Last 24 Hours (Table) 02/02/19 02/03/19 02/03/19 Range/Units 11:53 05:27 05:27 WBC 12.0 H (3.8-10.6) k/uL RBC 4.19 L (4.30-5.90) m/uL Hgb 12.8 L (13.0-17.5) gm/dL RDW 15.8 H (11.5-15.5) % Plt Count 144 L (150-450) k/uL Neutrophils # 10.9 H (1.3-7.7) k/uL Lymphocytes # 0.4 L (1.0-4.8) k/uL Sodium 136 L (137-145) mmol/L Carbon Dioxide 19 L (22-30) mmol/L BUN 58 H 60 H (9-20) mg/dL Creatinine 2.85 H 2.54 H (0.66-1.25) mg/dL Glucose 118 H 155 H (74-99) mg/dL Calcium 8.1 L 7.7 L (8.4-10.2) mg/dL Microbiology - Last 24 Hours (Table) 02/02/19 21:22 Gram Stain - Preliminary Sputum Sputum Culture - Preliminary Assessment and Plan Plan: Assessment: 1. Acute kidney injury secondary to ATN secondary to hemodynamic instability as well as contrast-induced acute kidney injury. Creatinine peaked at 2.88 this admission and is 2.54 today. No evidence of urinary retention. 2. Hyperkalemia secondary to acute kidney injury and use of Cozaar. Improved with medical management. 3. Chest pain. Status post cardiac catheterization on January 30 with stenting to the circumflex. 4. V. tach. Currently on oral amiodarone. 5. Acute systolic CHF with ejection fraction of 20-25% with moderate mitral regurgitation and pulmonary hypertension. 6. Volume overload. 7. Metabolic acidosis secondary to acute kidney injury. Better. Maintained on oral sodium bicarbonate. Plan: Increase Lasix to 40 mg orally once today. Avoid nephrotoxins. Continue to monitor renal function and urine output.
[2019-02-03] MEDS ORDERED: ACETAMINOPHEN TAB 325 MG TAB PO PRN (11:16)
--- NOTE | 2019-02-03 21:03 | P.PN ---
Progress Note - Text Progress Note Date: 02/03/19 Presenting complaint: Chest pain Interval history: Admitted with chest pain with acute [place]. Underwent successful stenting of the mid left circumflex. Also episode of ventricular tachycardia. Also had acute kidney injury secondary to ATN secondary to hemodynamic instability and contrast-induced kidney injury. Creatinine peaked at 2.88. Also had metabolic acidosis status post better. Today-in the ICU. Blood pressure was lower earlier than that,. Has been out of bed. On 2 L of oxygen. Tolerating a diet. Has been in sinus rhythm Review of systems: Was done for constitutional, cardiovascular, GI, pulmonary. relevant finding as above Active Medications Acetaminophen (Tylenol Tab) 650 mg PO Q4HR PRN PRN Reason: Fever and/ or Pain Last Admin: 02/03/19 11:26 Dose: 650 mg Documented by: Al Hydroxide/Mg Hydroxide (Maalox) 30 ml PO Q4HR PRN PRN Reason: Heartburn Amiodarone HCl (Cordarone) 400 mg PO BID [facility] Last Admin: 02/03/19 09:34 Dose: 400 mg Documented by: Apixaban (Eliquis) 2.5 mg PO BID [facility] Last Admin: 02/03/19 09:35 Dose: 2.5 mg Documented by: Aspirin (Aspirin) 81 mg PO DAILY [facility] Last Admin: 02/03/19 09:35 Dose: 81 mg Documented by: Atorvastatin Calcium (Lipitor) 80 mg PO DAILY [facility] Last Admin: 02/03/19 09:35 Dose: 80 mg Documented by: Atropine Sulfate (Atropine) 0.5 mg IV ONCE PRN PRN Reason: Symptomatic Bradycardia Benzocaine/Menthol (Cepacol Lozenge) 1 each MUCOUS MEM Q4HR PRN PRN Reason: Sore Throat Last Admin: 02/01/19 16:44 Dose: 1 each Documented by: Budesonide/Formoterol Fumarate (Symbicort 160-4.5 Mcg Inhaler) 2 puff INHALATION RT-BID [facility] Last Admin: 02/03/19 20:22 Dose: Not Given Documented by: Clopidogrel Bisulfate (Plavix) 75 mg PO DAILY [facility] Last Admin: 02/03/19 09:35 Dose: 75 mg Documented by: Famotidine (Pepcid) 20 mg PO DAILY [facility] Last Admin: 02/03/19 09:35 Dose: 20 mg Documented by: Furosemide (Lasix) 40 mg PO DAILY [facility] Guaifenesin/Dextromethorphan (Robitussin Dm) 10 ml PO Q6H PRN PRN Reason: Cough Last Admin: 02/03/19 11:09 Dose: 10 ml Documented by: Ipratropium [place] (Atrovent Nebulized) 0.5 mg INHALATION RT-QID [facility] Last Admin: 02/03/19 20:22 Dose: Not Given Documented by: Menthol (Nice Cough Drops) 1 each MUCOUS MEM Q2H PRN PRN Reason: Sore Throat Last Admin: 02/03/19 01:44 Dose: 1 each Documented by: Methylprednisolone Sodium Succinate (Solu-Medrol) 40 mg IV Q6HR [facility] Last Admin: 02/03/19 17:32 Dose: 40 mg Documented by: Metoprolol Tartrate (Lopressor) 25 mg PO BID [facility] Last Admin: 02/03/19 09:35 Dose: 25 mg Documented by: Nitroglycerin (Nitrostat) 0.4 mg SUBLINGUAL Q5M PRN PRN Reason: Chest Pain Ondansetron HCl (Zofran) 4 mg IVP Q6HR PRN PRN Reason: Nausea And Vomiting Last Admin: 02/01/19 16:43 Dose: 4 mg Documented by: Promethazine HCl (Phenergan Syrup) 6.25 mg PO Q6H PRN PRN Reason: Nausea And Vomiting Last Admin: 02/02/19 20:45 Dose: 6.25 mg Documented by: Sodium Bicarbonate (Sodium Bicarbonate Tab) 1,300 mg PO BID [facility] Last Admin: 02/03/19 09:35 Dose: 1,300 mg Documented by: Zolpidem Tartrate (Ambien) 5 mg PO HS PRN PRN Reason: Insomnia Physical examination: VITAL SIGNS: 97.7, 90, 18, 86/64, 92% room air GENERAL: Laying in bed, but tired EYES: Pupils equal. Conjunctiva normal. HEENT: External appearance of nose and ears normal, oral cavity grossly normal. Chest wall: Left-sided AICD NECK: JVD not raised; masses not palpable. HEART: First seconds are normal, no edema. LUNGS: Respiratory rate normal, diminished breath sounds. ABDOMEN: Soft, nontender, liver spleen not palpable, no masses palpable. PSYCH: Alert and oriented x3; mood and affect normal. INVESTIGATIONS, reviewed in the clinical context: White count 12 hemoglobin 12.8 platelets 144 potassium 4.7 bun 60 creatinine 2.54 Previous testing: Creatinine peaked to 2.88 2-D echo-EF 20-25% multiple akinetic rincon, moderate pulmonary hypertension, moderate mitral regurgitation Troponin I 3.4-7.6 White count 9.2 hemoglobin 14.9 pressure 4.5 bun 25 creatinine 1.41 Assessment: -Acute non-ST elevation myocardial infarction, POA -Cardiac catheterization with stenting to the circumflex -Ventricular tachycardia -Acute kidney injury secondary to ATN secondary to hemodynamic instability and contrast-induced acute kidney injury with creatinine peaking at 2.88 -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 Care was discussed with the patient. Currently on Cordarone, eliquis, aspirin, Lipitor Symbicort, Plavix by mouth Lasix IV Solu-Medrol and sodium bicarbonate tablets. Prognosis guarded.
[2019-02-04] MEDS: guaiFENesin-DM 100-10MG/5ML 10 ML CUP PO PRN ×3 (00:34→23:16)
[2019-02-04 05:49] LABS: Basophils % (A) 0 %; Eosinophils % (A) 0 %; HGB 12.6 gm/dL (13.0-17.5); Lymphocytes # (A) 0.9 k/uL (1.0-4.8); Lymphocytes % (A) 5 %; MCH 31.3 pg (25.0-35.0); MCHC 33.2 g/dL (31.0-37.0); MCV 94.3 fL (80.0-100.0); Mean Platelet Volume 8.9; Monocytes # (A) 0.7 k/uL (0-1.0); Monocytes % (A) 4 %; Neutrophils # (A) 15.5 k/uL (1.3-7.7); Neutrophils % (A) 90 %; Platelet Count 169 k/uL (150-450); RBC 4.02 m/uL (4.30-5.90); RDW 15.8 % (11.5-15.5); WBC 17.2 k/uL (3.8-10.6)
[2019-02-04 06:04] LABS: Calcium 7.4 mg/dL (8.4-10.2); Potassium 4.2 mmol/L (3.5-5.1)
[2019-02-04] MEDS: methylPREDNISolone SOD SUCCI 40 MG/ML 1 ML VIAL IV SCH (06:32)
[2019-02-04] MEDS: SYMBICORT 160-4.5 MCG INHALER INHALATION SCH ×2 (07:16→20:17)
[2019-02-04] MEDS: IPRATROPIUM 0.5 MG/2.5 ML NEBU INHALATION SCH ×4 (07:16→20:17)
--- NOTE | 2019-02-04 07:30 | XR ---
EXAMINATION TYPE: XR chest 1V portable DATE OF EXAM: 02/04/2019 CLINICAL HISTORY: Difficulty breathing and frequent cough progress study. TECHNIQUE: Single AP portable upright view of the chest is obtained. COMPARISON: Chest x-ray from one day earlier and older studies. FINDINGS: Overlying sternal wires. Cardiomegaly with single lead pacemaker/AICD and atherosclerotic thoracic aorta redemonstrated. Chronic parenchymal changes bilaterally with patchy bibasilar opacitie s. Right fifth rib deformity redemonstrated. IMPRESSION: Overall stable findings, cardiomegaly with patchy bibasilar acute atelectasis and/or in filtrate redemonstrated.
[2019-02-04] MEDS: APIXABAN 2.5 MG TABLET PO SCH ×2 (08:39→20:40)
[2019-02-04] MEDS: CLOPIDOGREL 75 MG TAB PO SCH (08:39)
[2019-02-04] MEDS: FAMOTIDINE 20 MG TAB PO SCH (08:39)
[2019-02-04] MEDS: METOPROLOL TARTRATE 25 MG TAB PO SCH ×2 (08:39→20:40)
[2019-02-04] MEDS: ATORVASTATIN 80 MG TAB PO SCH (08:39)
[2019-02-04] MEDS: ASPIRIN 81 MG PO SCH (08:40)
[2019-02-04] MEDS: AMIODARONE 200 MG TAB PO SCH ×2 (08:40→20:40)
[2019-02-04] MEDS: SODIUM BICARBONATE TAB 650 MG TAB PO SCH (08:42)
[2019-02-04] MEDS ORDERED: FUROSEMIDE 40 MG TAB PO SCH (09:00)
--- NOTE | 2019-02-04 09:00 | P.PN ---
Subjective Progress Note Date: 02/04/19 Principal diagnosis: This is an 78-year-old seen in consultation with acute kidney injury because of dye and prerenal from runs of V. tach and hypotension Her cardiac catheterization on 01/30/2019. 4 stents were placed. Currently he is feeling fairly well complains of cough with some expectoration. No dizziness although he is somewhat hypotensive. Appetite is fair. No nausea vomiting diarrhea no dysuria frequency He is known with history of coronary artery disease with coronary artery bypass graft in the past ischemic cardiomyopathy AICD nonsustained V. tach COPD rad iation treatment for prostate cancer. Objective - Vital Signs Vital signs: Vital Signs Temp 97.5 F L 02/04/19 08:00 Pulse 84 02/04/19 08:00 Resp 15 02/04/19 08:00 BP 102/92 02/04/19 08:00 Pulse Ox 95 02/04/19 08:00 Intake & Output 02/03/19 02/04/19 02/04/19 18:59 06:59 18:59 Intake Total 900 240 Output Total 425 150 200 Balance 475 -150 40 Weight 91.5 kg 93.8 kg Intake: IV 60 0.9 60 Oral 840 240 Output: Urine 425 150 200 Other: Voiding Method Urinal Urinal On examination he is awake alert but planes of generalized weakness HEENT exam JVP is slightly elevated about 4-5 cm above the sternal angle in the summer had a clonic position neck is supple no facial asymmetry noted Heart sounds are unremarkable for any murmur rub gallop Lungs are clear to auscultation good air entry bilaterally Abdomen soft nontender no organomegaly ascites masses Extremity exam was no edema Neurologically awake alert oriented but has generalized weakness. States he has difficulty walking - Labs CBC & Chem 7: 02/04/19 05:04 02/04/19 05:04 Labs: Abnormal Lab Results - Last 24 Hours (Table) 02/04/19 02/04/19 Range/Units 05:04 05:04 WBC 17.2 H (3.8-10.6) k/uL RBC 4.02 L (4.30-5.90) m/uL Hgb 12.6 L (13.0-17.5) gm/dL Hct 38.0 L (39.0-53.0) % RDW 15.8 H (11.5-15.5) % Neutrophils # 15.5 H (1.3-7.7) k/uL Lymphocytes # 0.9 L (1.0-4.8) k/uL Sodium 136 L (137-145) mmol/L BUN 61 H (9-20) mg/dL Creatinine 2.12 H (0.66-1.25) mg/dL Glucose 169 H (74-99) mg/dL Calcium 7.4 L (8.4-10.2) mg/dL Microbiology - Last 24 Hours (Table) 02/02/19 21:22 Gram Stain - Preliminary Sputum Sputum Culture - Preliminary Assessment and Plan Assessment: Impression 1. Acute kidney injury from combination of contrast and hypotension and V. ta ch. Improving, creatinine peaked at 2.88 on 02/02/2019 and is down to 2.1 2. Chronic kidney disease stage III. Baseline creatinine 1.1 dated 12/12/2018 etiology nephrosclerosis. 3. Hypotension secondary to ischemic cardiomyopathy, ejection fraction is 2225% coronary artery bypass graft, recent stent, AICD. 4. Congestive heart failure by chest x-ray as of this morning Recommendation 1. Maintain diuresis currently on Lasix 40 mg by mouth daily 2. Monitor labs 3. May need physiotherapy
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
[2019-02-04] MEDS: predniSONE 20 MG TAB PO SCH (10:04)
--- NOTE | 2019-02-04 13:29 | PN ---
PROGRESS NOTE This is an 78-year-old gentleman that is admitted to hospital with acute myocardial infarction. Underwent cardiac catheterization and angioplasty of circumflex coronary artery. The patient has known CAD and had prior bypass surgery, has ischemic cardiomyopathy and status post AICD. CURRENT MEDICATIONS: Include Eliquis 2.5 b.i.d., aspirin, Lipitor, Plavix, metoprolol, and amiodarone 400 b.i.d. EXAM: Comfortable at rest. Vital signs stable. Chest exam reveals diminished air entry at the bases. Heart exam reveals first and second heart sounds. No gallop. Exam of extremities did not reveal any edema. LAB: Show a hemoglobin of 12.6, platelet count is 169. Potassium is 4.2, BUN is 61, creatinine is 2.1. ASSESSMENT: 1. Status post myocardial infarction, cath and angioplasty of circumflex. 2. Ventricular tachycardia. 3. Atrial tachycardia. 4. Chronic obstructive pulmonary disease status post AICD. PLAN: Patient will continue with the amiodarone that he is on. I will switch him to 200 b.i.d. on Friday. MMODL / IJN: [id number] /
[2019-02-04] MEDS: CEFDINIR 300 MG CAP PO SCH ×2 (16:32→20:40)
[2019-02-04 16:54] LABS: Glucose,Whole Blood 198 mg/dL (75-99)
--- NOTE | 2019-02-04 21:05 | P.PN ---
Progress Note - Text Progress Note Date: 02/04/19 Presenting complaint: Chest pain Interval history: Admitted with chest pain with acute [place]. Underwent successful stenting of the mid left circumflex. Also episode of ventricular tachycardia. Also had acute kidney injury secondary to ATN secondary to hemodynamic instability and contrast-induced kidney injury. Creatinine peaked at 2.88. Also had metabolic acidosis . Acute COPD exacerbation. Today-in the ICU. On room air. Telemetry shows sinus rhythm. Eating well. Has been the bathroom. Having bouts of coughing and bringing some phlegm. Getting bronchodilators. Review of systems: Was done for constitutional, cardiovascular, GI, pulmonary. relevant finding as above Active Medications Acetaminophen (Tylenol Tab) 650 mg PO Q4HR PRN PRN Reason: Fever and/ or Pain Last Admin: 02/03/19 11:26 Dose: 650 mg Documented by: Al Hydroxide/Mg Hydroxide (Maalox) 30 ml PO Q4HR PRN PRN Reason: Heartburn Amiodarone HCl (Cordarone) 400 mg PO BID [facility] Last Admin: 02/04/19 20:40 Dose: 400 mg Documented by: Apixaban (Eliquis) 2.5 mg PO BID [facility] Last Admin: 02/04/19 20:40 Dose: 2.5 mg Documented by: Aspirin (Aspirin) 81 mg PO DAILY [facility] Last Admin: 02/04/19 08:40 Dose: 81 mg Documented by: Atorvastatin Calcium (Lipitor) 80 mg PO DAILY [facility] Last Admin: 02/04/19 08:39 Dose: 80 mg Documented by: Atropine Sulfate (Atropine) 0.5 mg IV ONCE PRN PRN Reason: Symptomatic Bradycardia Benzocaine/Menthol (Cepacol Lozenge) 1 each MUCOUS MEM Q4HR PRN PRN Reason: Sore Throat Last Admin: 02/01/19 16:44 Dose: 1 each Documented by: Budesonide/Formoterol Fumarate (Symbicort 160-4.5 Mcg Inhaler) 2 puff INHALATION RT-BID [facility] Last Admin: 02/04/19 20:17 Dose: 2 puff Documented by: Cefdinir (Omnicef) 300 mg PO BID [facility] Last Admin: 02/04/19 20:40 Dose: 300 mg Documented by: Clopidogrel Bisulfate (Plavix) 75 mg PO DAILY [facility] Last Admin: 02/04/19 08:39 Dose: 75 mg Documented by: Famotidine (Pepcid) 20 mg PO DAILY [facility] Last Admin: 02/04/19 08:39 Dose: 20 mg Documented by: Furosemide (Lasix) 40 mg PO DAILY [facility] Last Admin: 02/04/19 08:40 Dose: 40 mg Documented by: Guaifenesin/Dextromethorphan (Robitussin Dm) 10 ml PO Q6H PRN PRN Reason: Cough Last Admin: 02/04/19 08:43 Dose: 10 ml Documented by: Ipratropium [place] (Atrovent Nebulized) 0.5 mg INHALATION RT-QID [facility] Last Admin: 02/04/19 20:17 Dose: 0.5 mg Documented by: Menthol (Nice Cough Drops) 1 each MUCOUS MEM Q2H PRN PRN Reason: Sore Throat Last Admin: 02/03/19 01:44 Dose: 1 each Documented by: Metoprolol Tartrate (Lopressor) 25 mg PO BID [facility] Last Admin: 02/04/19 20:40 Dose: 25 mg Documented by: Nitroglycerin (Nitrostat) 0.4 mg SUBLINGUAL Q5M PRN PRN Reason: Chest Pain Ondansetron HCl (Zofran) 4 mg IVP Q6HR PRN PRN Reason: Nausea And Vomiting Last Admin: 02/01/19 16:43 Dose: 4 mg Documented by: Prednisone () 40 mg PO DAILY [facility] Last Admin: 02/04/19 10:04 Dose: 40 mg Documented by: Promethazine HCl (Phenergan Syrup) 6.25 mg PO Q6H PRN PRN Reason: Nausea And Vomiting Last Admin: 02/02/19 20:45 Dose: 6.25 mg Documented by: Zolpidem Tartrate (Ambien) 5 mg PO HS PRN PRN Reason: Insomnia Physical examination: VITAL SIGNS: 97.4, 91, 16, 11 5/77, any 5% room air GENERAL: Laying in bed, awake EYES: Pupils equal. Conjunctiva normal. HEENT: External appearance of nose and ears normal, oral cavity grossly normal. Chest wall: Left-sided AICD NECK: JVD not raised; masses not palpable. HEART: First seconds are normal, no edema. LUNGS: Respiratory rate normal, diminished breath sounds. Some wheezing ABDOMEN: Soft, nontender, liver spleen not palpable, no masses palpable. PSYCH: Alert and oriented x3; mood and affect normal. INVESTIGATIONS, reviewed in the clinical context: White count 7.2 hemoglobin 12.6 potassium 4.2.61 creatinine 2.12 Nypgif-dbdz-wsojxhgk bacilli Chest x-ray film personally reviewed by me-possible right basilar infiltrate Previous testing: Creatinine peaked to 2.88 2-D echo-EF 20-25% multiple akinetic rincon, moderate pulmonary hypertension, moderate mitral regurgitation Troponin I 3.4-7.6 White count 9.2 hemoglobin 14.9 pressure 4.5 bun 25 creatinine 1.41 Assessment: -Acute non-ST elevation myocardial infarction, POA -Cardiac catheterization with stenting to the circumflex -Nonsustained Ventricular tachycardia -Acute kidney injury secondary to ATN secondary to hemodynamic instability and contrast-induced acute kidney injury with creatinine peaking at 2.88, improving -Chronic kidney disease stage III from nephrosclerosis -Hyperkalemia secondary to acute kidney injury improved -Metabolic acidosis secondary to acute kidney injury -Persistent atrial flutter fibrillation with atrial tachycardia, on anticoagulation -AICD -Acute on congestive heart failure exacerbation from systolic dysfunction EF 20- 25 % from underlying coronary artery disease. Improved -Coronary artery disease with history of bypass and stent -Acute COPD exacerbation and a smoker who stopped smoking 3 weeks ago -Acute tracheal bronchitis -Peripheral arterial disease -Primary osteoarthritis -Right bundle branch block -Chronic right vertebral artery occlusion -DO NOT RESUSCITATE Plan: Continue current medication treatment plan. Patient will get bronchodilators. Also on Omnicef. Continue current treatment plan.
[2019-02-04 21:30] LABS: Magnesium 2.7 mg/dL (1.6-2.3); Potassium 4.2 mmol/L (3.5-5.1)
[2019-02-05] MEDS: BENZOCAINE/MENTHOL LOZENG 1 EACH LOZENGE MUCOUS MEM PRN (04:41)
[2019-02-05] MEDS: guaiFENesin-DM 100-10MG/5ML 10 ML CUP PO PRN ×2 (05:36→16:38)
[2019-02-05] MEDS: SYMBICORT 160-4.5 MCG INHALER INHALATION SCH ×2 (08:20→19:05)
[2019-02-05] MEDS: IPRATROPIUM 0.5 MG/2.5 ML NEBU INHALATION SCH ×4 (08:20→19:05)
--- NOTE | 2019-02-05 08:57 | P.PN ---
Subjective Progress Note Date: 02/05/19 Principal diagnosis: This is an 78-year-old seen in consultation with acute kidney injury because of dye and prerenal from runs of V. tach and hypotension Her cardiac catheterization on 01/30/2019. 4 stents were placed. Currently he is feeling tired and weak and dizzy and says she is short of breath although he is taking his oxygen off and seems to be comfortable. No chest pain no fever chills no nausea vomiting appetite is good to fair He is known with history of coronary artery disease with coronary artery bypass graft in the past ischemic cardiomyopathy AICD nonsustained V. tach COPD radiation treatment for prostate cancer. Objective - Vital Signs Vital signs: Vital Signs Temp 97.6 F 02/05/19 02:58 Pulse 96 02/05/19 08:34 Resp 18 02/05/19 02:58 BP 108/58 02/05/19 02:58 Pulse Ox 95 02/05/19 02:58 Intake & Output 02/04/19 02/05/19 02/05/19 18:59 06:59 18:59 Intake Total 480 10 Output Total 200 100 Balance 280 -90 Weight 91.9 kg Intake: IV 10 0.9 10 Oral 480 Output: Urine 200 100 Other: Voiding Method Urinal Urinal # Voids 1 On examination is awake alert oriented comfortable sitting on the side of the bed HEENT exam JVP is elevated about 7 cm above the sternal angle No lymph nodes were noted neck is supple no facial asymmetry Lungs are to auscultation with good air entry bilaterally Heart sounds are unremarkable for any murmur rub gallop Abdomen soft nontender Extreme exam was no edema Neurologically awake alert oriented - Labs CBC & Chem 7: 02/04/19 05:04 02/04/19 20:59 Labs: Abnormal Lab Results - Last 24 Hours (Table) 02/04/19 02/04/19 Range/Units 16:49 20:59 POC Glucose (mg/dL) 198 H (75-99) mg/dL Magnesium 2.7 H (1.6-2.3) mg/dL Microbiology - Last 24 Hours (Table) 02/02/19 21:22 Gram Stain - Preliminary Sputum Sputum Culture - Preliminary Gram Neg Bacilli Assessment and Plan Assessment: Impression 1. Acute kidney injury from combination of contrast and hypotension and V. tach. Improving, creatinine peaked at 2.88 on 02/02/2019 and is down to 2.1 yesterday dated 02/04/2019. Today's labs are pending 2. Chronic kidney disease stage III. Baseline creatinine 1.1 dated 12/12/2018 etiology nephrosclerosis. 3. Hypotension secondary to ischemic cardiomyopathy, ejection fraction is 2225% coronary artery bypass graft, recent stent, AICD. 4. Congestive heart failure by chest x-ray as of 02/04/2019 Recommendation 1. Check orthostatic changes. 2. Increase diuresis Lasix 40 mg once a day to 40 mg twice a day. 3. Monitor labs 4. May need physiotherapy
[2019-02-05] MEDS: ATORVASTATIN 80 MG TAB PO SCH (09:14)
[2019-02-05] MEDS: AMIODARONE 200 MG TAB PO SCH (09:14)
[2019-02-05] MEDS: predniSONE 20 MG TAB PO SCH (09:15)
[2019-02-05] MEDS: METOPROLOL TARTRATE 25 MG TAB PO SCH (09:15)
[2019-02-05] MEDS: ASPIRIN 81 MG PO SCH (09:15)
[2019-02-05] MEDS: FUROSEMIDE 40 MG TAB PO SCH ×2 (09:15→15:50)
[2019-02-05] MEDS: FAMOTIDINE 20 MG TAB PO SCH (09:15)
[2019-02-05] MEDS: CEFDINIR 300 MG CAP PO SCH (09:15)
[2019-02-05] MEDS: APIXABAN 2.5 MG TABLET PO SCH (09:15)
[2019-02-05] MEDS: CLOPIDOGREL 75 MG TAB PO SCH (09:15)
[2019-02-05 12:32] VITALS: BMI 29.0
--- NOTE | 2019-02-05 14:52 | US ---
EXAMINATION TYPE: US venous doppler duplex UE RT DATE OF EXAM: 02/05/2019 COMPARISON: NONE CLINICAL HISTORY: r/o DVT. SIDE PERFORMED: Right Right Arm: Negative for DVT There is a superficial clot in the right cephalic vein. IMPRESSION: No evidence for DVT right upper extremity however there is superficial thrombus noted within the righ t cephalic vein.
[2019-02-05 15:17] VITALS: BP 122/60; TEMP 97.4
--- NOTE | 2019-02-05 15:21 | PN ---
PROGRESS NOTE FOLLOW-UP NOTE: Jonas is an 78-year-old gentleman who is admitted to hospital with acute myocardial infarction. He underwent angioplasty of [place] circumflex coronary artery. He has ischemic cardiomyopathy and has an AICD. He had ventricular tachycardia, for which he is on amiodarone. He had a run of nonsustained VT yesterday and currently on p.o. amiodarone. He is complaining of right arm discomfort which is at an IV access site. Dr. Courtney, his primary care physician, is working him up for possible left upper extremity DVT. It seems more like thrombophlebitis. From a cardiac standpoint he is doing well. We should be able to let him go home today once the DVT issues have been addressed. On exam, comfortable at rest. Vital signs are stable. Chest exam reveals good air entry bilaterally. Heart exam shows first and second heart sounds, systolic murmur at the apex. Abdomen is soft. Examination of extremities reveals mild edema. ASSESSMENT: 1. Myocardial infarction, status post catheterization and angioplasty. 2. Ischemic cardiomyopathy and ventricular tachycardia, status post automated implantable cardioverter defibrillator. PLAN: Patient is doing better. He can be discharged home on Cordarone 200 b.i.d., Eliquis 2.5 b.i.d., aspirin and Plavix along with Lopressor and Lipitor. MMODL / IJN: [id number] /
--- NOTE | 2019-02-05 15:31 | P.DS ---
Providers Date of admission: 01/30/19 04:35 Expected date of discharge: 02/05/19 Attending physician: [facility] Consults: 01/30/19 07:19 Consult Physician Routine Consulting Provider: Korey Childers Consult Reason/Comments: Post Interventional patient Do you want consulting provider notified?: Already Contacted 02/01/19 06:40 Consult Physician Routine Consulting Provider: Andra Mendes Consult Reason/Comments: ckd Do you want consulting provider notified?: Yes 02/01/19 07:14 Consult Physician Routine Consulting Provider: Adarsh Reed Consult Reason/Comments: copd Do you want consulting provider notified?: Yes 02/01/19 11:26 Consult Physician Urgent Consulting Provider: Bryce Amado Consult Reason/Comments: worsening creatinine Do you want consulting provider notified?: Yes Primary care physician: [facility] Course: Presenting complaint: Chest pain Hospital course: Admitted with chest pain with acute RI. Underwent successful stenting of the mid left circumflex. Also episode of ventricular tachycardia. Also had acute kidney injury secondary to ATN secondary to hemodynamic instability and contrast-induced kidney injury. Creatinine peaked at 2.88. Also had metabolic acidosis . Acute COPD exacerbation. Acute tracheobronchitis. Today-breathing is better. Appetite is fair. Ultrasound of the right upper extremity did show cephalic with thrombus. [place] to be from IV access. Swelling has been going down. Discussed with Dr. Leigh Evans to DC to the ECF. Care was discussed with the patient. Discussion and discharge planning more than 35 minutes. Consultation: [facility] Dr. Amado from nephrology Dr. Reed from pulmonary Physical examination: VITAL SIGNS: 97.4, 92, 20, 122/60, 98% on room air GENERAL: Sitting in the edge of bed, comfortable EYES: Pupils equal. Conjunctiva normal. HEENT: External appearance of nose and ears normal, oral cavity grossly normal. Chest wall: Left-sided AICD NECK: JVD not raised; masses not palpable. HEART: First seconds are normal, no edema. LUNGS: Respiratory rate normal, diminished breath sounds. ABDOMEN: Soft, nontender, liver spleen not palpable, no masses palpable. PSYCH: Alert and oriented x3; mood and affect normal. Right upper extremity-some swelling INVESTIGATIONS, reviewed in the clinical context: White count 17.2 hemoglobin 12.6 potassium 4.2.61 creatinine 2.12 Sputum-E. coli Chest x-ray film personally reviewed by me-possible right basilar infiltrate Venous Doppler right upper extremity-superficial thrombosis of the right cephalic vein Previous testing: Creatinine peaked to 2.88 2-D echo-EF 20-25% multiple akinetic rincon, moderate pulmonary hypertension, moderate mitral regurgitation Troponin I 3.4-7.6 White count 9.2 hemoglobin 14.9 pressure 4.5 bun 25 creatinine 1.41 Assessment: -Acute non-ST elevation myocardial infarction, POA -Cardiac catheterization with stenting to the circumflex -Nonsustained Ventricular tachycardia -Acute kidney injury secondary to ATN secondary to hemodynamic instability and contrast-induced acute kidney injury with creatinine peaking at 2.88, improving -Chronic kidney disease stage III from nephrosclerosis -Hyperkalemia secondary to acute kidney injury improved -Metabolic acidosis secondary to acute kidney injury -Persistent atrial flutter fibrillation with atrial tachycardia, on anticoagulation -AICD -Acute on congestive heart failure exacerbation from systolic dysfunction EF 20- 25 % from underlying coronary artery disease. Improved -Coronary artery disease with history of bypass and stent -Acute COPD exacerbation and a smoker who stopped smoking 3 weeks ago -Superficial thrombosis of the right cephalic vein, from IV access -Acute tracheal bronchitis -Peripheral arterial disease -Primary osteoarthritis -Right bundle branch block -Chronic right vertebral artery occlusion -DO NOT RESUSCITATE Disposition: ECF/[place] Patient Condition at Discharge: Stable Plan - Discharge Summary Discharge Rx Participant: No New Discharge Prescriptions: No Action Atorvastatin [Lipitor] 80 mg PO DAILY #30 tab Nitroglycerin Sl Tabs [Nitrostat] 0.4 mg SUBLINGUAL Q5M PRN #25 tab PRN Reason: Chest Pain Budesonide-Formot 160-4.5 Mcg [Symbicort 160-4.5 Mcg Inhaler] 2 puff INHALATION RT-BID #1 puff Ipratropium Young [Atrovent Hfa] 2 puff INHALATION RT-QID Clopidogrel [Plavix] 75 mg PO DAILY@1700 Spironolactone [Aldactone] 25 mg PO DAILY #30 tablet Furosemide [Lasix] 20 mg PO DAILY Losartan [Cozaar] 25 mg PO HS #30 tab Apixaban [Eliquis] 5 mg PO BID #60 tab Famotidine [Pepcid] 20 mg PO BID #60 tablet Carvedilol [Coreg] 6.25 mg PO BID Isosorbide Mononitrate ER [Imdur] 30 mg PO DAILY Metoprolol Tartrate [Lopressor] 50 mg PO BID Sacubitril/Valsartan [Entresto 24 mg-26 mg Tablet] 1 tab PO BID Discharge Medication List Atorvastatin [Lipitor] 80 mg PO DAILY #30 tab 07/29/18 [Rx] Budesonide-Formot 160-4.5 Mcg [Symbicort 160-4.5 Mcg Inhaler] 2 puff INHALATION RT-BID #1 puff 07/29/18 [Rx] Nitroglycerin Sl Tabs [Nitrostat] 0.4 mg SUBLINGUAL Q5M PRN #25 tab 07/29/18 [Rx] Ipratropium Young [Atrovent Hfa] 2 puff INHALATION RT-QID 10/03/18 [History] Clopidogrel [Plavix] 75 mg PO DAILY@1700 12/04/18 [History] Spironolactone [Aldactone] 25 mg PO DAILY #30 tablet 12/08/18 [Rx] Furosemide [Lasix] 20 mg PO DAILY 12/10/18 [History] Apixaban [Eliquis] 5 mg PO BID #60 tab 12/12/18 [Rx] Famotidine [Pepcid] 20 mg PO BID #60 tablet 12/12/18 [Rx] Losartan [Cozaar] 25 mg PO HS #30 tab 12/12/18 [Rx] Carvedilol [Coreg] 6.25 mg PO BID 01/30/19 [History] Isosorbide Mononitrate ER [Imdur] 30 mg PO DAILY 01/30/19 [History] Metoprolol Tartrate [Lopressor] 50 mg PO BID 01/30/19 [History] Sacubitril/Valsartan [Entresto 24 mg-26 mg Tablet] 1 tab PO BID 01/30/19 [History] Follow up Appointment(s)/Referral(s): Richard Kaur MD [STAFF PHYSICIAN] - 1 Week Leroy Young MD [STAFF PHYSICIAN] - 1-2 days Adarsh Reed MD [STAFF PHYSICIAN] - 2 Weeks Patient Instructions/Handouts: Heart Healthy Diet (DC), Coronary Intravascular Stent Placement (DC) Activity/Diet/Wound Care/Special Instructions: CARDIAC CATH 1. Support your puncture site by applying firm, steady pressure whenever you cough, laugh, sneeze or bear down to have a bowel movement (2-day restriction). 2. Watch for any excessive bruising, active bleeding, a firm knot forming under your skin, extreme tenderness and signs of infection (redness, swelling, fever). 3. Shower daily, do not soak puncture in a tub bath, jacuzzi, pool, [place] etc. for 1 week. This is to prevent risk of infection. 4. Drink plenty of fluids the day of and day after your procedure to flush contrast dye out of your kidneys. 5. Take all medications as directed. Never stop any new medication without your physicians OK. 6. No driving for 2 days after procedure. 7. 10- pound weight lifting restriction for 1 week. 8. Low sodium/low fat diet. 9. Activity limited until follow up appointment with your vibrating screen operator. In case of any problems, please call [facility], [facility] @ [phone].
[2019-02-05 15:37] VITALS: RESP 16
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
[2019-02-05 15:47] VITALS: PULSE 90
[2019-02-05] MEDS ORDERED: AMIODARONE 200 MG TAB PO SCH (21:00)
[2019-02-06] MEDS ORDERED: CEFDINIR 300 MG CAP PO SCH (09:00)
== END 2019-02-05 18:47 | DRG 246 ==
LOC: EC 02:44 → 2SICU 04:35 → 3SCARD 02-04 17:15
PROVIDERS: ADMIT Hospitalist; ATTEND Hospitalist
PROC: 027037Z Dilation of Coronary Artery, One Artery with Four or More Drug-eluting Intraluminal Devices, Percutaneous Approach (ICD-10-PCS; principal; 2019-01-30 05:14)
DX: I21.4 Non-ST elevation (NSTEMI) myocardial infarction (principal); I50.23 Acute on chronic systolic (congestive) heart failure; N17.0 Acute kidney failure with tubular necrosis; I47.2 Ventricular tachycardia; I13.0 Hypertensive heart and chronic kidney disease with heart failure and stage 1 through stage 4 chronic kidney disease, or unspecified chronic kidney disease; E87.2 Acidosis; J44.1 Chronic obstructive pulmonary disease with (acute) exacerbation; J44.0 Chronic obstructive pulmonary disease with (acute) lower respiratory infection; I82.611 Acute embolism and thrombosis of superficial veins of right upper extremity; T82.868A Thrombosis due to vascular prosthetic devices, implants and grafts, initial encounter; I48.92 Unspecified atrial flutter; I48.19 Other persistent atrial fibrillation; I25.5 Ischemic cardiomyopathy; K21.9 Gastro-esophageal reflux disease without esophagitis; E78.5 Hyperlipidemia, unspecified; F41.9 Anxiety disorder, unspecified; I25.10 Atherosclerotic heart disease of native coronary artery without angina pectoris; N18.3 Chronic kidney disease, stage 3 (moderate); I73.9 Peripheral vascular disease, unspecified; E87.5 Hyperkalemia; I27.20 Pulmonary hypertension, unspecified; Z66 Do not resuscitate; I08.1 Rheumatic disorders of both mitral and tricuspid valves; M19.91 Primary osteoarthritis, unspecified site; I45.10 Unspecified right bundle-branch block; I65.01 Occlusion and stenosis of right vertebral artery; T50.8X5A Adverse effect of diagnostic agents, initial encounter; I95.9 Hypotension, unspecified; J20.9 Acute bronchitis, unspecified; Z87.891 Personal history of nicotine dependence; Z87.01 Personal history of pneumonia (recurrent); Z85.46 Personal history of malignant neoplasm of prostate; Z83.79 Family history of other diseases of the digestive system; Z86.79 Personal history of other diseases of the circulatory system; Z92.3 Personal history of irradiation; I25.2 Old myocardial infarction; Z95.810 Presence of automatic (implantable) cardiac defibrillator; Z90.49 Acquired absence of other specified parts of digestive tract; Z79.02 Long term (current) use of antithrombotics/antiplatelets; Z79.899 Other long term (current) drug therapy; Z79.01 Long term (current) use of anticoagulants; Z86.73 Personal history of transient ischemic attack (TIA), and cerebral infarction without residual deficits; Z98.890 Other specified postprocedural states; Z95.1 Presence of aortocoronary bypass graft; Z95.5 Presence of coronary angioplasty implant and graft; Z98.42 Cataract extraction status, left eye; Z98.41 Cataract extraction status, right eye; Z90.2 Acquired absence of lung [part of]
CPT/HCPCS: 36415; 71045; 80048; 80053; 81001; 83735; 83880; 84132; 84484; 85025; 85610; 85730; 87070; 87077; 87186; 87205; 93005; 93306; 94640; 96365; 96366; 96374; 96375; 96376; 99291; C1874

== ENCOUNTER 2019-02-08 19:27 | Inpatient (IN) | payer MEDICARE, OTHER ==
[2019-02-08] MEDS ORDERED: SODIUM CHLORIDE 0.9% 1,000 ML IV STA ×2 (19:55)
[2019-02-08] MEDS ORDERED: HYDROmorphone 1 MG/ML 1 ML SYRINGE IVP STA (19:55)
[2019-02-08] MEDS ORDERED: ONDANSETRON 4 MG/2 ML VIAL IVP STA (19:55)
[2019-02-08] MEDS ORDERED: PIPERACILLIN-TAZOBACTAM 3.375 GM in SODIUM CHLORIDE 0.9% 100 ML IVPB STA (20:00)
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
--- NOTE | 2019-02-08 21:18 | US ---
EXAMINATION TYPE: US gallbladder DATE OF EXAM: 02/08/2019 COMPARISON: CT brain dated 11/28/2016 CLINICAL HISTORY: elevated transaminase. Elevated transaminase. HTN, hyperlipidemia. EXAM MEASUREMENTS: Liver Length: 11.7 cm Gallbladder Wall: 0.51 cm CBD: not visualized Right Kidney: 10.7 x 4.8 x 5.3 cm Limited study due to gas and body habitus Pancreas: Not visualized Liver: Limited, left lobe not visualized due to gas and body habitus. Coarsened hepatic echotexture throughout. Gallbladder: Limited. Internal echoes seen. Wall measures 0.51 cm in longitudinal view. Limited eval uation in transverse view. Evidence for sonographic Badillo's sign: no CBD: Not visualized Right Kidney: Cortex appears thin. Hypoechoic area seen inferiorly measurin.6 x 2.4 x 2.8 cm. . Increased or transmission suggests a cyst. There appears to be fluid anterior to the liver. IMPRESSION: 1. There is gallbladder wall thickening that is likely attributable to the adjacent hepatocellular di sease and abdominal ascites. Common bile duct is nonvisualized however sonographic Badillo sign is abs ent. 2. Coarsened hepatic echotexture relating to underlying hepatocellular disease. Perihepatic ascites.
[2019-02-08 21:28] LABS: Anisocytosis Slight; Basophils % (A) 0 %; Eosinophils # (A) 0.1 k/uL (0-0.7); Eosinophils % (A) 0 %; HGB 18.4 gm/dL (13.0-17.5); Hypochromasia Slight; Lymphocytes # (A) 0.5 k/uL (1.0-4.8); Lymphocytes % (A) 2 %; MCH 29.6 pg (25.0-35.0); MCV 95.4 fL (80.0-100.0); Mean Platelet Volume 10.1; Monocytes % (A) 4 %; Neutrophils # (A) 22.9 k/uL (1.3-7.7); Neutrophils % (A) 92 %; Platelet Count 188 k/uL (150-450); Poikilocytosis Slight; RBC 6.23 m/uL (4.30-5.90); RDW 16.1 % (11.5-15.5)
[2019-02-08 21:29] LABS: Albumin 2.9 g/dL (3.5-5.0); Calcium 7.5 mg/dL (8.4-10.2); Potassium 4.3 mmol/L (3.5-5.1); Total Bilirubin 6.3 mg/dL (0.2-1.3); Total Protein 5.9 g/dL (6.3-8.2)
[2019-02-08 21:30] LABS: HCT 59.4 % (39.0-53.0)
[2019-02-08 21:38] LABS: Lactic Acid, Venous 5.6 mmol/L (0.7-2.0)
[2019-02-08] MEDS ORDERED: SODIUM CHLORIDE 0.9% 1,000 ML IV ONE (21:42)
--- NOTE | 2019-02-08 22:31 | CT ---
EXAMINATION TYPE: CT abdomen pelvis wo con DATE OF EXAM: 02/08/2019 COMPARISON: 11/28/2016 HISTORY: Pain, ascites. CT DLP: 1134.4 mGycm Automated exposure control for dose reduction was used. There is bilateral basilar pulmonary interstitial infiltrates. Heart is enlarged. There is no pericar dial effusion. There is no pleural effusion. Liver is relatively small. Spleen is small. Stomach appe ars intact. There is some pancreatic atrophy. There is atherosclerotic vascular calcification. There is mild renal atrophy. There is no hydronephrosis. There is 3 cm cortical cyst anterior right kidney. There is mild abdominal ascites fluid. There are numerous diverticula in the sigmoid colon. There is mild diffuse wall thickening of the large bowel. Lumbar vertebra appear intact. There is narrowing a t L3-4 disc space with vacuum disc and spur formation. The bony pelvis is intact. Bladder distends sm oothly. There is subcutaneous edema over the lumbar spine. IMPRESSION: Abdominal ascites. Diffuse wall thickening of the colon consistent with nonspecific colitis. There is sigmoid diverticulosis without diverticulitis. No evidence of mechanical bowel obstruction. Renal at rophy. Bilateral basilar pulmonary infiltrates with cardiomegaly. This could relate to congestive heart fail ure. Pulmonary infiltrates increased compared to old exam. Colonic wall thickening new compared to ol d exam. Ascites is new compared to old exam.
[2019-02-08] MEDS ORDERED: NALOXONE 0.4 MG/ML 1 ML VIAL IV PRN (23:07)
[2019-02-08] MEDS ORDERED: MORPHINE SULFATE 4 MG/ML SYRINGE IV PRN (23:07)
[2019-02-08] MEDS ORDERED: ONDANSETRON 4 MG/2 ML VIAL IVP PRN (23:07)
[2019-02-08] MEDS ORDERED: ACETAMINOPHEN TAB 325 MG TAB PO PRN (23:30)
[2019-02-08] MEDS ORDERED: MAGNESIUM HYDROXIDE 2,400 MG/10 ML CUP PO PRN (23:30)
[2019-02-08] MEDS ORDERED: NITROGLYCERIN SL TABS 0.4 MG TAB SUBLINGUAL PRN (23:30)
[2019-02-08] MEDS ORDERED: BISACODYL 10 MG SUPP RECTAL PRN (23:30)
[2019-02-09] MEDS: SODIUM CHLORIDE 0.9% 1,000 ML IV SCH ×2 (00:26→10:27)
[2019-02-09] MEDS ORDERED: PIPERACILLIN-TAZOBACTAM 3.375 GM in SODIUM CHLORIDE 0.9% 100 ML IVPB SCH (06:00)
[2019-02-09] MEDS ORDERED: FUROSEMIDE 40 MG TAB PO SCH ×2 (06:00→09:00)
[2019-02-09 07:42] LABS: INR 1.6 (<1.2); Prothrombin Time 15.7 sec (9.0-12.0)
[2019-02-09 07:43] LABS: Partial Thromboplastin Time 29.1 sec (22.0-30.0)
[2019-02-09] MEDS: SYMBICORT 160-4.5 MCG INHALER INHALATION SCH ×2 (07:56→21:15)
[2019-02-09] MEDS: IPRATROPIUM 0.5 MG/2.5 ML NEBU INHALATION SCH ×2 (07:56→11:43)
[2019-02-09] MEDS ORDERED: FAMOTIDINE 20 MG TAB PO SCH (08:00)
[2019-02-09] MEDS ORDERED: APIXABAN 2.5 MG TABLET PO SCH (08:00)
[2019-02-09] MEDS ORDERED: SPIRONOLACTONE 25 MG TAB PO SCH (08:00)
[2019-02-09] MEDS ORDERED: AMIODARONE 200 MG TAB PO SCH (08:00)
[2019-02-09] MEDS ORDERED: SYMBICORT 160-4.5 MCG INHALER INHALATION SCH (08:00)
[2019-02-09] MEDS: PANTOPRAZOLE 40 MG/10 ML VIAL IV SCH (10:11)
[2019-02-09] MEDS ORDERED: HYDROCORTISONE SUCCINATE 100 MG/2 ML VIAL IV SCH (10:15)
[2019-02-09] MEDS ORDERED: SODIUM CHLORIDE 0.9% 500 ML 500 ML IV ONE (10:17)
[2019-02-09] MEDS: METOPROLOL TARTRATE 25 MG TAB PO SCH ×2 (10:21→17:37)
[2019-02-09 10:36] LABS: Anisocytosis Slight; HCT 54.9 % (39.0-53.0); HGB 17.4 gm/dL (13.0-17.5); Hypochromasia Moderate; MCH 30.4 pg (25.0-35.0); MCHC 31.7 g/dL (31.0-37.0); MCV 95.7 fL (80.0-100.0); Mean Platelet Volume 9.9; Platelet Count 140 k/uL (150-450); Poikilocytosis Slight; RBC 5.74 m/uL (4.30-5.90); RDW 16.2 % (11.5-15.5)
[2019-02-09 10:58] LABS: Albumin 2.6 g/dL (3.5-5.0); Calcium 7.1 mg/dL (8.4-10.2); Potassium 4.2 mmol/L (3.5-5.1); Total Bilirubin 6.1 mg/dL (0.2-1.3); Total Protein 5.3 g/dL (6.3-8.2)
[2019-02-09 11:15] LABS: Band Neutrophils % 1 %; Lymphocytes # (M) 1.04 k/uL (1.0-4.8); Monocytes # (M) 2.44 k/uL (0-1.0); Neutrophils % (M) 90 %; Nucleated Red Blood Cells 1 /100 WBC (0-0); Total Cells Counted 200; WBC 34.8 k/uL (3.8-10.6)
[2019-02-09 11:16] LABS: Large Platelets Present; Toxic Granulation Present
[2019-02-09] MEDS ORDERED: HYDROCORTISONE SUCCINATE 100 MG/2 ML VIAL IV STA (11:24)
[2019-02-09] MEDS ORDERED: SODIUM CHLORIDE 0.9% 500 ML 250 ML IV ONE (11:25)
--- NOTE | 2019-02-09 11:38 | CONS ---
CONSULTATION Mr. Rangel is an 78-year-old male who was recently discharged from the hospital and readmitted with symptoms of abdominal pain and diarrhea. He was admitted to the hospital in on January 30 with an acute myocardial infarction. An episode of ventricular tachycardia was found to have a subtotally occluded proximal left circumflex, underwent stenting of that vessel. Post procedure, he has symptoms of dyspnea. His echocardiogram revealed a severely impaired left ventricular systolic function and with moderate mitral regurgitation. Patient has a known history of atrial tachycardia and has been evaluated for possible cardioversion in the past, but had the left atrial appendage thrombus. The patient has a known history of ischemic cardiomyopathy, status post ICD implantation. He denies any further symptoms of chest pain, his breathing has been stable. He denies any dizziness or palpitation, but he has been complaining of the abdominal discomfort. His diarrhea is better today. He is feeling weak and his appetite is poor. MEDICATION: At home included Mucinex, Aldactone 25 mg daily, metoprolol tartrate 25 mg twice a day, Lasix 40 mg twice a day, Pepcid, Plavix 75 mg daily, Lipitor 80 mg daily, aspirin 81 mg daily, Eliquis 2.5 mg twice a day and amiodarone 200 mg twice a day. REVIEW OF SYSTEMS: RESPIRATORY SYSTEM: He had dyspnea on exertion, history of obstructive lung disease, recent exacerbation recently. GI SYSTEM: He has the abdominal discomfort and diarrhea. SYSTEM: No dysuria or hematuria. NERVOUS SYSTEM: No seizure. PHYSICAL EXAMINATION: He is an 78-year-old male, alert, tired. Blood pressure 138/70 with a heart rate in the low 100s. HEAD: Normocephalic. EYES: Sclerae nonicteric. NECK: No bruit. LUNGS: With decreased air exchange, no wheezes. HEART: Tachycardic, S1, S2. No S3 with systolic murmur at the base. No diastolic murmur, no rub. ABDOMEN: Soft. Mild generalized tenderness, no rebound. Positive bowel sounds. EXTREMITIES: No significant edema. LAB DATA: Revealed a hemoglobin of 18.4. BUN and creatinine of 85 and 2.85. Potassium 4.3, plasma lactic acid of 5.6. His AST and ALT are elevated at 470 and 1341. His amylase and lipase are elevated as well at 140 and 518, he had heme-positive stool. His EKG revealed atrial tachycardia with right bundle branch block and left axis deviation with evidence of inferior wall myocardial infarction. He underwent a gallbladder ultrasound that revealed gallbladder wall thickening with ascites in the abdomen. CT scan of the abdomen revealed abdominal ascites. IMPRESSION: 1. Abdominal pain and diarrhea with ascites noted. 2. Status post recent stenting of the left circumflex. 3. History of severe ischemic cardiomyopathy with episode of ventricular tachycardia. 4. Elevated liver function test. 5. History of ICD implantation. 6. Worsening renal failure. 7. History of chronic obstructive lung disease. RECOMMENDATION: I will stop his aspirin at this time. I will hold his statin. Will follow his renal function and his liver function closely. I will stop his amiodarone because of the elevated liver function test. Unfortunately prognosis is guarded. Thank you for this consult. Will follow with you. SHELLEY / ORION: [id number] /
[2019-02-09] MEDS ORDERED: IPRATROPIUM-ALBUTEROL 3 ML NEB INHALATION PRN (12:16)
--- NOTE | 2019-02-09 12:24 | XR ---
EXAMINATION TYPE: XR chest 1V portable DATE OF EXAM: 02/09/2019 COMPARISON: 02/04/2019 HISTORY: pain TECHNIQUE: Single frontal view of the chest is obtained. FINDINGS: There is bilateral subsegmental consolidation small effusion. Postoperative change and car diac device noted. Atherosclerotic change aorta. Chronic rib cage deformity noted. No overt failure. Mild venous congestion not excluded. IMPRESSION: 1. Bilateral infiltrate and small effusion correlate for mild central venous congestion.
[2019-02-09] MEDS: methylPREDNISolone SOD SUCCI 125 MG/2 ML VIAL IV SCH ×3 (12:51→23:44)
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
[2019-02-09 13:19] LABS: Amorphous Sediment,Urine Few /hpf; Appearance,Urine Cloudy (Clear); Bacteria,Urine Rare /hpf; Bilirubin,Urine Negative (Negative); Blood,Urine Negative (Negative); Color,Urine Yellow; Glucose,Urine (UA) Negative (Negative); Hyaline Casts,Urine 10 /lpf (0-2); Ketones,Urine Negative (Negative); Leukocyte Esterase,Urine Negative (Negative); Mucus,Urine Rare /hpf; Nitrite,Urine Negative (Negative); PH, Urine 5.5 (5.0-8.0); Protein,Urine 1+ (Negative); RBC,Urine 1 /hpf (0-5); Specific Gravity,Urine 1.018 (1.001-1.035); Urobilinogen,Urine <2.0 mg/dL (<2.0); WBC,Urine 2 /hpf (0-5)
[2019-02-09 14:37] LABS: INR 1.7 (<1.2); Prothrombin Time 17.1 sec (9.0-12.0)
[2019-02-09 14:48] LABS: Calcium 6.6 mg/dL (8.4-10.2); Potassium 4.2 mmol/L (3.5-5.1)
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
[2019-02-09] MEDS: IPRATROPIUM-ALBUTEROL 3 ML NEB INHALATION SCH ×2 (16:16→21:16)
[2019-02-09] MEDS ORDERED: ASPIRIN 81 MG PO SCH (17:00)
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
[2019-02-09] MEDS: CLOPIDOGREL 75 MG TAB PO SCH (17:37)
--- NOTE | 2019-02-09 18:08 | ECHOF ---
Referral Reason:shortness of breath MEASUREMENTS -------- HEIGHT: 177.8 cm WEIGHT: 85.3 kg BP: 134/95 IVSd: 2.2 cm (0.6 - 1.1) LVIDd: 4.5 cm (3.9 - 5.3) LVPWd: 2.0 cm (0.6 - 1.1) IVSs: 1.9 cm LVIDs: 4.3 cm LVPWs: 1.8 cm FINDINGS -------- Resting tachycardia (HR>100bpm). This was a technically adequate study. Limited Study There is severe concentric left ventricular hypertrophy. There is severe global hypokinesis of LV . Overall left ventricular systolic function is severely impaired with, an EF < 20%. Suspect Aortic stenosis, no gradiant noted because of the low EF. There is no pericardial effusion. CONCLUSIONS -------- 1. Resting tachycardia (HR>100bpm). 2. This was a technically adequate study. 3. Limited Study 4. There is severe concentric left ventricular hypertrophy. 5. There is severe global hypokinesis of LV . 6. Overall left ventricular systolic function is severely impaired with, an EF < 20%. 7. Suspect Aortic stenosis, no gradiant noted because of the low EF. 8. There is no pericardial effusion. MAGAZINE WRITER: Jacque Swartz RDCS
[2019-02-09] MEDS: PIPERACILLIN-TAZOBACTAM 3.375 GM in SODIUM CHLORIDE 0.9% 100 ML IVPB SCH (18:33)
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
--- NOTE | 2019-02-09 20:41 | CONS ---
CONSULTATION DATE OF DICTATION: 02/09/2019 REASON FOR CONSULTATION: Abdominal pain, rectal bleeding and diarrhea. HISTORY OF PRESENT ILLNESS: The patient is an 78-year-old pleasant white male who was recently hospitalized with acute UT. He underwent cardiac catheterization and stenting. He was started on aspirin and Plavix and was discharged to [facility] February 05, 2019. Three days later he came back to the emergency room. He was sent to the emergency room yesterday after he was complaining of severe right-sided abdominal pain followed by loose watery bowel movements with bright red blood in the stool. Apparently he had about 3 or 4 of these episodes. He came into the emergency room and he was noted to have elevated white count of 25,000 with a hemoglobin of 18.4 and normal platelets. The patient has been on aspirin, Plavix and Eliquis for atrial fibrillation. The Eliquis has been on hold. He was on the floor. He became hypotensive. He was transferred to the intensive care unit. Since being in the intensive care unit he continues to remain somewhat hypotensive. He had labs done this morning which showed elevated lactic acid at 5.6, and repeat was 8.2 g/dL. He was also noted to have elevated serum transaminases with a bilirubin of 6.3, AST of 470 and ALT of 1341 with alkaline phosphatase of 177. He did have a CT of the abdomen and pelvis done that showed small amount of ascites, diffuse wall thickening of the entire colon consistent with nonspecific colitis and sigmoid diverticulosis. Since being in the intensive care unit he had 3 more episodes of moderate amount of stool with bright red blood in the stool. C difficile is still pending at the time of this dictation. The patient denies any recent antibiotic use. PAST MEDICAL HISTORY: His past medical history is significant for coronary artery disease, status post UT one week ago, history of congestive heart failure, COPD, CVA, hypertension, hyperlipidemia, gastroesophageal reflux disease. PAST SURGICAL HISTORY: Recent cardiac cath with stent placement, back surgery, appendectomy, ICD implantation, CABG, right lobectomy, bilateral knee surgery, back surgery. MEDICATIONS: Medications at home include: 1. Nitroglycerin. 2. Plavix. 3. Aspirin. 4. Eliquis. 5. Atrovent. 6. Cardura. 7. Mucinex. 8. Lipitor. 9. Dulcolax. 10.Symbicort. 11.Omnicef. 12.Pepcid. 13.Lopressor. 14.Lasix. 15.Milk of Magnesia. 16.Aldactone. 17.Tapering dose of prednisone. ALLERGIES: NONE. SOCIAL HISTORY: No smoking. No alcohol use. FAMILY HISTORY: Unremarkable. REVIEW OF SYSTEMS: CARDIOPULMONARY: He denies any chest pain or shortness of breath. GENITOURINARY: He denies any dysuria or hematuria. NEUROLOGY: Unremarkable. PSYCHIATRY: Unremarkable. ENT/VISION: Unremarkable MUSCULOSKELETAL: Complains of chronic back pain. GI: As mentioned above. CONSTITUTIONAL: No recent weight loss. No fever, chills, night sweats. PHYSICAL EXAMINATION: He appears comfortable. No apparent distress. Vital signs are stable. Blood pressure is 116/92, pulse rate of 112, temperature 97 and afebrile. HEENT examination unremarkable. Conjunctivae pink. Sclerae anicteric. Oral cavity no lesions. NECK: No JVD or lymph node enlargement. CHEST: Clear to auscultation. HEART: Regular rate and rhythm. ABDOMEN: Soft, but there was tenderness in the right upper quadrant and right lower quadrant area. The rest of the abdomen was benign. There was no rebound or rigidity. Bowel sounds are positive. No organomegaly. EXTREMITIES: No pedal edema. SKIN: No rashes. NEUROLOGIC: He is awake, alert, oriented to name and place and time. LABS: Labs done at the time of admission to the hospital showed WBC 25,000, hemoglobin 18.4, platelets normal. PT 15.7, INR 1.6. BUN was 85 and creatinine 2.85. Plasma lactic acid was 5.6. Today it is 6.1. Bilirubin was 6.3, AST 470, ALT 1341 and alkaline phosphatase 177. Today bilirubin is 6.1, AST of 370, ALT 1101 and alkaline phosphatase 152. Stool occult blood was positive. IMPRESSION: 1. Acute onset of lower right-sided abdominal pain followed by diarrhea with rectal bleeding that started yesterday morning. He had about 4 episodes yesterday and had 3 episodes so far with bright red blood per rectum. CT of the abdomen showed diffuse thickening of the colon suggestive of nonspecific colitis. Also there was evidence of small amount of abdominal ascites noted. Rule out infectious colitis versus ischemic colitis, though it is unlikely, given the presentation of diffuse thickening of the colon. Hemoglobin is 18.5 g/dL. 2. Diarrhea; rule out Clostridium difficile colitis. 3. Possible sepsis/septic shock. Presently on broad-spectrum antibiotics and Dr. Francis following the patient closely. 4. Elevated liver function tests with bilirubin of 4.6, ALT and AST in the range of 1000. Most likely this could be related to hypoperfusion causing ischemic hepatitis. On review of his records, in January of 2019 his LFTs were within normal limits. Hence, more than likely we are dealing with an acute hepatocellular injury rather than a chronic liver disease at the present time. 5. History of ischemic cardiomyopathy with an ejection fraction of 20%. 6. Recent acute myocardial infarction, for which he underwent cardiac catheterization with stent placement. 7. Atrial fibrillation, on Eliquis, currently on hold. RECOMMENDATIONS: 1. Obtain C difficile toxin. 2. Monitor CBC on a daily basis. 3. Hold Eliquis. 4. Continue with broad-spectrum antibiotics. 5. Will obtain ultrasound of the right upper quadrant to evaluate for gallstones and also rule out biliary obstruction. 6. Repeat labs in the morning. We will follow with you closely during his hospital stay. Thank you for this consultation. MMODL / IJN: [id number] /
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
[2019-02-09] MEDS ORDERED: FUROSEMIDE 10 MG/ML 4 ML VIAL IV STA (20:51)
[2019-02-09] MEDS ORDERED: ATORVASTATIN 80 MG TAB PO SCH (21:00)
[2019-02-09 21:05] LABS: ABG HCO3 17 mmol/L (21-25); ABG PCO2 26 mmHg (35-45); ABG PH 7.41 (7.35-7.45); ABG PO2 91 mmHg (83-108); ABG TCO2 17 mmol/L (19-24); Allen Test Performed? Yes
[2019-02-09] MEDS: DEXTROSE 5% IN WATER 1,000 ML with SODIUM BICARB (1 MEQ/ML) 150 ML IV SCH (21:47)
[2019-02-09 22:15] LABS: Anisocytosis Slight; HCT 50.7 % (39.0-53.0); Hypochromasia Slight; MCH 29.5 pg (25.0-35.0); MCHC 31.6 g/dL (31.0-37.0); MCV 93.4 fL (80.0-100.0); Mean Platelet Volume 11.5; Platelet Count 127 k/uL (150-450); Poikilocytosis Slight; RBC 5.43 m/uL (4.30-5.90); RDW 16.4 % (11.5-15.5); WBC 31.1 k/uL (3.8-10.6)
--- NOTE | 2019-02-09 23:38 | PCN ---
PROCEDURE NOTE PROCEDURE PERFORMED: Placement of the right brachial arterial line. PREOPERATIVE DIAGNOSIS: GI bleeding and possible abdominal sepsis. POSTOPERATIVE DIAGNOSIS: Gastrointestinal bleeding and possible abdominal sepsis. ANESTHESIA: Used none deployed. PROCEDURE DESCRIPTION: The patient was placed in a supine position, the left brachial region was prepared in a sterile fashion and drapes were applied. Using Doppler, the left brachial artery was palpated and cannulated easily. Then a Cook catheter was inserted over the guidewire, and a guidewire was removed. There was evidence of good blood flow and good waveform, no evidence of any immediate complications. The line was secured using 3.0 silk sutures. MMODL / IJN: [id number] /
[2019-02-10 02:53] LABS: Anisocytosis Slight; HCT 49.4 % (39.0-53.0); Hypochromasia Slight; MCH 30.3 pg (25.0-35.0); MCHC 32.5 g/dL (31.0-37.0); MCV 93.2 fL (80.0-100.0); Mean Platelet Volume 10.4; Platelet Count 106 k/uL (150-450); Poikilocytosis Slight; RDW 16.5 % (11.5-15.5)
[2019-02-10 03:04] LABS: Albumin 2.3 g/dL (3.5-5.0); Calcium 6.7 mg/dL (8.4-10.2); Potassium 4.1 mmol/L (3.5-5.1); Total Bilirubin 6.1 mg/dL (0.2-1.3)
[2019-02-10] MEDS: methylPREDNISolone SOD SUCCI 125 MG/2 ML VIAL IV SCH ×2 (06:36→12:11)
[2019-02-10] MEDS: PIPERACILLIN-TAZOBACTAM 3.375 GM in SODIUM CHLORIDE 0.9% 100 ML IVPB SCH ×2 (06:37→18:04)
[2019-02-10] MEDS ORDERED: FAMOTIDINE 20 MG TAB PO SCH (08:00)
--- NOTE | 2019-02-10 08:01 | P.PN ---
Subjective Progress Note Date: 02/10/19 Principal diagnosis: Ischemic colitis Patient doing better today. Denies abdominal pain currently. His lactic acid and liver enzymes are improved. Having small soft stools. Was confused somewhat last night. He is afebrile. White blood cell count remained significantly elevated. Objective - Vital Signs Vital signs: Vital Signs Temp 96.9 F L 02/10/19 04:00 Pulse 112 H 02/10/19 06:00 Resp 14 02/10/19 06:00 BP 131/100 02/10/19 06:00 Pulse Ox 93 L 02/10/19 06:00 Intake & Output 02/09/19 02/10/19 02/10/19 18:59 06:59 18:59 Intake Total 700 750 Output Total 310 520 Balance 390 230 Weight 98.2 kg Intake: IV 700 750 Dextrose 5% in Water 1, 450 000 ml @ 50 mls/hr IV . Q23H [facility] with Sodium Bicarb (1 Meq/ml) 150 ml Rx#:[id number] Piperacillin-Tazobactam 3 100 .375 gm In Sodium Chloride 0.9% 100 ml @ 25 mls/hr IVPB Q12H [facility] Rx# :[id number] Sodium Chloride 0.9% 1, 600 300 000 ml @ 100 mls/hr IV . Q10H [facility] Rx#:[id number] Output: Urine 310 520 Other: Voiding Method Indwelling Catheter Indwelling Catheter # Voids 1 # Bowel Movements 1 ABP, PAP, CO, CI - Last Documented Arterial Blood Pressure 111/63 - Exam Abdomen: Soft, nondistended, nontender - Labs CBC & Chem 7: 02/10/19 02:45 02/10/19 02:45 Labs: Abnormal Lab Results - Last 24 Hours (Table) 02/09/19 02/09/19 02/09/19 Range/Units 10:25 10:25 10:25 WBC 34.8 H (3.8-10.6) k/uL Hct 54.9 H (39.0-53.0) % RDW 16.2 H (11.5-15.5) % Plt Count 140 L (150-450) k/uL Neutrophils # (Manual) 31.60 H (1.3-7.7) k/uL Monocytes # (Manual) 2.44 H (0-1.0) k/uL Nucleated RBCs 1 H (0-0) /100 WBC PT (9.0-12.0) sec INR (<1.2) ABG pCO2 (35-45) mmHg ABG HCO3 (21-25) mmol/L ABG Total CO2 (19-24) mmol/L Chloride (98-107) mmol/L Carbon Dioxide 17 L (22-30) mmol/L BUN 90 H (9-20) mg/dL Creatinine 3.18 H (0.66-1.25) mg/dL Glucose 203 H (74-99) mg/dL Plasma Lactic Acid Tamir 8.2 H* (0.7-2.0) mmol/L Calcium 7.1 L (8.4-10.2) mg/dL Total Bilirubin 6.1 H (0.2-1.3) mg/dL AST 370 H (17-59) U/L ALT 1101 H (21-72) U/L Alkaline Phosphatase 152 H (38-126) U/L Troponin I (0.000-0.034) ng/mL Total Protein 5.3 L (6.3-8.2) g/dL Albumin 2.6 L (3.5-5.0) g/dL Urine Protein (Negative) Amorphous Sediment (None) /hpf Urine Bacteria (None) /hpf Hyaline Casts (0-2) /lpf Urine Mucus (None) /hpf 02/09/19 02/09/19 02/09/19 Range/Units 10:25 12:10 14:20 WBC (3.8-10.6) k/uL Hct (39.0-53.0) % RDW (11.5-15.5) % Plt Count (150-450) k/uL Neutrophils # (Manual) (1.3-7.7) k/uL Monocytes # (Manual) (0-1.0) k/uL Nucleated RBCs (0-0) /100 WBC PT (9.0-12.0) sec INR (<1.2) ABG pCO2 (35-45) mmHg ABG HCO3 (21-25) mmol/L ABG Total CO2 (19-24) mmol/L Chloride 108 H (98-107) mmol/L Carbon Dioxide 19 L (22-30) mmol/L BUN 92 H (9-20) mg/dL Creatinine 3.19 H (0.66-1.25) mg/dL Glucose 189 H (74-99) mg/dL Plasma Lactic Acid Tamir (0.7-2.0) mmol/L Calcium 6.6 L (8.4-10.2) mg/dL Total Bilirubin (0.2-1.3) mg/dL AST (17-59) U/L ALT (21-72) U/L Alkaline Phosphatase (38-126) U/L Troponin I 1.070 H* (0.000-0.034) ng/mL Total Protein (6.3-8.2) g/dL Albumin (3.5-5.0) g/dL Urine Protein 1+ H (Negative) Amorphous Sediment Few H (None) /hpf Urine Bacteria Rare H (None) /hpf Hyaline Casts 10 H (0-2) /lpf Urine Mucus Rare H (None) /hpf 02/09/19 02/09/19 02/09/19 Range/Units 14:20 14:20 18:01 WBC (3.8-10.6) k/uL Hct (39.0-53.0) % RDW (11.5-15.5) % Plt Count (150-450) k/uL Neutrophils # (Manual) (1.3-7.7) k/uL Monocytes # (Manual) (0-1.0) k/uL Nucleated RBCs (0-0) /100 WBC PT 17.1 H (9.0-12.0) sec INR 1.7 H (<1.2) ABG pCO2 (35-45) mmHg ABG HCO3 (21-25) mmol/L ABG Total CO2 (19-24) mmol/L Chloride (98-107) mmol/L Carbon Dioxide (22-30) mmol/L BUN (9-20) mg/dL Creatinine (0.66-1.25) mg/dL Glucose (74-99) mg/dL Plasma Lactic Acid Tamir 6.1 H* 4.8 H* (0.7-2.0) mmol/L Calcium (8.4-10.2) mg/dL Total Bilirubin (0.2-1.3) mg/dL AST (17-59) U/L ALT (21-72) U/L Alkaline Phosphatase (38-126) U/L Troponin I (0.000-0.034) ng/mL Total Protein (6.3-8.2) g/dL Albumin (3.5-5.0) g/dL Urine Protein (Negative) Amorphous Sediment (None) /hpf Urine Bacteria (None) /hpf Hyaline Casts (0-2) /lpf Urine Mucus (None) /hpf 02/09/19 02/09/19 02/09/19 Range/Units 21:02 22:00 22:14 WBC 31.1 H (3.8-10.6) k/uL Hct (39.0-53.0) % RDW 16.4 H (11.5-15.5) % Plt Count 127 L (150-450) k/uL Neutrophils # (Manual) (1.3-7.7) k/uL Monocytes # (Manual) (0-1.0) k/uL Nucleated RBCs (0-0) /100 WBC PT (9.0-12.0) sec INR (<1.2) ABG pCO2 26 L (35-45) mmHg ABG HCO3 17 L (21-25) mmol/L ABG Total CO2 17 L (19-24) mmol/L Chloride (98-107) mmol/L Carbon Dioxide (22-30) mmol/L BUN (9-20) mg/dL Creatinine (0.66-1.25) mg/dL Glucose (74-99) mg/dL Plasma Lactic Acid Tamir 4.0 H* (0.7-2.0) mmol/L Calcium (8.4-10.2) mg/dL Total Bilirubin (0.2-1.3) mg/dL AST (17-59) U/L ALT (21-72) U/L Alkaline Phosphatase (38-126) U/L Troponin I (0.000-0.034) ng/mL Total Protein (6.3-8.2) g/dL Albumin (3.5-5.0) g/dL Urine Protein (Negative) Amorphous Sediment (None) /hpf Urine Bacteria (None) /hpf Hyaline Casts (0-2) /lpf Urine Mucus (None) /hpf 02/10/19 02/10/19 02/10/19 Range/Units 02:45 02:45 02:45 WBC 31.0 H (3.8-10.6) k/uL Hct (39.0-53.0) % RDW 16.5 H (11.5-15.5) % Plt Count 106 L (150-450) k/uL Neutrophils # (Manual) (1.3-7.7) k/uL Monocytes # (Manual) (0-1.0) k/uL Nucleated RBCs (0-0) /100 WBC PT (9.0-12.0) sec INR (<1.2) ABG pCO2 (35-45) mmHg ABG HCO3 (21-25) mmol/L ABG Total CO2 (19-24) mmol/L Chloride 113 H (98-107) mmol/L Carbon Dioxide 17 L (22-30) mmol/L BUN 100 H (9-20) mg/dL Creatinine 3.10 H (0.66-1.25) mg/dL Glucose 203 H (74-99) mg/dL Plasma Lactic Acid Tamir 2.8 H* (0.7-2.0) mmol/L Calcium 6.7 L (8.4-10.2) mg/dL Total Bilirubin 6.1 H (0.2-1.3) mg/dL AST 245 H (17-59) U/L ALT 840 H (21-72) U/L Alkaline Phosphatase 132 H (38-126) U/L Troponin I (0.000-0.034) ng/mL Total Protein 5.0 L (6.3-8.2) g/dL Albumin 2.3 L (3.5-5.0) g/dL Urine Protein (Negative) Amorphous Sediment (None) /hpf Urine Bacteria (None) /hpf Hyaline Casts (0-2) /lpf Urine Mucus (None) /hpf 02/10/19 Range/Units 06:40 WBC (3.8-10.6) k/uL Hct (39.0-53.0) % RDW (11.5-15.5) % Plt Count (150-450) k/uL Neutrophils # (Manual) (1.3-7.7) k/uL Monocytes # (Manual) (0-1.0) k/uL Nucleated RBCs (0-0) /100 WBC PT (9.0-12.0) sec INR (<1.2) ABG pCO2 (35-45) mmHg ABG HCO3 (21-25) mmol/L ABG Total CO2 (19-24) mmol/L Chloride (98-107) mmol/L Carbon Dioxide (22-30) mmol/L BUN (9-20) mg/dL Creatinine (0.66-1.25) mg/dL Glucose (74-99) mg/dL Plasma Lactic Acid Tamir 2.4 H* (0.7-2.0) mmol/L Calcium (8.4-10.2) mg/dL Total Bilirubin (0.2-1.3) mg/dL AST (17-59) U/L ALT (21-72) U/L Alkaline Phosphatase (38-126) U/L Troponin I (0.000-0.034) ng/mL Total Protein (6.3-8.2) g/dL Albumin (3.5-5.0) g/dL Urine Protein (Negative) Amorphous Sediment (None) /hpf Urine Bacteria (None) /hpf Hyaline Casts (0-2) /lpf Urine Mucus (None) /hpf Microbiology - Last 24 Hours (Table) 02/08/19 20:58 Blood Culture - Preliminary Blood No Growth after 24 hours 02/09/19 13:15 Gram Stain - Preliminary Sputum Sputum Culture - Preliminary Assessment and Plan (1) Ischemic bowel disease Narrative/Plan: Patient seems to respond fairly well to conservative management. Patient is a nonoperative candidate given his comorbidities and prior wishes. We'll add Flagyl to Zosyn. Current Visit: Yes Status: Acute Code(s): K55.9 - VASCULAR DISORDER OF INTESTINE, UNSPECIFIED SNOMED Code(s): 79676274
[2019-02-10] MEDS: IPRATROPIUM-ALBUTEROL 3 ML NEB INHALATION SCH ×4 (08:08→20:07)
[2019-02-10] MEDS: SYMBICORT 160-4.5 MCG INHALER INHALATION SCH ×2 (08:09→20:07)
--- NOTE | 2019-02-10 08:30 | PN ---
PROGRESS NOTE Mr. Rangel is an 78-year-old male with a known history of coronary artery disease, status post coronary artery bypass grafting and percutaneous revascularization performed recently, history of atrial tachycardia, ventricular ectopic activity, evidence of severe ischemic cardiomyopathy with ICD implantation who presented with abdominal pain and loose stool with some blood with abnormality on his liver function test was thought to have global hypoperfusion and evidence of ischemic bowels. He was evaluated by Dr. Zabala yesterday and was felt that his surgical risk is quite high. He seems to be more awake and alert today, having less abdominal pain. Hemodynamically, he is stable. He has no chest discomfort. He denies any dizziness. He denies any palpitation. He continues to be on Plavix 75 mg daily, metoprolol tartrate 25 mg twice a day, Solu- Medrol. PHYSICAL EXAMINATION: Blood pressure 112/80 with a heart rate in the 110s, afebrile. LUNGS: With decreased air exchange, no wheezes. HEART: Tachycardic, S1, S2. No S3 with systolic murmur. ABDOMEN: Soft. Positive bowel sounds, no organomegaly. EXTREMITIES: No edema. LAB DATA: Revealed BUN and creatinine of 100 and 3.1. His creatinine is better than yesterday. His white blood cell of 4.1. His bicarb is 17. He is receiving bicarb drip. Hemoglobin of 16, white blood cell of 31,000. His total bilirubin is 6.1, AST of 245, which has improved compared with yesterday. His alkaline phosphatase is 132, which is improved as well. His plasma lactic acid is 2.4. IMPRESSION: 1. Ischemic bowel. 2. History of coronary artery disease with severe ischemic cardiomyopathy. 3. Status post recent stenting. 4. Atrial tachycardia. 5. ICD implantation. 6. Diarrhea. 7. Chronic obstructive lung disease. 8. Acute on chronic kidney disease. RECOMMENDATION: Will continue supportive care at this time. The patient is not a candidate for aggressive surgical intervention and he has elected not to proceed with any aggressive workup. Will continue on the present therapy and depending on his progress, further recommendation will be made. MMODL / IJN: [id number] /
[2019-02-10] MEDS: PANTOPRAZOLE 40 MG/10 ML VIAL IV SCH (09:23)
[2019-02-10] MEDS: METOPROLOL TARTRATE 25 MG TAB PO SCH ×2 (09:23→16:40)
--- NOTE | 2019-02-10 12:08 | P.PN ---
Subjective Progress Note Date: 02/10/19 Principal diagnosis: Possible ischemic colitis and sepsis. This is a 78-year-old white male patient of Dr. Young, who was recently hospitalized for acute non-ST elevated myocardial infarction, and patient underwent successful stenting of the circumflex coronary artery with 4 different coronary stents. Patient was discharged to subacute rehabilitation at [facility] rehab on 02/05/2019. On 02/08/2019 patient was brought into the hospital with complaints of right-sided abdominal pain, and loose stools with visible bright red blood in it. Outpatient lab work showed a significant elevated liver enzymes and worsening renal function, as well as significant leukocytosis. White blood cell count on admission was 25, hemoglobin was 18.4, hematocrit was 59.4, neutrophil count was 22.9, INR was 1.6, sodium was 141, potassium 4.3, chloride was 104, CO2 is 21, BUN is 85 and creatinine is 2.85. Plasma lactic acid was elevated at 5.6, and has continued to rise up to 8.2 despite the fluid resuscitation. Total bilirubin was 6.3, AST was 470, ALT was 1341, alkaline phosphatase was 177, ammonia level was normal at 12, amylase was 190, lipase was 518, stool for occult blood was positive, CT of abdomen and pelvis was obtained showing abdominal ascites, and diffuse wall thickening of the colon consistent with nonspecific colitis. There is sigmoid diverticulosis without diverticulitis, no evidence of mechanical bowel obstruction, bilateral basilar pulmonary infiltrates with cardiomegaly that could relate to congestive heart failure. Liver was relatively small, there was no evidence of hydronephrosis. A-team was called today for a concern of GI bleeding, inter mittent hypotension, poor peripheral pulses, and increasing lethargy. Patient was transferred to the intensive care unit, she is receiving IV fluid boluses, he is passing bright colored bloody bowel movements. Patient is on Eliquis, aspirin and Plavix for history of recent coronary artery stenting. His Eliquis was held today. Repeat blood work today showed white blood cell count that is continuously rising up to 34.8 today, hematocrit is 54.9, platelet count is down to 140, worsening renal function with BUN of 90 and creatinine is up to 3.18, liver enzymes slightly improved or stable, troponin is positive at 1.070, which is actually trending down from his most recent myocardial infarction. Urinalysis was sent showing 1+ protein but no significant white blood cells, no definite evidence of urinary tract infection. Amylase was elevated at 190, and lipase was 518. Chest x-ray was reviewed showing bilateral infiltrates and small effusions and mild central venous congestion. Patient is on 3 L of oxygen with a pulse ox of 91%, temp is 96.4, he is in sinus mechanism slightly tachyca rdic with a heart rate of 109, blood pressure is ranging from low 100 to 120 systolic, however his peripheral pulses are poorly palpable. Abdomen is soft, however patient does have right-sided abdominal tenderness. He was started on empiric antibiotics in the form of Zosyn and blood cultures were sent and are pending at this time. Does have some wheezing, sent does have underlying COPD we will start the patient on IV steroids. Patient was reevaluated today on 02/10/2019, remains in the intensive care unit, patient is hemodynamically stable, feeling a bit better today, patient remains on a sodium bicarb drip, at 50 MLS per hour. Denies any significant abdominal pain, no further episodes of GI bleeding. Denies any nausea vomiting, patient is even asking to be fed. Patient did receive significant amount of fluids roughly about 3 L yesterday, and his urine output remains marginal overnight, given a dose of Lasix which seemed to help. Labs today continues to show leukocytosis with WBC count of 51.0, hemoglobin is holding at 16.0 electrolytes showed persistent metabolic acidosis with bicarb of 17 and the patient remains on a bicarb drip. BUN is 100 creatinine 3.10 liver enzymes are still elevated but improving. Total bilirubin is 6.1. Objective - Vital Signs Vital signs: Vital Signs Temp 96.9 F L 02/10/19 08:00 Pulse 109 H 02/10/19 10:00 Resp 14 02/10/19 10:00 BP 117/90 02/10/19 10:00 Pulse Ox 97 02/10/19 10:00 Intake & Output 02/09/19 02/10/19 02/10/19 18:59 06:59 18:59 Intake Total 700 750 375 Output Total 310 520 135 Balance 390 230 240 Weight 98.2 kg Intake: IV 700 750 375 Dextrose 5% in Water 1, 450 275 000 ml @ 50 mls/hr IV . Q23H [facility] with Sodium Bicarb (1 Meq/ml) 150 ml Rx#:[id number] Piperacillin-Tazobactam 3 100 100 .375 gm In Sodium Chloride 0.9% 100 ml @ 25 mls/hr IVPB Q12H [facility] Rx# :[id number] Sodium Chloride 0.9% 1, 600 300 000 ml @ 100 mls/hr IV . Q10H [facility] Rx#:[id number] Output: Urine 310 520 135 Other: Voiding Method Indwelling Catheter Indwelling Catheter Indwelling Catheter # Voids 1 # Bowel Movements 1 ABP, PAP, CO, CI - Last Documented Arterial Blood Pressure 116/63 - Exam GENERAL EXAM: Lethargic, 78-year-old white male, on 3 L of oxygen, slightly pale. HEAD: Normocephalic/atraumatic. EYES: Normal reaction of pupils, equal size. Conjunctiva pink, slight yellow discoloration noted. NOSE: Clear with pink turbinates. THROAT: No erythema or exudates. NECK: No masses, no JVD, no thyroid enlargement, no adenopathy. CHEST: No chest wall deformity. Symmetrical expansion. LUNGS: Equal air entry no crackles, no rhonchi, no wheezes. CVS: Regular rate and rhythm, normal S1 and S2, no gallops, no murmurs, no rubs ABDOMEN: Soft, nontender, no megaly, no rebound, no guarding, positive bowel sounds. EXTREMITIES: No clubbing, no edema, no cyanosis, 2+ pulses and upper and lower extremities. MUSCULOSKELETAL: Muscle strength and tone normal. SPINE: No scoliosis or deformity SKIN: No rashes CENTRAL NERVOUS SYSTEM: More awake today, less lethargic, seems to be oriented 3, no gross focal neurologic deficits. - Labs CBC & Chem 7: 02/10/19 02:45 02/10/19 02:45 Labs: Abnormal Lab Results - Last 24 Hours (Table) 02/09/19 02/09/19 02/09/19 Range/Units 10:25 12:10 14:20 WBC (3.8-10.6) k/uL RDW (11.5-15.5) % Plt Count (150-450) k/uL PT (9.0-12.0) sec INR (<1.2) ABG pCO2 (35-45) mmHg ABG HCO3 (21-25) mmol/L ABG Total CO2 (19-24) mmol/L Chloride 108 H (98-107) mmol/L Carbon Dioxide 19 L (22-30) mmol/L BUN 92 H (9-20) mg/dL Creatinine 3.19 H (0.66-1.25) mg/dL Glucose 189 H (74-99) mg/dL Plasma Lactic Acid Tamir (0.7-2.0) mmol/L Calcium 6.6 L (8.4-10.2) mg/dL Total Bilirubin (0.2-1.3) mg/dL AST (17-59) U/L ALT (21-72) U/L Alkaline Phosphatase (38-126) U/L Troponin I 1.070 H* (0.000-0.034) ng/mL Total Protein (6.3-8.2) g/dL Albumin (3.5-5.0) g/dL Urine Protein 1+ H (Negative) Amorphous Sediment Few H (None) /hpf Urine Bacteria Rare H (None) /hpf Hyaline Casts 10 H (0-2) /lpf Urine Mucus Rare H (None) /hpf 02/09/19 02/09/19 02/09/19 Range/Units 14:20 14:20 18:01 WBC (3.8-10.6) k/uL RDW (11.5-15.5) % Plt Count (150-450) k/uL PT 17.1 H (9.0-12.0) sec INR 1.7 H (<1.2) ABG pCO2 (35-45) mmHg ABG HCO3 (21-25) mmol/L ABG Total CO2 (19-24) mmol/L Chloride (98-107) mmol/L Carbon Dioxide (22-30) mmol/L BUN (9-20) mg/dL Creatinine (0.66-1.25) mg/dL Glucose (74-99) mg/dL Plasma Lactic Acid Tamir 6.1 H* 4.8 H* (0.7-2.0) mmol/L Calcium (8.4-10.2) mg/dL Total Bilirubin (0.2-1.3) mg/dL AST (17-59) U/L ALT (21-72) U/L Alkaline Phosphatase (38-126) U/L Troponin I (0.000-0.034) ng/mL Total Protein (6.3-8.2) g/dL Albumin (3.5-5.0) g/dL Urine Protein (Negative) Amorphous Sediment (None) /hpf Urine Bacteria (None) /hpf Hyaline Casts (0-2) /lpf Urine Mucus (None) /hpf 02/09/19 02/09/19 02/09/19 Range/Units 21:02 22:00 22:14 WBC 31.1 H (3.8-10.6) k/uL RDW 16.4 H (11.5-15.5) % Plt Count 127 L (150-450) k/uL PT (9.0-12.0) sec INR (<1.2) ABG pCO2 26 L (35-45) mmHg ABG HCO3 17 L (21-25) mmol/L ABG Total CO2 17 L (19-24) mmol/L Chloride (98-107) mmol/L Carbon Dioxide (22-30) mmol/L BUN (9-20) mg/dL Creatinine (0.66-1.25) mg/dL Glucose (74-99) mg/dL Plasma Lactic Acid Tamir 4.0 H* (0.7-2.0) mmol/L Calcium (8.4-10.2) mg/dL Total Bilirubin (0.2-1.3) mg/dL AST (17-59) U/L ALT (21-72) U/L Alkaline Phosphatase (38-126) U/L Troponin I (0.000-0.034) ng/mL Total Protein (6.3-8.2) g/dL Albumin (3.5-5.0) g/dL Urine Protein (Negative) Amorphous Sediment (None) /hpf Urine Bacteria (None) /hpf Hyaline Casts (0-2) /lpf Urine Mucus (None) /hpf 02/10/19 02/10/19 02/10/19 Range/Units 02:45 02:45 02:45 WBC 31.0 H (3.8-10.6) k/uL RDW 16.5 H (11.5-15.5) % Plt Count 106 L (150-450) k/uL PT (9.0-12.0) sec INR (<1.2) ABG pCO2 (35-45) mmHg ABG HCO3 (21-25) mmol/L ABG Total CO2 (19-24) mmol/L Chloride 113 H (98-107) mmol/L Carbon Dioxide 17 L (22-30) mmol/L BUN 100 H (9-20) mg/dL Creatinine 3.10 H (0.66-1.25) mg/dL Glucose 203 H (74-99) mg/dL Plasma Lactic Acid Tamir 2.8 H* (0.7-2.0) mmol/L Calcium 6.7 L (8.4-10.2) mg/dL Total Bilirubin 6.1 H (0.2-1.3) mg/dL AST 245 H (17-59) U/L ALT 840 H (21-72) U/L Alkaline Phosphatase 132 H (38-126) U/L Troponin I (0.000-0.034) ng/mL Total Protein 5.0 L (6.3-8.2) g/dL Albumin 2.3 L (3.5-5.0) g/dL Urine Protein (Negative) Amorphous Sediment (None) /hpf Urine Bacteria (None) /hpf Hyaline Casts (0-2) /lpf Urine Mucus (None) /hpf 02/10/19 Range/Units 06:40 WBC (3.8-10.6) k/uL RDW (11.5-15.5) % Plt Count (150-450) k/uL PT (9.0-12.0) sec INR (<1.2) ABG pCO2 (35-45) mmHg ABG HCO3 (21-25) mmol/L ABG Total CO2 (19-24) mmol/L Chloride (98-107) mmol/L Carbon Dioxide (22-30) mmol/L BUN (9-20) mg/dL Creatinine (0.66-1.25) mg/dL Glucose (74-99) mg/dL Plasma Lactic Acid Tamir 2.4 H* (0.7-2.0) mmol/L Calcium (8.4-10.2) mg/dL Total Bilirubin (0.2-1.3) mg/dL AST (17-59) U/L ALT (21-72) U/L Alkaline Phosphatase (38-126) U/L Troponin I (0.000-0.034) ng/mL Total Protein (6.3-8.2) g/dL Albumin (3.5-5.0) g/dL Urine Protein (Negative) Amorphous Sediment (None) /hpf Urine Bacteria (None) /hpf Hyaline Casts (0-2) /lpf Urine Mucus (None) /hpf Microbiology - Last 24 Hours (Table) 02/08/19 20:58 Blood Culture - Preliminary Blood No Growth after 24 hours 02/09/19 13:15 Gram Stain - Preliminary Sputum Sputum Culture - Preliminary Assessment and Plan Assessment: #1. Acute abdominal pain, strongly suspect ischemic bowel, mostly secondary to underlying atrial fibrillation, and hypoperfusion with shocked liver. #2. Lower GI bleeding, patient is passing bloody bowel movements, although hemoglobin is stable at 17.4, again strongly suspected bowel ischemia. #3. Acute abdominal sepsis is strongly suspected. #4. Elevated liver transaminases, most likely secondary to shocked liver. #5. Recent non-ST elevated myocardial infarction #6. Ischemic cardiomyopathy, with an estimated ejection fraction of 20-25% and a recent history of left atrial appendage thrombus #7. Acute on Chronic kidney disease stage III , most likely secondary to hypoperfusion and acute tubular necrosis. #8. Lactic acidosis related to the possibility of sepsis, and bowel ischemia. #9. Mild exacerbation of COPD #10. History of hypertension #11. Hyperlipidemia #12. Coronary artery disease with previous bypass grafting and stenting Recommendation: Continue present treatment measures including antibiotics, fluid resuscitation, hemodynamic support if necessary, continue to monitor all labs including renal profile, electrolytes, CBC, and we'll continue to follow with the multiple consultants on the case. I fully agree that the patient is a very poor surgical candidate. We'll continue present supportive care measures, prognosis is definitely poor and guarded, continue to hold anticoagulation therapy for now mostly because the presentation of GI bleeding. We will continue to follow and we'll continue to monitor in the ICU. Time with Patient: Less than 30
[2019-02-10] MEDS: metroNIDAZOLE-NS PMX 500 MG in SALINE 1 100ML.BAG IVPB SCH ×3 (12:11→23:32)
--- NOTE | 2019-02-10 14:32 | CDI ---
Documentation Clarification Form Date: 02/10/2019 2:17:25 PM From: Heydi MosleyRamiresWANDA jacinto, CCDS Admit Date: 02/08/2019 11:38:00 PM Patient Name: Jonas Rangel Visit Number: [id number] Discharge Date: ATTENTION: The Clinical Documentation Specialists (CDI) and [facility] Coding Staff appreciate your assistance in clarifying documentation. Please respond to the clarification below the line at the bottom and electronically sign. The CDI & [facility] Coding staff will review the response and follow-up if needed. Please note: Queries are made part of the Legal Health Record. If you have any questions, please contact the author of this message via ITS. Dr. Richard Kaur: CHF is documented in the ED note, History & Physical, Vascular, Surgical & GI consults. Per the History & Physical: "congestive heart failure from systolic dysfunction EF 20-25 % from underlying coronary artery disease." History/Risk Factors: Recent acute ID with stent to mid left circumflex, COPD, CKD III from nephrosclerosis, Persistent atrial flutter, Persistent atrial fibrillation, AICD, PAD, Primary osteoarthritis. Clinical Indicators: Presented with abdominal pain & rectal bleeding. VS: T 97*, P 55*, R 18, BP 120/104, PO 91 RA - 93 2Lnc BNP: 10,700 on previous admission 02/09. Echocardiogram Results: Severe concentric LVH, severe global hypokinesis of LV, overall left ventricular systolic function is severely impaired w/EF <20%. Suspect aortic stenosis. Chest X Ray: Bilateral infiltrate & small effusion correlate for mild central venous congestion. Treatment: po Lasix 02/09, IV Lasix 02/09. IV fluid resuscitation for Sepsis, possible abdominal sepsis with septic shock. In your professional opinion, can you please clarify the acuity and type of CHF if known? Systolic Heart Failure: o Acute o Chronic o Acute on Chronic XXXX Unable to Determine Other, please specify (Last Revision: June 2017) MTDD
--- NOTE | 2019-02-10 16:18 | P.PN ---
Subjective Progress Note Date: 02/10/19 Patient seen and examined today. Overall no complaints. Continues to not have any issues or complaints of pain in his lower extremities. Objective - Vital Signs Vital signs: Vital Signs Temp 97.5 F L 02/10/19 12:00 Pulse 107 H 02/10/19 15:00 Resp 15 02/10/19 15:00 BP 101/81 02/10/19 15:00 Pulse Ox 91 L 02/10/19 15:00 Intake & Output 02/09/19 02/10/19 02/10/19 18:59 06:59 18:59 Intake Total 700 750 825 Output Total 310 520 315 Balance 390 230 510 Weight 98.2 kg Intake: IV 700 750 825 Dextrose 5% in Water 1, 450 625 000 ml @ 50 mls/hr IV . Q23H [facility] with Sodium Bicarb (1 Meq/ml) 150 ml Rx#:[id number] Piperacillin-Tazobactam 3 100 100 .375 gm In Sodium Chloride 0.9% 100 ml @ 25 mls/hr IVPB Q12H [facility] Rx# :[id number] Sodium Chloride 0.9% 1, 600 300 000 ml @ 100 mls/hr IV . Q10H [facility] Rx#:[id number] metroNIDAZOLE-NS PMX 500 100 mg In Saline 1 100ml.bag @ 100 mls/hr IVPB Q8HR [facility] Rx#:[id number] Output: Urine 310 520 315 Other: Voiding Method Indwelling Catheter Indwelling Catheter Indwelling Catheter # Voids 1 # Bowel Movements 1 ABP, PAP, CO, CI - Last Documented Arterial Blood Pressure 105/60 - Exam No acute distress, in the ICU. HEENT is no cephalic atraumatic extra motion intact. Heart is regular at this time. Lungs are clear. Abdomen is soft, slightly decreased tenderness to palpation. Extremities remain cool without any evidence of palpable distal pulses. Motor sensory remains intact without any pain in the extremities - Labs CBC & Chem 7: 02/10/19 02:45 02/10/19 02:45 Labs: Abnormal Lab Results - Last 24 Hours (Table) 02/09/19 02/09/19 02/09/19 Range/Units 18:01 21:02 22:00 WBC 31.1 H (3.8-10.6) k/uL RDW 16.4 H (11.5-15.5) % Plt Count 127 L (150-450) k/uL ABG pCO2 26 L (35-45) mmHg ABG HCO3 17 L (21-25) mmol/L ABG Total CO2 17 L (19-24) mmol/L Chloride (98-107) mmol/L Carbon Dioxide (22-30) mmol/L BUN (9-20) mg/dL Creatinine (0.66-1.25) mg/dL Glucose (74-99) mg/dL Plasma Lactic Acid Tamir 4.8 H* (0.7-2.0) mmol/L Calcium (8.4-10.2) mg/dL Total Bilirubin (0.2-1.3) mg/dL AST (17-59) U/L ALT (21-72) U/L Alkaline Phosphatase (38-126) U/L Total Protein (6.3-8.2) g/dL Albumin (3.5-5.0) g/dL 02/09/19 02/10/19 02/10/19 Range/Units 22:14 02:45 02:45 WBC 31.0 H (3.8-10.6) k/uL RDW 16.5 H (11.5-15.5) % Plt Count 106 L (150-450) k/uL ABG pCO2 (35-45) mmHg ABG HCO3 (21-25) mmol/L ABG Total CO2 (19-24) mmol/L Chloride 113 H (98-107) mmol/L Carbon Dioxide 17 L (22-30) mmol/L BUN 100 H (9-20) mg/dL Creatinine 3.10 H (0.66-1.25) mg/dL Glucose 203 H (74-99) mg/dL Plasma Lactic Acid Tamir 4.0 H* (0.7-2.0) mmol/L Calcium 6.7 L (8.4-10.2) mg/dL Total Bilirubin 6.1 H (0.2-1.3) mg/dL AST 245 H (17-59) U/L ALT 840 H (21-72) U/L Alkaline Phosphatase 132 H (38-126) U/L Total Protein 5.0 L (6.3-8.2) g/dL Albumin 2.3 L (3.5-5.0) g/dL 02/10/19 02/10/19 Range/Units 02:45 06:40 WBC (3.8-10.6) k/uL RDW (11.5-15.5) % Plt Count (150-450) k/uL ABG pCO2 (35-45) mmHg ABG HCO3 (21-25) mmol/L ABG Total CO2 (19-24) mmol/L Chloride (98-107) mmol/L Carbon Dioxide (22-30) mmol/L BUN (9-20) mg/dL Creatinine (0.66-1.25) mg/dL Glucose (74-99) mg/dL Plasma Lactic Acid Tamir 2.8 H* 2.4 H* (0.7-2.0) mmol/L Calcium (8.4-10.2) mg/dL Total Bilirubin (0.2-1.3) mg/dL AST (17-59) U/L ALT (21-72) U/L Alkaline Phosphatase (38-126) U/L Total Protein (6.3-8.2) g/dL Albumin (3.5-5.0) g/dL Microbiology - Last 24 Hours (Table) 02/08/19 20:58 Blood Culture - Preliminary Blood No Growth after 24 hours 02/09/19 13:15 Gram Stain - Preliminary Sputum Sputum Culture - Preliminary Assessment and Plan Assessment: #1 significant abdominal pain, pain out of proportion to the exam, improving with conservative measures, IV fluid resuscitation and antibiotics #2 recent PA with stent placement on anticoagulation #3 GI bleed #4 cool extremities, likely due to global hypoperfusion, remains motor sensory intact #5Leukocytosis #6 lactic acidosis, improving #7 significantly elevated liver enzymes, question shock liver #8 acute renal failure #9 elevated troponins Plan: At this point a believe his extremity coolness is more so related to the global hypoperfusion. No changes. No current plans for vascular intervention. Patient stating he would not do any surgeries therefore at this time no further imaging planned. Very guarded prognosis.
--- NOTE | 2019-02-10 16:18 | PN ---
PROGRESS NOTE Patient is seen for followup for acute kidney injury. He was transferred to the ICU yesterday secondary to decreased mentation, hypotension, hypoperfusion and lactic acidosis. Lactic acid is down to 2.4 from 8.2 yesterday. Overall, patient's mentation has improved as well. He has maintain urine output about 30 to 40 mL/hour. Patient did not need any pressors. He is maintained on bicarb drip currently. PHYSICAL EXAMINATION: On examination, blood pressure was 113/81, heart rate 107 per minute. Patient is afebrile. EXAMINATION OF THE HEART: S1 and S2. EXAMINATION OF LUNGS: Decreased breath sounds at bases. ABDOMEN: Soft, non-tender, distended. Examination of lower extremities shows edema 1+ bilaterally. Chronic skin changes are noted. LABS: Sodium 140, potassium 4.1, chloride 113, CO2 17, BUN 100, serum creatinine 3.1. Lactic acid down to 2.4. AST 245. ALT is 840. Albumin 2.3. ASSESSMENT: 1. Acute kidney injury secondary to hypotension and hypoperfusion. Doubt hepatorenal at this point. 2. Non-gap metabolic acidosis, started on bicarb drip. 3. Lactic acidosis with initial gap metabolic acidosis, currently improved, status post IV hydration. 4. Shock liver. Enzymes are improving. 5. Recent acute myocardial infarction, status post cardiac catheterization last admission about 10 days ago. 6. Atrial fibrillation with controlled ventricular response. 7. Cardiomyopathy; ejection fraction 20% to 25%. 8. Chronic kidney disease, stage III, secondary to nephrosclerosis. Serum creatinine 1.17 on 12/12/2018. PLAN: Continue to encourage increased oral intake. May continue with the bicarb drip for now. Repeat labs in a.m. MMODL / IJN: [id number] /
[2019-02-10] MEDS: CLOPIDOGREL 75 MG TAB PO SCH (16:22)
[2019-02-10] MEDS: DEXTROSE 5% IN WATER 1,000 ML with SODIUM BICARB (1 MEQ/ML) 150 ML IV SCH (16:40)
--- NOTE | 2019-02-10 17:47 | P.PN ---
Progress Note - Text Progress Note Date: 02/10/19 Chief Complaint: Not feeling well History of present complaint: This is a patient who was admitted here to the hospital at the end of January. Discharged on February 05. Admitted with chest pain with acute WI. Underwent successful stenting of the mid left circumflex. Also episode of ventricular tachycardia. Also had acute kidney injury secondary to ATN secondary to hemodynamic instability and contrast-induced kidney injury. Creatinine peaked at 2.88. Also had metabolic acidosis . Acute COPD exacerbation. Acute tracheobronchitis. Ultrasound of the right upper extremity did show cephalic with thrombus. Armstrong to be from IV access. Swelling has been going down. Patient was discharged to [facility]. He presented to the ER from [facility] with complaints of abdominal pain and some loose stools. This also noticed some bloody stools. Patient renal function had worsened and liver enzymes Had gone up. Patient was admitted to the medical floor. Patient rather tired and rundown. Manual blood pressure was barely palpable. Distal extremities were cold. Patient given fluid bolus. I also ordered IV hydrocortisone 100 mg. Patient had been on prednisone 10 mg. PATIENT to be transferred to the ICU. Operations Research Engineer Dr. Newman was consulted. Consultation was also made to Dr. Christopher, vascular who also monitor the patient.. Patient is felt to have-ischemic colitis, sepsis, metabolic encephalopathy, acute kidney injury from ATN sepsis, septic shock, metabolic acidosis. Today-in the ICU. Patient had couple bloody stools morning. Bit more awake. Abdominal pain present. Weak and tired. Laying in bed. On supportive care Review of systems difficult to do as patient is lethargic, can answer simple questions Active Medications Acetaminophen (Tylenol Tab) 650 mg PO Q4HR PRN PRN Reason: Fever and/ or Pain Albuterol/Ipratropium (Duoneb 0.5 Mg-3 Mg/3 Ml Soln) 3 ml INHALATION RT-QID [facility]Z Last Admin: 02/10/19 16:25 Dose: 3 ml Documented by: Albuterol/Ipratropium (Duoneb 0.5 Mg-3 Mg/3 Ml Soln) 3 ml INHALATION RT-Q2H PRN PRN Reason: Shortness Of Breath Or Wheezing Bisacodyl (Dulcolax) 10 mg RECTAL DAILY PRN PRN Reason: Constipation Budesonide/Formoterol Fumarate (Symbicort 160-4.5 Mcg Inhaler) 2 puff INHALATIO N RT-BID [facility] Last Admin: 02/10/19 08:09 Dose: 2 puff Documented by: Clopidogrel Bisulfate (Plavix) 75 mg PO DAILY@1700 [facility] Last Admin: 02/10/19 16:22 Dose: Not Given Documented by: Piperacillin Sod/Tazobactam (Sod 3.375 gm/ Sodium Chloride) 100 mls @ 25 mls/hr IVPB Q12H [facility] Last Admin: 02/10/19 06:37 Dose: 25 mls/hr Documented by: Sodium Bicarbonate 150 ml/ (Dextrose/Water) 1,150 mls @ 75 mls/hr IV .[id number] [facility] Last Admin: 02/10/19 16:40 Dose: 75 mls/hr Documented by: Metronidazole 500 mg/ IV (Solution) 100 mls @ 100 mls/hr IVPB Q8HR [facility] Last Admin: 02/10/19 16:40 Dose: 100 mls/hr Documented by: Magnesium Hydroxide (Milk Of Magnesia) 2,400 mg PO DAILY PRN PRN Reason: Constipation Methylprednisolone Sodium Succinate (Solu-Medrol) 60 mg IV Q6HR [facility] Last Admin: 02/10/19 12:11 Dose: 60 mg Documented by: Metoprolol Tartrate (Lopressor) 25 mg PO BID@0800,1700 [facility] Last Admin: 02/10/19 16:40 Dose: 25 mg Documented by: Morphine Sulfate (Morphine Sulfate (Inj)) 4 mg IV Q4HR PRN PRN Reason: Severe Pain Naloxone HCl (Narcan) 0.2 mg IV Q2M PRN PRN Reason: Opioid Reversal Nitroglycerin (Nitrostat) 0.4 mg SUBLINGUAL Q5M PRN PRN Reason: Chest Pain Ondansetron HCl (Zofran) 4 mg IVP Q8HR PRN PRN Reason: Nausea And Vomiting Pantoprazole Sodium (Protonix) 40 mg IV DAILY [facility] Last Admin: 02/10/19 09:23 Dose: 40 mg Documented by: Physical examination: VITAL SIGNS: 9 GENERAL: Laying in bed, with more awake today but tired EYES: Pupils equal. Conjunctiva normal. HEENT: External appearance of nose and ears normal, oral cavity grossly normal. Chest wall: Left-sided AICD NECK: JVD not raised; masses not palpable. HEART: Irregular heart sounds, no edema. LUNGS: Respiratory rate increased, diminished breath sounds. ABDOMEN: Soft, diffuse tenderness, no guarding or rigidity, liver spleen not palpable, no masses palpable. PSYCH: Lungs occasional question. NEUROLOGICAL: Pupils are equal cranial nerves grossly intact, moving all 4 limbs INVESTIGATIONS, reviewed in the clinical context: White count 31 hemoglobin 16 potassium 4.1 bun 100 crit 3.1 AST to 45 ALT 840 total bilirubin 6.1 Previous testing White count 24.8, hemoglobin 17.4, platelets 140, increased neutrophils, potassium 4.2 bun 90 creatinine 3.18 lactic acid 8.2 Bilirubin 6.1 AST 370 ALT 1101 troponin I 1.0, albumin 2.6 Abdominal ultrasound-some gallbladder wall thickening. Evidence of hepatocellular disease Computed tomography scan abdomen was without contrast-basilar pulmonary interstitial infiltrates. Numerous sigmoid diverticula, mild diffuse wall thickening of the large bowel cervicitis no evidence of diverticulitis EKG tracing personally reviewed by me shows right bundle-branch block, sinus rhythm Previous testing: Venous Doppler right upper extremity-superficial thrombosis of the right cephalic vein 2-D echo-EF 20-25% multiple akinetic rincon, moderate pulmonary hypertension, moderate mitral regurgitation Bun 61 and creatinine 2.12 on February 04 Assessment: -Suspected underlying ischemic colitis, slow to respond -Secondary sepsis, from hypotension from translocation of GI bacteria, suspected -Suspect addisonian crisis initially causing hypotension too -Acute non-ST elevation myocardial infarction, on 01/30/2019 -Acute toxic metabolic encephalopathy, from above, slow to respond -Cardiac catheterization with stenting to the circumflex, on 01/30/2019 -Acute kidney injury secondary to ATN sepsis and septic shock-ischemic hepatitis -Chronic kidney disease stage III from nephrosclerosis -Metabolic acidosis secondary to acute kidney injury -Persistent atrial flutter fibrillation with atrial tachycardia, on anticoagulation -AICD -congestive heart failure from systolic dysfunction EF 20-25 % from underlying coronary artery disease. -Coronary artery disease with history of bypass and stent -COPD in an ex-smoker -Superficial thrombosis of the right cephalic vein, -Peripheral arterial disease -Primary osteoarthritis -Right bundle branch block -Chronic right vertebral artery occlusion -DO NOT RESUSCITATE Plan: Continue with DuoNeb, IV fluids, bicarbonate, Solu-Medrol, IV Flagyl and IV Zosyn. Overall prognosis guarded. Keep Solu-Medrol at 40 mg every 8..
--- NOTE | 2019-02-10 18:00 | PN ---
PROGRESS NOTE DATE OF DICTATION: 02/10/2019 Patient is an 78-year-old pleasant white male admitted to the hospital with acute onset of severe abdominal pain associated with bloody diarrhea of 2 days' duration. He was just discharged from the hospital following cardiac cath with stent placement a week earlier. He was also noted to have significant leukocytosis with lactic acidosis and he was started on broad-spectrum antibiotics for possible acute ischemic bowel. Surgery has been consulted. Dr. Zabala evaluated the patient. The patient was also noted to have elevated LFTs and jaundice at the time of admission to the hospital. His previous labs about 2 weeks ago showed normal LFTs. Patient has no history of chronic liver disease. This morning he states he is feeling much better. The abdominal pain has resolved. No further episodes of bleeding or diarrhea. Stool for C difficile toxin was negative. PHYSICAL EXAMINATION: Vital signs are stable. Blood pressure is 101/81, pulse rate 107, and afebrile. HEENT examination unremarkable. Conjunctivae pink. Sclerae anicteric. Oral cavity no lesions. NECK: No JVD or lymph node enlargement. CHEST: Clear to auscultation. HEART: Regular rate and rhythm. ABDOMEN: Benign. Bowel sounds are positive. No organomegaly. No tenderness. EXTREMITIES: No pedal edema. SKIN: No rashes. NEUROLOGIC: Alert and oriented x3. No focal deficits. LABS: WBC was 31,000, hemoglobin 16, platelets 106. Lactic acid was 2.4. T-bilirubin is 6.1, AST 245, ALT 840, alkaline phosphatase 132. Hepatitis serologies for A, B and C are still pending. C difficile toxin is negative. Stool occult blood is positive. CT and ultrasound did not show any evidence of gallstones or biliary ductal dilation. IMPRESSION: 1. Acute onset of abdominal pain with diarrhea and blood in the stool, possible ischemic bowel. Patient presently on broad-spectrum antibiotics and Surgery following the patient closely. 2. Elevated liver function tests and jaundice in this patient who has no history of prior chronic liver disease. It is possible we are dealing with acute ischemic hepatitis/ secondary to low perfusion state. His serum transaminases have slightly improved. Bilirubin continues to remain elevated. Other possibility would be decompensated liver disease in this patient who may have had occult liver disease that was undiagnosed. His CT scan and ultrasound did not show any biliary ductal dilation or any gallstones, which makes it unlikely we are dealing with ascending cholangitis. Clinically patient does not have any evidence of right upper quadrant abdominal pain. 3. Severe leukocytosis and lactic acidosis secondary to possible intraabdominal infection, presently on broad-spectrum antibiotics, and clinically he is gradually improving. 4. Acute renal insufficiency with BUN and creatinine at 100 and 3.1, respectively. Nephrology following the patient closely. 5. Coronary artery disease, status post angioplasty with stent placement 2 weeks ago. RECOMMENDATIONS: 1. Continue with broad-spectrum antibiotics. 2. Monitor labs on a daily basis. 3. Obtain hepatitis viral serologies for A, B and C. 4. Repeat labs in the morning. Thank you for this consultation. Will follow with you closely. MMODL / IJN: [id number] /
[2019-02-10] MEDS: methylPREDNISolone SOD SUCCI 40 MG/ML 1 ML VIAL IV SCH ×2 (18:02→23:32)
[2019-02-10 18:09] LABS: Hepatitis A Antibody IgM Non-Reactive (Non-Reactive); Hepatitis B Surface Antigen Non-Reactive (Non-Reactive); Hepatitis C IgG Antibody Non-Reactive (Non-Reactive)
[2019-02-10 18:10] LABS: Hepatitis B Core IgM Non-Reactive (Non-Reactive)
[2019-02-11 04:17] LABS: Anisocytosis Slight; HCT 43.8 % (39.0-53.0); HGB 14.2 gm/dL (13.0-17.5); Hypochromasia Slight; MCH 30.2 pg (25.0-35.0); MCHC 32.4 g/dL (31.0-37.0); MCV 93.1 fL (80.0-100.0); Mean Platelet Volume 12.2; Poikilocytosis Slight; RBC 4.71 m/uL (4.30-5.90); RDW 16.6 % (11.5-15.5); WBC 26.8 k/uL (3.8-10.6)
[2019-02-11 04:27] LABS: Albumin 2.2 g/dL (3.5-5.0); Calcium 6.7 mg/dL (8.4-10.2); Magnesium 2.8 mg/dL (1.6-2.3); Potassium 3.8 mmol/L (3.5-5.1); Total Bilirubin 5.8 mg/dL (0.2-1.3); Total Protein 4.7 g/dL (6.3-8.2)
[2019-02-11 05:17] LABS: Platelet Count 66 k/uL (150-450)
[2019-02-11] MEDS: PIPERACILLIN-TAZOBACTAM 3.375 GM in SODIUM CHLORIDE 0.9% 100 ML IVPB SCH ×2 (05:58→18:46)
[2019-02-11] MEDS: SYMBICORT 160-4.5 MCG INHALER INHALATION SCH ×3 (08:33→19:38)
[2019-02-11] MEDS: IPRATROPIUM-ALBUTEROL 3 ML NEB INHALATION SCH ×4 (08:33→19:38)
[2019-02-11] MEDS: DEXTROSE 5% IN WATER 1,000 ML with SODIUM BICARB (1 MEQ/ML) 150 ML IV SCH (09:15)
[2019-02-11] MEDS: methylPREDNISolone SOD SUCCI 40 MG/ML 1 ML VIAL IV SCH ×2 (09:18→20:43)
[2019-02-11] MEDS: METOPROLOL TARTRATE 25 MG TAB PO SCH ×2 (09:18→16:20)
[2019-02-11] MEDS: PANTOPRAZOLE 40 MG/10 ML VIAL IV SCH (09:19)
[2019-02-11] MEDS: metroNIDAZOLE-NS PMX 500 MG in SALINE 1 100ML.BAG IVPB SCH ×3 (09:19→23:50)
--- NOTE | 2019-02-11 09:19 | PN ---
PROGRESS NOTE Mr. Rangel is an 78-year-old male with a history of coronary artery disease, severe ischemic cardiomyopathy, status post ICD implantation, history of chronic obstructive lung disease, who presented with abdominal pain and finding consistent with ischemic bowel. He is feeling better today. He is denying any chest discomfort or dyspnea. He feels that his abdomen is better. He denies any dizziness or palpitation. He denies any nausea. He continues to be in atrial tachycardia. He is continued on Plavix 75 mg daily, metoprolol tartrate 25 mg twice a day, Protonix 40 mg IV. PHYSICAL EXAMINATION: Blood pressure 119/80 with a heart rate in the 90s. LUNGS: Decreased breath sounds, no wheezes. HEART: Irregular regular, S1, S2. No S3 with a systolic murmur, no diastolic murmur. ABDOMEN: Soft, nontender. Positive bowel sounds, no organomegaly. EXTREMITIES: No edema. LAB DATA: Revealed BUN and creatinine of 111 and 3.05, slight improvement in the creatinine from yesterday. Potassium 3.8, white blood cell 26.8, hemoglobin 14.2. AST of 187, ALT of 66 69, improving, and his total bilirubin is 5.8. IMPRESSION: 1. Acute abdominal pain, most likely related to ischemic bowel, improving with conservative treatment. 2. History of coronary artery disease, status post recent stenting of the left circumflex. 3. Severe ischemic cardiomyopathy with ICD implantation. 4. Atrial tachycardia. 5. Chronic obstructive lung disease. 6. Worsening chronic kidney disease. RECOMMENDATION: From the cardiac standpoint, I will continue present therapy. I would recommend to re- initiate the anticoagulation with Eliquis once it is acceptable with the surgical team and Dr. Marinelli. Will continue to follow his renal function and depending on his progress, further recommendation will be made. The prognosis remains guarded. MMODL / IJN: [id number] /
--- NOTE | 2019-02-11 10:47 | P.PN ---
Subjective Patient is seen in follow-up for acute kidney injury. Renal function is stable. Creatinine 3.05 today. Denies abdominal pain. No vomiting or diarrhea. He is tolerating oral intake. Urine output 30-40 mL an hour. Vital signs are stable. General: The patient appeared well nourished and normally developed. HEENT: Head exam is unremarkable. Neck is without jugular venous distension. LUNGS: Lungs are clear to auscultation and percussion. Breath sounds decreased. HEART: Rate and Rhythm are regular. First and second heart sounds normal. No m urmurs, rubs or gallops. ABDOMEN: Abdominal exam reveals normal bowel sounds. Non-tender and non-di stended. No evidence of peritonitis. EXTREMITITES: No clubbing, cyanosis, or edema. Objective - Vital Signs Vital signs: Vital Signs Temp 97.5 F L 02/11/19 08:00 Pulse 93 02/11/19 10:00 Resp 11 L 02/11/19 10:00 BP 120/94 02/11/19 10:00 Pulse Ox 95 02/11/19 10:00 Intake & Output 02/10/19 02/11/19 02/11/19 18:59 06:59 18:59 Intake Total 1175 900 175 Output Total 450 335 109 Balance 725 565 66 Weight 97.2 kg Intake: IV 1175 900 175 Dextrose 5% in Water 1, 875 900 175 000 ml @ 25 mls/hr IV . Q24H [facility] with Sodium Bicarb (1 Meq/ml) 150 ml Rx#:[id number] Piperacillin-Tazobactam 3 200 .375 gm In Sodium Chloride 0.9% 100 ml @ 25 mls/hr IVPB Q12H [facility] Rx# :[id number] metroNIDAZOLE-NS PMX 500 100 mg In Saline 1 100ml.bag @ 100 mls/hr IVPB Q8HR [facility] Rx#:[id number] Output: Urine 450 335 109 Other: Voiding Method Indwelling Catheter Indwelling Catheter # Bowel Movements 1 ABP, PAP, CO, CI - Last Documented Arterial Blood Pressure 124/73 - Labs CBC & Chem 7: 02/11/19 04:10 02/11/19 04:10 Labs: Abnormal Lab Results - Last 24 Hours (Table) 02/11/19 02/11/19 Range/Units 04:10 04:10 WBC 26.8 H (3.8-10.6) k/uL RDW 16.6 H (11.5-15.5) % Plt Count 66 L (150-450) k/uL BUN 111 H* (9-20) mg/dL Creatinine 3.05 H (0.66-1.25) mg/dL Glucose 190 H (74-99) mg/dL Calcium 6.7 L (8.4-10.2) mg/dL Magnesium 2.8 H (1.6-2.3) mg/dL Total Bilirubin 5.8 H (0.2-1.3) mg/dL AST 187 H (17-59) U/L ALT 669 H (21-72) U/L Total Protein 4.7 L (6.3-8.2) g/dL Albumin 2.2 L (3.5-5.0) g/dL Microbiology - Last 24 Hours (Table) 02/08/19 20:58 Blood Culture - Preliminary Blood No Growth after 48 hours Assessment and Plan Plan: Assessment: 1. Acute kidney injury secondary to ATN secondary to hypotension. Renal function stable. Creatinine 3.05 today. 2. Metabolic acidosis secondary to acute kidney injury maintained on bicarb drip. Improved. 3. Lactic acidosis secondary to hypoperfusion. Improved with IV hydration. 4. Chronic systolic CHF with ejection fraction of 20-25%. 5. Chronic kidney disease stage III secondary to nephrosclerosis with baseline creatinine in the range of 1.2-1.4. 6. Colitis. ? Ischemic. Surgery and GI following. 7. Elevated BUN secondary to renal failure as well as IV steroids. No evidence of GI bleed. Plan: Hep-Lock IV fluids. Hold off on diuretics. Avoid nephrotoxins. Continue to monitor renal function and urine output
[2019-02-11] MEDS: SODIUM CHLORIDE 0.9% 1,000 ML IV SCH (11:30)
--- NOTE | 2019-02-11 12:53 | P.PN ---
Subjective Progress Note Date: 02/11/19 Principal diagnosis: Possible ischemic colitis and sepsis. This is a 78-year-old white male patient of Dr. Young, who was recently hospitalized for acute non-ST elevated myocardial infarction, and patient underwent successful stenting of the circumflex coronary artery with 4 different coronary stents. Patient was discharged to subacute rehabilitation at [facility] and rehab on 02/05/2019. On 02/08/2019 patient was brought into the hospital with complaints of right-sided abdominal pain, and loose stools with visible bright red blood in it. Outpatient lab work showed a significant elevated liver enzymes and worsening renal function, as well as significant leukocytosis. White blood cell count on admission was 25, hemoglobin was 18.4, hematocrit was 59.4, neutrophil count was 22.9, INR was 1.6, sodium was 141, potassium 4.3, chloride was 104, CO2 is 21, BUN is 85 and creatinine is 2.85. Plasma lactic acid was elevated at 5.6, and has continued to rise up to 8.2 despite the fluid resuscitation. Total bilirubin was 6.3, AST was 470, ALT was 1341, alkaline phosphatase was 177, ammonia level was normal at 12, amylase was 190, lipase was 518, stool for occult blood was positive, CT of abdomen and pelvis was obtained showing abdominal ascites, and diffuse wall thickening of the colon consistent with nonspecific colitis. There is sigmoid diverticulosis without diverticulitis, no evidence of mechanical bowel obstruction, bilateral basilar pulmonary infiltrates with cardiomegaly that could relate to congestive heart failure. Liver was relatively small, there was no evidence of hydronephrosis. A-team was called today for a concern of GI bleeding, inter mittent hypotension, poor peripheral pulses, and increasing lethargy. Patient was transferred to the intensive care unit, she is receiving IV fluid boluses, he is passing bright colored bloody bowel movements. Patient is on Eliquis, aspirin and Plavix for history of recent coronary artery stenting. His Eliquis was held today. Repeat blood work today showed white blood cell count that is continuously rising up to 34.8 today, hematocrit is 54.9, platelet count is down to 140, worsening renal function with BUN of 90 and creatinine is up to 3.18, liver enzymes slightly improved or stable, troponin is positive at 1.070, which is actually trending down from his most recent myocardial infarction. Urinalysis was sent showing 1+ protein but no significant white blood cells, no definite evidence of urinary tract infection. Amylase was elevated at 190, and lipase was 518. Chest x-ray was reviewed showing bilateral infiltrates and small effusions and mild central venous congestion. Patient is on 3 L of oxygen with a pulse ox of 91%, temp is 96.4, he is in sinus mechanism slightly tachyca rdic with a heart rate of 109, blood pressure is ranging from low 100 to 120 systolic, however his peripheral pulses are poorly palpable. Abdomen is soft, however patient does have right-sided abdominal tenderness. He was started on empiric antibiotics in the form of Zosyn and blood cultures were sent and are pending at this time. Does have some wheezing, sent does have underlying COPD we will start the patient on IV steroids. Patient was reevaluated today on 02/10/2019, remains in the intensive care unit, patient is hemodynamically stable, feeling a bit better today, patient remains on a sodium bicarb drip, at 50 MLS per hour. Denies any significant abdominal pain, no further episodes of GI bleeding. Denies any nausea vomiting, patient is even asking to be fed. Patient did receive significant amount of fluids roughly about 3 L yesterday, and his urine output remains marginal overnight, given a dose of Lasix which seemed to help. Labs today continues to show leukocytosis with WBC count of 51.0, hemoglobin is holding at 16.0 electrolytes showed persistent metabolic acidosis with bicarb of 17 and the patient remains on a bicarb drip. BUN is 100 creatinine 3.10 liver enzymes are still elevated but improving. Total bilirubin is 6.1. Reevaluated today on 02/11/2019, patient is surprisingly doing better than expected. Remains hemodynamically stable, not requiring any pressors. Denies any abdominal pain today. There is no melena, no hematemesis. Patient continues to have leukocytosis with WBC count of 26.8, but slightly improved compared to yesterday. Hemoglobin is 14.2. Electrolytes are normal BUN is 111 creatinine is slightly better at 3.05. Lactic acid yesterday was down to 2.4. Liver enzymes are trending down. Bilirubin is 5.8, and his transaminases are s ignificantly improving over the last few days. Hepatitis screening for hepatitis A, B, and C was negative. RICHY was negative. Remains on Solu-Medrol, and the dose has been decreased. Remains on metronidazole and Zosyn for now. Urine output seems to be reasonable. And his bicarb has corrected nicely it is 24 today, hence I cut down his bicarb drip down to 25 mL per hour. And I will likely stop it either later today or in a.m. Objective - Vital Signs Vital signs: Vital Signs Temp 97.5 F L 02/11/19 12:00 Pulse 87 02/11/19 12:00 Resp 13 02/11/19 12:00 BP 124/95 02/11/19 12:00 Pulse Ox 97 02/11/19 12:00 Intake & Output 02/10/19 02/11/19 02/11/19 18:59 06:59 18:59 Intake Total 1175 900 350 Output Total 450 335 189 Balance 725 565 161 Weight 97.2 kg Intake: IV 1175 900 275 Dextrose 5% in Water 1, 875 900 175 000 ml @ 25 mls/hr IV . Q24H [facility] with Sodium Bicarb (1 Meq/ml) 150 ml Rx#:[id number] Piperacillin-Tazobactam 3 200 .375 gm In Sodium Chloride 0.9% 100 ml @ 25 mls/hr IVPB Q12H [facility] Rx# :[id number] metroNIDAZOLE-NS PMX 500 100 100 mg In Saline 1 100ml.bag @ 100 mls/hr IVPB Q8HR [facility] Rx#:[id number] Intake, IV Titration 75 Amount Sodium Chloride 0.9% 1, 75 000 ml @ 25 mls/hr IV . Q24H [facility] Rx#:[id number] Output: Urine 450 335 189 Other: Voiding Method Indwelling Catheter Indwelling Catheter Indwelling Catheter # Bowel Movements 1 ABP, PAP, CO, CI - Last Documented Arterial Blood Pressure 130/82 - Exam GENERAL EXAM: Revealed 78-year-old white male, pleasant, in no distress, pale looking, jaundice, on 3 L nasal cannula HEAD: Normocephalic/atraumatic. EYES: Normal reaction of pupils, equal size. Conjunctiva pink, slight yellow discoloration noted. NOSE: Clear with pink turbinates. THROAT: No erythema or exudates. NECK: No masses, no JVD, no thyroid enlargement, no adenopathy. CHEST: No chest wall deformity. Symmetrical expansion. LUNGS: Equal air entry no crackles, no rhonchi, no wheezes. CVS: Regular rate and rhythm, normal S1 and S2, no gallops, no murmurs, no rubs ABDOMEN: Soft, nontender, no megaly, no rebound, no guarding, positive bowel sounds. EXTREMITIES: No clubbing, no edema, no cyanosis, 2+ pulses and upper and lower extremities. MUSCULOSKELETAL: Muscle strength and tone normal. SPINE: No scoliosis or deformity SKIN: No rashes CENTRAL NERVOUS SYSTEM: More awake today, alert and oriented 3, no gross focal deficits - Labs CBC & Chem 7: 02/11/19 04:10 02/11/19 04:10 Labs: Abnormal Lab Results - Last 24 Hours (Table) 02/11/19 02/11/19 Range/Units 04:10 04:10 WBC 26.8 H (3.8-10.6) k/uL RDW 16.6 H (11.5-15.5) % Plt Count 66 L (150-450) k/uL BUN 111 H* (9-20) mg/dL Creatinine 3.05 H (0.66-1.25) mg/dL Glucose 190 H (74-99) mg/dL Calcium 6.7 L (8.4-10.2) mg/dL Magnesium 2.8 H (1.6-2.3) mg/dL Total Bilirubin 5.8 H (0.2-1.3) mg/dL AST 187 H (17-59) U/L ALT 669 H (21-72) U/L Total Protein 4.7 L (6.3-8.2) g/dL Albumin 2.2 L (3.5-5.0) g/dL Microbiology - Last 24 Hours (Table) 02/09/19 13:15 Gram Stain - Final Sputum Sputum Culture - Final Janet glabrata Janet albicans 02/08/19 20:58 Blood Culture - Preliminary Blood No Growth after 48 hours Assessment and Plan Assessment: #1. Acute abdominal pain, strongly suspect ischemic bowel, mostly secondary to underlying atrial fibrillation, and hypoperfusion with shocked liver. #2. Lower GI bleeding, secondary to ischemic colitis is strongly suspected. However no further bleeding is noted. #3. Acute abdominal sepsis is suspected. Remains on Flagyl and Zosyn. #4. Elevated liver transaminases, most likely secondary to shocked liver. Steadily improving over the last 3 days. #5. Recent non-ST elevated myocardial infarction #6. Ischemic cardiomyopathy, with an estimated ejection fraction of 20-25% and a recent history of left atrial appendage thrombus #7. Acute on Chronic kidney disease stage III , most likely secondary to hypoperfusion and acute tubular necrosis. #8. Lactic acidosis related to the possibility of sepsis, and bowel ischemia. #9. Mild exacerbation of COPD #10. History of hypertension #11. Hyperlipidemia #12. Coronary artery disease with previous bypass grafting and stenting Recommendation: Continue present treatment measures including antibiotics Continue to monitor in the ICU. Continue bicarb drip, and possibly discontinue over the next 24 hours. However the rate was cut down to 25 mL per hour. Continue IV fluids and monitor renal profile Continue bronchodilators. Continue Solu-Medrol at a lower dose. Will continue to follow closely. Prognosis remains definitely guarded. Time with Patient: Less than 30
--- NOTE | 2019-02-11 14:46 | P.PN ---
Subjective Progress Note Date: 02/11/19 CHIEF COMPLAINT: Ischemic colitis HISTORY OF PRESENT ILLNESS: Patient examined at the bedside with Dr. Hilliard. Patient is slightly lethargic but arouses easily to verbal stimuli. He denies abdominal pain. Denies nausea or vomiting. Tolerating liquid diet. PHYSICAL EXAM: VITAL SIGNS: Reviewed. GENERAL: Well-developed in no acute distress. HEENT: No sclera icterus. Extraocular movements grossly intact. Moist buccal mucosa. Head is atraumatic, normocephalic. ABDOMEN: Soft. Nondistended. Nontender. NEUROLOGIC: slightly lethargic but arouses easily to verbal stimuli ASSESSMENT: 1. Ischemic colitis PLAN: Continue with conservative management. Patient is not a surgical candidate. Continue Flagyl and Zosyn Nurse practitioner note has been reviewed by physician. Signing provider agrees with the documented findings, assessment, and plan of care. Objective - Vital Signs Vital signs: Vital Signs Temp 97.5 F L 02/11/19 12:00 Pulse 95 02/11/19 14:00 Resp 15 02/11/19 14:00 BP 108/83 02/11/19 14:00 Pulse Ox 95 02/11/19 14:00 Intake & Output 02/10/19 02/11/19 02/11/19 18:59 06:59 18:59 Intake Total 1175 900 400 Output Total 450 335 249 Balance 725 565 151 Weight 97.2 kg Intake: IV 1175 900 275 Dextrose 5% in Water 1, 875 900 175 000 ml @ 25 mls/hr IV . Q24H [facility] with Sodium Bicarb (1 Meq/ml) 150 ml Rx#:[id number] Piperacillin-Tazobactam 3 200 .375 gm In Sodium Chloride 0.9% 100 ml @ 25 mls/hr IVPB Q12H [facility] Rx# :[id number] metroNIDAZOLE-NS PMX 500 100 100 mg In Saline 1 100ml.bag @ 100 mls/hr IVPB Q8HR [facility] Rx#:[id number] Intake, IV Titration 125 Amount Sodium Chloride 0.9% 1, 125 000 ml @ 25 mls/hr IV . Q24H [facility] Rx#:[id number] Output: Urine 450 335 249 Other: Voiding Method Indwelling Catheter Indwelling Catheter Indwelling Catheter # Bowel Movements 1 ABP, PAP, CO, CI - Last Documented Arterial Blood Pressure 124/73 - Labs CBC & Chem 7: 02/11/19 04:10 02/11/19 04:10 Labs: Abnormal Lab Results - Last 24 Hours (Table) 02/11/19 02/11/19 Range/Units 04:10 04:10 WBC 26.8 H (3.8-10.6) k/uL RDW 16.6 H (11.5-15.5) % Plt Count 66 L (150-450) k/uL BUN 111 H* (9-20) mg/dL Creatinine 3.05 H (0.66-1.25) mg/dL Glucose 190 H (74-99) mg/dL Calcium 6.7 L (8.4-10.2) mg/dL Magnesium 2.8 H (1.6-2.3) mg/dL Total Bilirubin 5.8 H (0.2-1.3) mg/dL AST 187 H (17-59) U/L ALT 669 H (21-72) U/L Total Protein 4.7 L (6.3-8.2) g/dL Albumin 2.2 L (3.5-5.0) g/dL Microbiology - Last 24 Hours (Table) 02/09/19 13:15 Gram Stain - Final Sputum Sputum Culture - Final Janet glabrata Janet albicans 02/08/19 20:58 Blood Culture - Preliminary Blood No Growth after 48 hours
[2019-02-11] MEDS: CLOPIDOGREL 75 MG TAB PO SCH (15:48)
--- NOTE | 2019-02-11 16:14 | P.PN ---
Subjective Progress Note Date: 02/11/19 Patient seen and examined today. Overall no complaints. Abdominal pain has improved. No complaints of lower extremity pain or decreased sensation. Objective - Vital Signs Vital signs: Vital Signs Temp 97.5 F L 02/11/19 12:00 Pulse 98 02/11/19 15:51 Resp 11 L 02/11/19 15:00 BP 123/89 02/11/19 15:00 Pulse Ox 93 L 02/11/19 15:00 Intake & Output 02/10/19 02/11/19 02/11/19 18:59 06:59 18:59 Intake Total 1175 900 400 Output Total 450 335 249 Balance 725 565 151 Weight 97.2 kg Intake: IV 1175 900 275 Dextrose 5% in Water 1, 875 900 175 000 ml @ 25 mls/hr IV . Q24H [facility] with Sodium Bicarb (1 Meq/ml) 150 ml Rx#:[id number] Piperacillin-Tazobactam 3 200 .375 gm In Sodium Chloride 0.9% 100 ml @ 25 mls/hr IVPB Q12H [facility] Rx# :[id number] metroNIDAZOLE-NS PMX 500 100 100 mg In Saline 1 100ml.bag @ 100 mls/hr IVPB Q8HR [facility] Rx#:[id number] Intake, IV Titration 125 Amount Sodium Chloride 0.9% 1, 125 000 ml @ 25 mls/hr IV . Q24H [facility] Rx#:[id number] Output: Urine 450 335 249 Other: Voiding Method Indwelling Catheter Indwelling Catheter Indwelling Catheter # Bowel Movements 1 ABP, PAP, CO, CI - Last Documented Arterial Blood Pressure 124/73 - Exam General appearance: The patient is alert, oriented, in no acute distress. Heart: S1 S2. Regular rate and rhythm. Lungs: clear to auscultation Abdomen: Soft, nontender, nondistended with bowel sounds. No palpable organomegaly or masses. Extremities: Increased warmth to bilateral lower extremities, with improved color. Positive Doppler signal bilateral lower DP. Motor sensory intact without any pain in lower extremities - Labs CBC & Chem 7: 02/11/19 04:10 02/11/19 04:10 Labs: Abnormal Lab Results - Last 24 Hours (Table) 02/11/19 02/11/19 Range/Units 04:10 04:10 WBC 26.8 H (3.8-10.6) k/uL RDW 16.6 H (11.5-15.5) % Plt Count 66 L (150-450) k/uL BUN 111 H* (9-20) mg/dL Creatinine 3.05 H (0.66-1.25) mg/dL Glucose 190 H (74-99) mg/dL Calcium 6.7 L (8.4-10.2) mg/dL Magnesium 2.8 H (1.6-2.3) mg/dL Total Bilirubin 5.8 H (0.2-1.3) mg/dL AST 187 H (17-59) U/L ALT 669 H (21-72) U/L Total Protein 4.7 L (6.3-8.2) g/dL Albumin 2.2 L (3.5-5.0) g/dL Microbiology - Last 24 Hours (Table) 02/09/19 13:15 Gram Stain - Final Sputum Sputum Culture - Final Janet glabrata Janet albicans 02/08/19 20:58 Blood Culture - Preliminary Blood No Growth after 48 hours Assessment and Plan Assessment: #1 significant abdominal pain, pain out of proportion to the exam, improving with conservative measures, IV fluid resuscitation and antibiotics #2 recent [facility] with stent placement on anticoagulation #3 GI bleed #4 cool extremities improving, likely due to global hypoperfusion, remains motor sensory intact #5 leukocytosis #6 lactic acidosis, improving #7 significantly elevated liver enzymes improving, questionable shock liver #8 acute renal failure #9 elevated troponins Plan: Up to this point, we believe his cool extremities are more so related to the global hypo-perfusion. Hypoperfusion is improving, as are the cool extremities. No current plans for vascular intervention. Guarded prognosis The above dictated assessment and findings were discussed with Dr. Isaac. The impression and plan of care have been directed as dictated.
--- NOTE | 2019-02-11 22:01 | PN ---
PROGRESS NOTE DATE OF SERVICE: 02/11/2019 Patient is an 78-year-old pleasant white male admitted to the hospital with sepsis, related to ischemic colitis and elevated LFTs. The patient, over the last 2 days has been gradually improving. He denies any abdominal pain. The diarrhea and bleeding has resolved completely. He was started on a clear liquid diet. He states that he has a poor appetite. He denies any fever, chills, or night sweats. PHYSICAL EXAMINATION: He appears comfortable. No apparent distress. He is sitting up in the chair. VITAL SIGNS: Stable. Blood pressure 119/94, pulse 92, temperature 97.5. HEENT examination unremarkable. Conjunctivae pink. Sclerae anicteric. Oral cavity no lesions. Neck no JVD or lymph node enlargement. Chest was clear to auscultation. HEART: Regular rate and rhythm. ABDOMEN: Soft, it was nontender, nondistended. Bowel sounds are positive. No organomegaly. EXTREMITIES: No pedal edema. NEURO: He is alert and oriented times three. No focal deficits. LABS: Done from today show WBC is 26.8, hemoglobin 14.2, platelets 66,000. Liver enzymes from today bilirubin is 5.8, AST 187, ALT 667. Hepatitis serologies for A, B and C negative. Antinuclear antibody was negative. BUN is 111 and creatinine 3.05. IMPRESSION: 1. Acute onset of abdominal pain associated with bloody diarrhea, possible acute ischemic colitis, which is being observed closely. 2. Lactic acidosis and leukocytosis on broad-spectrum antibiotics presently on Flagyl and Zosyn. 3. Elevated LFTs and jaundice, probably a combination of hypoperfusion and patient may have an underlying alcoholic liver disease. Hepatitis serologies for A, B and C were negative. 4. History of ischemic cardiomyopathy with an ejection fraction of 25%. 5. Elevated BUN and creatinine, probably related to acute kidney injury superimposed on chronic kidney disease. RECOMMENDATIONS: 1. Continue with supportive and symptomatic care. 2. Continue broad-spectrum antibiotics. 3. Monitor the patient closely. 4. Repeat labs in the morning. 5. We will follow with you closely. Thank you for the consult. MMODL / IJN: [id number] /
[2019-02-12 04:55] LABS: Anisocytosis Slight; HGB 14.7 gm/dL (13.0-17.5); Hypochromasia Slight; MCH 30.3 pg (25.0-35.0); MCHC 32.7 g/dL (31.0-37.0); MCV 92.6 fL (80.0-100.0); Mean Platelet Volume 14.3; Poikilocytosis Slight; RBC 4.86 m/uL (4.30-5.90); RDW 16.6 % (11.5-15.5); WBC 31.9 k/uL (3.8-10.6)
[2019-02-12 04:59] LABS: Platelet Count 61 k/uL (150-450)
[2019-02-12 05:12] LABS: Calcium 6.9 mg/dL (8.4-10.2)
[2019-02-12] MEDS: PIPERACILLIN-TAZOBACTAM 3.375 GM in SODIUM CHLORIDE 0.9% 100 ML IVPB SCH ×2 (06:08→16:19)
[2019-02-12] MEDS: METOPROLOL TARTRATE 25 MG TAB PO SCH ×2 (07:50→18:01)
[2019-02-12] MEDS: PANTOPRAZOLE 40 MG/10 ML VIAL IV SCH (07:52)
[2019-02-12] MEDS: methylPREDNISolone SOD SUCCI 40 MG/ML 1 ML VIAL IV SCH (07:52)
[2019-02-12] MEDS: metroNIDAZOLE-NS PMX 500 MG in SALINE 1 100ML.BAG IVPB SCH ×2 (07:52→16:19)
[2019-02-12] MEDS ORDERED: CLOPIDOGREL 75 MG TAB PO STA (07:59)
[2019-02-12] MEDS: IPRATROPIUM-ALBUTEROL 3 ML NEB INHALATION SCH ×4 (08:44→19:24)
[2019-02-12] MEDS: SYMBICORT 160-4.5 MCG INHALER INHALATION SCH ×2 (08:44→19:24)
[2019-02-12] MEDS ORDERED: ATORVASTATIN 40 MG TAB PO SCH (09:00)
--- NOTE | 2019-02-12 09:09 | PN ---
PROGRESS NOTE Mr. Rangel is an 78-year-old male with a known history of severe ischemic cardiomyopathy status post ICD implant, status post recent myocardial infarction with stenting of the left circumflex, who presented with abdominal pain and diarrhea and evidence of ischemic bowel. He is hemodynamically stable. His abdomen is free is stable. He has no chest pain or dyspnea. He denies any dizziness or palpitation. He had no further bloody stool. He feels tired. He continues to be on Plavix 75 mg daily, metoprolol tartrate 25 mg twice a day, Protonix. PHYSICAL EXAMINATION: Blood pressure 113/90 with a heart rate in the 90s, afebrile. LUNGS: With decreased air exchange, no wheezes. HEART: Irregular, regular, S1, S2. No S3 with a systolic murmur, no diastolic murmur. ABDOMEN: Soft, nontender, positive bowel sounds, no organomegaly. EXTREMITIES: No edema. LAB DATA: Revealed white blood cells 31.9, hemoglobin of 14.7, BUN and creatinine 28 and 3.48. IMPRESSION: 1. Ischemic bowel, stabilizing. Treated conservatively. 2. History of coronary artery disease, status post recent stenting. 3. Severe ischemic cardiomyopathy with evidence with ICD implantation. 4. Atrial tachycardia. 5. Prior episode of GI bleeding, stable. 6. Chronic obstructive pulmonary disease. 7. Chronic kidney disease, acute on chronic. 8. Hyperlipidemia. 9. Hypertension. RECOMMENDATION: From the cardiac standpoint, I will re-initiate treatment with the Lipitor. Will continue on the Plavix. I will obtain the input of Dr. Marinelli and Dr. Cunha initiating treatment with Eliquis. Continue the present therapy and depending on his progress, further recommendation will be made. MMODL / IJN: [id number] /
[2019-02-12 09:22] VITALS: TEMP 97.5
--- NOTE | 2019-02-12 10:02 | P.PN ---
Subjective Progress Note Date: 02/12/19 CHIEF COMPLAINT: Ischemic colitis HISTORY OF PRESENT ILLNESS: Patient examined at the bedside. He denies abdominal pain. Denies nausea or vomiting. Tolerating liquid diet. WBC 31.9. PHYSICAL EXAM: VITAL SIGNS: Reviewed. GENERAL: Well-developed in no acute distress. HEENT: No sclera icterus. Extraocular movements grossly intact. Moist buccal mucosa. Head is atraumatic, normocephalic. ABDOMEN: Soft. Nondistended. Nontender. NEUROLOGIC: Awake and alert. ASSESSMENT: 1. Ischemic colitis PLAN: Continue with conservative management. Patient is not a surgical candidate. Continue Flagyl and Zosyn Nurse practitioner note has been reviewed by physician. Signing provider agrees with the documented findings, assessment, and plan of care. Objective - Vital Signs Vital signs: Vital Signs Temp 97.5 F L 02/12/19 08:00 Pulse 84 02/12/19 09:00 Resp 11 L 02/12/19 09:00 BP 124/106 02/12/19 09:00 Pulse Ox 99 02/12/19 09:00 Intake & Output 02/11/19 02/12/19 02/12/19 18:59 06:59 18:59 Intake Total 725 525 175 Output Total 379 247 46 Balance 346 278 129 Weight 98.8 kg Intake: IV 475 525 175 Dextrose 5% in Water 1, 175 000 ml @ 25 mls/hr IV . Q24H [facility] with Sodium Bicarb (1 Meq/ml) 150 ml Rx#:[id number] Piperacillin-Tazobactam 3 100 150 .375 gm In Sodium Chloride 0.9% 100 ml @ 25 mls/hr IVPB Q12H [facility] Rx# :[id number] Sodium Chloride 0.9% 1, 275 75 000 ml @ 25 mls/hr IV . Q24H [facility] Rx#:[id number] metroNIDAZOLE-NS PMX 500 200 100 100 mg In Saline 1 100ml.bag @ 100 mls/hr IVPB Q8HR [facility] Rx#:[id number] Intake, IV Titration 250 Amount Sodium Chloride 0.9% 1, 250 000 ml @ 25 mls/hr IV . Q24H [facility] Rx#:[id number] Output: Urine 379 247 46 Other: Voiding Method Indwelling Catheter Indwelling Catheter Indwelling Catheter ABP, PAP, CO, CI - Last Documented Arterial Blood Pressure 123/65 - Labs CBC & Chem 7: 02/12/19 04:45 02/12/19 04:45 Labs: Abnormal Lab Results - Last 24 Hours (Table) 02/12/19 02/12/19 Range/Units 04:45 04:45 WBC 31.9 H (3.8-10.6) k/uL RDW 16.6 H (11.5-15.5) % Plt Count 61 L (150-450) k/uL Chloride 108 H (98-107) mmol/L BUN 120 H* (9-20) mg/dL Creatinine 3.48 H (0.66-1.25) mg/dL Glucose 167 H (74-99) mg/dL Calcium 6.9 L (8.4-10.2) mg/dL Microbiology - Last 24 Hours (Table) 02/08/19 20:58 Blood Culture - Preliminary Blood No Growth after 72 hours 02/09/19 13:15 Gram Stain - Final Sputum Sputum Culture - Final Janet glabrata Janet albicans
[2019-02-12] MEDS ORDERED: FUROSEMIDE 10 MG/ML 4 ML VIAL IV STA (10:46)
--- NOTE | 2019-02-12 10:49 | P.PN ---
Progress Note - Text Progress Note Date: 02/11/19 Chief Complaint: Not feeling well History of present complaint: This is a patient who was admitted here to the hospital at the end of January. Discharged on February 05. Admitted with chest pain with acute NM. Underwent successful stenting of the mid left circumflex. Also episode of ventricular tachycardia. Also had acute kidney injury secondary to ATN secondary to hemodynamic instability and contrast-induced kidney injury. Creatinine peaked at 2.88. Also had metabolic acidosis . Acute COPD exacerbation. Acute tracheobronchitis. Ultrasound of the right upper extremity did show cephalic with thrombus. [place] to be from IV access. Swelling has been going down. Patient was discharged to [facility]. He presented to the ER from [facility] with complaints of abdominal pain and some loose stools. This also noticed some bloody stools. Patient renal function had worsened and liver enzymes Had gone up. Patient was admitted to the medical floor. Patient rather tired and rundown. Manual blood pressure was barely palpable. Distal extremities were cold. Patient given fluid bolus. I also ordered IV hydrocortisone 100 mg. Patient had been on prednisone 10 mg. PATIENT to be transferred to the ICU. [employer] Cyl[employer] Dr. Newman was consulted. Consultation was also made to Dr. Christopher, vascular who also monitor the patient.. Patient is felt to have-ischemic colitis, sepsis, metabolic encephalopathy, acute kidney injury from ATN sepsis, septic shock, metabolic acidosis. Today-in the ICU. No further bloody bowel movements. No abdominal pain. Did tolerate full liquid diet. Feels better. Breathing stable. Review of systems difficult to do as patient is lethargic, can answer simple questions Current medications are reviewed that include: Reviewed in today's electronic records Physical examination: VITAL SIGNS: 97.5, 87, 13, 124/95, 97% on 4 L GENERAL: Laying in bed, appears more comfortable EYES: Pupils equal. Conjunctiva normal. HEENT: External appearance of nose and ears normal, oral cavity grossly normal. Chest wall: Left-sided AICD NECK: JVD not raised; masses not palpable. HEART: Irregular heart sounds, no edema. LUNGS: Respiratory rate increased, diminished breath sounds. ABDOMEN: Soft, much improved tenderness, no guarding or rigidity, liver spleen not palpable, no masses palpable. PSYCH: Answering questions appropriately NEUROLOGICAL: Pupils are equal cranial nerves grossly intact, moving all 4 limbs INVESTIGATIONS, reviewed in the clinical context: White count 26.8 potassium 3.8 bun 111 creatinine 3.05 AST 187 ALT 669 Previous testing White count 24.8, hemoglobin 17.4, platelets 140, increased neutrophils, po tassium 4.2 bun 90 creatinine 3.18 lactic acid 8.2 Bilirubin 6.1 AST 370 ALT 1101 troponin I 1.0, albumin 2.6 Abdominal ultrasound-some gallbladder wall thickening. Evidence of hepatocellular disease Computed tomography scan abdomen was without contrast-basilar pulmonary interstitial infiltrates. Numerous sigmoid diverticula, mild diffuse wall thickening of the large bowel cervicitis no evidence of diverticulitis EKG tracing personally reviewed by me shows right bundle-branch block, sinus rhythm Previous testing: Venous Doppler right upper extremity-superficial thrombosis of the right cephal ic vein 2-D echo-EF 20-25% multiple akinetic rincon, moderate pulmonary hypertension, moderate mitral regurgitation Bun 61 and creatinine 2.12 on February 04 Assessment: -Suspected underlying ischemic colitis, slowly improving -Secondary sepsis, from hypotension from translocation of GI bacteria, suspected -Suspect addisonian crisis initially causing hypotension too, on presentation -Acute non-ST elevation myocardial infarction, on 01/30/2019 -Acute toxic metabolic encephalopathy, from above, improving -Cardiac catheterization with stenting to the circumflex, on 01/30/2019 -Acute kidney injury secondary to ATN sepsis and septic shock-ischemic hepatitis, slow to respond -Chronic kidney disease stage III from nephrosclerosis -Metabolic acidosis secondary to acute kidney injury -Persistent atrial flutter fibrillation with atrial tachycardia, on anticoagulation -AICD -congestive heart failure from systolic dysfunction EF 20-25 % from underlying coronary artery disease. -Coronary artery disease with history of bypass and stent -COPD in an ex-smoker -Superficial thrombosis of the right cephalic vein, -Peripheral arterial disease -Primary osteoarthritis -Right bundle branch block -Chronic right vertebral artery occlusion -DO NOT RESUSCITATE Plan: Patient remains on DuoNeb, IV Zosyn, IV Flagyl, IV Vvxj-Jhwuxy-uptl was decreased to 40 mg every 12. Care was discussed with the patient. On full liquid diet
[2019-02-12] MEDS: SODIUM CHLORIDE 0.9% 1,000 ML IV SCH (10:52)
[2019-02-12 11:15] LABS: Albumin 2.2 g/dL (3.5-5.0); Bilirubin, Conjugated 1.9 mg/dL (0.0-0.3); Bilirubin, Delta 1.9 mg/dL (0.0-0.2); Bilirubin,Unconjugated 2.6 mg/dL (0.0-1.1); Total Bilirubin 6.4 mg/dL (0.2-1.3); Total Protein 4.7 g/dL (6.3-8.2)
--- NOTE | 2019-02-12 11:30 | P.PN ---
Subjective Progress Note Date: 02/12/19 Patient seen and examined today. Overall no complaints. Continues to not have any issues or complaints of pain in his lower extremities. Tolerating liquid diet. No completes of abdominal pain Objective - Vital Signs Vital signs: Vital Signs Temp 97.5 F L 02/12/19 08:00 Pulse 102 H 02/12/19 10:00 Resp 14 02/12/19 10:00 BP 109/83 02/12/19 10:00 Pulse Ox 99 02/12/19 09:00 Intake & Output 02/11/19 02/12/19 02/12/19 18:59 06:59 18:59 Intake Total 725 525 200 Output Total 379 247 76 Balance 346 278 124 Weight 98.8 kg Intake: IV 475 525 200 Dextrose 5% in Water 1, 175 000 ml @ 25 mls/hr IV . Q24H [facility] with Sodium Bicarb (1 Meq/ml) 150 ml Rx#:[id number] Piperacillin-Tazobactam 3 100 150 .375 gm In Sodium Chloride 0.9% 100 ml @ 25 mls/hr IVPB Q12H [facility] Rx# :[id number] Sodium Chloride 0.9% 1, 275 100 000 ml @ 50 mls/hr IV . Q20H [facility] Rx#:[id number] metroNIDAZOLE-NS PMX 500 200 100 100 mg In Saline 1 100ml.bag @ 100 mls/hr IVPB Q8HR [facility] Rx#:[id number] Intake, IV Titration 250 Amount Sodium Chloride 0.9% 1, 250 000 ml @ 50 mls/hr IV . Q20H [facility] Rx#:[id number] Output: Urine 379 247 76 Other: Voiding Method Indwelling Catheter Indwelling Catheter Indwelling Catheter ABP, PAP, CO, CI - Last Documented Arterial Blood Pressure 116/71 - Exam No acute distress, in the ICU. Ill-appearing HEENT is no cephalic atraumatic extra motion intact. Heart is regular at this time. Lungs are clear. Abdomen is soft, slightly decreased tenderness to palpation. Extremities remain cool without any evidence of palpable distal pulses. Motor sensory remains intact without any pain in the extremities - Labs CBC & Chem 7: 02/12/19 04:45 02/12/19 04:45 Labs: Abnormal Lab Results - Last 24 Hours (Table) 02/12/19 02/12/19 02/12/19 Range/Units 04:45 04:45 04:45 WBC 31.9 H (3.8-10.6) k/uL RDW 16.6 H (11.5-15.5) % Plt Count 61 L (150-450) k/uL Chloride 108 H (98-107) mmol/L BUN 120 H* (9-20) mg/dL Creatinine 3.48 H (0.66-1.25) mg/dL Glucose 167 H (74-99) mg/dL Calcium 6.9 L (8.4-10.2) mg/dL Total Bilirubin 6.4 H (0.2-1.3) mg/dL Conjugated Bilirubin 1.9 H (0.0-0.3) mg/dL Unconjugated Bilirubin 2.6 H (0.0-1.1) mg/dL Delta Bilirubin 1.9 H (0.0-0.2) mg/dL AST 191 H (17-59) U/L ALT 611 H (21-72) U/L Total Protein 4.7 L (6.3-8.2) g/dL Albumin 2.2 L (3.5-5.0) g/dL Microbiology - Last 24 Hours (Table) 02/08/19 20:58 Blood Culture - Preliminary Blood No Growth after 72 hours 02/09/19 13:15 Gram Stain - Final Sputum Sputum Culture - Final Janet glabrata Janet albicans Assessment and Plan Assessment: #1 significant abdominal pain, pain out of proportion to the exam, improving with conservative measures, IV fluid resuscitation and antibiotics #2 recent [place] with stent placement on anticoagulation #3 GI bleed stable #4 cool extremities, likely due to global hypoperfusion, remains motor sensory intact #5Leukocytosis, again worsening #6 lactic acidosis #7 significantly elevated liver enzymes, question shock liver #8 acute renal failure, worsening #9 elevated troponins Plan: Continue believe his coolness is related to global hypoperfusion. No motor sensory defect of his lower extremities. At this time he keeps asking to get out of the hospital, long discussion was had with him regarding his goals and wishes going forward. I did ask him if and when he wanted us to stop doing any more studies or lab draws or any investigations to which his response was now would be fine. Previously has stated that he does not want any surgical interventions or extraordinary measures performed. We will ask palliative care to evaluate and assess the patient regarding goals of care, and pain control if the patient and family decide to go this route
--- NOTE | 2019-02-12 12:50 | P.PN ---
Subjective Progress Note Date: 02/12/19 Principal diagnosis: Possible ischemic colitis and sepsis. This is a 78-year-old white male patient of Dr. Young, who was recently hospitalized for acute non-ST elevated myocardial infarction, and patient underwent successful stenting of the circumflex coronary artery with 4 different coronary stents. Patient was discharged to subacute rehabilitation at [facility] and rehab on 02/05/2019. On 02/08/2019 patient was brought into the hospital with complaints of right-sided abdominal pain, and loose stools with visible bright red blood in it. Outpatient lab work showed a significant elevated liver enzymes and worsening renal function, as well as significant leukocytosis. White blood cell count on admission was 25, hemoglobin was 18.4, hematocrit was 59.4, neutrophil count was 22.9, INR was 1.6, sodium was 141, potassium 4.3, chloride was 104, CO2 is 21, BUN is 85 and creatinine is 2.85. Plasma lactic acid was elevated at 5.6, and has continued to rise up to 8.2 despite the fluid resuscitation. Total bilirubin was 6.3, AST was 470, ALT was 1341, alkaline phosphatase was 177, ammonia level was normal at 12, amylase was 190, lipase was 518, stool for occult blood was positive, CT of abdomen and pelvis was obtained showing abdominal ascites, and diffuse wall thickening of the colon consistent with nonspecific colitis. There is sigmoid diverticulosis without diverticulitis, no evidence of mechanical bowel obstruction, bilateral basilar pulmonary infiltrates with cardiomegaly that could relate to congestive heart failure. Liver was relatively small, there was no evidence of hydronephrosis. A-team was called today for a concern of GI bleeding, inter mittent hypotension, poor peripheral pulses, and increasing lethargy. Patient was transferred to the intensive care unit, she is receiving IV fluid boluses, he is passing bright colored bloody bowel movements. Patient is on Eliquis, aspirin and Plavix for history of recent coronary artery stenting. His Eliquis was held today. Repeat blood work today showed white blood cell count that is continuously rising up to 34.8 today, hematocrit is 54.9, platelet count is down to 140, worsening renal function with BUN of 90 and creatinine is up to 3.18, liver enzymes slightly improved or stable, troponin is positive at 1.070, which is actually trending down from his most recent myocardial infarction. Urinalysis was sent showing 1+ protein but no significant white blood cells, no definite evidence of urinary tract infection. Amylase was elevated at 190, and lipase was 518. Chest x-ray was reviewed showing bilateral infiltrates and small effusions and mild central venous congestion. Patient is on 3 L of oxygen with a pulse ox of 91%, temp is 96.4, he is in sinus mechanism slightly tachyca rdic with a heart rate of 109, blood pressure is ranging from low 100 to 120 systolic, however his peripheral pulses are poorly palpable. Abdomen is soft, however patient does have right-sided abdominal tenderness. He was started on empiric antibiotics in the form of Zosyn and blood cultures were sent and are pending at this time. Does have some wheezing, sent does have underlying COPD we will start the patient on IV steroids. Patient was reevaluated today on 02/10/2019, remains in the intensive care unit, patient is hemodynamically stable, feeling a bit better today, patient remains on a sodium bicarb drip, at 50 MLS per hour. Denies any significant abdominal pain, no further episodes of GI bleeding. Denies any nausea vomiting, patient is even asking to be fed. Patient did receive significant amount of fluids roughly about 3 L yesterday, and his urine output remains marginal overnight, given a dose of Lasix which seemed to help. Labs today continues to show leukocytosis with WBC count of 51.0, hemoglobin is holding at 16.0 electrolytes showed persistent metabolic acidosis with bicarb of 17 and the patient remains on a bicarb drip. BUN is 100 creatinine 3.10 liver enzymes are still elevated but improving. Total bilirubin is 6.1. Reevaluated today on 02/11/2019, patient is surprisingly doing better than expected. Remains hemodynamically stable, not requiring any pressors. Denies any abdominal pain today. There is no melena, no hematemesis. Patient continues to have leukocytosis with WBC count of 26.8, but slightly improved compared to yesterday. Hemoglobin is 14.2. Electrolytes are normal BUN is 111 creatinine is slightly better at 3.05. Lactic acid yesterday was down to 2.4. Liver enzymes are trending down. Bilirubin is 5.8, and his transaminases are s ignificantly improving over the last few days. Hepatitis screening for hepatitis A, B, and C was negative. RICHY was negative. Remains on Solu-Medrol, and the dose has been decreased. Remains on metronidazole and Zosyn for now. Urine output seems to be reasonable. And his bicarb has corrected nicely it is 24 today, hence I cut down his bicarb drip down to 25 mL per hour. And I will likely stop it either later today or in a.m. Reevaluated today on 02/12/2019, patient is continuing to slowly improve, denies any abdominal pain, no nausea, no vomiting, no melena, no hematemesis. Alert in a liquid diet. His WBC count is up again 231.9. Electrodes are normal BUN is up to 120 creatinine is 3.48 liver enzymes continued to improve. And today I recommended that we increase his IV fluids since his renal functioning seems to be slightly worsening today compared to the last 2 days. Patient denies any shortness of breath, no cough, no wheezing, clinically there is definite improvement, but his worsening leukocytosis and worsening renal profile is a bit concerning to me. Objective - Vital Signs Vital signs: Vital Signs Temp 97.5 F L 02/12/19 08:00 Pulse 100 02/12/19 11:00 Resp 12 02/12/19 11:00 BP 117/102 02/12/19 11:00 Pulse Ox 95 02/12/19 11:00 Intake & Output 02/11/19 02/12/19 02/12/19 18:59 06:59 18:59 Intake Total 725 525 200 Output Total 379 247 76 Balance 346 278 124 Weight 98.8 kg Intake: IV 475 525 200 Dextrose 5% in Water 1, 175 000 ml @ 25 mls/hr IV . Q24H [facility] with Sodium Bicarb (1 Meq/ml) 150 ml Rx#:[id number] Piperacillin-Tazobactam 3 100 150 .375 gm In Sodium Chloride 0.9% 100 ml @ 25 mls/hr IVPB Q12H [facility] Rx# :[id number] Sodium Chloride 0.9% 1, 275 100 000 ml @ 50 mls/hr IV . Q20H [facility] Rx#:[id number] metroNIDAZOLE-NS PMX 500 200 100 100 mg In Saline 1 100ml.bag @ 100 mls/hr IVPB Q8HR [facility] Rx#:[id number] Intake, IV Titration 250 Amount Sodium Chloride 0.9% 1, 250 000 ml @ 50 mls/hr IV . Q20H [facility] Rx#:[id number] Output: Urine 379 247 76 Other: Voiding Method Indwelling Catheter Indwelling Catheter Indwelling Catheter ABP, PAP, CO, CI - Last Documented Arterial Blood Pressure 116/65 - Exam GENERAL EXAM: Revealed 78-year-old white male, pleasant, in no distress, HEAD: Normocephalic/atraumatic. EYES: Normal reaction of pupils, equal size. Conjunctiva pink, slight yellow discoloration noted. NOSE: Clear with pink turbinates. THROAT: No erythema or exudates. NECK: No masses, no JVD, no thyroid enlargement, no adenopathy. CHEST: No chest wall deformity. Symmetrical expansion. LUNGS: Equal air entry no crackles, no rhonchi, no wheezes. CVS: Regular rate and rhythm, normal S1 and S2, no gallops, no murmurs, no rubs ABDOMEN: Soft, nontender, no megaly, no rebound, no guarding, positive bowel sounds. EXTREMITIES: No clubbing, no edema, no cyanosis, 2+ pulses and upper and lower extremities. MUSCULOSKELETAL: Muscle strength and tone normal. SPINE: No scoliosis or deformity SKIN: No rashes CENTRAL NERVOUS SYSTEM: More awake today, alert and oriented 3, no gross focal deficits - Labs CBC & Chem 7: 02/12/19 04:45 02/12/19 04:45 Labs: Abnormal Lab Results - Last 24 Hours (Table) 02/12/19 02/12/19 02/12/19 Range/Units 04:45 04:45 04:45 WBC 31.9 H (3.8-10.6) k/uL RDW 16.6 H (11.5-15.5) % Plt Count 61 L (150-450) k/uL Chloride 108 H (98-107) mmol/L BUN 120 H* (9-20) mg/dL Creatinine 3.48 H (0.66-1.25) mg/dL Glucose 167 H (74-99) mg/dL Calcium 6.9 L (8.4-10.2) mg/dL Total Bilirubin 6.4 H (0.2-1.3) mg/dL Conjugated Bilirubin 1.9 H (0.0-0.3) mg/dL Unconjugated Bilirubin 2.6 H (0.0-1.1) mg/dL Delta Bilirubin 1.9 H (0.0-0.2) mg/dL AST 191 H (17-59) U/L ALT 611 H (21-72) U/L Total Protein 4.7 L (6.3-8.2) g/dL Albumin 2.2 L (3.5-5.0) g/dL Microbiology - Last 24 Hours (Table) 02/08/19 20:58 Blood Culture - Preliminary Blood No Growth after 72 hours 02/09/19 13:15 Gram Stain - Final Sputum Sputum Culture - Final Janet glabrata Janet albicans Assessment and Plan Assessment: #1. Acute abdominal pain, strongly suspect ischemic bowel, mostly secondary to underlying atrial fibrillation, and hypoperfusion with shocked liver. Clinicall y improving. #2. Lower GI bleeding, secondary to ischemic colitis is strongly suspected. However no further bleeding is noted. #3. Acute abdominal sepsis is suspected. Remains on Flagyl and Zosyn. #4. Elevated liver transaminases, most likely secondary to shocked liver. Continues to improve. #5. Recent non-ST elevated myocardial infarction #6. Ischemic cardiomyopathy, with an estimated ejection fraction of 20-25% and a recent history of left atrial appendage thrombus #7. Acute on Chronic kidney disease stage III , most likely secondary to hypoperfusion and acute tubular necrosis. #8. Lactic acidosis related to the possibility of sepsis, and bowel ischemia. #9. Mild exacerbation of COPD #10. History of hypertension #11. Hyperlipidemia #12. Coronary artery disease with previous bypass grafting and stenting Recommendation: Continue antibiotics Continue to monitor in the ICU. Discontinue bicarb drip, increase IV fluids 0.9 normal saline at 75 mL per hour. Continue IV fluids and monitor renal profile Continue bronchodilators. Continue Solu-Medrol at a lower dose. Will continue to follow closely. Prognosis remains definitely guarded. Time with Patient: Less than 30
[2019-02-12 13:35] VITALS: RESP 13
[2019-02-12] MEDS ORDERED: HYDROcodone/APAP 5-325MG 1 EACH TAB PO PRN (14:16)
--- NOTE | 2019-02-12 14:25 | CDI ---
Documentation Clarification Form Date: 02/12/2019 2:16:34 PM From: Heydi RamiresWANDA, CCDS Admit Date: 02/08/2019 11:38:00 PM Patient Name: Jonas Rangel Visit Number: [id number] Discharge Date: ATTENTION: The Clinical Documentation Specialists (CDI) and [facility] Coding Staff appreciate your assistance in clarifying documentation. Please respond to the clarification below the line at the bottom and electronically sign. The CDI & [facility] Coding staff will review the response and follow-up if needed. Please note: Queries are made part of the Legal Health Record. If you have any questions, please contact the author of this message via ITS. Dr. Richard Kaur: Per the attending, pulmonary notes & nephrology notes: "Persistent atrial flutter fibrillation with atrial tachycardia, on anticoagulation." History/Risk Factors: Systolic CHF, CAD status post bypass, COPD, ex smoker, PAD, OA, Pacemaker, CKD III. Clinical Indicators: Admitted with suspected ischemic colitis & acute abdominal sepsis. Atrial fibrillation as above. EKG/telemetry: R 110 sinus tachycardia w/occasional PVCs, Lt axis deviation & RBBB Treatment: IV Dilaudid, IV Zofran, IV fluid bolus, IV fluid rate 100, IV Zosyn, INH Albuterol, IV Solucortef, IV Folumedrol, IV Flagyl, po Plavix, IV Lasix. In your professional opinion, can you please clarify the type of Atrial Fibrillation, if known? Chronic (with rapid ventricular response) Paroxysmal Permanent Persistent (chronic) (NOS) (oth Other, please specify Unable to determine Please specify if the patient is or was in atrial flutter with specified type if known: Atypical Type I Type II Typical Other/unspecified Unable to determine (Last Revision: June 2017) Atrial tachycardia MTDD
--- NOTE | 2019-02-12 15:32 | PN ---
PROGRESS NOTE Patient is seen for followup for acute kidney injury. It was mainly ATN, nonoliguric. Patient's serum creatinine has worsened. His urine output has also dropped. Patient was resuscitated with IV fluids, as his lactic acid was up to 8 on initial admission. He is maintained on empiric antibiotics. Patient also had shock liver from hypotension and hypoperfusion, and this is improving. This morning patient states he does not want to continue any further medical therapy and is considering code status change and hospice care. PHYSICAL EXAMINATION: On examination this morning, patient is comfortable, awake. He is not in any acute distress. Blood pressure is 116/71, heart rate 102 per minute. He is afebrile. EXAMINATION OF THE HEART: S1 and S2. EXAMINATION OF LUNGS: Decreased breath sounds at bases. ABDOMEN: Soft, distended. Non-tender. Examination of lower extremities shows trace edema bilaterally. [employer]OVEL MECH[employer]IC exam is grossly intact. LABS: Sodium 139, potassium 4.0, chloride 108. BUN 120, serum creatinine 3.48, calcium 6.9. Hemoglobin 14.7. ASSESSMENT: 1. Acute kidney injury, acute tubular necrosis, initially nonoliguric, currently oliguric with low urine output. No plans for renal replacement therapy. Patient is considering hospice care. He was maintained on IV fluids, which were decreased yesterday and are now at 50 mL/hour. No nephrotoxic agents on board. 2. Abdominal pain, most likely secondary to underlying bowel ischemia, currently maintained on antibiotics. Symptoms have improved with fluid resuscitation. 3. Lactic acidosis, now improved. 4. Shock liver. Liver enzymes are improving. 5. Chronic kidney disease, stage III, secondary to nephrosclerosis. Baseline creatinine 1.2 to 1.4. 6. Congestive heart failure, chronic; ejection fraction 20% to 25%. PLAN: Continue IV fluids at 50 mL/hour. If patient continues to have poor urine output, we can try a dose of Lasix. Patient is not a candidate for renal replacement therapy. He is considering hospice care. MMODL / IJN: [id number] /
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
--- NOTE | 2019-02-12 16:05 | P.DS ---
Providers Date of admission: 02/08/19 23:38 Attending physician: Brooks Courtney Consults: 02/08/19 23:07 Consult Physician Stat Consulting Provider: Richard Kaur Consult Reason/Comments: post stemi, pulmonary effusion, chf, arf Do you want consulting provider notified?: Yes, Notify in am Consult Physician Stat Consulting Provider: Mimi Marinelli Consult Reason/Comments: Acute liver failure, ascites Do you want consulting provider notified?: Yes, Notify in am 02/08/19 23:13 Consult Physician Stat Consulting Provider: Andra Mendes Consult Reason/Comments: renal failure Do you want consulting provider notified?: Yes 02/09/19 10:19 Consult Physician Urgent Consulting Provider: Ketty Christopher Consult Reason/Comments: PVD Do you want consulting provider notified?: Yes 02/09/19 11:34 Consult Physician Stat Consulting Provider: Richard Francis Consult Reason/Comments: ICU management Do you want consulting provider notified?: Yes 02/09/19 12:19 Consult Physician Stat Consulting Provider: Darío Zabala Consult Reason/Comments: GI bleed, acute abdominal pain, lactic acidosis Do you want consulting provider notified?: Yes Primary care physician: Leroy Young Hospital Course: Final diagnosis Acute on chronic renal failure with baseline chronic kidney failure stage III Underlying ischemic colitis Possible sepsis multifactorial History of addisonian crisis Acute in onset and duration microinfarction recently Acute toxic metabolic considerably CAD stent the Metabolic acidosis History of for persistent atrial flutter fibrillation ventricular tachycardia CHF with chronic systolic dysfunction is recommended close the MCA ischemic cardiomyopathy Computed tomography scan COPD Superficial thrombosis right cephalic vein Physical ulcer disease History of right bundle-branch block Chronic right with lateral position No code no CPR event Comfort measures and hospice Discharge expiration The patient be discharged in a stable condition with guarded prognosis total time 35 minutes History of present illness This 76-year-old gentleman with a past medical history multiple medical problems was admitted with the acute on chronic renal failure and other multiple medical issues as mentioned earlier. Patient was treated in conjunction with the multiple consultants in ICU. The despite significant of monitoring and treatment the patient not improvement the case was discussed the family and the patient at length and they decided to follow with hospice care according to the the patient this was an informed decision. So the patient be discharged to [facility] in the care of Dr. Ochoa for continued hospice care. On exam vitals are stable cardio system respiratory system few scattered rhonchi abdomen soft obese no system no focals Please refer to the medication reconciliation sheet for the list of medications. Patient Condition at Discharge: Critical Plan - Discharge Summary New Discharge Prescriptions: New LORazepam [Ativan] 1 mg PO TID PRN #15 tab PRN Reason: Anxiety Ipratropium-Albuterol Nebulize [Duoneb 0.5 mg-3 mg/3 ml Soln] 3 ml INHALATION RT-QID ampul.neb HYDROcodone/APAP 5-325MG [[place] 5-325] 1 tab PO Q6HR PRN #10 tab PRN Reason: Pain Budesonide-Formot 160-4.5 Mcg [Symbicort 160-4.5 Mcg Inhaler] 2 puff INHALATION RT-BID puff Acetaminophen Tab [Tylenol Tab] 500 mg PO Q6H PRN #30 tablet PRN Reason: Pain Discontinued Nitroglycerin Sl Tabs [Nitrostat] 0.4 mg SUBLINGUAL Q5M PRN #25 tab PRN Reason: Chest Pain Clopidogrel [Plavix] 75 mg PO DAILY@1700 Ipratropium Nebulized [Atrovent Nebulized 0.2 MG/ML] 0.5 mg INHALATION RT-QID nebu guaiFENesin [Mucinex] 1,200 mg PO Q12HR #20 tablet.er Acetaminophen Tab [Tylenol] 650 mg PO Q4HR PRN tab PRN Reason: Fever And/ Or Pain Na Phos,M-B/Na Phos,Di-Ba [Fleet Adult] 133 ml RECTAL DAILY PRN PRN Reason: Constipation Famotidine [Pepcid] 20 mg PO BID@0800,1700 Bisacodyl [Dulcolax] 10 mg RECTAL DAILY PRN PRN Reason: Constipation Metoprolol Tartrate [Lopressor] 25 mg PO BID@0800,1700 Furosemide [Lasix] 40 mg PO BID@0600,1400 Apixaban [Eliquis] 2.5 mg PO BID@0800,1700 predniSONE See Taper PO DAILY@0800 Budesonide-Formot 160-4.5 Mcg [Symbicort 160-4.5 Mcg Inhaler] 2 puff INHALATION RT-BID@0800,1700 Amiodarone [Cordarone] 200 mg PO BID@0800,1700 Cefdinir [Omnicef] 300 mg PO DAILY@0800 Atorvastatin [Lipitor] 80 mg PO DAILY@2100 Spironolactone [Aldactone] 25 mg PO DAILY@0800 Aspirin 81 mg PO DAILY@1700 Magnesium Hydroxide [Milk of Magnesia Concentrate] 7,200 mg PO DAILY PRN PRN Reason: Constipation Discharge Medication List Acetaminophen Tab [Tylenol Tab] 500 mg PO Q6H PRN #30 tablet 02/12/19 [Rx] Budesonide-Formot 160-4.5 Mcg [Symbicort 160-4.5 Mcg Inhaler] 2 puff INHALATION RT-BID puff 02/12/19 [Rx] HYDROcodone/APAP 5-325MG [[place] 5-325] 1 tab PO Q6HR PRN #10 tab 02/12/19 [Rx] Ipratropium-Albuterol Nebulize [Duoneb 0.5 mg-3 mg/3 ml Soln] 3 ml INHALATION RT-QID ampul.neb 02/12/19 [Rx] LORazepam [Ativan] 1 mg PO TID PRN #15 tab 02/12/19 [Rx] Follow up Appointment(s)/Referral(s): Leroy Young MD [Primary Care Provider] - 1-2 days
[2019-02-12] MEDS: CLOPIDOGREL 75 MG TAB PO SCH (16:19)
[2019-02-12 17:40] VITALS: BP 109/98; PULSE 82
== END 2019-02-12 19:34 | disposition hospice, inpatient (51) | DRG 871 ==
LOC: EC 19:27 → 3SCARD 23:38 → 2SICU 02-09 12:00
PROVIDERS: ADMIT Hospitalist; ATTEND Hospitalist
PROC: 03HY32Z Insertion of Monitoring Device into Upper Artery, Percutaneous Approach (ICD-10-PCS; principal; 2019-02-08)
DX: A41.9 Sepsis, unspecified organism (principal); G92 Toxic encephalopathy; K72.00 Acute and subacute hepatic failure without coma; N17.0 Acute kidney failure with tubular necrosis; R65.21 Severe sepsis with septic shock; E87.2 Acidosis; I13.0 Hypertensive heart and chronic kidney disease with heart failure and stage 1 through stage 4 chronic kidney disease, or unspecified chronic kidney disease; I47.1 Supraventricular tachycardia; I47.2 Ventricular tachycardia; I48.92 Unspecified atrial flutter; I50.22 Chronic systolic (congestive) heart failure; I82.611 Acute embolism and thrombosis of superficial veins of right upper extremity; J44.0 Chronic obstructive pulmonary disease with (acute) lower respiratory infection; J44.1 Chronic obstructive pulmonary disease with (acute) exacerbation; K55.9 Vascular disorder of intestine, unspecified; R18.8 Other ascites; E78.5 Hyperlipidemia, unspecified; E86.0 Dehydration; F41.9 Anxiety disorder, unspecified; I25.10 Atherosclerotic heart disease of native coronary artery without angina pectoris; I25.2 Old myocardial infarction; I25.5 Ischemic cardiomyopathy; I27.20 Pulmonary hypertension, unspecified; Z66 Do not resuscitate; Z51.5 Encounter for palliative care; I34.0 Nonrheumatic mitral (valve) insufficiency; I45.10 Unspecified right bundle-branch block; I48.91 Unspecified atrial fibrillation; I65.01 Occlusion and stenosis of right vertebral artery; I73.9 Peripheral vascular disease, unspecified; K57.30 Diverticulosis of large intestine without perforation or abscess without bleeding; K59.00 Constipation, unspecified; K75.89 Other specified inflammatory liver diseases; M19.91 Primary osteoarthritis, unspecified site; N18.3 Chronic kidney disease, stage 3 (moderate); Z79.01 Long term (current) use of anticoagulants; Z79.02 Long term (current) use of antithrombotics/antiplatelets; Z79.51 Long term (current) use of inhaled steroids; Z79.82 Long term (current) use of aspirin; Z79.899 Other long term (current) drug therapy; Z85.46 Personal history of malignant neoplasm of prostate; Z86.73 Personal history of transient ischemic attack (TIA), and cerebral infarction without residual deficits; Z87.891 Personal history of nicotine dependence; Z95.1 Presence of aortocoronary bypass graft; Z95.5 Presence of coronary angioplasty implant and graft; Z95.810 Presence of automatic (implantable) cardiac defibrillator
CPT/HCPCS: 36415; 71045; 74176; 76705; 80048; 80053; 80074; 80076; 81001; 82140; 82150; 82272; 82805; 83605; 83690; 83735; 84484; 85025; 85027; 85610; 85730; 86038; 86850; 86900; 86901; 87040; 87070; 87205; 87324; 93005; 93308; 94640; 96361; 96365; 96375; 99285